=== PATIENT | female | born 1950 | race Caucasian/White ===

== ENCOUNTER 2023-11-21 07:44 | Outpatient (AMB) | payer MEDICARE, OTHER, SELFPAY ==
--- NOTE | 2023-11-21 07:46 | A.OFFVIS_ITS ---
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 The patient describes her pain as sharp in nature. She did injure her low back proximally 6 months ago while lifting a heavy suitcase. Since that time her pain has gotten worse. She also reports intermittent weakness in her right leg. She has undergone 2 low back surgeries by Dr. Banks in the past. She states that the most recent surgery was approximately 2014. The patient also underwent left total knee replacement surgery in 2020. She reports mild intermittent discomfort in her knee. She denies any locking or giving way. Allergies No Known Allergies Allergy (Verified 11/21/23 08:01) [facility] Surgical History (Updated 11/21/23 @ 08:03 by Jocelynn Angeles CMA) History of back surgery History of hip surgery History of hip surgery Hx of hysterectomy Hx of appendectomy Hx of left knee surgery Social History (Updated 11/21/23 @ 08:03 by Jocelynn Angeles CMA) Patient Tobacco Use Status: Never used Tobacco Current occupational status: retired Current occupation: Right hand dominate Physical Exam Vital Signs: BMI result Body Mass Index 27.5 Const Other: Well-nourished well-developed very friendly female awake alert and oriented x3 in no acute distress Back/Spine/Pelvis Other: Low back examination shows right-sided paraspinal muscle tenderness, pain with range of motion, positive straight leg raise test on the right at 70 degrees, 4/5 strength with testing of her right hip flexors and knee extensors when compared to 5/5 strength on her left side Extrem Other: Left knee examination shows that the surgical incision is well healed, no erythema, full active extension and flexion to 120 degrees, her patella tracks well Results Reviewed Results Reviewed: X-rays of the patient's left knee show a total knee arthroplasty in good position with no signs of loosening, no acute bony abnormalities Assessment & Plan Assessment & Plan (1) Low back pain radiating to right lower extremity: Code(s): M54.50 - Low back pain, unspecified; M79.604 - Pain in right leg Plan Ms. Montes continues to do well after undergoing left total knee replacement surgery in 2019. She does know to take antibiotics before any dental work. The patient does have progressively worsening low back pain which radiates down her right leg as well as associated right leg weakness most likely due to lumbar stenosis or a disc herniation. Thus, I will send the patient for an MRI of her lumbar spine for further evaluation. I will see her back once the MRI is completed. Feel free to call me at any time should questions regarding her orthopedic management arise. I spent 22 minutes in reviewing the patient's records and imaging studies, seeing the patient and documenting in the medical record. Orders: Orders XR knee LT 3V Today M25.562 - Pain in left knee MR lumbar spine wo con Today M54.50 - Low back pain, unspecified, M79.604 - Pain in right leg Coding Level of Care Code Est Pt Level 2 (03461) Diagnoses Low back pain radiating to right lower extremity M54.50; M79.604
[2023-11-21 07:57] VITALS: BMI 27.5
== END 2023-11-21 08:20 | disposition home or self-care (01) ==
PROVIDERS: PCP Internal Medicine; Visit Provider Orthopaedic Surgery
DX: M54.50 Low back pain, unspecified (principal); M79.604 Pain in right leg
CPT/HCPCS: 99213

== ENCOUNTER 2023-11-21 09:16 | Outpatient (REF) | payer MEDICARE, OTHER, SELFPAY ==
--- NOTE | ~2023-11-21 | XR_ITS ---
EXAMINATION: XR KNEE, LEFT CLINICAL INFORMATION: Pain in left knee. COMPARISON: None available. TECHNIQUE: 3 views of the left knee. FINDINGS: Status post left knee total arthroplasty. Hardware appears intact. No significant joint effusion. Alignment preserved. XR/XR knee LT 3V IMPRESSION: Status post left knee total arthroplasty. Hardware appears intact. Alignment preserved.
== END 2023-11-21 09:17 | disposition home or self-care (01) ==
LOC: HO.HOSX 09:16
PROVIDERS: Visit Provider Orthopaedic Surgery
DX: M25.562 Pain in left knee (principal); M54.50 Low back pain, unspecified; M79.604 Pain in right leg
CPT/HCPCS: 73562; 99212

== ENCOUNTER 2023-12-03 09:36 | Outpatient (AMB) | payer MEDICARE, OTHER, SELFPAY ==
[2023-12-03 09:41] VITALS: BMI 27.5
--- NOTE | 2023-12-03 09:41 | A.OFFVIS_ITS ---
Vital Signs 12/03/23 09:41 Height 5 ft 4 in Weight 160 lb BMI 27.5 Intake Visit Reasons: OV - C Spine MRI Review Intake Note: Jailyn is a 73 year old female who presents with complaints of progressively worsening low back pain which radiates down her right leg. The patient describes her pain as sharp in nature. She did injure her low back proximally 6 months ago while lifting a heavy suitcase. Since that time her pain has gotten worse. She also reports intermittent weakness in her right leg. She has undergone 2 low back surgeries by Dr. Banks in the past. She states that the most recent surgery was approximately 2014. She has tried Tylenol, anti- inflammatory medicines and lidocaine patches which gave her only mild relief. Allergies No Known Allergies Allergy (Verified 12/03/23 09:46) Medication List - Last Reconciled 12/03/23 by Hector Ortiz MD lidocaine 5% 1 patch topical DAILY PFSH Surgical History (Updated 11/21/23 @ 08:03 by Jocelynn Angeles CMA) History of back surgery History of hip surgery History of hip surgery Hx of hysterectomy Hx of appendectomy Hx of left knee surgery Social History (Updated 11/21/23 @ 08:03 by Jocelynn Angeles CMA) Patient Tobacco Use Status: Never used Tobacco Current occupational status: retired Current occupation: Right hand dominate Physical Exam Vital Signs: BMI result Body Mass Index 27.5 Const Other: Well-nourished well-developed very friendly female awake alert and oriented x3 in no acute distress Back/Spine/Pelvis Other: Low back examination shows right-sided paraspinal muscle tenderness, pain with range of motion, positive straight leg raise test on the right at 70 degrees Results Reviewed Results Reviewed: MRI of the patient's lumbar spine shows advanced stenosis at level L4-L5 and level L5-S1 which has progressed when compared to prior study Assessment & Plan Assessment & Plan (1) Lumbar stenosis with neurogenic claudication: Code(s): M48.062 - Spinal stenosis, lumbar region with neurogenic claudication Category: Medical Plan Ms. Montes presents with progressively worsening low back pain which radiates into her right leg due to worsening of her lumbar stenosis. Thus, I will refer her to the neurosurgery department here at [facility]. She will contact me prior to that appointment should her symptoms worsen in way. Feel free to call me at any time should questions regarding her orthopedic management arise. I spent 21 minutes in reviewing the patient's records and imaging studies, seeing the patient and documenting in the medical record. Orders: Referrals Neurosurgery Referral M48.062 - Spinal stenosis, lumbar region with neurogenic claudication Medications: New lidocaine 5% leave on most painful area for up to 12 hrs 1 patch topical DAILY 30 ea 2RF Coding Level of Care Code Est Pt Level 3 (09242) Diagnoses Lumbar stenosis with neurogenic claudication M48.062
== END 2023-12-03 10:12 | disposition home or self-care (01) ==
PROVIDERS: PCP Internal Medicine; Visit Provider Orthopaedic Surgery
DX: M48.062 Spinal stenosis, lumbar region with neurogenic claudication (principal)
CPT/HCPCS: 99213

== ENCOUNTER → 2023-12-03 09:36 | Outpatient (BNVA) | payer MEDICARE, OTHER, SELFPAY | PROVIDERS: PCP Internal Medicine; Visit Provider Orthopaedic Surgery | DX: M48.062 Spinal stenosis, lumbar region with neurogenic claudication (principal) | CPT/HCPCS: 99212 ==

== ENCOUNTER 2023-12-13 08:50 | Outpatient (REF) | payer MEDICARE, OTHER, SELFPAY ==
--- NOTE | ~2023-12-13 | XR_ITS ---
EXAMINATION: XR LUMBOSACRAL SPINE WITH OBLIQUES CLINICAL INFORMATION: Spinal stenosis lumbar region with neurogenic claudication. COMPARISON: None available. TECHNIQUE: 4 views of the lumbar spine. FINDINGS: The bones are diffusely demineralized. Dextroscoliosis of the lumbar spine. Degenerative changes in the bilateral sacroiliac joints. Advanced degenerative changes in the imaged lower thoracic spine. Facet arthritis in the [id number] lumbar spine. There appears to be transitional anatomy, although visualization limited due to overlying structures and advanced degenerative changes. Dedicated images of the spine recommended to confirm numeration prior to any procedure/intervention. For the purposes of this report, vertebral body referred to as T12 demonstrates hypoplastic ribs. Tip of tubing projects in the left upper quadrant of the abdomen. Advanced multilevel degenerative changes in the lumbar spine with multilevel loss of disc space height. Marked anterolisthesis of L5 on S1 with flexion and extension. Mild anterolisthesis of L4 on L5 with extension and flexion. Minimal retrolisthesis of L3 on L4 with flexion and extension. XR/XR lumbar spine 4V min IMPRESSION: Severe multilevel degenerative changes in the lumbar spine as detailed above.
== END 2023-12-13 08:51 | disposition home or self-care (01) ==
LOC: HO.HOSX 08:50
PROVIDERS: PCP Internal Medicine; Visit Provider Physician Assistant
DX: M48.062 Spinal stenosis, lumbar region with neurogenic claudication (principal)
CPT/HCPCS: 72110; 99202

== ENCOUNTER 2023-12-13 08:50 | Outpatient (AMB) | payer MEDICARE, OTHER, SELFPAY ==
--- NOTE | 2023-12-13 08:58 | A.SPINEOV_ITS ---
Intake Visit Reasons: spinal stenosis Intake Note: Ms. Montes is here today c/o Right sided sciatica that radiates down the leg to the ankle. [employer] Required: No Allergies No Known Allergies Allergy (Verified 12/13/23 09:02) Assessment & Plan Assessment & Plan (1) Lumbar stenosis with neurogenic claudication: Code(s): M48.062 - Spinal stenosis, lumbar region with neurogenic claudication Category: Medical Plan Dear Dr Ortiz, Thank you for referring Mrs Montes to our office today. She is a very nice 73-year-old female who had a previous left L5-S1, L4-[address] Banks about 8-10 years ago. She had great success with that surgery. Around 1 year ago she fell and sustained what she describes as compression fractures at L4 and L5. She went to the urgent care orthopedic office in [place] and was told that the should heal on their own but bedrest was the treatment. She decided that would be too difficult to stay in bed and managed to get through the pain and discomfort by just being active but gentle with herself. Fast forward to August of 2023, she was bending forward to pick something up out of a refrigerator and felt a pop in her back. There were 2 subsequent episodes where she was leaning forward and picking something up including a suitcase and felt the pain again but this time by the end of August there was pain running down her right leg into her outer calf in the top of her foot with tingling in the top of her foot. She underwent an MRI showing spondylolisthesis at L5-S1 and L4-5 with compression of the nerves in the foramen. She is referred to us for evaluation. As of right now the only thing she is taking is a topical cream and Advil. These things seemed to work okay. She had a history of a bleeding ulcer 1 point from Advil so she has only been taking it sparingly. She has had no PT, injections, chiropractic or other treatment thus far. No cauda equina symptoms. PMH: Former history of alcoholism, appendectomy, hysterectomy, back operations as listed above, hysterectomy, she has had both hips replaced and her left knee replaced. She has a previous history of peptic ulcer disease related to Motrin use but that resolved after treatment with a proton pump inhibitor. She had previously had hypertension high cholesterol as well but when she stopped drinking these issues went away. Denies any history of heart attacks, strokes, bleeding disorders, cancers, liver disease, kidney disease, major abdominal surgery . Social hx:She is a recovering alcoholic, after a number of years ago for about 5 years or so she tells me she was a very heavy drinker. She has been an alcoholics anonymous for 2 years. She quit smoking 20 years ago. Does not use any recreational drugs Medications: She currently does not take any regular medications outside of the Advil and topical ointment as needed Allergies: None Physical exam: Straight leg raise at about 30-40 degrees, strength normal in bilateral lower extremities with absent reflexes at the patella Imaging review: She has a lumbar MRI done at [facility], compared to previous MRI done in 2016 shows progression of spondylolisthesis at L5-S1, as well as new spondylolisthesis at L4-5. There has a suspicion for spondylolysis at the L5 pars. There is neuroforaminal stenosis on the right at L4 and L5. There is some STIR hyperintensity still in the bones at L4 and L5 suggesting there may be an ongoing subacute component of a compression fracture here as well. Impression: 73-year-old female with history of 2 previous back surgeries done by Dr. Banks about 8-10 years ago including L4-5 laminectomy and left L5-S1 metrics procedure, with good relief, sustained L4 and L5 compression fractures about a year ago for which she recovered without any issue. She is bending for to pick something up out of her refrigerator maybe 3 months ago or so and felt an acute right-sided low back pain. This ultimately transitioned into an L5 distribution radiculopathy down the right leg. Her MRI shows significant fin dings as outlined above including spondylolisthesis at L4-5 and L5-S1, both progressing since her last MRI done in 2016. She has right-sided foraminal stenosis and a slight scoliosis. I sent the patient for standing flexion- extension x-rays. These show slight worsening of the spondylolisthesis with standing. I suspect there is a degree of instability here. Her bone quality however looks like she has osteoporosis. In order to adequately fix this, she is likely looking at some kind of instrumentation and with her bone quality, she may be high risk for complications. At this point without any dedicated conservative treatment I am going to send her to physical therapy which she is requesting as well. I will also send her to Dr. Madden to see if he can do an L5 nerve block on the right side. Maybe this will be enough just to help her get through and make things little more tolerable. If in the end these things are not giving her any improvement, she may end up needing surgery. I would like to review all of her imaging with Dr. Fallon. I will see the patient back in 6-8 weeks and re-evaluate. Thank you for allowing us to care for your patient. The total time spent with this visit with this patient was 45 minutes reviewing history, physical exam, lumbar imaging review, and implementation of treatment plan or further diagnostic testing Leandro Fallon MD,PhD [facility] Orders: Orders PT Evaluation and Treatment Today M48.062 - Spinal stenosis, lumbar region with neurogenic claudication XR lumbar spine 4V min Today M48.062 - Spinal stenosis, lumbar region with neurogenic claudication Referrals Physiatry Referral M48.062 - Spinal stenosis, lumbar region with neurogenic claudication Coding Level of Care Code New Pt Level 4 (76714) Diagnoses Lumbar stenosis with neurogenic claudication M48.062
== END 2023-12-13 10:19 | disposition home or self-care (01) ==
PROVIDERS: PCP Internal Medicine; Referring Provider Orthopaedic Surgery; Visit Provider Physician Assistant
DX: M48.062 Spinal stenosis, lumbar region with neurogenic claudication (principal)
CPT/HCPCS: 99204

== ENCOUNTER 2024-01-08 08:16 | Outpatient (AMB) | payer MEDICARE, OTHER, SELFPAY ==
--- NOTE | 2024-01-08 08:17 | MHC.OFFVIS ---
Vital Signs 01/08/24 08:19 Height 5 ft 4 in Weight 160 lb BMI 27.5 Intake Visit Reasons: Right knee pain Intake Note: Jailyn is a 73 year old female who presents with complaints of progressively worsening right knee pain. She did undergo left total knee replacement surgery in the past. She reports minimal discomfort in her left knee. She describes her right knee pain as sharp in nature. She has had cortisone injections in the past which gave her fairly good relief. She has tried Tylenol and anti-inflammatory medicines which gave her only mild relief. She wishes to hold off on right total knee replacement surgery for as long as possible. Allergies No Known Allergies Allergy (Verified 01/08/24 08:19) Medication List - Last Reconciled 01/10/24 by Hector Ortiz MD lidocaine 5% 1 patch topical DAILY [facility] Surgical History (Updated 11/21/23 @ 08:03 by Jocelynn Angeles CMA) History of back surgery History of hip surgery History of hip surgery Hx of hysterectomy Hx of appendectomy Hx of left knee surgery Social History Patient Tobacco Use Status: Never used Tobacco Current occupational status: retired Current occupation: Right hand dominate Physical Exam Vital Signs: BMI result Body Mass Index 27.5 Const Other: Well-nourished well-developed very friendly female awake alert and oriented x3 in no acute distress Extrem Other: Bilateral lower extremity examination shows good capillary refill, no skin lesions noted, normal sensation light touch Right knee examination shows a minimal effusion, palpable crepitus with range of motion, pain with range of motion, no instability Office Procedures Joint Injection/Drain Joint Injection/Drain Primary Site: right knee Prep: site was prepped using aseptic technique Injected: 40 mg of, Kenalog and 1% plain lidocaine Procedure: The patient tolerated the procedure well Coding 96065 - Large joint Procedure code (CPT) selection complete Assessment & Plan Assessment & Plan (1) Arthritis of right knee: Code(s): M17.11 - Unilateral primary osteoarthritis, right knee Category: Medical (2) Right knee pain: Code(s): M25.561 - Pain in right knee Plan Ms. Montes presents with right knee pain due to degenerative joint disease. I had a lengthy discussion with the patient regarding the treatment options. The risks and benefits of a right knee cortisone injection were discussed at length with the patient. The patient wished to proceed. She tolerated the injection well. She will continue with her home exercise program. She will follow up with me on an as-needed basis should his symptoms not plateau at an unacceptable level over the next few months. Feel free to call me at any time should questions regarding her orthopedic management arise. I spent 20 minutes in reviewing the patient's records and imaging studies, seeing the patient and documenting in the medical record. Orders: Orders AMB Joint Injection/Aspiration 01/08/24 M17.11 - Unilateral primary osteoarthritis, right knee Coding Level of Care Code Est Pt Level 3 (43616) Diagnoses Arthritis of right knee M17.11 Right knee pain M25.561 CPT Codes Coding - 73578 Large joint: 43061 - Large joint ([id number])
[2024-01-08 08:19] VITALS: BMI 27.5
== END 2024-01-08 08:40 | disposition home or self-care (01) ==
PROVIDERS: PCP Internal Medicine; Visit Provider Orthopaedic Surgery
DX: M17.11 Unilateral primary osteoarthritis, right knee (principal)
CPT/HCPCS: 20610; 99213

== ENCOUNTER → 2024-01-08 08:16 | Outpatient (BNVA) | payer MEDICARE, OTHER, SELFPAY | PROVIDERS: PCP Internal Medicine; Visit Provider Orthopaedic Surgery | DX: M17.11 Unilateral primary osteoarthritis, right knee (principal) | CPT/HCPCS: 20610; 99212; J1010 ==

== ENCOUNTER 2024-01-23 07:00 | Outpatient (RCR) | payer MEDICARE, OTHER, SELFPAY ==
--- NOTE | 2024-01-01 15:24 | MHC.PT.EP ---
[facility] [place] Office [place] Office [place] Office [address] Elana Hubbard [address] [phone] F: [phone] F: [phone] F: [phone] F: [phone] Physical Therapy Plan of Care Date of Evaluation: 01/01/24 Date of Surgery: Diagnosis: SPINAL STENOSIS, LUMBAR W NEUROGENIC CLAUDICATION -> TREAT LUMBAR RADICULOPATHY L4-5,L5-S1 SPONDYLOLISTHESIS Assessment: 73 YO , VERY MOTIVATED FEMALE REF TO PT W A DX OF SPINAL STENOSIS W LUMBAR REGION W NEUROGENIC CLAUDICATION W LUMBAR RADICULOPATHY L4-5,L5-S1; SHE HAS A H/O MARTHA KELLY Lt TKA/LUMBAR LAMINECTOMIES L4-5 AND L5-S1. THE Pt RESIDES ALONE- SHE HAS OBJECTIVE FINDINGS CONSISTING OF ALTERED POSTURE, (+) LUMBOPELVIC ASYMM W LLI, LIMITED HIP IR, DECR PROX LEs / LUMBOPELVIC STRENGTH, LIMITED TRUNK AROM, (+) STM TENSION IN MARTHA LS PS MM , AND FLUCTUATING LS PAIN W INTERM Rt LE RADIC SXS. SHE DENIES BOWEL/ BLADDER SIGNS/SXS. SHE WOULD BENEFIT FROM PT TO ADDRESS PAIN MGMT, DEV HEP, MONITOR LUMBOPELVIC SYMM SHE INITIATES HER HEP -> SHE MAY BENEFIT FROM A SMALL HEEL LIFT Rt . Frequency and Duration: The patient will be seen 2 x WK x 5 WKS Short Term Goals: *DECR LBP TO 2-3/10 AND REDUCE Rt LE RADIC SXS BY 60% *IMPROVE POSTURAL AWARENESS / BODY MECH TO REDUCE LB STRESS *INITIATE HEP *IMPROVE HIP FLEXIB Mcfp Goals: *Pt INDEP W HEP AND SELF SX MGMT *IMPROVE FUNCT MOB AND REG ADLs/ EXER EVIDENT W DECR OSWESTRY ( AT EVAL) *Pt DEMON 3:3 SIMUL ADLs W APPROP TECHN, BACK PROTECTION Treatment Plan: Modalities to reduce pain, spasms and effusion. Manual therapy to restore motion and function. Therapeutic exercise to improve strength and flexibility. Neuromuscular re-education for posture and balance. Therapeutic activities to return to functional activities of daily living. Electronically signed by: FERNANDA EM,PT Please sign and return to therapist. Thank you for your referral.
--- NOTE | 2024-02-25 15:03 | MHC.PT.DC ---
[facility] [place] Office [place] Office [place] Office [address] Elana Hubbard [address] [phone] F: [phone] F: [phone] F: [phone] F: [phone] Physical Therapy Discharge Report Diagnosis: SPINAL STENOSIS, LUMBAR W NEUROGENIC CLAUDICATION -> TREAT LUMBAR RADICULOPATHY L4-5,L5-S1 SPONDYLOLISTHESIS Date of Surgery: Date of Evaluation: 01/01/24 Date of Discharge: 02/25/24 Treatments to Date: 7 Cancellations to Date: 2 No Shows to Date: 0 Discharge Status: Patient Elected to Stop Discharge Summary: THE Pt HAS ATTENDED PT BUT DID NOT ATTEND HER LAST FEW APPTS- SHE HAS A HEP AND WE HAVE EDUC HER RE SELF-CORRECTION OF POSTURE/BODY MECHANICS TO REDUCE STRESS ON HER SPINE. SHE DID NOT MEET ALL OF HER PT GOALS AND A FORMAL REASSESSMENT WAS NOT PERFORMED DUE TO POOR ATTENDANCE. Electronically signed by: FERNANDA EM,PT Please sign and return to therapist. Thank you for your referral.
== END 2024-02-25 15:04 | disposition home or self-care (01) ==
LOC: HO.PT 07:00
PROVIDERS: PCP Internal Medicine; Visit Provider Physician Assistant
DX: M48.062 Spinal stenosis, lumbar region with neurogenic claudication (principal)
CPT/HCPCS: 97110; 97140; 97162

== ENCOUNTER 2024-03-10 10:12 | Outpatient (REF) | payer MEDICARE, OTHER, SELFPAY | END 2024-03-10 10:13 | disposition home or self-care (01) | LOC: HO.HOSX 10:12 | PROVIDERS: Visit Provider Orthopaedic Surgery | DX: Z13.89 Encounter for screening for other disorder (principal) ==

== ENCOUNTER 2024-03-11 08:57 | Outpatient (REF) | payer MEDICARE, OTHER, SELFPAY ==
--- NOTE | ~2024-03-11 | XR_ITS ---
EXAMINATION: XR KNEE, RIGHT CLINICAL INFORMATION: Pain right knee COMPARISON: None available. TECHNIQUE: Four views of the right knee. FINDINGS: Diffuse demineralization. Small joint effusion. Advanced degenerative changes in the medial compartment with loss of joint space, subchondral sclerosis and marginal osteophytes. Moderate patellofemoral spurring. XR/XR knee RT 3V IMPRESSION: Advanced degenerative changes in the medial compartment. Electronically signed by: Елена Gaytan MD 04/07/2024 09:31 AM EDT
== END 2024-03-11 08:58 | disposition home or self-care (01) ==
LOC: HO.XRAY 08:57
PROVIDERS: PCP Internal Medicine; Visit Provider Orthopaedic Surgery
DX: M25.561 Pain in right knee (principal)
CPT/HCPCS: 73562; 99212

== ENCOUNTER 2024-03-11 09:40 | Outpatient (AMB) | payer MEDICARE, OTHER, SELFPAY ==
--- NOTE | 2024-03-11 09:39 | A.OFFVIS_ITS ---
Intake Visit Reasons: OV-Right knee pain-follow up Intake Note: Jailyn is a 73 year old female who presents to the office today for a right knee pain follow up. Patient had a cortisone injection on 01/08/24 in the right knee but states the pain is worse and the injection didn't help. She states that she has had a nerve block procedure by Dr. Madden which gave her fairly good relief in the past. She did undergo left total knee replacement surgery in 2019. She wishes to hold off on right total knee replacement surgery if at all possible. Allergies No Known Allergies Allergy (Verified 03/11/24 09:40) Medication List - Last Reconciled 03/11/24 by Hector Ortiz MD lidocaine 5% 1 patch topical DAILY PFSH Surgical History (Updated 11/21/23 @ 08:03 by Jocelynn Angeles CMA) History of back surgery History of hip surgery History of hip surgery Hx of hysterectomy Hx of appendectomy Hx of left knee surgery Social History Patient Tobacco Use Status: Never used Tobacco Current occupational status: retired Current occupation: Right hand dominate Physical Exam Const Other: Well-nourished well-developed very friendly female awake alert and oriented x3 in no acute distress Extrem Other: Bilateral lower extremity examination shows good capillary refill, no skin lesions noted, normal sensation light touch Right knee examination shows a minimal effusion, palpable crepitus with range of motion, pain with range motion, no instability Results Reviewed Results Reviewed: X-rays of the patient's right knee taken today show end-stage degenerative joint disease with grade 4 [id number] arthritis in the medial compartment, subchondral sclerosis, osteophyte formation, no acute bony abnormalities Assessment & Plan Assessment & Plan (1) Arthritis of right knee: Code(s): M17.11 - Unilateral primary osteoarthritis, right knee Category: Medical Plan Ms. Montes presents with progressively worsening right knee pain due to end- stage degenerative joint disease. I had a lengthy discussion with the patient regarding the treatment options. The patient wishes to follow up with Dr. Madden to see if she can get another nerve block procedure to help with her pain. If she does not get relief from the procedure she is considering undergoing right total knee replacement surgery later this year or early next year. She will contact my office to pick a surgery date if she chooses to do so. Otherwise she will follow up with me on an as-needed basis. Feel free to call me at any time should questions regarding her orthopedic management arise. I spent 20 minutes in reviewing the patient's records and imaging studies, seeing the patient and documenting in the medical record. Orders: Orders XR knee RT 3V Today M25.561 - Pain in right knee Coding Level of Care Code Est Pt Level 3 (55121) Diagnoses Arthritis of right knee M17.11
== END 2024-03-11 10:10 | disposition home or self-care (01) ==
PROVIDERS: PCP Internal Medicine; Visit Provider Orthopaedic Surgery
DX: M17.11 Unilateral primary osteoarthritis, right knee (principal)
CPT/HCPCS: 99213

== ENCOUNTER → 2024-04-24 08:37 | Outpatient (BNVA) | payer MEDICARE, OTHER, SELFPAY | PROVIDERS: PCP Internal Medicine | DX: Z01.818 Encounter for other preprocedural examination (principal) ==

== ENCOUNTER 2024-05-21 07:46 | Outpatient (AMB) | payer MEDICARE, OTHER, SELFPAY ==
--- NOTE | 2024-05-21 07:49 | A.OFFVIS_ITS ---
Intake Visit Reasons: Right knee pain Intake Note: Jailyn is 73 year old female who presents with complaints of progressively worsening right knee pain. The patient describes her pain as sharp and severe in nature, 05/07. Her pain has gotten worse over the last few years in spite of continued non operative treatments. She has had multiple injections. The most recent injection gave her minimal relief. She has also done physical therapy exercises which aggravated her pain. She has tried Tylenol and anti-i nflammatory medicines which gave her minimal relief. The patient did undergo left total knee replacement surgery in 1999. She denies any pain in her left knee. At this point her right knee pain is interfering with her activities of daily living and her ability to sleep well through the night. The patient has difficulty walking even short distances because of her right knee pain. Allergies Iodinated Contrast Media [IV Contrast Dye] Allergy (Intermediate, Verified 05/21/24 07:58) Itching and warm Medication List - Last Reconciled 05/21/24 by Hector Ortiz MD prednisone 1 mg PO DAILY [facility] Medical History History of cervical dysplasia (~1980) Hx of blood transfusion reaction (~1968) Back pain at L4-L5 level Back pain Seasonal allergies Osteoarthritis History of GI bleed (~1991) Sciatica Surgical History Hx of colonoscopy History of back surgery (~2015) History of hip surgery (~2019) History of hip surgery (~2008) Hx of hysterectomy Hx of appendectomy Hx of left knee surgery (~2019) Social History Household Members: None Caregiver staying overnight: No Are you a primary primary care pediatrician to a significant other at home: No Do you presently have visiting nurse or other home services: No 75 years or older and lives alone: Yes Comment: aware of trip hazard Patient Tobacco Use Status: Former Tobacco user Tobacco use type: Cigarette Second Hand Smoke Exposure: No Current occupational status: retired Current occupation: Right hand dominate Physical Exam Const Other: Well-nourished well-developed very friendly female awake alert and oriented x3 in no acute distress Extrem Other: Bilateral lower extremity examination shows good capillary refill, no skin lesions noted, normal sensation light touch Right knee examination shows a minimal effusion, palpable crepitus with range of motion, pain with range of motion, range of motion from -3 degrees to 115 degrees, no instability Results Reviewed Results Reviewed: X-rays of the patient's right knee taken previously show end-stage degenerative joint disease with grade 4 [id number] arthritis, subchondral sclerosis, no acute bony abnormalities Assessment & Plan Assessment & Plan (1) Right knee pain: Code(s): M25.561 - Pain in right knee Category: Medical (2) Arthritis of right knee: Code(s): M17.11 - Unilateral primary osteoarthritis, right knee Category: Medical Plan Ms. Montes presents with progressively worsening right knee pain due to end- stage degenerative joint disease. I had a lengthy discussion with the patient regarding the treatment options. At this point she has failed continued non operative treatments. The risks and benefits of right total knee replacement surgery were discussed at length with the patient. The patient wishes to proceed with surgery. coordinator of health services will be consulted following her surgery for inpatient rehabilitation. The patient did go to [facility] and had a good experience following her total hip replacement surgery. She wishes to return to [facility] rehab if at all possible following her right total knee replacement surgery. The patient will follow-up as instructed. Feel free to call me at any time should questions regarding her orthopedic management arise. I spent 22 minutes in reviewing the patient's records and imaging studies, seeing the patient and documenting in the medical record. Coding Level of Care Code Est Pt Level 3 (92562) Complex EM visit Add On G2211 Diagnoses Right knee pain M25.561 Arthritis of right knee M17.11
== END 2024-05-21 08:12 | disposition home or self-care (01) ==
PROVIDERS: PCP Internal Medicine; Visit Provider Orthopaedic Surgery
DX: M17.11 Unilateral primary osteoarthritis, right knee (principal)
CPT/HCPCS: 99213; G2211

== ENCOUNTER → 2024-05-21 07:46 | Outpatient (BNVA) | payer MEDICARE, OTHER, SELFPAY | PROVIDERS: PCP Internal Medicine; Visit Provider Orthopaedic Surgery | DX: M17.11 Unilateral primary osteoarthritis, right knee (principal) | CPT/HCPCS: 99212 ==

== ENCOUNTER 2024-05-25 09:03 | Outpatient (BNV) | payer MEDICARE, OTHER, SELFPAY | END 2024-05-26 08:19 | PROVIDERS: Admitting Provider Orthopaedic Surgery; PCP Internal Medicine; Visit Provider Internal Medicine | DX: R00.1 Bradycardia, unspecified (principal) | CPT/HCPCS: 93010 ==

== ENCOUNTER 2024-05-25 09:03 | Inpatient (IN) | payer MEDICARE, OTHER, SELFPAY ==
[2024-04-29 10:02] VITALS: BP 127/69; PULSE 68; RESP 16; O2SAT 98; BMI 30.2
--- NOTE | 2024-04-29 10:29 | HO.ANESPROP2 ---
Documented by User: Juliana Frey NP 04/29/24 10:54 HPI - Anesthesia Eval Consult details Narrative: 73yo F for Right Knee Replacement Total, 05/25/24 Medically optimized per PCP L4-5 steroid injection for back pain 04/08/24 Prednisone taper for sciatica/knee pain: Last day 05/01/24 PMFSH Active Problems Active Problems: All Active Problems Right knee pain (Acute) Arthritis of right knee (Acute) Lumbar stenosis with neurogenic claudication (Acute) Left knee pain (Acute) Past Medical History Medical History History of cervical dysplasia (~1980) Hx of blood transfusion reaction (~1968) Back pain at L4-L5 level Back pain Seasonal allergies Osteoarthritis History of GI bleed (~1991) Sciatica Family History Family history of problems with anesthesia: No Surgical History Surgical History Hx of colonoscopy History of back surgery (~2015) History of hip surgery (~2019) History of hip surgery (~2008) Hx of hysterectomy Hx of appendectomy Hx of left knee surgery (~2019) History of Problems with Anesthesia: No Social History Social History Household Members: None Are you a primary restorative care technician to a significant other at home: No Do you presently have visiting nurse or other home services: No Comment: aware of trip hazard Patient Tobacco Use Status: Former Tobacco user Tobacco use type: Cigarette Smoked in Last 30 Days: No Second Hand Smoke Exposure: No Use of substances other than those prescribed or required for medical reasons: No Have you been hit, kicked, punched, or otherwise hurt by someone within the past year? If so, by whom?: No Spiritual Healthcare Practices: none [facility] Practices: none Cultural Healthcare Practices: none Are you DNR?: No Advance Directives: No Advance Directives Information Provided: Yes Advance Directives on File: No Recently lost weight without trying: No Nutrition Risks: No Nutritional Risk Current occupational status: retired Current occupation: Right hand dominate Meds Allergies Allergy/AdvReac Type Severity Reaction Status Date / Time Iodinated Contrast Media Allergy Intermediate Itching Verified 05/25/24 09:07 [IV Contrast Dye] and warm Home Medications ?Medication ?Instructions ?Recorded ?Confirmed ?Last Taken ?Type prednisone 1 mg tablet 1 mg PO DAILY 04/29/24 05/21/24 Unknown History Exam Height,Weight and Vital Signs: Height 5 ft 3 in Weight 77.3 kg Last Vital Signs Pulse 68 04/29/24 10:02 Resp 16 04/29/24 10:02 BP 127/69 04/29/24 10:02 Pulse Ox 98 04/29/24 10:02 O2 Del Method Room Air 04/29/24 10:02 Airway Mallampati Class: II TM Dist: >3cm Neck ROM: Full Partial: Lower Heart: RRR Lungs: CTAB Assessment and Plan Assessment Anesthesia Assessment: Anesthesia Plan Discussed and PAT Visit Final Anesthetic Review Family History of Problems with Anesthesia: No History of Problems with Anesthesia: No Documented by User: Renata Mendoza MD 05/25/24 09:16 PMFSH Past Medical History Medical History History of cervical dysplasia (~1980) Hx of blood transfusion reaction (~1968) Back pain at L4-L5 level Back pain Seasonal allergies Osteoarthritis History of GI bleed (~1991) Sciatica Surgical History Surgical History Hx of colonoscopy History of back surgery (~2015) History of hip surgery (~2019) History of hip surgery (~2008) Hx of hysterectomy Hx of appendectomy Hx of left knee surgery (~2019) Social History Social History Household Members: None Are you a primary restorative care technician to a significant other at home: No Do you presently have visiting nurse or other home services: No Comment: aware of trip hazard Patient Tobacco Use Status: Former Tobacco user Tobacco use type: Cigarette Smoked in Last 30 Days: No Second Hand Smoke Exposure: No Use of substances other than those prescribed or required for medical reasons: No Have you been hit, kicked, punched, or otherwise hurt by someone within the past year? If so, by whom?: No Spiritual Healthcare Practices: none [facility] Practices: none Cultural Healthcare Practices: none Are you DNR?: No Advance Directives: No Advance Directives Information Provided: Yes Advance Directives on File: No Recently lost weight without trying: No Nutrition Risks: No Nutritional Risk Current occupational status: retired Current occupation: Right hand dominate Meds Allergies Allergy/AdvReac Type Severity Reaction Status Date / Time Iodinated Contrast Media Allergy Intermediate Itching Verified 05/25/24 09:07 [IV Contrast Dye] and warm Home Medications ?Medication ?Instructions ?Recorded ?Confirmed ?Last Taken ?Type prednisone 1 mg tablet 1 mg PO DAILY 04/29/24 05/21/24 Unknown History Assessment and Plan Final Anesthetic Review ASA Class: II (on prednisone for back pain, stopped 3 weeks ago) Final Preanesthetic Review: No Changes in Pt Med Stat, Meds/Allgs Chart Reviewed, Consent Obtained/Reviewed and Anes Risks/Benef Reviewed Patient Risk: Intermediate Procedure Risk: Intermediate Anesthetic Plan Anesthetic Plan: GA, Spinal and Regional Block Disposition: Standard PACU
[2024-04-29 12:11] LABS: MRSA Nasal PCR NEGATIVE (Negative); SA Nasal PCR NEGATIVE (Negative)
[2024-05-25] VITALS (15 sets, daily range): BP systolic 97–181; BP diastolic 44–82; PULSE 57–75; RESP 16–18; TEMP 36–36.7; O2SAT 96–100; BMI 29.2
--- NOTE | ~2024-05-25 | CT_ITS ---
EXAMINATION: CT HEAD WITHOUT CONTRAST CLINICAL INFORMATION: Syncope and loss of consciousness COMPARISON: None available. TECHNIQUE: Contiguous axial imaging was performed from the skull base to vertex without intravenous administration of contrast. This CT examination was performed using dose optimization techniques as appropriate, variously including the following: *Automated exposure control *Adjustment of mA and/or kV according to patient size (this includes techniques or standardized protocols for targeted exams where dose is matched to indication/reason for exam; i.e. extremities or head) *Use of iterative reconstruction technique DLP: 766 mGy-cm FINDINGS: There is prominence to the sulci and ventricles. No evidence however of intra or extra-axial fluid collection, hemorrhage, mass, or mass effect. Mild deep white matter gliosis is observed. Calvarium intact. CT/CT head/brain wo IV con IMPRESSION: No acute intracranial pathology. Electronically signed by: Cornell Arredondo MD 05/26/2024 09:49 AM EDT
[2024-05-25] MEDS: Lactated Ringers 1,000 ML 100 ML IVCONT ×3 (08:38→23:45)
--- OUTSIDE RECORDS SUMMARY | 2024-05-25 09:05 | XMS_ITS | Continuity of Care Document ---
Author Organization [facility] Address [address] [place] [id number]- Care Team Providers Care Environmental Protection Geologist Name Role Phone Tab Joe MD Primary Care Physician Encounter [facility] [place] Date(s): 09/25/21 - 12/07/[address] [address] Attending Physician: Tab Joe MD Admitting Physician: Tab Joe MD Referring Physician: Tab Joe MD Allergies, Adverse Reactions, Alerts Substance Reaction Severity Status Contrast Dye Active Medications hydrochlorothiazide 12.5 mg oral capsule = 12.5 mg, By Mouth, Daily, # 30 tablet, 0 Refills, Maintenance, 05/06/15 16:47:02, Capsule, 12.5 mg By Mouth Daily Start Date: 05/06/15 Status: Ordered Mucinex DM 1 tablet, By Mouth, Every 12 hours, PRN Nasal Congestion, 0 Refills, Maintenance, 05/05/15 20:15:59 Start Date: 05/05/15 Status: Ordered
--- NOTE | 2024-05-25 09:18 | PC.NURSE ---
Patient denied any allergies except to IVP dye. Iodine wash was used in nose as ordered and patient began sneezing, which stopped. After second questioning, patient stated iodine makes me sneeze. Added to allergy list. OR nurse alerted.
--- NOTE | 2024-05-25 09:35 | PHA.MEDREC ---
Pharmacy Consult ? Medication Reconciliation Pharmacy has reviewed the medication reconciliation completed by nursing.
--- NOTE | 2024-05-25 12:38 | P.BOP_ITS ---
Brief Operative Note Date of Service: 05/25/24 Pre-op diagnosis: Right knee degenerative joint disease Post-op diagnosis: same Procedure: Right total knee arthroplasty Implants: [place] [employer] cemented posterior stabilized total knee arthroplasty with a femoral component size 2 right, a tibial component size 2, polyethylene liner size 2 with 10 mm of thickness, a symmetric patellar component size 27 with 8 mm of thickness Surgeon: Hector Ortiz MD Anesthesia: regional and spinal Was an Metal Cutter used for this Procedure?: No Metal Cutter: Aurelia Stratton Estimated blood loss (mL): 150 Pathology: other (Bony fragments from the right femur, tibia and patella) Condition: stable Disposition: PACU
--- NOTE | 2024-05-25 12:39 | P.OP_ITS ---
Operative Note Operative Note Date of Service: 05/25/24 Narrative: After the patient was identified as Jailyn Montes and her right knee was initialed by myself the patient was brought to the holding area where a right leg nerve block was performed by the anesthesiologist in routine fashion. The patient was then brought to the operating room where conscious sedation and spinal anesthesia were performed by the anesthesiologist in routine fashion. The patient was given 2 g of IV Ancef preoperatively for infection prophylaxis. The patient's right lower extremity was prepped and draped in sterile fashion. A formal time-out was completed. The patient's right knee was placed onto a small bump to produce 30? of knee flexion during exposure. A #10 scalpel blade was used to make a midline incision extending 1 handbreadth proximal and distal to the patella. A second #10 scalpel blade was used to dissect the subcutaneous tissues down to the extensor mechanism. The subcutaneous flaps were maintained as thick as possible. A medial parapatellar arthrotomy was then performed using a #10 scalpel blade. The arthrotomy was begun just medial to the patellar tendon. The arthrotomy was continued 1 cm medial to the patella and then 5 mm into the medial aspect of the quadriceps tendon. The infrapatellar fat pad was partially excised to help with exposure. The soft tissue retinaculum was raised one-half of the way around the medial aspect of the proximal tibia. The patella was everted and the knee was flexed to 90?. There was no injury to the patellar tendon or its insertion onto the tibial tubercle. A drill bit was introduced into the distal aspect of the femur with a starting point 1 cm anterior to the origin of the posterior cruciate ligament. The intramedullary alignment jluis was put into place. The distal alignment guide was set for a 5 degree valgus cut. The distal cutting block was put into place and was held with 4 pins. The intramedullary alignment jluis was removed. Soft tissues were retracted in the distal femoral cut was made using a sagittal saw. The distal aspect of the femur measured to be a size 2 right component. Two drill holes were placed into the distal aspect of the femur marking 3? of external rotation. The distal cutting block was impacted into place and was held with 2 pins. Soft tissues were retracted and the 4 distal femoral cuts were made using a sagittal saw. Final notching and drilling of the distal aspect of the femur were performed in routine fashion. The trial femoral component was impacted into place. The knee was taken through a full range of motion. The patella tracked well. The patella was everted and the knee was flexed to 90?. The trial component was removed and our attention was directed to the proximal tibia. The medial and lateral menisci were removed using a #10 scalpel blade. A small rim of the medial meniscus was left intact to help prevent injury to the medial collateral ligament. A drill bit was then introduced into the proximal tibia with a starting point midway from medial to lateral and one-third of the way posteriorly. The intramedullary alignment jluis was put into place. The proximal tibial cutting guide was placed over the alignment jluis in line with the 2nd toe. The guide was held in place using 3 pins. The intramedullary alignment jluis was removed. Soft tissues were retracted and the proximal tibial cut was made using a sagittal saw. The proximal tibia measured to be a size 2 component. The tibial tray was put into place with a 10 mm liner. The femoral component was impacted into place. The knee was taken through a full range of motion. There was full flexion and full extension. There was no instability with varus or valgus stress testing with the knee in flexion or extension. The patella tracked well with no medially directed force. The rotation of the tibial tray was marked using electrocautery with the knee in extension. The patella was everted and the knee was flexed to 90?. All trial components were removed. The tibial tray was placed onto the proximal tibia in line with the electrocautery saul. The tray was held in place using 3 pins. Final broaching of the proximal tibia was performed in routine fashion. The trial liner and trial femoral component were put into place. The knee was brought into extension and our attention was directed to the patella. The patella measured 25 mm in thickness. The patellar resection guide was set for a 10 mm resection. Soft tissues were retracted and the patella cut was made using a sagittal saw. The remaining patella measured 15 mm in thickness. The undersurface of the patella was me asured to be a size 27 symmetric component. Three drill holes were placed into the undersurface of the patella in routine fashion. The trial component was put into place. The knee was taken through a full range of motion. The patella tracked well. The patella was everted and the knee was flexed to 90?. All trial components were removed. The knee was once again brought into extension and placed onto a small bump. The knee joint was irrigated with copious amounts of normal saline solution via pulse lavage while the cement was mixed. The patella was everted and the knee was flexed to 90?. A small amount of cement was placed along the posterior aspects of the tibial and femoral components. Cement was then pressurized into the proximal tibia. The tibial component was impacted into place. Any excess cement was removed. The polyethylene liner was then impacted into place. Cement was then pressurized into the distal aspect of the femur. A small amount of cement was placed into the intramedullary canal to help reduce bleeding. The femoral component was impacted into place. Any excess cement was removed. The knee was then brought into extension. Cement was pressurized into the undersurface of the patella. The patellar component was put into place and was held with a patella clamp. Any excess cement was removed. Once the cement had hardened the patellar clamp was removed. The knee was taken through a full range of motion. There was full flexion and extension. There was no instability with varus or valgus stress testing with the knee in flexion or extension. The patella tracked well with no medially directed force. The knee joint was irrigated with copious amounts of normal saline solution via pulse lavage. Any significant bleeding vessels were coagulated. The patient's right knee was placed onto a small bump. The arthrotomy was closed with #2 Ethibond [id number] interrupted suture as well as #1 Vicryl [id number] interrupted suture. The wound was once again irrigated. The subcutaneous tissues were closed with 0 Vicryl and 2-0 Vicryl interrupted sutures. The skin was closed with skin sidney. Dry sterile dressing and Jeronimo bandages were placed over the patient's right knee. The patient was awake and alert. The patient was transferred to the recovery room in stable condition.
[2024-05-25] MEDS: methocarbamoL 500 MG TABLET PO ×2 (14:34→19:32)
[2024-05-25] MEDS: oxyCODONE HCl ER 10 MG TAB.ER.12H PO ×2 (14:34→19:31)
[2024-05-25] MEDS: Celecoxib 200 MG CAPSULE PO ×2 (14:34→19:31)
[2024-05-25] MEDS: oxyCODONE HCl Immed Release 5 MG TABLET 10 MG PO ×2 (14:34→18:25)
--- NOTE | 2024-05-25 14:49 | PHA.MEDREC ---
Pharmacy Consult ? Medication Reconciliation Pharmacy has reviewed the medication reconciliation done by nursing. Patient isn't on any home medications. No recent claim history.
[2024-05-25] MEDS: predniSONE 1 MG TABLET PO (16:35)
[2024-05-25] MEDS: Acetaminophen 325 MG TABLET 650 MG PO ×2 (16:35→23:53)
[2024-05-25] MEDS: HYDROmorphone HCl 0.5 MG/0.5 ML SYRINGE IVPUSH (16:36)
[2024-05-25] MEDS: Aspirin 325 MG TABLET PO (18:25)
[2024-05-25] MEDS: Gabapentin 100 MG CAPSULE PO (19:32)
[2024-05-25] MEDS: Melatonin 3 MG TABLET 6 MG PO (23:53)
[2024-05-26] VITALS (11 sets, daily range): BP systolic 110–185; BP diastolic 52–84; PULSE 46–83; RESP 16–18; TEMP 36.2–37.1; O2SAT 94–98
--- NOTE | 2024-05-26 | ECG_ITS ---
Test Reason : Loc Blood Pressure : / mmHG Vent. Rate : 058 BPM Atrial Rate : 058 BPM P-R Int : 182 ms QRS Dur : 078 ms QT Int : 434 ms P-R-T Axes : 026 041 034 degrees QTc Int : 426 ms Sinus bradycardia Otherwise normal ECG No previous ECGs available Referred By: Kristan Watts Electronically Signed By:QI LOBATO
[2024-05-26] MEDS: ceFAZolin Sodium/Dextrose,Iso 2 GM/50 ML PIGGYBACK IV ×3 (00:01→16:13)
[2024-05-26 06:46] LABS: MANUAL DIFF FLAG NO
[2024-05-26 06:58] LABS: Basophils Percent Auto 0.2 % (0-2); Hemoglobin 10.6 g/dl (12.0-16.0); Imm Gran Abs Auto 0.05 X10*3/uL (0.00-0.03); Imm Gran Pct Auto 0.5 % (0.0-0.4); Lymphocytes Absolute Auto 1.4 X10*3/uL (1.2-4.9); Lymphocytes Percent Auto 12.7 % (20-40); Mean Corpuscular HGB Conc 33.1 g/dl (31.0-35.0); Mean Corpuscular Hemoglobin 30.5 pg (27.0-33.0); Mean Corpuscular Volume 92.2 fL (80.0-98.0); Mean Platelet Volume 9.4 fL (9.4-12.3); Monocytes Absolute Auto 0.8 X10*3/uL (0.1-1.2); Monocytes Percent Auto 7.2 % (2-11); Neutrophils Absolute Auto 8.6 x10*3/uL (2.0-8.3); Neutrophils Percent Auto 79.4 % (45-73); Platelet Count 291 X10*3/uL (160-400); Red Blood Count 3.47 X10*6/uL (4.20-5.50); Red Cell Distribution Width 13.4 % (11.0-16.0); White Blood Count 10.8 X10*3/uL (4.8-10.8)
[2024-05-26 07:13] LABS: Anion Gap 11 (12-20); Blood Urea Nitrogen 28 mg/dL (9-16); Carbon Dioxide 26 mmol/L (22-29); Chloride 105 mmol/L (96-108); Creatinine Clr Calc Pharmacy 54.1; Estimated Glomerular Filt Rate > 60; Glucose Fasting 107 mg/dL (60-99); Potassium 4.3 mmol/L (3.3-5.1); Sodium 138 mmol/L (135-145)
[2024-05-26] MEDS: Acetaminophen 325 MG TABLET 650 MG PO (07:47)
[2024-05-26] MEDS: HYDROmorphone HCl 0.5 MG/0.5 ML SYRINGE 0.25 MG IVPUSH (07:48)
[2024-05-26 08:20] LABS: Glucose, Whole Blood 112 mg/dL (60-115)
--- NOTE | 2024-05-26 08:39 | P.CONHOSP_ITS ---
History of Present Illness Data of Consult Service Date: 05/26/24 Primary Care Provider: Tab Joe MD [facility] Reason for consult: rapid response Patient is a 73-year-old female with no significant past medical history, status post right total knee arthroplasty yesterday rapid response called due to possible syncopal episode. Patient was with physical therapy, ambulated to the bedside commode to urinate and had a syncopal episode. She did not fall or hit her head. No seizure-like activity including convulsions or loss of memory. Patient is completely aware of what happened. She states this was not the 1st time she got out of bed since her surgery yesterday. She did receive IV Dilaudid about 30 minutes prior to this episode. Review of Systems 2 Constitutional: Constitutional: Denies body ache(s), Denies chills, Denies fatigue, Denies fever(s), Denies headache(s) and Denies weakness Eyes: Eyes: Denies blurry vision and Denies change in vision ENT: Denies headache(s), Denies nasal congestion, Denies nasal discharge and Denies neck pain Cardiovascular: Cardiovascular: Denies rapid heart rate, Reports Loss of Consciousness (did not fall or hit head) and Denies dyspnea Respiratory: Respiratory: Denies cough and Denies dyspnea Gastrointestinal: Gastrointestinal: Denies constipation, Denies diarrhea, Denies nausea and Denies vomiting Genitourinary: Genitourinary: Denies dysuria Musculoskeletal: Musculoskeletal: Denies myalgias, Denies neck pain and Denies tingling Integumentary/Breasts: Skin/Breast: Denies rash Neurologic: Denies confusion, Denies headache(s), Denies memory loss, Denies seizure-like activity, Denies tingling, Denies paresthesias and Denies weakness Psychiatric: Psychiatric: Denies anxiety, Denies confusion and Denies memory loss Endocrine: Endocrine: Denies fatigue [facility] Medical History History of cervical dysplasia (~1980) Hx of blood transfusion reaction (~1968) Back pain at L4-L5 level Back pain Seasonal allergies Osteoarthritis History of GI bleed (~1991) Sciatica Surgical History Hx of colonoscopy History of back surgery (~2016) History of hip surgery (~2019) History of hip surgery (~2008) Hx of hysterectomy Hx of appendectomy Hx of left knee surgery (~2019) Social History Household Members: None Housing: House Are you a primary memory care program director to a significant other at home: No Do you presently have visiting nurse or other home services: No Comment: aware of trip hazard Patient Tobacco Use Status: Former Tobacco user Tobacco use type: Cigarette Smoked in Last 30 Days: No Patient Interested in Nicotine Replacement: No Patient Given Instructions on How to Stop Smoking: No Second Hand Smoke Exposure: No Use of substances other than those prescribed or required for medical reasons: No Currently Displaying Signs/Symptoms of Drug Intoxication Withdrawal: No Any prior treatment program specific to substance use: No Have you been hit, kicked, punched, or otherwise hurt by someone within the past year? If so, by whom?: No Do you feel safe in your current relationship?: No Is there a partner from a previous relationship who is making you feel unsafe now?: No Are you made to feel afraid or neglected: No Spiritual Healthcare Practices: none Orthodoxy Healthcare Practices: none Cultural Healthcare Practices: none Are you DNR?: No Advance Directives: No Advance Directives Information Provided: Yes Advance Directives on File: No Do you have a plan to hurt others: No Plan Recently lost weight without trying: No How much weight loss: Not applicable Eating poorly because of decreased appetite: No Nutrition screen score: 0 Nutrition Risks: No Nutritional Risk Patient : No : No Poor oral hygiene: No Current occupational status: retired Current occupation: Right hand dominate Meds Allergies Allergy/AdvReac Type Severity Reaction Status Date / Time Iodinated Contrast Media Allergy Intermediate Itching Verified 05/25/24 09:07 [IV Contrast Dye] and warm iodine AdvReac Mild Sneezing Verified 05/25/24 09:26 Active Medications: Current Medications Acetaminophen (Acetaminophen 325 Mg Tablet) 650 mg PO Q6H PRN PRN Reason: Pain, Mild (Pain Scale 1-3), fever or headache Last Admin: 05/26/24 07:47 Dose: 650 mg Aspirin (Aspirin 325 Mg Tablet) 325 mg PO BID [facility] Last Admin: 05/25/24 19:33 Dose: Not Given Celecoxib (Celecoxib 200 Mg Capsule) 200 mg PO BID [facility] Last Admin: 05/25/24 19:31 Dose: 200 mg Gabapentin (Gabapentin 100 Mg Capsule) 100 mg PO BEDTIME [facility] Last Admin: 05/25/24 19:32 Dose: 100 mg Hydromorphone HCl (Hydromorphone Hcl 0.5 Mg/0.5 Ml Syringe) 0.25 mg IVPUSH Q4H PRN; Protocol PRN Reason: Pain, Moderate(Pain Scale 4-6) Last Admin: 05/26/24 07:48 Dose: 0.25 mg Hydromorphone HCl (Hydromorphone Hcl 0.5 Mg/0.5 Ml Syringe) 0.5 mg IVPUSH Q4H PRN; Protocol PRN Reason: Pain, Severe (Pain Scale 7-10) Last Admin: 05/25/24 16:36 Dose: 0.5 mg Cefazolin Sodium/Dextrose (Ancef) 2 gm in 50 mls @ 100 mls/hr IV Q8H [facility] Last Infusion: 05/26/24 00:36 Dose: Infused Lactated Ringer's (Lr) 1,000 mls @ 100 mls/hr IVCONT .Q10H [facility] Last Infusion: 05/26/24 00:32 Dose: 100 mls/hr Magnesium Hydroxide (Milk Of Magnesia 30 Ml Oral.Susp) 30 ml PO DAILY PRN PRN Reason: Constipation Melatonin (Melatonin 3 Mg Tablet) 6 mg PO BEDTIME PRN PRN Reason: Insomnia Last Admin: 05/25/24 23:53 Dose: 6 mg Methocarbamol (Methocarbamol 500 Mg Tablet) 500 mg PO TID [facility] Last Admin: 05/25/24 19:32 Dose: 500 mg Naloxone HCl (Naloxone Hcl 0.4 Mg/Ml Vial) 0.04 mg IVPUSH Q5M PRN PRN Reason: Excessive sedation or RR < 8 Ondansetron HCl (Ondansetron Hcl 4 Mg/2 Ml Vial) 4 mg IVPUSH Q8H PRN PRN Reason: Nausea and Vomiting Oxycodone HCl (Oxycodone Hcl Er 10 Mg Tab.Er.12h) 10 mg PO BID [facility] Last Admin: 05/25/24 19:31 Dose: 10 mg Oxycodone HCl (Oxycodone Hcl Immed Release 5 Mg Tablet) 5 mg PO Q4H PRN PRN Reason: Pain, Mild (Pain Scale 1-3) Oxycodone HCl (Oxycodone Hcl Immed Release 5 Mg Tablet) 10 mg PO Q4H PRN PRN Reason: Pain, Moderate(Pain Scale 4-6) Last Admin: 05/25/24 18:25 Dose: 10 mg Prednisone (Prednisone 1 Mg Tablet) 1 mg PO DAILY [facility] Last Admin: 05/25/24 16:35 Dose: 1 mg Sodium Chloride (0.9 % Sodium Chloride Flush 3 Ml Syringe) 3 ml IVFLUSH QSHIFT [facility] Last Admin: 05/26/24 07:11 Dose: Not Given Home Medications ?Medication ?Instructions ?Recorded ?Confirmed ?Last Taken ?Type No Known Home Meds 05/25/24 05/25/24 Unknown History Physical Exam 2 Vital Signs and Narrative: Vital Signs: Last Vital Signs Temp 97.4 F 05/26/24 07:11 Pulse 61 05/26/24 07:11 Resp 18 05/26/24 07:11 BP 185/84 H 05/26/24 07:11 Pulse Ox 98 05/26/24 07:11 O2 Del Method Room Air 05/26/24 07:11 BMI result Body Mass Index 29.2 General: AOx3 after arrival to rapid response, no acute distress Resp: CTA bilaterally CVS: bradycardic, regular rhythm GI: BS hypoactive, NT, no distention Skin: Warm, dry Neuro: Cranial nerves II-XII grossly intact bilaterally. Motor and sensation grossly intact bilaterally in upper extremities, able to move lower extremities but strength deferred due to knee replacement yesterday Extremities: No edema Psych: Appropriate affect Const: General: No confusion Orientation/consciousness: No confusion Neuro: General: No confusion Results Labs 05/26/24 05:07 05/26/24 05:07 Labs: Laboratory Results - last 24 hr 05/25/24 05/26/24 05/26/24 09:04 05:07 08:15 MCV 92.2 MCH 30.5 MCHC 33.1 RDW 13.4 Plt Count 291 MPV 9.4 Immature Gran % (Auto) 0.5 H Neut % (Auto) 79.4 H Lymph % (Auto) 12.7 L [place] % (Auto) 7.2 Eos % (Auto) 0.0 Baso % (Auto) 0.2 Lymph # (Auto) 1.4 [place] # (Auto) 0.8 Eos # (Auto) 0.0 Baso # (Auto) 0.0 Abs Immat Gran (auto) 0.05 H Absolute Neuts (auto) 8.6 H Absolute Nucleated RBC 0.000 Nucleated RBC % (auto) 0.0 Anion Gap 11 L Estim Creat Clear Calc 54.1 Estimated GFR > 60 POC Glucose 112 Fasting Glucose 107 H Calcium 9.0 Blood Type O Positive Antibody Screen NEGATIVE Assessment and Plan (1) Syncope: Status: Acute Plan 73-year-old female status post right TKA yesterday with rapid response called for syncopal episode. No seizure-like activity. Labs this morning show mild anemia, hemoglobin 10.6 hematocrit 32.0, electrolytes normal, glucose normal. EKG with borderline sinus bradycardia, rate about 60. Differential diagnosis includes vasovagal syncope episode, unlikely CVA, hypothyroidism. syncope - likely vasovagal episode - EKG - sinus patricia - orthostatics - CT head r/o CVA - TSH pending - echocardiogram - POC normal - continuous cardiac monitoring - add omeprazole 20mg BID for GI prophy with ASA 325mg BID will follow testing ordered above. Total time managing care of this patient today: 30 minutes.
--- NOTE | 2024-05-26 09:06 | PC.NURSE ---
Rapid Response called at 0815. Pt was oob on commode working with PT when pt became unresponsive . Pt assisted back to bed within 1 minute pt responded to name with eye opening , with 2 min was able to answer questions appropriately and was A&OX4. 0820 bedside EKG was done.0835 pt was placed on tele . 0840 pt down for STAT CT scan . 08;[address] scan . 0915 Pt sitting in bed having breakfast with no new complaints will monitor
[2024-05-26] MEDS: Aspirin 325 MG TABLET PO ×2 (09:30→20:19)
[2024-05-26] MEDS: methocarbamoL 500 MG TABLET PO ×3 (09:31→20:20)
[2024-05-26] MEDS: Celecoxib 200 MG CAPSULE PO ×2 (09:31→20:20)
[2024-05-26] MEDS: Omeprazole 20 MG CAPSULE.DR PO ×2 (09:31→16:12)
[2024-05-26] MEDS: oxyCODONE HCl ER 10 MG TAB.ER.12H PO ×2 (09:31→20:20)
[2024-05-26] MEDS: predniSONE 1 MG TABLET PO (09:31)
--- NOTE | 2024-05-26 09:35 | HO.POSTANES ---
Post Anesthesia Evaluation Post Anesthesia Evaluation Date of Service: 05/25/24 Vital Signs: Vital Signs Temp Pulse Resp BP Pulse Ox O2 Del Method 05/26/24 08:31 46 L 98 05/26/24 07:11 97.4 F 61 18 185/84 H 98 Room Air 05/26/24 03:17 97.1 F 60 18 132/73 96 Room Air 05/25/24 22:24 96.8 F 66 18 124/68 97 Room Air Anesthesia: Spinal Mental Status: Awake Pain Control: Satisfactory Nausea/Vomiting: None Hydration: Adequate Anesthesia-Related Issues: No Anes. Related Issues (syncopal episode yesterday, seems resolved)
[2024-05-26 09:49] LABS: TSH reflex Free T4 0.85 uIU/mL (0.32-4.0)
[2024-05-26] MEDS: Lactated Ringers 1,000 ML 100 ML IVCONT (10:30)
--- NOTE | 2024-05-26 13:27 | MHC.CM.PN ---
IMM delivered. Patient comes from home alone. Functionally independent. Denies use of DME or services. PCP Tab Joe MD HCP completed naming HCA's: 1) son Uriel and 2) sister Lisandra. DP: PT rec STR. Preferences are [facility] and [facility]. Referrals out. Will need QHS. CM will continue to follow.
--- NOTE | 2024-05-26 14:18 | P.PNOP_ITS ---
Subjective Subjective Date of Service: 05/26/24 Interval history: POD 1 s/p RT TKA -no overnight events -she did have a syncopal episode this AM while working with PT, doing well at this time Physical Exam Vital Signs: Vital Signs: Last Vital Signs Temp 97.6 F 05/26/24 12:00 Pulse 65 05/26/24 12:00 Resp 16 05/26/24 12:00 BP 110/52 L 05/26/24 12:00 Pulse Ox 98 05/26/24 12:00 O2 Del Method Room Air 05/26/24 12:00 BMI result Body Mass Index 29.2 Const: General: cooperative, healthy appearing and no acute distress Resp: Effort & Inspection: normal respiratory effort and able to speak in complete sentences Cardio: Rate: regular rate Peripheral pulses: Peripheral pulses 2+ throughout GI: Palpation (GI): Soft to palpation Skin: General skin exam: no rashes or lesions noted Extrem: Other: bandage clean dry and intact. Yamileth intact. No erythema or joint effusion. Calf supple nontender. Neurovascularly intact. Procedures Date of Service Date of Service: 05/26/24 Progress Note: A&P Assessment and plan (1) Status post total right knee replacement: Status: Acute Assessment and Plan: * Continue pain mgmnt * Begin Aspirin for dvt ppx * begin PT for RT TKA * Dispo planning-Pending PT eval, pain mgmnt and rehab placement Need for continued inpatient stay: Time Spent With Patient Time: Total time managing care of this patient today ____ minutes. Quality Stroke Does the patient have a stroke diagnosis?: No VTE Prior VTE?: No VTE Risk Level:: Surgical - very high VTE Device Contraindication: N/A - Device Ordered VTE Drug Contraindication: N/A - Med Ordered
[2024-05-26] MEDS: oxyCODONE HCl Immed Release 5 MG TABLET 10 MG PO (16:17)
--- NOTE | 2024-05-26 16:38 | PC.NURSE ---
pt pain has been well controlled . OOB to commode with assist of 1 and walker tolerated well no issues or new complaints . maintained on tele NSR . continue to monitor
[2024-05-26] MEDS: Melatonin 3 MG TABLET 6 MG PO (20:18)
[2024-05-26] MEDS: Gabapentin 100 MG CAPSULE PO (20:20)
[2024-05-26] MEDS: 0.9 % Sodium Chloride Flush 3 ML SYRINGE IVFLUSH (21:50)
[2024-05-27] MEDS: ceFAZolin Sodium/Dextrose,Iso 2 GM/50 ML PIGGYBACK IV ×3 (01:42→16:59)
[2024-05-27 03:27] VITALS: BP 128/62; PULSE 66; RESP 17; TEMP 36.4; O2SAT 95
[2024-05-27] MEDS: Omeprazole 20 MG CAPSULE.DR PO ×2 (06:00→17:00)
[2024-05-27 06:26] LABS: MANUAL DIFF FLAG NO
[2024-05-27 06:29] LABS: Basophils Absolute Auto 0.1 X10*3/uL (0.0-0.2); Basophils Percent Auto 0.6 % (0-2); Eosinophils Absolute Auto 0.2 X10*3/uL (0.0-0.4); Eosinophils Percent Auto 2.2 % (0-4); Hematocrit 31.7 % (37.0-47.0); Hemoglobin 10.3 g/dl (12.0-16.0); Imm Gran Abs Auto 0.03 X10*3/uL (0.00-0.03); Imm Gran Pct Auto 0.3 % (0.0-0.4); Lymphocytes Absolute Auto 2.8 X10*3/uL (1.2-4.9); Lymphocytes Percent Auto 32.5 % (20-40); Mean Corpuscular HGB Conc 32.5 g/dl (31.0-35.0); Mean Corpuscular Hemoglobin 30.5 pg (27.0-33.0); Mean Corpuscular Volume 93.8 fL (80.0-98.0); Mean Platelet Volume 8.8 fL (9.4-12.3); Monocytes Absolute Auto 0.7 X10*3/uL (0.1-1.2); Monocytes Percent Auto 8.2 % (2-11); Neutrophils Absolute Auto 4.8 x10*3/uL (2.0-8.3); Neutrophils Percent Auto 56.2 % (45-73); Platelet Count 260 X10*3/uL (160-400); Red Blood Count 3.38 X10*6/uL (4.20-5.50); Red Cell Distribution Width 13.8 % (11.0-16.0); White Blood Count 8.6 X10*3/uL (4.8-10.8)
[2024-05-27 06:42] LABS: Anion Gap 12 (12-20); Blood Urea Nitrogen 20 mg/dL (9-16); Calcium 8.4 mg/dL (8.4-10.2); Carbon Dioxide 29 mmol/L (22-29); Chloride 106 mmol/L (96-108); Creatinine Clr Calc Pharmacy 54.7; Estimated Glomerular Filt Rate > 60; Glucose Fasting 92 mg/dL (60-99); Potassium 4.3 mmol/L (3.3-5.1); Sodium 143 mmol/L (135-145)
--- NOTE | 2024-05-27 07:00 | CA_ITS ---
Transthoracic Echocardiogram Patient (Last, First, Middle): Jailyn Montes, Gender: Female Date of : 1950 Age: 73 Procedure Date: 05/27/2024 Procedure Type: Transthoracic Echocardiogram Location: S3W Height: 160.02 cm Weight: 74.39 kg BSA: 1.78 m2 Heart Rate: bpm BP: 185 / 84 mmHg Manager Editorial: TO Referring MD: Nicole Handy MD Symptoms: syncope Study Quality: Fair/Contrast ECG Rhythm: Sinus Conclusions: - The left ventricular systolic function is hyperdynamic. The visually estimated ejection fraction is >70%. - There is mild calcification of the aortic valve. - There is mild mitral annular calcification. - There is a small loculated pericardial effusion overlying the left ventricle. Findings Procedure Information Contrast agent, definity, is being given per protocol without apparent complications. Left Ventricle Normal left ventricular cavity size. The left ventricular systolic function is hyperdynamic. The visually estimated ejection fraction is >70%. There is no evidence of regional wall motion abnormalities. Diastolic function is normal for age. There is mild septal asymmetric hypertrophy. Right Ventricle Normal right ventricular cavity size and systolic function. Atria The left atrium is mildly dilated. The right atrium is normal in size. Aortic Valve There is a normal trileaflet aortic valve. There is mild calcification of the aortic valve. There is no aortic valve stenosis. There is no aortic valve regurgitation. Mitral Valve There is mild mitral annular calcification. There is no mitral valve regurgitation. There is no mitral valve stenosis. Pulmonic Valve The pulmonic valve is likely normal. Tricuspid Valve There is trace tricuspid valve regurgitation. There is no evidence of pulmonary hypertension. Great Vessels The asc aorta and aortic arch are normal in size. Venous The inferior vena cava is normal in size and collapses greater than 50% with inspiration. Pericardium/Pleural There is a small loculated pericardial effusion overlying the left ventricle. Prior Study Comparison No prior study available for comparison. Measurements 2D Linear Measurements IVSd: 1.15 0.6-0.9/0.6-1.0 cm LVIDd: 4.72 3.9-5.3/4.2-5.9 cm LVIDd Index: 2.65 2.4-3.2/2.2-3.1 cm/m2 LVIDs: 2.89 2.0-3.6 cm LVPWd: 1.00 0.7-1.1 cm LA Diam: 2.90 2.7-3.8/3.0-4.0 cm LAIDs Index: 1.63 1.5-2.3 cm/m2 LV Mass: 227.12 67-162/88-224 g LV Mass Index: 127.59 43-95/49-115 g/m2 LVOT Diam: 2.00 3.0+(-)1.3 cm 2D Systolic Function EF 4C: 72.50 >55% Mitral Valve MV VTI: 0.36 MV Pk Rell: 1.10 MV Mn Rell: 0.66 MV Pk Grad: 5.00 MV Mn Grad: 2.00 MV Pk E: 0.82 MV PK A: 0.94 MV Decel Time: 279.00 E/A: 0.90 E'Lateral: 7.29 E'Medial: 5.00 E/E' Med: 16.50 E/E' Lat: 11.30 PHT: 82.00 MVA PHT: 2.68 MVA Continuity: 2.46 Decel Gilliam: 2.95 Aortic Valve AoV Pk Rell: 2.04 AoV Mn Rell: 1.22 AoV VTI: 0.44 AoV Pk Grad: 17.00 Aov Mn Grad: 7.00 [place] Cont.VTI: 2.02 LVOT LVOT Pk Rell: 1.43 LVOT Mn Rell: 0.95 LVOT VTI: 0.28 LVOT Pk Grad: 8.00 LVOT Mn Grad: 4.00 LVOT Diam: 2.00 LVOT Area: 3.14 Diastolic Function MV Pk E: 0.82 MV Pk A: 0.94 E/A: 0.90 E'Medial: 5.00 E/E' Med: 16.50 E' Laterial: 7.29 E/E' Lat: 11.30 Right Ventricle TAPSE (mm): 22.20 TVS' Rell: 16.50 Tricuspid Valve RA Press: 3.00 Great Vessels Aorta Sinus of Valsalva: 3.04 2.0-3.[address] [place]: 2.39 1.7-3.4 cm Ao Asc: 3.10 2.1-3.4 cm Ao Arch: 3.00 Updated in Other Vendor System with Status of Final Gibran Ventura MD electronically signed on 05/27/2024 11:49:12 AM with status of Final
--- NOTE | 2024-05-27 07:31 | PM.PNORT ---
Subjective Subjective Date of Service: 05/27/24 Interval history: POD1 s/p RTKA Patient is resting in bed comfortably No overnight events Pain is managed No additional complaints Physical Exam Vital Signs: Vital Signs: Last Vital Signs Temp 97.6 F 05/27/24 03:27 Pulse 66 05/27/24 03:27 Resp 17 05/27/24 03:27 BP 128/62 05/27/24 03:27 Pulse Ox 95 05/27/24 03:27 O2 Del Method Room Air 05/27/24 03:27 BMI result Body Mass Index 29.2 Const: General: cooperative, healthy appearing and no acute distress Resp: Effort & Inspection: normal respiratory effort and able to speak in complete sentences Cardio: Rate: regular rate Peripheral pulses: Peripheral pulses 2+ throughout GI: Palpation (GI): Soft to palpation Skin: Lesions: no lesions Rashes: no rashes Extrem: Other: right knee dressing is c/d/i. Able to dorsi/plantar flex. Calf is supple and nontender. Sensation intact. Pedal pulse intact. Procedures Date of Service Date of Service: 05/27/24 Progress Note: A&P Assessment and plan (1) Status post total right knee replacement: Status: Acute Plan Continue pain mgmnt Continue ASA for dvt ppx Continue PT for RTKA Dispo planning- PT, pain mgmnt, rehab placement Time Spent With Patient Time: Total time managing care of this patient today ____ minutes. Quality Stroke Does the patient have a stroke diagnosis?: No VTE Prior VTE?: No VTE Risk Level:: Surgical - very high VTE Device Contraindication: N/A - Device Ordered VTE Drug Contraindication: N/A - Med Ordered
[2024-05-27] MEDS: oxyCODONE HCl Immed Release 5 MG TABLET 10 MG PO ×2 (07:35→14:13)
[2024-05-27] MEDS: Aspirin 325 MG TABLET PO ×2 (07:35→19:45)
[2024-05-27] MEDS: oxyCODONE HCl ER 10 MG TAB.ER.12H PO ×2 (07:35→19:46)
[2024-05-27] MEDS: predniSONE 1 MG TABLET PO (07:35)
[2024-05-27] MEDS: methocarbamoL 500 MG TABLET PO ×3 (07:36→19:46)
[2024-05-27] MEDS: Celecoxib 200 MG CAPSULE PO ×2 (07:36→19:46)
[2024-05-27 07:54] VITALS: BP 138/69; PULSE 64; RESP 16; TEMP 36.9; O2SAT 96
--- NOTE | 2024-05-27 09:39 | HO.PM.IMPN ---
Subjective Subjective Date of Service: 05/27/24 Interval History: pt with syncopal episode yesterday no repeat episodes. no chest pain, shortness of breath, dizziness or palpitations. No concerns today. Constitutional Constitutional: Denies chills, Denies fatigue, Denies fever(s), Denies headache(s) and Denies weakness Eyes Eyes: Denies blurry vision and Denies change in vision ENT Ears, Nose, Mouth, and Throat: Denies headache(s), Denies nasal congestion and Denies nasal discharge Cardiovascular Cardiovascular: Denies chest pain, Denies rapid heart rate, Denies leg edema, Denies lightheadedness and Denies dyspnea Respiratory Respiratory: Denies cough and Denies dyspnea Gastrointestinal Gastrointestinal: Denies constipation, Denies diarrhea, Denies nausea and Denies vomiting Genitourinary Genitourinary: Denies dysuria and Denies urinary urgency Musculoskeletal Musculoskeletal: Denies myalgias, Denies muscle weakness and Denies numbness Neurologic Neurologic: Denies headache(s), Denies numbness and Denies weakness Psychiatric Psychiatric: Denies anxiety Endocrine Endocrine: Denies fatigue Physical Exam Vital Signs: Vital Signs: Last Vital Signs Temp 98.5 F 05/27/24 07:54 Pulse 64 05/27/24 07:54 Resp 16 05/27/24 07:54 BP 138/69 05/27/24 07:54 Pulse Ox 96 05/27/24 07:54 O2 Del Method Room Air 05/27/24 07:54 BMI result Body Mass Index 29.2 General: AOx3, no acute distress Resp: CTA bilaterally CVS: regular rate, +murmur LUSB GI: +BS, NT, no distention Skin: Warm, dry Neuro: Cranial nerves II-XII grossly intact bilaterally. Motor grossly intact bilaterally Extremities: No edema Psych: Appropriate affect Objective Data Active Medications Acetaminophen (Acetaminophen 325 Mg Tablet) 650 mg PO Q6H PRN PRN Reason: Pain, Mild (Pain Scale 1-3), fever or headache Last Admin: 05/26/24 07:47 Dose: 650 mg Documented By: ROSINA Aspirin (Aspirin 325 Mg Tablet) 325 mg PO BID [facility] Last Admin: 05/27/24 07:35 Dose: 325 mg Documented By: BART Celecoxib (Celecoxib 200 Mg Capsule) 200 mg PO BID [facility] Last Admin: 05/27/24 07:36 Dose: 200 mg Documented By: BART Gabapentin (Gabapentin 100 Mg Capsule) 100 mg PO BEDTIME [facility] Last Admin: 05/26/24 20:20 Dose: 100 mg Documented By: RENETTA Cefazolin Sodium/Dextrose (Ancef) 2 gm in 50 mls @ 100 mls/hr IV Q8H [facility] Last Infusion: 05/27/24 09:22 Dose: Infused Documented By: [place] Magnesium Hydroxide (Milk Of Magnesia 30 Ml Oral.Susp) 30 ml PO DAILY PRN PRN Reason: Constipation Melatonin (Melatonin 3 Mg Tablet) 6 mg PO BEDTIME PRN PRN Reason: Insomnia Last Admin: 05/26/24 20:18 Dose: 6 mg Documented By: RENETTA Methocarbamol (Methocarbamol 500 Mg Tablet) 500 mg PO TID [facility] Last Admin: 05/27/24 07:36 Dose: 500 mg Documented By: BART Naloxone HCl (Naloxone Hcl 0.4 Mg/Ml Vial) 0.04 mg IVPUSH Q5M PRN PRN Reason: Excessive sedation or RR < 8 Omeprazole (Omeprazole 20 Mg Capsule.Dr) 20 mg PO BID@0630,1630 [facility] Last Admin: 05/27/24 06:00 Dose: 20 mg Documented By: RENETTA Ondansetron HCl (Ondansetron Hcl 4 Mg/2 Ml Vial) 4 mg IVPUSH Q8H PRN PRN Reason: Nausea and Vomiting Oxycodone HCl (Oxycodone Hcl Er 10 Mg Tab.Er.12h) 10 mg PO BID [facility] Last Admin: 05/27/24 07:35 Dose: 10 mg Documented By: BART Oxycodone HCl (Oxycodone Hcl Immed Release 5 Mg Tablet) 5 mg PO Q4H PRN PRN Reason: Pain, Mild (Pain Scale 1-3) Oxycodone HCl (Oxycodone Hcl Immed Release 5 Mg Tablet) 10 mg PO Q4H PRN PRN Reason: Pain, Moderate(Pain Scale 4-6) Last Admin: 05/27/24 07:35 Dose: 10 mg Documented By: BRAT Prednisone (Prednisone 1 Mg Tablet) 1 mg PO DAILY [facility] Last Admin: 05/27/24 07:35 Dose: 1 mg Documented By: BART Sodium Chloride (0.9 % Sodium Chloride Flush 3 Ml Syringe) 3 ml IVFLUSH QSHIFT [facility] Last Admin: 05/27/24 07:38 Dose: Not Given Documented By: BART Non-Admin Reason: IV Running Labs 05/27/24 06:10 05/27/24 06:10 Labs: Laboratory Results - last 24 hr 05/26/24 05/27/24 08:30 06:10 MCV 93.8 MCH 30.5 MCHC 32.5 RDW 13.8 Plt Count 260 MPV 8.8 L Immature Gran % (Auto) 0.3 Neut % (Auto) 56.2 Lymph % (Auto) 32.5 [place] % (Auto) 8.2 Eos % (Auto) 2.2 Baso % (Auto) 0.6 Lymph # (Auto) 2.8 [place] # (Auto) 0.7 Eos # (Auto) 0.2 Baso # (Auto) 0.1 Abs Immat Gran (auto) 0.03 Absolute Neuts (auto) 4.8 Absolute Nucleated RBC 0.000 Nucleated RBC % (auto) 0.0 Anion Gap 12 Estim Creat Clear Calc 54.7 Estimated GFR > 60 Fasting Glucose 92 Calcium 8.4 D TSH 0.85 Assessment and Plan (1) Vasovagal syncope: Status: Acute Plan vasovagal syncope - EKG sinus bradycardia - telemetry with sinus arrhythmia - head CT normal - orthostatics normal - TSH normal, CBC mild anemia - echo with EF >70%, trace tricuspid valve regurg, mild calcification of aortic and mitral valve, and small loculated pericardial effusion overlying the left ventricle Spoke with cardiology regarding echo. No further workup needed at this time, can f/u outpt for echo findings, not related to syncopal episode. Signing off for now. Please reach out to the hospitalists with any new questions or concerns. Quality Stroke Does the patient have a stroke diagnosis?: No VTE Prior VTE?: No VTE Risk Level:: Surgical - very high VTE Device Contraindication: N/A - Device Ordered VTE Drug Contraindication: N/A - Med Ordered
--- NOTE | 2024-05-27 10:49 | MHC.CM.PN ---
Patient not medically cleared for dc. DP: STR tomorrow 05/28 @ [facility] via [facility]
[2024-05-27 11:51] VITALS: BP 130/60; PULSE 64; RESP 16; TEMP 37; O2SAT 96
[2024-05-27] MEDS: Acetaminophen 325 MG TABLET 650 MG PO (14:13)
--- NOTE | 2024-05-27 14:52 | PC.NURSE ---
OK to take rose wrap off per MATTY Moses
[2024-05-27] MEDS: 0.9 % Sodium Chloride Flush 3 ML SYRINGE IVFLUSH (15:02)
[2024-05-27 16:00] VITALS: BP 123/58; PULSE 66; RESP 16; TEMP 36.8; O2SAT 97
[2024-05-27] MEDS: Gabapentin 100 MG CAPSULE PO (19:46)
[2024-05-27] MEDS: Melatonin 3 MG TABLET 6 MG PO (19:47)
[2024-05-27 20:00] VITALS: BP 115/57; PULSE 75; RESP 16; TEMP 36.5; O2SAT 98
[2024-05-28] VITALS: BP 110/58; PULSE 61; RESP 16; TEMP 36.6; O2SAT 97
[2024-05-28] MEDS: ceFAZolin Sodium/Dextrose,Iso 2 GM/50 ML PIGGYBACK IV ×2 (00:45→08:09)
[2024-05-28] MEDS: oxyCODONE HCl Immed Release 5 MG TABLET 10 MG PO (00:51)
[2024-05-28 04:00] VITALS: BP 124/56; PULSE 71; RESP 16; TEMP 37; O2SAT 93
[2024-05-28] MEDS: Omeprazole 20 MG CAPSULE.DR PO (06:10)
[2024-05-28 06:49] LABS: MANUAL DIFF FLAG NO
[2024-05-28 07:11] LABS: Basophils Absolute Auto 0.1 X10*3/uL (0.0-0.2); Basophils Percent Auto 0.6 % (0-2); Eosinophils Absolute Auto 0.3 X10*3/uL (0.0-0.4); Eosinophils Percent Auto 3.2 % (0-4); Hemoglobin 9.6 g/dl (12.0-16.0); Imm Gran Abs Auto 0.04 X10*3/uL (0.00-0.03); Imm Gran Pct Auto 0.5 % (0.0-0.4); Lymphocytes Absolute Auto 2.6 X10*3/uL (1.2-4.9); Lymphocytes Percent Auto 31.5 % (20-40); Mean Corpuscular Hemoglobin 30.2 pg (27.0-33.0); Mean Corpuscular Volume 94.3 fL (80.0-98.0); Mean Platelet Volume 9.3 fL (9.4-12.3); Monocytes Absolute Auto 0.8 X10*3/uL (0.1-1.2); Neutrophils Absolute Auto 4.6 x10*3/uL (2.0-8.3); Neutrophils Percent Auto 55.2 % (45-73); Platelet Count 259 X10*3/uL (160-400); Red Blood Count 3.18 X10*6/uL (4.20-5.50); White Blood Count 8.4 X10*3/uL (4.8-10.8)
[2024-05-28 07:13] LABS: Anion Gap 14 (12-20); Blood Urea Nitrogen 18 mg/dL (9-16); Calcium 8.4 mg/dL (8.4-10.2); Carbon Dioxide 27 mmol/L (22-29); Chloride 106 mmol/L (96-108); Creatinine Clr Calc Pharmacy 63.6; Estimated Glomerular Filt Rate > 60; Glucose Fasting 84 mg/dL (60-99); Potassium 4.7 mmol/L (3.3-5.1); Sodium 142 mmol/L (135-145)
[2024-05-28 07:57] VITALS: PULSE 67; RESP 14; TEMP 36.9; O2SAT 97
[2024-05-28] MEDS: 0.9 % Sodium Chloride Flush 3 ML SYRINGE IVFLUSH (08:08)
[2024-05-28] MEDS: Celecoxib 200 MG CAPSULE PO (08:08)
[2024-05-28] MEDS: predniSONE 1 MG TABLET PO (08:08)
[2024-05-28] MEDS: Aspirin 325 MG TABLET PO (08:08)
[2024-05-28] MEDS: methocarbamoL 500 MG TABLET PO (08:09)
[2024-05-28] MEDS: oxyCODONE HCl ER 10 MG TAB.ER.12H PO (08:09)
--- NOTE | 2024-05-28 08:28 | PM.DS ---
DS: Providers Provider Date of Service: 05/28/24 Date of admission: 05/25/24 09:03 Primary care physician: Tab Joe MD Consults: 05/26/24 09:24 Consult to Hospitalist Stat Comment: Consulting Provider: Hospitalist Reason For Exam: syncope 05/26/24 12:00 Consult to Hospitalist Routine Comment: Consulting Provider: Hospitalist Reason For Exam: Syncope DS: Diagnosis Discharge Diagnosis (1) Vasovagal syncope: Status: Acute DS: Summary Hospital Course Hospital Course: The patient underwent a successful right total knee arthroplasty, they were transferred to PACU and then to the floor to recover. During their stay, their vitals were stable, afebrile at 98.5. Labs were unremarkable, H/H 9.6/30.0. POD 0 they were started on Aspirin 325mg po bid for DVT ppx, they also received Physical Therapy services twice a day. Prior to discharge, their dressing was clean dry and intact, and the plan was to be discharged to rehab. Time Attestation Discharge Coordination Time (in mins): 30 Quality: Safe Use of Opioids Does Pt have an Active Cancer Diagnosis on the Problem List?: No Quality: Stroke Does the patient have a stroke diagnosis?: No Physical Exam Vital Signs: Vital Signs: Last Vital Signs Temp 98.5 F 05/28/24 07:57 Pulse 67 05/28/24 07:57 Resp 14 05/28/24 07:57 BP 124/56 L 05/28/24 04:00 Pulse Ox 97 05/28/24 07:57 O2 Del Method Room Air 05/28/24 07:57 BMI result Body Mass Index 29.2 Const: General: cooperative, healthy appearing and no acute distress Resp: Effort & Inspection: normal respiratory effort and able to speak in complete sentences Cardio: Rate: regular rate Peripheral pulses: Peripheral pulses 2+ throughout GI: Palpation (GI): Soft to palpation Skin: Lesions: no lesions Rashes: no rashes Extrem: Other: right knee dressing is c/d/i. Able to dorsi/plantar flex. Calf is supple and nontender. Sensation intact. Pedal pulse intact. DS: Data Data Completed and Pending Pending studies at discharge: Pending at discharge 05/25/24 11:10 Surgical [PTH] Routine Labs on day of discharge: Laboratory Results - last 24 hr 05/28/24 06:13 WBC 8.4 RBC 3.18 L Hgb 9.6 L Hct 30.0 L MCV 94.3 MCH 30.2 MCHC 32.0 RDW 14.0 Plt Count 259 MPV 9.3 L Immature Gran % (Auto) 0.5 H Neut % (Auto) 55.2 Lymph % (Auto) 31.5 Cannon % (Auto) 9.0 Eos % (Auto) 3.2 Baso % (Auto) 0.6 Lymph # (Auto) 2.6 Cannon # (Auto) 0.8 Eos # (Auto) 0.3 Baso # (Auto) 0.1 Abs Immat Gran (auto) 0.04 H Absolute Neuts (auto) 4.6 Absolute Nucleated RBC 0.000 Nucleated RBC % (auto) 0.0 Sodium 142 Potassium 4.7 Chloride 106 Carbon Dioxide 27 Anion Gap 14 BUN 18 H Creatinine 0.74 Estim Creat Clear Calc 63.6 Estimated GFR > 60 Fasting Glucose 84 Calcium 8.4 Discharge Plan Discharge Anticipated Discharge Date/Time: 05/28/24 12:27 Patient Disposition: Xfer SNF Discharge Diagnosis: s/p RTKA Referrals: Tab Joe MD [Primary Care Provider] - 1 Week Discharge Medications: New celecoxib 200 mg Capsule 200 mg PO BID 30 Days Qty: 60 0RF methocarbamol 500 mg Tablet 500 mg PO TID 7 Days Qty: 21 0RF acetaminophen 325 mg Tablet 650 mg PO Q6H PRN (Reason: Pain, Mild (Pain Scale 1-3), fever or headache) 30 Days Qty: 240 0RF aspirin 325 mg Tablet 325 mg PO BID 42 Days Qty: 84 0RF gabapentin 100 mg Capsule 100 mg PO BEDTIME 7 Days Qty: 7 0RF oxycodone 10 mg tablet 10 mg PO Q4H PRN (Reason: Pain, Moderate(Pain Scale 4-6)) 7 Days Qty: 42 0RF Rx Instructions: Partial Fill upon patient request. Discharge Orders: Discharge Order (Routine); Ordered 05/28/24 Ordered By: Aurelia Stratton Diet: Advance to usual diet Activity on Discharge: Use cane or walker Stand Alone Forms: Patient Portal Discharge page Print Language: Swedish Activity Restrictions/Additional Instructions: Physical Therapy for ROM 0-120, quad strength, gait training. Use walker for ambulation Limit stair climbing, No shower, No tub bath, No driving Continue anticoagulant x 6 weeks Keep Aquacel dressing clean, dry and intact. Follow up with orthopedics in 2 weeks Care Plan Goals: restore fxn to right knee Health Concerns: none Plan of Treatment: Physical Therapy for ROM 0-120, quad strength, gait training. Use walker for ambulation Limit stair climbing, No shower, No tub bath, No driving Continue anticoagulant Keep Aquacel dressing clean, dry and intact. Follow up with orthopedics in 2 weeks Assessment: stable for discharge
--- NOTE | 2024-05-28 09:00 | MHC.CM.PN ---
Patient medically cleared for dc to [facility]. S transport to [facility] at 12:30pm. Patient and RN aware.
== END 2024-05-28 12:44 | disposition skilled nursing facility (03) | DRG 470 ==
LOC: HO.SSSA 09:04 → HO.S3 13:05
PROVIDERS: Nurse Practitioner; Physician Assistant; Admitting Provider Orthopaedic Surgery; PCP Internal Medicine; Visit Provider Orthopaedic Surgery
PROC: 0SRC0J9 Replacement of Right Knee Joint with Synthetic Substitute, Cemented, Open Approach (ICD-10-PCS; CPT 27447; principal; 2024-05-25 09:00)
DX: M17.11 Unilateral primary osteoarthritis, right knee (principal); G89.18 Other acute postprocedural pain; I08.3 Combined rheumatic disorders of mitral, aortic and tricuspid valves; R55 Syncope and collapse; Z87.891 Personal history of nicotine dependence; Z79.899 Other long term (current) drug therapy
CPT/HCPCS: 36415; 70450; 80048; 82947; 84443; 85025; 86850; 86900; 86901; 87640; 87641; 88305; 88311; 93005; 93306; 97110; 97116; 97161; 97530; C1776; J0131; J0171; J0665; J0690; J1100; J1171; J1885; J2003; J2250; J2405; J2704; J3370; J7120; Q9957

== ENCOUNTER 2024-05-25 09:03 | Outpatient (BNV) | payer MEDICARE, OTHER, SELFPAY | END 2024-05-27 07:00 | PROVIDERS: Admitting Provider Orthopaedic Surgery; PCP Internal Medicine; Visit Provider Internal Medicine | DX: I42.2 Other hypertrophic cardiomyopathy (principal); I35.8 Other nonrheumatic aortic valve disorders; I34.81 Nonrheumatic mitral (valve) annulus calcification | CPT/HCPCS: 93306 ==

== ENCOUNTER → 2024-05-25 09:03 | Outpatient (BNV) | payer MEDICARE, OTHER, SELFPAY | PROVIDERS: Admitting Provider Orthopaedic Surgery; PCP Internal Medicine; Visit Provider Orthopaedic Surgery | DX: Z47.1 Aftercare following joint replacement surgery (principal); Z96.651 Presence of right artificial knee joint | CPT/HCPCS: 27447; 99024 ==

== ENCOUNTER → 2024-05-25 09:03 | Outpatient (BNV) | payer MEDICARE, OTHER, SELFPAY | PROVIDERS: Admitting Provider Orthopaedic Surgery; PCP Internal Medicine; Visit Provider Physician Assistant | DX: R55 Syncope and collapse (principal); R00.0 Tachycardia, unspecified | CPT/HCPCS: 99222; 99232 ==

== ENCOUNTER 2024-06-11 08:50 | Outpatient (AMB) | payer MEDICARE, OTHER, SELFPAY ==
--- NOTE | 2024-06-11 08:59 | A.OFFVIS_ITS ---
Intake Visit Reasons: 2WK PO: R TKA w/ 05/25/24 Intake Note: Jailyn is a 73 year old female who presents today for a post op appointment s/p Right TKA 05/25/24 Patient reports she is doing well today. Removed the bandage. Incision site looks clean and dry. No redness or swelling. Allergies Iodinated Contrast Media [IV Contrast Dye] Allergy (Intermediate, Verified 06/11/24 09:03) Itching and warm iodine Adverse Reaction (Mild, Verified 06/11/24 09:03) Sneezing HPI HPI 2WK PO: R TKA w/ 05/25/24: Details: 73-year-old right hand dominant female who presents in the office today 17 days status post right total knee arthroplasty, which was performed on 05/25/[address] Ortiz. While in the office today, the patient reports she is doing well today. The bandage was removed. the patient would like to transition to a outpatient [facility] Medical History History of cervical dysplasia (~1980) Hx of blood transfusion reaction (~1968) Back pain at L4-L5 level Back pain Seasonal allergies Osteoarthritis History of GI bleed (~1991) Sciatica Surgical History Hx of colonoscopy History of back surgery (~2015) History of hip surgery (~2019) History of hip surgery (~2008) Hx of hysterectomy Hx of appendectomy Hx of left knee surgery (~2019) Social History Household Members: None Caregiver staying overnight: No Housing: House Are you a primary student career development specialist to a significant other at home: No Do you presently have visiting nurse or other home services: No 75 years or older and lives alone: Yes Comment: aware of trip hazard Patient Tobacco Use Status: Former Tobacco user Tobacco use type: Cigarette Second Hand Smoke Exposure: No service: No Current occupational status: retired Current occupation: Right hand dominate Review of Systems Const All systems reviewed & are unremarkable except as noted in HPI and below Physical Exam Const General: cooperative, healthy appearing and no acute distress Resp Effort & Inspection: normal respiratory effort and able to speak in complete sentences Cardio Rate: regular rate Peripheral pulses: Peripheral pulses 2+ throughout GI Palpation (GI): Soft to palpation Skin Lesions: no lesions Rashes: no rashes Extrem Other: Right knee: Incision site is clean, dry and intact. [place] intact. No surrounding erythema or drainage. No signs of infections. ROM is 0-110 degrees. NVI. Assessment & Plan Assessment & Plan (1) Status post total right knee replacement: Code(s): Z96.651 - Presence of right artificial knee joint Category: Surgical Plan Ms. Montes is a 73-year-old right hand dominant female who presents in the office today 17 days status post right total knee arthroplasty, which was performed on 05/25/[address] Ortiz. While in the office today, the patient reports she is doing well today. The bandage was removed. [place] were removed and steri-strips were applied. The patient would like to transition to outpatient physical therapy at [facility] [place]. Therefore, she was provided with a paper copy of the physical therapy prescription to go to the facility she wished to attend. I have also provided refills for oxycodone 10 mg PO and weaned her dose to 10 mg Q6H PRN for pain relief. I sent a prescription for an antibiotic, amoxicillin 2000 mg, one hour prior to the dental procedure, prophylactically for possible dental work in the future. However, the patient was educated they should not have any major dental work for the first 3 months post-op after the right total knee arthroplasty. Follow-up will be with Dr. Ortiz in 4 weeks, or sooner if needed. X-rays of the right knee, which were obtained while in the office today and were reviewed by me, Aurelia Stratton PA-C, revealed: Intact orthopedic hardware with satisfactory alignment. Orders: Orders XR knee RT 3V Today M25.569 - Pain in unspecified knee PT Evaluation and Treatment Today Z96.651 - Presence of right artificial knee joint XR knee LT 1V Today M25.569 - Pain in unspecified knee Medications: New amoxicillin 2,000 mg (4 x 500 mg) PO ONCE 4 tabs 0RF take 4 tabs by mouth 1 hour prior to dental ppx 1 day Changed From oxycodone Partial Fill upon patient request. 10 mg PO Q4H 7 days PRN 42 tabs 0RF Pain, Moderate(Pain Scale 4-6) To oxycodone Partial Fill upon patient request. 10 mg PO Q6H PRN 28 tabs 0RF Pain, Moderate(Pain Scale 4-6) 7 days Patient Instructions: Scribed by Alla Bhakta, nuclear medical technologist, for Aurelia Stratton PA-C on 06/11/24 at 9:25 am EST. Coding Level of Care Code Global (60937) Diagnoses Status post total right knee replacement Z96.651
== END 2024-06-11 09:21 | disposition home or self-care (01) ==
PROVIDERS: PCP Internal Medicine; Visit Provider Physician Assistant
DX: Z96.651 Presence of right artificial knee joint (principal)
CPT/HCPCS: 99024

== ENCOUNTER 2024-06-11 12:17 | Outpatient (REF) | payer MEDICARE, OTHER, SELFPAY | END 2024-06-11 12:18 | disposition home or self-care (01) | LOC: HO.HOSX 12:17 | PROVIDERS: Visit Provider Physician Assistant | DX: M25.561 Pain in right knee (principal); M25.562 Pain in left knee; Z96.651 Presence of right artificial knee joint | CPT/HCPCS: 73560; 73562; 99212 ==

== ENCOUNTER 2024-07-07 08:03 | Outpatient (AMB) | payer MEDICARE, OTHER, SELFPAY ==
--- NOTE | 2024-07-07 08:11 | MHC.OFFVIS ---
Vital Signs 07/07/24 08:12 Height 5 ft 3 in Weight 164 lb BMI 29.0 Intake Visit Reasons: PO: R TKA w/DR 05/25/24 Intake Note: Jailyn is a 74 year old female who presents with complaints of mild to moderate discomfort in her right knee after undergoing right total knee replacement surgery on 05/25/2024. She continues with her home physical therapy exercises. She denies any fevers or chills. She does take oxycodone 1 or 2 times daily for her discomfort. Allergies Iodinated Contrast Media [IV Contrast Dye] Allergy (Intermediate, Verified 06/11/24 09:03) Itching and warm iodine Adverse Reaction (Mild, Verified 06/11/24 09:03) Sneezing Medication List - Last Reconciled 07/07/24 by Hector Ortiz MD amoxicillin 2,000 mg (4 x 500 mg) PO ONCE 1 day oxycodone 10 mg PO Q6H PRN 7 days PFSH Medical History History of cervical dysplasia (~1980) Hx of blood transfusion reaction (~1968) Back pain at L4-L5 level Back pain Seasonal allergies Osteoarthritis History of GI bleed (~1991) Sciatica Surgical History Hx of colonoscopy History of back surgery (~2015) History of hip surgery (~2019) History of hip surgery (~2008) Hx of hysterectomy Hx of appendectomy Hx of left knee surgery (~2019) Social History Household Members: None Caregiver staying overnight: No Housing: House Are you a primary healthcare social worker to a significant other at home: No Do you presently have visiting nurse or other home services: No 75 years or older and lives alone: Yes Comment: aware of trip hazard Patient Tobacco Use Status: Former Tobacco user Tobacco use type: Cigarette Second Hand Smoke Exposure: No service: No Current occupational status: retired Current occupation: Right hand dominate Physical Exam Vital Signs: BMI result Body Mass Index 29.0 Extrem Other: Right knee examination shows that the surgical incision is well healed, no erythema, full active extension and flexion to 120 degrees, her patella tracks well Assessment & Plan Assessment & Plan (1) Right knee pain: Code(s): M25.561 - Pain in right knee Category: Medical Plan Ms. Montes continues to do well after undergoing right total knee replacement surgery on 05/25/2024. She will continue with her physical therapy exercises. She does know to take antibiotics before any dental work. She will contact me prior to her follow-up appointment in 3 months should any questions or concerns arise. Feel free to call me at any time should questions regarding her orthopedic management arise. Medications: Changed From oxycodone Partial Fill upon patient request. 10 mg PO Q6H 7 days PRN 28 tabs 0RF Pain, Moderate(Pain Scale 4-6) To oxycodone Partial Fill upon patient request. 10 mg PO Q12H PRN 30 tabs 0RF pain Coding Level of Care Code Global (89836) Diagnoses Right knee pain M25.561
[2024-07-07 08:12] VITALS: BMI 29.0
--- OUTSIDE RECORDS SUMMARY | 2024-07-08 18:43 | XMS_ITS ---
Author Name [facility] Organization Unknown History of Medication Use Medication Directions Dispensed Refills Start Date End Date [facility] cephalexin 500 mg capsule TAKE ONE CAPSULE BY MOUTH THREE TIMES A DAY FOR 5 DAYS 09/17/2023 completed lidocaine (PF) 100 mg/5 mL (2 %) injection syringe Take 4 mL by injection route. 09/17/2023 active losartan 25 mg tablet TAKE ONE TABLET BY MOUTH EVERY DAY 01/03/2023 completed prednisolone acetate 1 % eye drops,suspension INSTILL 1 DROP IN THE LEFT EYE FOUR TIMES A DAY 09/17/2023 completed fluticasone propionate 50 mcg/actuation nasal spray,suspension USE TWO SPRAYS IN EACH NOSTRIL ONCE DAILY 01/03/2023 active moxifloxacin 0.5 % eye drops PUT 1 DROP IN OPERATIVE EYE THREE TIMES A DAY STARTING ONE DAY PRE-OP - CONTINUE FOR 7 DAYS AFTER SURGERY 09/17/2023 completed losartan 25 mg tablet TAKE ONE TABLET BY MOUTH EVERY DAY 01/03/2023 completed lidocaine (PF) 100 mg/5 mL (2 %) injection syringe 09/17/2023 active atorvastatin 10 mg tablet TAKE ONE TABLET BY MOUTH EVERY DAY 01/03/2023 completed Kenalog 40 mg/mL suspension for injection Take 1 mL by injection route. 09/17/2023 active albuterol sulfate HFA 90 mcg/actuation aerosol inhaler INHALE TWO PUFFS BY MOUTH EVERY 4 TO 6 HOURS NEEDED FOR SHORTNESS OF BREATH OR WHEEZING 09/17/2023 completed Marcaine (PF) 0.5 % (5 mg/mL) injection solution Take 4 mL by injection route. 09/17/2023 active Marcaine (PF) 0.5 % (5 mg/mL) injection solution 09/17/2023 active prednisone 20 mg tablet TAKE ONE TABLET BY MOUTH TWICE A DAY FOR 5 DAYS 09/17/2023 completed Kenalog 40 mg/mL suspension for injection 09/17/2023 active Prolensa 0.07 % eye drops INSTILL 1 DROP IN THE OPERATIVE EYE ONCE A DAY FOR 21 DAYS. START 1 DAY PRE-OP. 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
== END 2024-07-07 08:39 | disposition home or self-care (01) ==
PROVIDERS: PCP Internal Medicine; Visit Provider Orthopaedic Surgery
DX: M25.561 Pain in right knee (principal)
CPT/HCPCS: 99024

== ENCOUNTER → 2024-07-07 08:03 | Outpatient (BNVA) | payer MEDICARE, OTHER, SELFPAY | PROVIDERS: PCP Internal Medicine; Visit Provider Orthopaedic Surgery | DX: M25.561 Pain in right knee (principal) | CPT/HCPCS: 99212 ==

== ENCOUNTER 2024-11-10 08:18 | Outpatient (AMB) | payer MEDICARE, OTHER, SELFPAY ==
--- OUTSIDE RECORDS SUMMARY | 2024-11-10 08:22 | XMS_ITS | Patient Health Record ---
Author Organization [facility] Address [address] [place] [address] Support Name Relationship Address Phone RINA HEBERT Guarantor Unknown [phone] Reason For Referral No Information Medications Medication SIG (Take, Route, Frequency, Duration) Notes Start Date End Date Status Lipitor 10MG 1 ORAL daily for -3 [place]-MJ 09/22/2012 Active Immunizations Vaccine Route Administration Date Status Comme nts Influenza, live, intranasal Intramuscular 09/19/2011 Pendi ng Tdap Intramuscular 09/19/2011 Pending Problems Problem Type SNOMED Code ICD Code Onset Dates Problem Status W/U Status Risk Notes Problem Hyperlipidemia (42441006) Other and unspecified hyperlipidemia (272.4) Active confirmed Major Problem Gynecological examination normal (927903349220170) Routine gynecological examination (V72.31) Active confirmed Diag Problem Counseling (297175104) Counseling NOS (V65.40) Active confirmed Diag Plan Of Treatment No Information Insurance Providers Payer Name Payer Address Payer Phone Subscriber Number Group Number Insured Name Patient Relationship to Insured Coverage Start Date Coverage End Date CLAIMS/A [facility] [address] [address] [place] [phone] [id number] ANUPRINA DIAS Self - patient is the insured 2
--- OUTSIDE RECORDS SUMMARY | 2024-11-10 08:22 | XMS_ITS | Data Portability ---
Author Organization [place] [facility] N[facility] [place] Address [address] [place] [address] Care Team Providers Care Pillowcase Sewer Name Role Phone JOHN COURTNEY Primary Care Provider JOHN COURTNEY Referring Provider Assessment Encounter Date Assessment Date Assessment LastModified by Organization Details LastModified Time 11/28/2022 11/28/2022 72-year-old femtarik kenyon with osteoarthritis of the right knee and total joint replacement in 2019 of left knee is in an excellent place with both of her knees. She has some discomfort with stairs but overall her function and comfort is good. Recommendations are for continuation on a regimen of exercise. Follow-up with his orthopedic office is now as needed. [email or web address] Not available 11/28/2022 10:10:36 12/31/2022 12/31/2022 72-year-old fema chantale with a history of 2 lumbar back surgeries at [facility] approximately 6 or 7 years ago. She has approximately 2 weeks of acute low back pain without radiculopathy or weakness after a fall. X-rays reveal multilevel spondylosis with anterior listhesis of L5 on S1 greater than L4-5. There may be slight compression of the L3 superior endplate. She has point tenderness at this area. I cannot rule out an acute compression fracture. We discussed treatment options including observation with modified activity, bracing, and kyphoplasty. she defers bracing. For now we both agree she would like to modify her activity. She was instructed in appropriate activity modification - specifically avoiding bending lifting or twisting.. We recommend ice. , She may use pyyf-opu-rwdpwlg medications sparingly as needed. She will follow-up in approximately 3 to 4 weeks for repeat evaluation or sooner if needed. [email or web address] Not available 12/31/2022 10:03:10 02/04/2023 02/04/2023 HPI: Jailyn is a 72 year old female who returns for continued management of her lumbar spine. She has a history of bilateral hip replacements and a knee replacement by Dr. Ortiz. She reports a history of 2 prior back surgeries at [facility] that were approximately 6 or 7 years ago. She reports these were successful. She experienced acute onset of low back pain after a fall approximately 6 weeks ago. She has multilevel spondylosis with anterior listhesis of L5 on S1 greater than L4-5. There may be slight compression of the L3 superior endplate. She has point tenderness at this area. I cannot rule out an acute compression fracture. She reports that after her last visit she had significant improvement with her pain and she was doing well. Approximately 4 days ago when her pain recurred. She variances primary right-sided lumbosacral pain. She does not have distal radiculopathy or weakness. She has not had any new injury. She is taking gjuw-nlx-uhwgdzi medications and topical medications with some relief. Plan: 72-year-old female with a history of 2 lumbar back surgeries at [facility] approximately 6 or 7 years ago. Patient has extensive lumbar spondylosis with a grade 1 L5-S1 greater than L4-5 anterior listhesis, with extensive lower lumbar facet arthropathy. She has approximately 6 weeks of acute low back pain without radiculopathy or weakness after a fall. At her last visit we are questioning a possible mild L3 compression deformity. Repeat x-rays today were stable. Her pain significantly improved since her last visit but has been increased over the past 4 days. We recommended an MRI of her lumbar spine to evaluate for acute compression deformity. She politely declined. She is not overly interested in kyphoplasty, she would like to continue to modify her activity and monitor her symptoms. Return in 1 month for follow-up. She will contact us in the interim if she has any worsening symptoms. [email or web address] Not available 02/04/2023 11:22:00 03/11/2023 03/11/2023 HPI: Jailyn is a 72 year old female who returns for continued management of her lumbar spine. She has a history of bilateral hip replacements and a knee replacement by Dr. Ortiz. She reports a history of 2 prior back surgeries at [facility] that were approximately 6 or 7 years ago. She reports these were successful. She experienced acute onset of low back pain after a fall approximately 2 months ago. She has multilevel spondylosis with anterior listhesis of L5 on S1 greater than L4-5. Initially we questioned slight compression of the L3 superior endplate. She has point tenderness at this area, repeat xrays were stable. We discussed MRI to evaluate for acute compression deformity. She politely declined. Today she returns for continued management. She reports that she has been fine . With full resolution of her acute low back pain with changing her diet and quitting sugar. She is very happy with her progress. Notes that over past 2 weeks she has an increase in back and joint achiness as she has started to include sugar back into her diet with summer picnic.She reports this is not severe, but more of an achiness/discomfor t. She has been modifying her activity. Plan: 72-year-old female with a history of 2 lumbar back surgeries at [facility] approximately 6 or 7 years ago. Patient has extensive lumbar spondylosis with a grade 1 L5-S1 greater than L4-5 anterior listhesis, with extensive lower lumbar facet arthropathy. Initially, we questioned a possible mild L3 compression deformity. She is not interested in more invasive care and deferred additional imaging. At this time her severe acute low back pain has resolved. She has intermittent achiness pending her diet and sugar intake. She does not have radiculopathy or weakness. Overall she is very happy with her progress. We will avoid noxious back activities. Since her acute pain is resolved we deferred additional imaging today. She would like to follow-up on an as-needed basis as her severe pain has resolved. Not available 03/11/2023 10:35:25 09/12/2023 09/12/2023 HPI : Patient is here today with complaints of right knee pain. She also has a history of a left total knee replacement with Dr. Ortiz in 2019 she did have a fall and wanted to get the left knee checked out. overall though the right knee is more painful than the left knee.. ?The patient is experiencing right knee pain, which is moderate in intensity, and has recently worsened. The pain limits some activities of daily living. Walking tolerance is reduced. Pain and restriction of function are significant. She did have corticosteroid injections in the past which were helpful. Review of systems is negative for other rapidly progressive neurological disorder, chest pain, shortness of breath, fevers, chills, or any signs of active or persistent local or systemic infection. Physical Exam ? ? ?: Patient is well nourished, well-developed, in no acute distress, with appropriate mood and affect. The patient is oriented to time, place, and person. Examination of the left knee shows a well-healed skin incision. Stable to varus and valgus stress. Stable to AP translation. Range of motion is 0 to 110 degrees today. The affected right limb is well-perfused, without skin lesions, shows a grossly normal motor and sensory examination. Right knee motion is reduced and does cause significant pain. The right knee moves from 5-125 degrees. The knees are stable within those [id number]-[id number]. The alignment of the right knee is varus . Muscle strength is normal. Pedal pulses are palpable. Hip examination, including flexion and internal rotation, was negative in that groin pain was not produced. Assessment/Plan ? ? ?: Regarding her left total knee replacement I do not not see any implant related issues. Exam, imaging, and history do not show any signs of implant related issues including loosening, malposition, instability, periprosthetic fracture, or infection. No intervention required. She is reassured following her fall The patient has right knee arthritis. An extensive discussion was conducted on the natural history of the disease and the variety of surgical and non-surgical options available to the patient including, but not limited to non-steroidal anti-inflammatory medications, steroid injections, viscosupplementati on, physical therapy, maintenance of ideal body weight, and reduction of activity. Plan for right knee corticosteroid injection today. She will follow-up with me in 3 months with reevaluation at that time. Not available 09/12/2023 11:49:46 Plan of Treatment Reminders Order Date Submit Date Provider Last Modified By Organization Details Last Modified Time Details Appointments None recorded. Lab None recorded. Referral None recorded. Procedures None recorded. Surgeries None recorded. Imaging XR, knee, 1 or 2 view - Left Knee Pain 2023 024 [email or web address] [facility], [address], [address], [place], [address], 4 11:50:43 XR, knee, 1 or 2 view - Right Knee Pain 2023 024 [email or web address] [facility], [address], [address], [place], [address], 4 11:50:43 XR, knee, weightbeari ng - Bilateral Knee Pain 2023 024 [email or web address] [facility], [address], [address], [place], [address], 4 11:50:43 XR, lumbosacral spine, 2 or 3 view 2022 023 [email or web address] [facility], [address], [address], [place], [address], 3 12:15:27 XR, lumbosacral spine, 2 or 3 view 2022 023 [email or web address] 21 [facility], [address], [address], [place], [address], 3 13:41:28 XR, lumbosacral spine, 2 or 3 view, bending only 2022 023 [email or web address] 21 [facility], [address], [address], [place], [address], 3 13:41:28 Medication Orders Marcaine (PF) 0.5 % (5 mg/mL) injection solution 2023 024 [email or web address] [id number], [address] [place] [address], [address], 4 11:50:43 lidocaine (PF) 100 mg/5 mL (2 %) injection syringe 2023 024 [email or web address] [id number], [address] [place], [address], 4 11:50:43 Kenalog 40 mg/mL suspension for injection 2023 024 [email or web address] [id number], [address] [place], [address], 4 11:50:43 Patient TargetsNo targets recorded. Patient Instructions Encounter Date Encounter Id Patient Instructions Last Modified By Organization Details Last Modified Time 12/31/2022 [id number] AP and lateral radiographs lumbar spine were obtained in the [place] office today. These reveal extensive degenerative changes throughout. Lumbar scoliosis, lateral listhesis of L4 and L5. Minimal anterolisthesis of L4 and L5 and L5 on S1. Extensive lower lumbar facet arthropathy. There may be slight compression of the anterior endplate of L3. [email or web address] Not available 12/31/2022 10:05:03 02/04/2023 [id number] Repeat AP and lateral radiographs lumbar spine were obtained in the office today and compared with her previous radiographs from December 31, 2022. These redemonstrate multilevel degenerative changes with grade 1 anterior listhesis of L5 on S1 greater than L4 and L5, minimal endplate depression of L3 appears stable from previous radiographs. Extensive lower lumbar facet arthrosis. [email or web address] Not available 02/04/2023 11:19:58 09/12/2023 [id number] AP, lateral, Leiva, and patellar view radiographs of the right knee taken today demonstrate right knee degenerative joint disease with joint space narrowing, osteophyte formation, and subchondral sclerosis. There is rgrn-ej-hkhz articulation medially. AP, lateral, and patellar radiographs of the left knee taken today demonstrate satisfactory position and alignment of components following left total knee replacement. Not available 09/12/2023 11:50:00 Reason for Referral None Reported. 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 1339633252445 9105 Active [address], [place], [address], [place] [facility], P 4 11:29:26 Low back pain 043088982 Active [address], [place], [address], [place] [facility], [facility] 3 10:00:46 Fall Active [address], [place], [address], [place] [facility], [facility] 3 10:00:48 Lumbar spondylolis thesis 2682916242374 02 Active [address], [place], [address], [place] [facility], [facility] 3 10:00:49 Lumbar spondylosis 373279826 Active [address], [place], [address], [place] [facility], [facility] 3 10:00:50 History of operative procedure on lumbar spinal structure 454335136 Active [address], [place], [address], [place] [facility], [facility] 3 10:00:51 Problem Notes None recorded. Procedures Surgical History Date Name Laterality Status Provider Name and Address Organization Details Recorded Time 09/12/19 24 MJG Knee Injection w/o US completed MD [address], [place], [address], [place] [facility] 09/12/2023 11:28:31 Appendectomy completed Sahil Wiggins [place] [facility], [facility] 11/28/2022 09:36:20 Hysterectomy completed Sahil Wiggins [place] [facility], [facility] 11/28/2022 09:36:28 implantation of joint prosthesis completed Sahil Wiggins [place] [facility], [facility] 11/28/2022 09:36:42 Knee Surgery completed Sahil Wiggins [facility] 11/28/2022 09:36:47 Imaging Results None recorded. Procedure Notes None recorded. Medical Equipment None Reported. Allergies Allergen ID Allergen Name Allergen Category Reaction Reaction Severity Criticality Documentation Date Start Date Code Code System Note Provider Name and Address Organization Details Recorded Time 3422 iodine medicatio n Not available Not available Not available 11/28/[address] [facility], [place] [facility] 09:28:38 Medications Name Sig Start Date Stop Date Status Note LastModified by Organization Details LastModified Time atorvastati n 10 mg tablet TAKE ONE TABLET BY MOUTH EVERY DAY 09/12 completed Not Available Not Available Not Available prednisone 20 mg tablet TAKE ONE TABLET BY MOUTH TWICE A DAY FOR 5 DAYS 09/12 completed Not Available Not Available Not Available ketorolac 0.5 % eye drops INSTILL ONE DROP IN LEFT EYE TWO TIMES A DAY active Not Available Not Available No t Available Kenalog 40 mg/mL suspension for injection Take 1 mL by injection route. 2023 active Not Available Not Available Not Avai lable prednisolon e acetate 1 % eye drops,suspe nsion INSTILL ONE DROP INTO LEFT EYE DAILY DIRECTED active Not Available Not Available No t Available cephalexin 500 mg capsule TAKE ONE CAPSULE BY MOUTH THREE TIMES A DAY FOR 5 DAYS 09/12 completed Not Available Not Available Not Available losartan 25 mg tablet TAKE ONE TABLET BY MOUTH EVERY DAY 09/12 completed Not Available Not Available Not Available hydrochloro thiazide 25 mg tablet TAKE ONE TABLET BY MOUTH EVERY DAY 09/12 completed Not Available Not Available Not Available albuterol sulfate HFA 90 mcg/actuati on aerosol inhaler INHALE TWO PUFFS BY MOUTH EVERY 4 TO 6 HOURS NEEDED FOR SHORTNESS OF BREATH OR WHEEZING 09/12 completed Not Available Not Available Not Available fluticasone propionate 50 mcg/actuati on nasal spray,suspe nsion USE TWO SPRAYS IN EACH NOSTRIL ONCE DAILY active Not Available Not Available No t Available moxifloxaci n 0.5 % eye drops PUT 1 DROP IN OPERATIVE EYE THREE TIMES A DAY STARTING ONE DAY PRE-OP - CONTINUE FOR 7 DAYS AFTER SURGERY 09/12 completed Not Available Not Available Not Available Marcaine (PF) 0.5 % (5 mg/mL) injection solution Take 4 mL by injection route. 2023 active Not Available Not Available Not Avai lable lidocaine (PF) 100 mg/5 mL (2 %) injection syringe Take 4 mL by injection route. 2023 active Not Available Not Available Not Avai lable Prolensa 0.07 % eye drops INSTILL 1 DROP IN THE OPERATIVE EYE ONCE A DAY FOR 21 DAYS. START 1 DAY PRE-OP. 09/12 completed Not Available Not Available Not Available Vitals Date Recorded Body height Body mass index (BMI) Body weight Provider Name and Address Organization Details Last Updated DateTime 09/12/2023 165.1 cm 28.3 kg/m2 85300.7 g Autumn Saavedra [place] [facility] 09/12/2023 10:44:18 Date Recorded Body height Body mass index (BMI) Body weight Provider Name and Address Organization Details Last Updated DateTime 12/31/2022 165.1 cm 29.1 kg/m2 92367.66 g Sahli Wiggins [place] [facility] 12/31/2022 09:41:00 Date Recorded Body height Provider Name an d Address Organization Details Last Updated DateTime 02/04/2023 165.1 cm Autumn Saavedra [place] [facility] 02/04/2023 10:50:38 Date Recorded Body height Provider Name an d Address Organization Details Last Updated DateTime 03/11/2023 165.1 cm Nancy Delong [place] [facility] 03/11/2023 10:03:40 Date Recorded Body mass index (BMI) Body weight Provider Name and Address Organization Details Last Updated DateTime 03/11/2023 28.3 kg/m2 29946.7 g Jayashree Nunes [place] [facility] 03/11/2023 10:21:19 Social History Question Answer Notes LastModified by Organizat ion Details LastModified Time Tobacco Smoking Status Former Smoker Sahil doshi, [place] [facility], 11/28/2022 09:34:36 What Is Your Level Of Alcohol Consumption? None [email or web address] Information not available 11/28/2022 When Did You Quit Smoking? 11-15yearss incelastcig arette [email or web address] Information not available 11/28/2022 Do You Use Any Illicit Or Recreational Drugs? No Information not available 11/28/2022 Do You Or Have You Ever Used Any Other Forms Of Tobacco Or Nicotine? No Information not available 11/28/2022 Sex: Unknown Functional Status None recorded. Mental Status None recorded. Family History Relationship Description Onset Age of this Age Resolved Age Notes LastModified by Organization Details LastModified Time Father Family history of malignant neoplasm [email or web address] Not available 2022 09:35:44 Mother Family history of malignant neoplasm [email or web address] Not available 2022 09:35:44 Sister Acute stroke [email or web address] Not avail able 11/28/2022 09:36:11 Medical History Condition Response Arthritis Y Reflux/GERD Y Hypertension Y Blood Transfusion Y Gynecological HistoryNo gynecological history recorded. Obstetrics History GPAL:G 0 P 0 0 0 0 Past Encounters Encounter ID Performer Location Encounter Start Date Encounter Closed Date Diagnosis/Indication Diagnosis SNOMED-CT Code Diagnosis ICD10 Code Diagnosis Note [id number] Anson Zambrano MD [facility] [address] [facility] [address] [place] [address] 11/28/2022 09:18:49 11/28/2022 10:21:23 Arthritis of knee 934575250 M13.869 [id number] Turner Weldon MD [facility] [address] [facility],[address] [place] [phone] 12/31/2022 09:19:02 12/31/2022 09:59:43 Low back pain 858308674 M54.50 Fall 3420027 W19.XXXA Lumbar spondylolisthesis 5496091596 11144 M43.16 Lumbar spondylosis 62926 0009 M47.896 History of operative procedure on lumbar spinal structure 552627561 Z98.890 [id number] Turner Weldon MD [facility] [address] [facility] [address] [place] [address] 02/04/2023 10:47:41 02/04/2023 11:21:04 Low back pain 224946356 M54.50 Fall W19.XXXA Lumbar spondylolisthesis 0867392927 66175 M43.16 Lumbar spondylosis 47586 0009 M47.896 History of operative procedure on lumbar spinal structure 405889331 Z98.890 [id number] MD THALIA Wilson [place] [address] [facility] [address] [place] [address] 03/11/2023 09:56:47 03/11/2023 10:32:54 Low back pain 811123691 M54.50 Fall W19.XXXA Lumbar spondylolisthesis 3801996124 01699 M43.16 Lumbar spondylosis 08813 0009 M47.896 History of operative procedure on lumbar spinal structure 291741194 Z98.890 [id number] Anson Zambrano MD [address] [address] 09/12/2023 10:37:32 09/12/2023 11:34:33 Pain of bilateral knee joints 3924657295 42379 M25.561 M25.562 Osteoarthr itis of right knee joint 9515755510 34838 M17.11 Chronic pa in following left total knee arthroplasty 1525715411 1009408 T84.84XA Health Concerns Section Related Observation LastModified by Organization Detai ls LastModified Time None Recorded Concern Status LastModified by Organization Details LastModified Time None Recorded Advance Directives Directive None Recorded Payers Encounter Date Sequence Insurance Name Policy Number Policy Dunn Covered Member ID Dunn Member ID Guarantor Name 11/28/2022 1 [place]ICARE [place]: [place]GS Jailyn A Simon [id number] Jailyn Simon 11/28/2022 2 () Jailyn A Simon [id number] Jailyn Simon 12/31/2022 1 [place]: [place] Jailyn A Simon [id number] Jailyn Simon 12/31/2022 2 () Jailyn A Simon [id number] Jailyn Simon 02/04/2023 1 [place]: [place] Jailyn Mallory Siomn [id number] Jailyn Simon 02/04/2023 2 () Jailyn A Simon [id number] Jailyn Simon 03/11/2023 1 [place] Jailyn Mallory Simon [id number] Jailyn Simon 03/11/2023 2 () Jailyn A Simon [id number] Jailyn Simon 09/12/2023 1 [place] Jailyn Mallory Simon [id number] Jailyn Simon 09/12/2023 2 () Jailyn A Simon [id number] Jailyn Simon Notes Date Note Type Note Provider Name and Address Organization Details Recorded Time 11/28/2022 text/html 72-year-old fema chantale presents for routine recheck of right knee pain on recommendations by Dr. Ortiz. Jailyn describes for me that she has done some online reading into strategies to reduce systemic inflammation via diet. She states that in July she eliminated sugar from her diet completely and has noticed a decrease in her pain from a 10 out of 10 at the right knee down to a 0-2 out of 10. She states that her left knee which is status post total joint arthroplasty in 2019 had become stiff as a result of a period of immobilization around mourning the loss of her . She has made an effort to force the motion back and is making good gains. She recognizes the role for PT but declines an offer for PT order today. Overall Jailyn is in an excellent place with bilateral knees. CHIQUITA UMAÑA PA-C [address], [place], [address], [place] [facility] 11/28/2022 10:11:39 12/31/2022 text/html Jailyn is a 72-year-old female with a history of bilateral hip replacements and a knee replacement by Dr. Ortiz. She reports a history of 2 prior back surgeries at [facility] that were approximately 6 or 7 years ago. She reports these were successful. She has hypertension and reflux. She was at a concert on December 16. She reports that she slipped on a wet marble and landed directly on her lumbosacral spine and right buttock. sp[employer] evaluated her and helped her get to her car in the parking garage. Initially she had severe pain, over the next few weeks her pain was manageable. However over the past few days she has noticed increase in her pain. Currently she notes lumbosacral pain and pain into her right buttock. She does not have radiculopathy or weakness. Her pain is worse with certain movements. Is somewhat better with Advil. Pain disturbs sleep. No saddle anesthesia. No bowel or bladder incontinence. No fevers, chills, or unexplained weight loss. Treatments today include anti-inflammatories, thermal modalities and rest. KEILY PAYTON PA-C [address], [place], [address], [place] [facility] 12/31/2022 10:06:39 02/04/2023 text/html Prior Visit Jailyn is a 72-year-old female with a history of bilateral hip replacements and a knee replacement by Dr. Ortiz. She reports a history of 2 prior back surgeries at [facility] that were approximately 6 or 7 years ago. She reports these were successful. She has hypertension and reflux. She was at a concert on December 16. She reports that she slipped on a wet marble and landed directly on her lumbosacral spine and right buttock. spinner hydraulic evaluated her and helped her get to her car in the parking garage. Initially she had severe pain, over the next few weeks her pain was manageable. However over the past few days she has noticed increase in her pain. Currently she notes lumbosacral pain and pain into her right buttock. She does not have radiculopathy or weakness. Her pain is worse with certain movements. Is somewhat better with Advil. Pain disturbs sleep. No saddle anesthesia. No bowel or bladder incontinence. No fevers, chills, or unexplained weight loss. Treatments today include anti-inflammatories, thermal modalities and rest. Plan 72-year-old female with a history of 2 lumbar back surgeries at [facility] approximately 6 or 7 years ago. She has approximately 2 weeks of acute low back pain without radiculopathy or weakness after a fall. X-rays reveal multilevel spondylosis with anterior listhesis of L5 on S1 greater than L4-5. There may be slight compression of the L3 superior endplate. She has point tenderness at this area. I cannot rule out an acute compression fracture. We discussed treatment options including observation with modified activity, bracing, and kyphoplasty. she defers bracing. For now we both agree she would like to modify her activity. She was instructed in appropriate activity modification - specifically avoiding bending lifting or twisting.. We recommend ice. , She may use [id number] medications sparingly as needed. She will follow-up in approximately 3 to 4 weeks for repeat evaluation or sooner if needed. KEILY PAYTON PA-C [address], [place], [phone], [place] [facility] [place] 02/04/2023 11:22:23 03/11/2023 text/html prior visit 02/04 HPI: Jailyn is a 72 year old female who returns for continued management of her lumbar spine. She has a history of bilateral hip replacements and a knee replacement by Dr. Ortiz. She reports a history of 2 prior back surgeries at [facility] that were approximately 6 or 7 years ago. She reports these were successful. She experienced acute onset of low back pain after a fall approximately 6 weeks ago. She has multilevel spondylosis with anterior listhesis of L5 on S1 greater than L4-5. There may be slight compression of the L3 superior endplate. She has point tenderness at this area. I cannot rule out an acute compression fracture. She reports that after her last visit she had significant improvement with her pain and she was doing well. Approximately 4 days ago when her pain recurred. She variances primary right-sided lumbosacral pain. She does not have distal radiculopathy or weakness. She has not had any new injury. She is taking [id number] medications and topical medications with some relief. Plan: 72-year-old female with a history of 2 lumbar back surgeries at [facility] approximately 6 or 7 years ago. Patient has extensive lumbar spondylosis with a grade 1 L5-S1 greater than L4-5 anterior listhesis, with extensive lower lumbar facet arthropathy. She has approximately 6 weeks of acute low back pain without radiculopathy or weakness after a fall. At her last visit we are questioning a possible mild L3 compression deformity. Repeat x-rays today were stable. Her pain significantly improved since her last visit but has been increased over the past 4 days. We recommended an MRI of her lumbar spine to evaluate for acute compression deformity. She politely declined. She is not overly interested in kyphoplasty, she would like to continue to modify her activity and monitor her symptoms. Return in 1 month for follow-up. She will contact us in the interim if she has any worsening symptoms. KEILY PAYTON PA-C [address], [place], [phone], [place] - [facility] [place], [facility] 03/11/2023 10:36:22 OBGyn Episode No OBEpisode recorded.
--- OUTSIDE RECORDS SUMMARY | 2024-11-10 08:22 | XMS_ITS | Clinical Summary ---
Author Organization [facility] Address [address] [place] [address] Care Team Providers Care Medical/Surgery Registered Nurse Name Role Phone Tab Joe MD Primary Care Provider Unavailab le Allergies Active Allergy Reactions Criticality Noted Date Comments Iodine Other (See Comments) 08/13/2014 Other 09/22/2018 Medications Medication Sig Dispensed Refills Start Date End Date Status gabapentin (NEURONTIN) 300 MG capsule Take 300 mg by mouth 3 (three) times a day. 0 Active hydrochlorothiazide (HYDRODIURIL) tablet 25 mg Take 25 mg by mouth daily. 0 Active losartan (COZAAR) tablet 25 mg Take 25 mg by mouth daily. 0 Active benzonatate (TESSALON PERLES) 100 MG capsule Tessalon Perles 100 mg capsule Take 1 capsule 3 times a day by oral route as needed. 0 Active ipratropium-albuter ol (DUO-NEB) 0.5-2.5 mg/mL nebulizer 3 mL. 0 Active albuterol (PROAIR HFA) 108 (90 Base) MCG/ACT inhaler ProAir HFA 90 mcg/actuation aerosol inhaler Inhale 2 puffs every 4 hours by inhalation route. 0 Active atorvastatin (LIPITOR) tablet 10 mg daily. 0 Active ACETAMINOPHEN EXTRA STRENGTH 500 MG tablet 0 06/08/2020 Active amoxicillin (AMOXIL) 500 MG tablet Take 4 tabs 1 hour prior to dental appointment 20 tablet 3 06/21/2020 Active sertraline (ZOLOFT) 50 MG tablet TAKE ONE TABLET BY MOUTH EVERY DAY 0 01/05/2021 Active Spiriva Respimat 2.5 MCG/ACT AERS 2 puffs by Inhaled route daily. 0 01/13/2021 Active cetirizine (ZyrTEC) 10 MG tablet Take 1 tablet by mouth daily. 0 03/14/2021 Active Wixela Inhub 250-50 MCG/DOSE DISKUS 2 (two) times a day. 0 02/13/2021 Active fluticasone (FLONASE) 50 MCG/ACT nasal spray fluticasone propionate 50 mcg/actuation nasal spray,suspension USE ONE TO TWO SPRAYS IN EACH NOSTRIL ONCE DAILY NEEDED 0 Active aspirin EC 81 MG tablet Take one tab twice daily for 4 weeks 56 tablet 1 04/07/2021 Active oxyCODONE (ROXICODONE) 5 MG immediate release tablet Take 1-2 tabs every 8 hours as needed for pain 40 tablet 0 05/23/2021 Active hydrOXYzine (ATARAX) 50 MG tablet TAKE ONE TABLET BY MOUTH TWICE A DAY NEEDED FOR ANXIETY 0 11/01/2021 Active Active Problems Problem Noted Date Diagnosed Date Closed subchondral insuffici ency fracture of condyle of left femur 06/03/2019 Complex tear of medial menis cus of left knee as current injury 06/03/2019 Left knee injury 03/24/2019 Arthritis of knee, left 03/24/2019 Subacromial bursitis of right shoulder joint Calcific tendinitis of left shoulder 09/17/2018 Bursitis of right elbow 06/17/2018 Arthritis of knee, right 06/17/2018 Immunizations Name Administration Dates Next Due Covid-19 (Pfizer) Dilution Required 09/14/2020,0 08/19/2020 Family History Medical History Relation Name Comments Cancer Father Cancer Mother Stroke Sister Relation Name Status Comments Father Mother Sister Social History Tobacco Use Types Packs/Day Years Used Date Smoking Tobacco: Former Cigarettes Q uit: 2010 Smokeless Tobacco: Never Alcohol Use Standard Drinks/Week Comments Yes 0 (1 standard drink = 0.6 oz pur e alcohol) socially Sex and Gender Information Value Date Recorded Sex Assigned at Female 08/19/2020 3:31 PM EST Gender Identity Not on file Sexual Orientation Not on file Job Start Date Occupation Industry Not on file Not on file Not on file Last Filed Vital Signs Vital Sign Reading Time Taken Comments Blood Pressure - - Pulse - - Temperature - - Respiratory Rate - - Oxygen Saturation - - Inhaled Oxygen Concentration - - Weight 81.6 kg (180 lb) 08/08/2021 12:47 PM EST Height 162.6 cm (5' 4 ) 08/08/2021 12:47 PM EST Body Mass Index 30.9 08/08/2021 12:47 PM EST Plan of Treatment Health Maintenance Due Date Last Done Comments Hepatitis C Screening 1950 Depression Screening 1960 BMI Counseling 1966 Preventative Health Evaluation 1966 DTap / Tdap / Td (1 - Tdap) 1967 Fall Risk Assessment 2013 Osteoporosis Screening (DEXA Scan) 2013 Pneumococcal Vaccine (2 of 2 - PPSV23 or PCV20) 11/30/2016 12/01/2015 RSV Adult > 60+ Yrs or (1 - 1-dose 75+ series) 2023 COVID-19 Vaccine (3 - season) 2024 09/14/2020, 08/19/2020 Influenza Vaccine (#1) 2024 0, 05/04/2019, 05/04/2019, Additional history exists Shingrix-Zoster Vaccine Completed 04/13/2020, 02/11 Hepatitis B Vaccines Aged Out No long er eligible based on patient's age to complete this topic RSV Ped < 20 months Aged Out No longe r eligible based on patient's age to complete this topic Care Teams Medical/Surgery Registered Nurse Relationship Specialty Start Date End Date Tab Joe MD PCP - General Internal Medicine 03/24/19
--- OUTSIDE RECORDS SUMMARY | 2024-11-10 08:22 | XMS_ITS ---
Author Organization [facility] Address [address] [place] [phone] Phone Care Team Providers Care Arboreal Scientist Name Role Phone Marcela Sloan Primary Care Provider + Transitional Care Management Status:Closed (Closed) Start date:10/06/2024 Enrollment date:10/06/2024 Enrollment reason:Identified using hospital discharge data End date:11/06/2024 Close reason:Completed program Continued Care and Services Coordination
--- OUTSIDE RECORDS SUMMARY | 2024-11-10 08:22 | XMS_ITS | Encounter Summary ---
Author Organization [facility] Address [address] [place] [address] Care Team Providers Care National Insurance Officer Name Role Phone Marcela Sloan Primary Care Provider + Encounter Details Date Type Department Care Team (Late Contact Info) Description 05/30/2024 Lab Requisition [facility] - Main Lab [address] [facility] [place] [address] Ze Bryan MD [address] [place] [phone] Chronic obstructive pulmonary disease, unspecified (CMS/HCC V24, CMS/HCC V28); Hyperlipidemia, unspecified; Essential (primary) hypertension Social History Tobacco Use Types Packs/Day Years Used Date Smoking Tobacco: Never Smokeless Tobacco: Never Alcohol Use Standard Drinks/Week Comments No 0 (1 standard drink = 0.6 oz pur e alcohol) Comments Unknown Sex and Gender Information Value Date Recorded Sex Assigned at Not on file Legal Sex Female 5:53 PM EST Gender Identity Not on file Sexual Orientation Not on file documented as of this encounter Plan of Treatment Upcoming Encounters Date Type Department Care Team (Late Contact Info) Description 01/21/2025 9:30 AM EDT Office Visit Internal Medicine - [place] [address] [facility] [address] [place] [address] Marcela Sloan PA [address] [place] [phone] Scheduled Orders Name Type Priority Associated Diagnoses Orde r Schedule Complete blood count Lab Routine Chronic obstructive pulmonary disease, unspecified (CMS/HCC) Hyperlipidemia, unspecified Essential (primary) hypertension Ordered: 05/30/2024 Comprehensive metabolic panel Lab Routine Chronic obstructive pulmonary disease, unspecified (CMS/HCC) Hyperlipidemia, unspecified Essential (primary) hypertension Ordered: 05/30/2024 documented as of this encounter Visit Diagnoses Diagnosis Chronic obstructive pulmonary disease, unspecified (CMS/HCC V24, CMS/HCC V28) Hyperlipidemia, unspecified Essential (primary) hypertension Unspecified essential hypertension documented in this encounter Care Teams National Insurance Officer Relationship Specialty Start Date End Date Marcela Sloan PA PCP - General Internal Medicine 04/09/22 documented as of this encounter
--- OUTSIDE RECORDS SUMMARY | 2024-11-10 08:22 | XMS_ITS | Clinical Summary ---
Author Organization [address] Address [address] [place] [phone] Phone Care Team Providers Care Heat Treater Helper Name Role Phone Marcela Sloan Primary Care Provider + Allergies Active Allergy Reactions Criticality Noted Date Comments Iodinated Contrast Media 09/22/2018 Medications loratadine (CLARITIN) 10 mg tabletIndication s:Seasonal allergies Take 1 tablet (10 mg total) by mouth 1 (one) time each day if needed for allergies. 60 each 3 09/17/2024 Active Active Problems Problem Noted Date Diagnosed Date Allergic rhinitis 01/31/2023 Prediabetes 12/29/2021 Hypercholesterolemia 04/03/2018 Hypertension 09/27/2016 Vitamin D deficiency 07/04/2016 Hyperplastic colon polyp 05/04/2016 Encounters Date Type Department Care Team Description 09/17/2024 3:30 PM EST Office Visit Internal Medicine - [address] [phone] Richmond Ambriz NP Primary hypertension (Primary Dx); Hypercholesterolemia; Prediabetes; History of alcohol abuse; Microcytic anemia; Seasonal allergies 09/03/2024 Telephone Internal Medicine - [place] [address] [facility] [address] [place] [phone] Marcela Sloan PA from Last 3 Months Immunizations Name Administration Dates Next Due Influenza trivalent, 0.5mL (Fluad) 65yo and olde r 05/04/2019 Influenza trivalent, with pr eservative (Fluzone; Afluria) 6mo and older 04/17/2018 Pfizer SARS-CoV-2 COVID-19, mRNA, LNP-S, preservative free 09/14/2020,08/19/2020 Pneumococcal conjugate 13 va lent (Prevnar 13, PCV13) 2mo and older 12/01/2015 Zoster recombinant (Shingrix) 19yo and older Surgical History Surgery Date Site/Laterality Comments HIP ARTHROPLASTY PROCEDURE: HISTORICAL HIP REPLACEMENT BACK SURGERY PROCEDURE: HISTORICAL BACK SURGERY APPENDECTOMY PROCEDURE: HISTORICAL APPENDECTOMY HYSTERECTOMY PROCEDURE: HISTORICAL HYSTERECTOMY HAND SURGERY PROCEDURE: HISTORICAL HAND SURGERY TOTAL KNEE ARTHROPLASTY 05/25/[address] Medical History Medical History Date Comments History of hip replacement 09/22/2018 DX:Hi story of hip replacement Hypercholesterolemia 04/03/2018 DX:Hypercho lesterolemia Hyperplastic colon polyp 05/04/2016 DX:Hype rplastic colon polyp Hypertension 09/27/2016 DX:Hypertension Vitamin D deficiency 07/04/2016 DX:Vitamin D deficiency Prediabetes DX:Prediabetes Allergic rhinitis DX:Allergic rh initis Social History Tobacco Use Types Packs/Day Years Used Date Smoking Tobacco: Never Smokeless Tobacco: Never Alcohol Use Standard Drinks/Week Comments Not Currently 0 (1 standard drink = 0.6 oz pur e alcohol) sober since 01/05/2022 Comments Unknown Sex and Gender Information Value Date Recorded Sex Assigned at Not on file Legal Sex Female 5:53 PM EST Gender Identity Not on file Sexual Orientation Not on file Obstetrics History Last Filed Vital Signs Vital Sign Reading Time Taken Comments Blood Pressure 124/62 09/17/2024 3:34 PM EST Pulse 89 09/17/2024 3:34 PM EST Temperature 36.8 ??C (98.2 ??F) 09/17/2024 3:34 PM ES T Respiratory Rate - - Oxygen Saturation 97% 09/17/2024 3:34 PM EST Inhaled Oxygen Concentration - - Weight 72.9 kg (160 lb 12.8 oz) 09/17/2024 3:34 PM EST Height 162.6 cm (5' 4 ) 09/17/2024 3:34 PM EST Body Mass Index 27.6 09/17/2024 3:34 PM EST Plan of Treatment Upcoming Encounters Date Type Department Care Team (Late st Contact Info) Description 01/21/2025 9:30 AM EDT Office Visit Internal Medicine - [place] [address] [facility] [address] [place] [address] Marcela Sloan PA [address] [facility] [address] [place] [address] [place] [address] Health Maintenance Due Date Last Done Comments Hepatitis A Vaccines (1 of 2 - Risk 2-dose series) 1969 Pneumococcal Vaccine: 50+ Years (2 of 2 - PPSV23) 01/26/2016 12/01/2015 Depression Screening 07/05/2022 Falls Risk Assessment 07/05/2022 Hepatitis C Screening 07/05/2022 Medicare Annual Wellness Visit 07/05/2022 Osteoporosis Screening (Bone Density Screening) 07/05/2022 Social Influencers of Health Screening 07/05/2022 COVID-19 Vaccine ( season) 2024 05/05/2024, 04/30/2023, 05/27/2022, Additional history exists Hypertension/CHF/CAD Annual BMP Blood Test 10/06/2025 10/06/2024, 10/05/2024, 06/03/2024, Additional history exists Cholesterol Screening (Lipid Panel) 02/12/2029 02/13/2024, 02/13/2024 DTaP,Tdap,and Td Vaccines (2 - Td or Tdap) 03/13/2034 03/13/2024 Zoster Vaccines Completed 04/13/2020, 02/12/2020 Influenza Vaccine Completed 04/25/2024, , 05/21/2022, Additional history exists RSV Immunization Adult Patients Completed 04/25/2024 HIB Vaccines Aged Out No longer eligi ble based on patient's age to complete this topic HPV Vaccines Aged Out No longer eligi ble based on patient's age to complete this topic Hepatitis B Vaccines Aged Out No long er eligible based on patient's age to complete this topic IPV Vaccines Aged Out No longer eligi ble based on patient's age to complete this topic MMR Vaccines Aged Out No longer eligi ble based on patient's age to complete this topic Meningococcal ACWY Vaccine Aged Out N o longer eligible based on patient's age to complete this topic Meningococcal B Vaccine Aged Out No l onger eligible based on patient's age to complete this topic RSV Immunization Patients Under 20 months Aged Out No longer eligible based on patient's age to complete this topic Varicella Vaccines Aged Out No longer eligible based on patient's age to complete this topic Procedures Procedure Name Priority Date/Time Associated Diagnosis Comments BASIC METABOLIC PANEL Routine 06/03/2024 5:15 AM EST Unilateral primary osteoarthritis, right knee Aftercare following joint replacement surgery LIPID PANEL Routine 02/13/2024 from Last 3 Months or Most Recently Relevant to Health Maintenance Results * Basic metabolic panel (06/03/2024 5:15 AM EST) Sodium 141 133 - 145 mmol/L LAB CHEMISTRY METHOD 06/03/2024 7:[address] [facility] Potassium 4.9 3.5 - 5.5 mmol/L LAB CHEMISTRY METHOD 06/03/2024 7:[address] [facility] Chloride 108 96 - 110 mmol/L LAB CHEMISTRY METHOD 06/03/2024 7:[address] [facility] CO2 27 21 - 32 mmol/L LAB CHEMISTRY METHOD 06/03/2024 7:[address] [facility] Anion Gap 6 3 - 11 LAB CHEMISTRY METHOD 06/03/2024 7:[address] [facility] Glucose 84 70 - 100 mg/dL LAB CHEMISTRY METHOD 06/03/2024 7:[address] [facility] BUN 21 5 - 25 mg/dL LAB CHEMISTRY METHOD 06/03/2024 7:[address] [facility] Creatinine 0.75 0.50 - 1.10 mg/dL LAB CHEMISTRY METHOD 06/03/2024 7:[address] [facility] eGFR 83 >=60 mL/min/1. 73m2 LAB CHEMISTRY METHOD 06/03/2024 7:40 AM EST [facility] Comment:Calculation based on the??Chronic Kidney Disease Epidemiology Collaboration (CKD-EPI) equation refit??without adjustment for race. BUN/Creatinine Ratio 28.0 LAB CHEMISTRY METHOD 06/03/2024 7:40 AM EST [facility] Calcium 9.0 8.5 - 10.5 mg/dL LAB CHEMISTRY METHOD 06/03/2024 7:40 AM EST [facility] Blood Venous blood specimen / Unknown 06/03/2024 5:15 AM EST 06/03/2024 7:09 AM EST Ze Bryan MD LAB BLOOD ORDERABLES Final Resu lt [facility] [address] [place] [address], * (ABNORMAL) Lipid panel (02/13/2024) LDL/HDL Ratio 3 0 - 4 Triglycerides 52 0 - 150 mg/dL Cholesterol 210(A) 0 - 200 mg/dL HDL 80 >=40 mg/dL LDL Cholesterol 120(A) 0 - 100 mg/dL Blood Venous blood specimen / Unknown Summer Provider LAB BLOOD ORDERABLES Louann l Result from Last 3 Months or Most Recently Relevant to Health Maintenance Insurance MEDICARE [facility] Care Teams Heat Treater Helper Relationship Specialty Start Date End Date Marcela Sloan PA PCP - General Internal Medicine 04/09/22
--- OUTSIDE RECORDS SUMMARY | 2024-11-10 08:22 | XMS_ITS | Encounter Summary ---
Author Organization [facility] Address [address] [place] [address] Care Team Providers Care Inside Sales Specialist Name Role Phone Marcela Sloan Primary Care Provider + Encounter Details Date Type Department Care Team (Late st Contact Info) Description 05/30/2024 Lab Requisition [facility] - Main Lab [address] [facility] [employer] [place] [phone] Ze Bryan MD [address] [place] [phone] Essential (primary) hypertension Social History Tobacco Use [...] AM EDT Office Visit Internal Medicine - [place] [address] [phone] Marcela Sloan PA [address] [facility] [address] [place] [address] [place] [address] documented as of this encounter Visit Diagnoses Diagnosis Essential (primary) hypertension Unspecified essential hypertension documented in this encounter Care Teams Inside Sales Specialist Relationship Specialty Start Date End Date Marcela Sloan PA PCP - General Internal Medicine 04/09/22 documented as of this encounter
--- OUTSIDE RECORDS SUMMARY | 2024-11-10 08:22 | XMS_ITS | Encounter Summary ---
Author Organization [facility] Address [address] [place] [address] Care Team Providers Care Corral Boss Name Role Phone Marcela Sloan Primary Care Provider + Encounter Details Date Type Department Care Team (Late Contact Info) Description 06/03/2024 Lab Requisition [facility] - Main Lab 299 [facility] [employer] [place] [address] Ze Bryan MD [address] [place] [phone] Unilateral primary osteoarthritis, right knee; Aftercare following joint replacement surgery Social History Tobacco Use Types Packs/Day Years [...] AM EDT Office Visit Internal Medicine - [place] [address] [facility] [address] [place] [phone] Marcela Sloan PA [address] [address] [place] [address] documented as of this encounter Procedures Procedure Name Priority Date/Time Associated Diagnosis Comments COMPLETE BLOOD COUNT Routine 06/03/2024 5:15 AM EST Unilateral primary osteoarthritis, right knee Aftercare following joint replacement surgery BASIC METABOLIC PANEL Routine 06/03/2024 5:15 AM EST Unilateral primary osteoarthritis, right knee Aftercare following joint replacement surgery documented in this encounter Results * Basic metabolic panel (06/03/2024 5:15 AM EST) Sodium 141 133 - 145 mmol/L LAB CHEMISTRY METHOD 06/03/2024 7:40 AM [facility] Potassium 4.9 3.5 - 5.5 mmol/L LAB CHEMISTRY METHOD 06/03/2024 7:40 AM [facility] Chloride 108 96 - 110 mmol/L LAB CHEMISTRY METHOD 06/03/2024 7:40 AM [facility] CO2 27 21 - 32 mmol/L LAB CHEMISTRY METHOD 06/03/2024 7:40 AM [facility] Anion Gap 6 3 - 11 LAB CHEMISTRY METHOD 06/03/2024 7:40 AM [facility] Glucose 84 70 - 100 mg/dL LAB CHEMISTRY METHOD 06/03/2024 7:40 AM [facility] BUN 21 5 - 25 mg/dL LAB CHEMISTRY METHOD 06/03/2024 7:40 AM [facility] Creatinine 0.75 0.50 - 1.10 mg/dL LAB CHEMISTRY METHOD 06/03/2024 7:40 AM [facility] eGFR 83 >=60 mL/min/1. 73m2 LAB CHEMISTRY METHOD 06/03/2024 7:40 AM [facility] Comment:Calculation based on the??Chronic Kidney Disease Epidemiology Collaboration (CKD-EPI) equation refit??without adjustment for race. BUN/Creatinine Ratio 28.0 LAB CHEMISTRY METHOD 06/03/2024 7:40 AM [facility] Calcium 9.0 8.5 - 10.5 mg/dL LAB CHEMISTRY METHOD 06/03/2024 7:40 AM [facility] Blood Venous blood specimen / Unknown 06/03/2024 5:15 AM EST 06/03/2024 7:09 AM EST us Ze Bryan MD LAB BLOOD ORDERABLES Final Resu lt [facility] [address] [place] [address], [place] [phone] * (ABNORMAL) Complete blood count (06/03/2024 5:15 AM EST) WBC 8.9 4.8 - 10.8 K/mcL LAB HEMETOLOGY METHOD 06/03/2024 8:13 AM [facility] RBC 2.90(L) 3.80 - 4.80 M/[facility] LAB HEMETOLOGY METHOD 06/03/2024 8:13 AM [facility] Hemoglobin 8.7(L) 11.5 - 16.0 g/dL LAB HEMETOLOGY METHOD 06/03/2024 8:13 AM [facility] Hematocrit 28.4(L) 35.0 - 47.0 % LAB HEMETOLOGY METHOD 06/03/2024 8:13 AM [facility] MCV 97.3 79.0 - 98.0 FL LAB HEMETOLOGY METHOD 06/03/2024 8:13 AM [facility] MCH 29.8 27.0 - 32.0 pcg LAB HEMETOLOGY METHOD 06/03/2024 8:13 AM [facility] MCHC 30.6(L) 32.0 - 37.0 g/dL LAB HEMETOLOGY METHOD 06/03/2024 8:13 AM [facility] RDW 13.6 11.0 - 15.0 % LAB HEMETOLOGY METHOD 06/03/2024 8:13 AM EST [facility] Platelets 314 130 - 400 K/mcL LAB HEMETOLOGY METHOD 06/03/2024 8:13 AM EST [facility] MPV 9.4 7.0 - 11.0 FL LAB HEMETOLOGY METHOD 06/03/2024 8:13 AM EST [facility] NRBC 0.0 <1.0 % LAB HEMETOLOGY METHOD 06/03/2024 8:13 AM EST [facility] NRBC Absolute 0.00 <0.10 K/mcL LAB HEMETOLOGY METHOD 06/03/2024 8:13 AM EST [facility] Blood Venous blood specimen / Unknown 06/03/2024 5:15 AM EST 06/03/2024 7:09 AM EST us Ze Bryan MD LAB BLOOD ORDERABLES Final Resu lt [facility] [address] [place] [address], documented in this encounter Visit Diagnoses Diagnosis Unilateral primary osteoarthritis, right knee Aftercare following joint replacement surgery documented in this encounter Care Teams Corral Boss Relationship Specialty Start Date End Date Marcela Sloan PA PCP - General Internal Medicine 04/09/22 documented as of this encounter
--- OUTSIDE RECORDS SUMMARY | 2024-11-10 08:22 | XMS_ITS | Encounter Summary ---
Author Organization [facility] Address [address] [place] [address] Care Team Providers Care Vocational Examiner Name Role Phone Marcela Sloan Primary Care Provider + Encounter Details Date Type Department Care Team (Late Contact Info) Description 06/02/2024 Lab Requisition [facility] - Main Lab 299 [facility] [place] [address] Ze Bryan MD [address] [place] [phone] Hyperlipidemia, unspecified; Chronic obstructive pulmonary disease, unspecified (CMS/HCC V24, CMS/HCC V28); Essential (primary) hypertension Social History Tobacco Use [...] AM EDT Office Visit Internal Medicine - [place] [address] [facility] [address] [place] [address] Marcela Sloan PA [address] [place] [address] documented as of this encounter Visit Diagnoses Diagnosis Hyperlipidemia, unspecified Chronic obstructive pulmonary disease, unspecified (CMS/HCC V24, CMS/HCC V28) Essential (primary) hypertension Unspecified essential hypertension documented in this encounter Care Teams Vocational Examiner Relationship Specialty Start Date End Date Marcela Sloan PA PCP - General Internal Medicine 04/09/22 documented as of this encounter
--- OUTSIDE RECORDS SUMMARY | 2024-11-10 08:22 | XMS_ITS | Encounter Summary ---
Author Organization [facility] Address [address] [place] [address] Care Team Providers Care Veneer Trimmer Name Role Phone Marcela Sloan Primary Care Provider + Encounter Details Date Type Department Care Team (Late Contact Info) Description 05/31/2024 Lab Requisition [facility] - Main Lab 299 [facility] [place] [address] Ze Bryan MD [address] [place] [phone] Chronic obstructive pulmonary disease, unspecified (CMS/HCC [...] AM EDT Office Visit Internal Medicine - [place] [address] [facility] [address] [place] [address] Marcela Sloan PA [address] [address] documented as of this encounter Procedures Procedure Name Priority Date/Time Associated Diagnosis Comments TRAVEL PHLEBOTOMY FEE Routine 06/01/2024 5:20 AM EST Chronic obstructive pulmonary disease, unspecified (CMS/HCC) Hyperlipidemia, unspecified Essential (primary) hypertension COMPLETE BLOOD COUNT Routine 06/01/2024 5:20 AM EST Chronic obstructive pulmonary disease, unspecified (CMS/HCC) Hyperlipidemia, unspecified Essential (primary) hypertension COMPREHENSIVE METABOLIC PANEL Routine 06/01/2024 5:20 AM EST Chronic obstructive pulmonary disease, unspecified (CMS/HCC) Hyperlipidemia, unspecified Essential (primary) hypertension documented in this encounter Results * Travel phlebotomy fee (06/01/2024 5:20 AM EST) [facility] TRAVEL PHLEBOTOMY FEE Completed 06/01/2024 11:02 AM EST [facility] Blood Venous blood specimen / Unknown Venipuncture / Unknown 06/01/2024 5:20 AM EST 06/01/2024 10:59 AM EST us Ze Bryan MD LAB BLOOD ORDERABLES Final Resu lt [facility] [address] [place] [address], * (ABNORMAL) Comprehensive metabolic panel (06/01/2024 5:20 AM EST) [facility] Sodium 139 133 - 145 mmol/L LAB CHEMISTRY METHOD 06/01/2024 12:25 PM EST [facility] Potassium 5.4 3.5 - 5.5 mmol/L LAB CHEMISTRY METHOD 06/01/2024 12:25 PM EST [facility] Chloride 107 96 - 110 mmol/L LAB CHEMISTRY METHOD 06/01/2024 12:25 PM [facility] CO2 29 21 - 32 mmol/L LAB CHEMISTRY METHOD 06/01/2024 12:25 PM [facility] Anion Gap 3 3 - 11 LAB CHEMISTRY METHOD 06/01/2024 12:25 PM [facility] Glucose 76 70 - 100 mg/dL LAB CHEMISTRY METHOD 06/01/2024 12:25 PM [facility] BUN 24 5 - 25 mg/dL LAB CHEMISTRY METHOD 06/01/2024 12:25 PM [facility] Creatinine 0.72 0.50 - 1.10 mg/dL LAB CHEMISTRY METHOD 06/01/2024 12:25 PM [facility] eGFR 87 >=60 mL/min/1. 73m2 LAB CHEMISTRY METHOD 06/01/2024 12:25 PM [facility] Comment:Calculation based on the??Chronic Kidney Disease Epidemiology Collaboration (CKD-EPI) equation refit??without adjustment for race. BUN/Creatinine Ratio 33.3 LAB CHEMISTRY METHOD 06/01/2024 12:25 PM [facility] Calcium 8.6 8.5 - 10.5 mg/dL LAB CHEMISTRY METHOD 06/01/2024 12:25 PM [facility] AST (SGOT) 16 10 - 42 unit/L LAB CHEMISTRY METHOD 06/01/2024 12:25 PM [facility] ALT (SGPT) 8(L) 10 - 60 unit/L LAB CHEMISTRY METHOD 06/01/2024 12:25 PM [facility] Alkaline Phosphatase 65 42 - 121 unit/L LAB CHEMISTRY METHOD 06/01/2024 12:25 PM [facility] Total Protein 5.5(L) 6.0 - 8.0 g/dL LAB CHEMISTRY METHOD 06/01/2024 12:25 PM [facility] Albumin 2.8(L) 3.2 - 5.0 g/dL LAB CHEMISTRY METHOD 06/01/2024 12:25 PM [facility] Total Bilirubin 0.7 0.0 - 1.4 mg/dL LAB CHEMISTRY METHOD 06/01/2024 12:25 PM [facility] Blood Venous blood specimen / Unknown Venipuncture / Unknown 06/01/2024 5:20 AM EST 06/01/2024 10:59 AM EST us Ze Bryan MD LAB BLOOD ORDERABLES Final Resu lt [facility] [address] [place] [address], * (ABNORMAL) Complete blood count (06/01/2024 5:20 AM EST) WBC 8.0 4.8 - 10.8 K/mcL LAB HEMETOLOGY METHOD 06/01/2024 12:08 PM [facility] RBC 3.20(L) 3.80 - 4.80 M/[facility] LAB HEMETOLOGY METHOD 06/01/2024 12:08 PM [facility] Hemoglobin 9.4(L) 11.5 - 16.0 g/dL LAB HEMETOLOGY METHOD 06/01/2024 12:08 PM [facility] Hematocrit 31.1(L) 35.0 - 47.0 % LAB HEMETOLOGY METHOD 06/01/2024 12:08 PM [facility] MCV 97.5 79.0 - 98.0 FL LAB HEMETOLOGY METHOD 06/01/2024 12:08 PM [facility] MCH 29.5 27.0 - 32.0 pcg LAB HEMETOLOGY METHOD 06/01/2024 12:08 PM [facility] MCHC 30.2(L) 32.0 - 37.0 g/dL LAB HEMETOLOGY METHOD 06/01/2024 12:08 PM [facility] RDW 13.5 11.0 - 15.0 % LAB HEMETOLOGY METHOD 06/01/2024 12:08 PM EST [facility] Platelets 309 130 - 400 K/mcL LAB HEMETOLOGY METHOD 06/01/2024 12:08 PM [facility] MPV 9.4 7.0 - 11.0 FL LAB HEMETOLOGY METHOD 06/01/2024 12:08 PM EST [facility] NRBC 0.0 <1.0 % LAB HEMETOLOGY METHOD 06/01/2024 12:08 PM [facility] NRBC Absolute 0.00 <0.10 K/mcL LAB HEMETOLOGY METHOD 06/01/2024 12:08 PM [facility] Blood Venous blood specimen / Unknown Venipuncture / Unknown 06/01/2024 5:20 AM EST 06/01/2024 10:59 AM EST us Ze Bryan MD LAB BLOOD ORDERABLES Final Resu lt [facility] [address] [place] [address], documented in this encounter Visit Diagnoses Diagnosis Chronic obstructive pulmonary disease, unspecified (CMS/HCC V24, CMS/HCC V28) Hyperlipidemia, unspecified Essential (primary) hypertension Unspecified essential hypertension documented in this encounter Care Teams Veneer Trimmer Relationship Specialty Start Date End Date Marcela Sloan PA PCP - General Internal Medicine 04/09/22 documented as of this encounter
[2024-11-10 08:29] VITALS: BMI 29.0
--- NOTE | 2024-11-10 08:29 | MHC.OFFVIS ---
Vital Signs 11/10/24 08:29 Height 5 ft 3 in Weight 164 lb BMI 29.0 Intake Visit Reasons: Bilateral knee replacements Intake Note: Jailyn is a 74 year old female who presents with complaints of intermittent discomfort in both of her knees after undergoing left total knee replacement surgery in 2019 as well as right total knee replacement surgery on 05/25/2024. She continues with her home exercise program. She denies any fevers or chills. She does not take any medicines for discomfort. She denies any locking or giving way. Allergies Iodinated Contrast Media [IV Contrast Dye] Allergy (Intermediate, Verified 11/10/24 08:32) Itching and warm iodine Adverse Reaction (Mild, Verified 11/10/24 08:32) Sneezing Medication List - Last Reconciled 11/10/24 by Hector Ortiz MD amoxicillin 2,000 mg (4 x 500 mg) PO ONCE 1 day [facility] Medical History History of cervical dysplasia (~1980) Hx of blood transfusion reaction (~1968) Back pain at L4-L5 level Back pain Seasonal allergies Osteoarthritis History of GI bleed (~1991) Sciatica Surgical History Hx of colonoscopy History of back surgery (~2015) History of hip surgery (~2019) History of hip surgery (~2008) Hx of hysterectomy Hx of appendectomy Hx of left knee surgery (~2019) Social History Household Members: None Caregiver staying overnight: No Housing: House Are you a primary animal care specialist to a significant other at home: No Do you presently have visiting nurse or other home services: No 75 years or older and lives alone: Yes Comment: aware of trip hazard Patient Tobacco Use Status: Former Tobacco user Tobacco use type: Cigarette Second Hand Smoke Exposure: No service: No Current occupational status: retired Current occupation: Right hand dominate Physical Exam Vital Signs: BMI result Body Mass Index 29.0 Const Other: Well-nourished well-developed very friendly female awake alert and oriented x3 in no acute distress Extrem Other: Bilateral lower extremity examination shows good capillary refill, no skin lesions noted, normal sensation light touch Bilateral knee examination shows that the surgical incisions are well healed, no erythema, full active extension and flexion to 125 degrees, her patellae track well Results Reviewed Results Reviewed: X-rays of the patient's bilateral knees taken today show total knee arthroplasties in good position with no signs of loosening, no acute bony abnormalities Assessment & Plan Assessment & Plan (1) History of total bilateral knee replacement: Code(s): Z96.653 - Presence of artificial knee joint, bilateral Category: Medical Plan Ms. Montes continues to do well after undergoing bilateral total knee replacement surgeries. She will continue with her home exercise program. She does know to take antibiotics before any dental work. She will contact me prior to her annual follow-up appointment should any questions or concerns arise. Feel free to call me at any time should questions regarding her orthopedic management arise. I spent 22 minutes in reviewing the patient's records and imaging studies, seeing the patient and documenting in the medical record. Orders: Orders XR knee RT 3V Today M25.561 - Pain in right knee XR knee LT 3V Today M25.562 - Pain in left knee Coding Level of Care Code Est Pt Level 3 (52541) Complex EM visit Add On G2211 Diagnoses History of total bilateral knee replacement Z96.653
== END 2024-11-10 08:54 | disposition home or self-care (01) ==
LOC: HO.HOS 08:18
PROVIDERS: PCP Internal Medicine; Visit Provider Orthopaedic Surgery
DX: Z47.1 Aftercare following joint replacement surgery (principal); Z96.653 Presence of artificial knee joint, bilateral
CPT/HCPCS: 99213

== ENCOUNTER → 2024-11-10 08:27 | Outpatient (BNV) | payer MEDICARE, OTHER, SELFPAY | PROVIDERS: Visit Provider Radiology Diagnostic Radiology | DX: M25.561 Pain in right knee (principal); M25.562 Pain in left knee | CPT/HCPCS: 73562 ==

== ENCOUNTER 2024-11-10 11:07 | Outpatient (REF) | payer MEDICARE, OTHER, SELFPAY ==
--- NOTE | ~2024-11-10 | XR_ITS ---
CLINICAL HISTORY: M25.562 - Pain in left knee 3 view left knee Comparison: DX/SR - XR KNEE LT 1V - 06/11/24 08:51 EST Findings: Bones intact. No dislocations. Status post left knee replacement. Appropriate alignment. No evidence of hardware failure. No joint effusion. No radiopaque foreign body. IMPRESSION: 1. No acute findings. This document has been electronically signed by: Reina Iglesias MD on 11/11/2024 13:21:26
--- NOTE | ~2024-11-10 | XR_ITS ---
CLINICAL HISTORY: M25.561 - Pain in right knee 3 view right knee Comparison: DX/SR - XR KNEE RT 3V - 06/11/24 08:51 EST Findings: No fractures or dislocations. Status post right knee replacement. Appropriate alignment. No evidence of hardware failure. No joint effusion. No radiopaque foreign body. IMPRESSION: 1. No acute findings. This document has been electronically signed by: Riena Iglesias MD on 11/11/2024 13:21:35
--- OUTSIDE RECORDS SUMMARY | 2024-11-11 13:21 | XMS_ITS | Encounter Summary ---
Author Organization [facility] Address [address] [place] [address] Care Team Providers Care Prison Guard Name Role Phone Marcela Sloan Primary Care Provider + Encounter Details Date Type Department Care Team (Late Contact Info) Description 06/02/[address] [facility] - Main Lab 299 [facility] [place] [address] Ze Bryan MD [address] [place] [phone] Hyperlipidemia, unspecified; Chronic obstructive pulmonary disease, [...] AM EDT Office Visit Internal Medicine - [place] [address] [facility] [address] [place] [address] Marcela Sloan PA [address] [place] [address] documented as of this encounter Visit Diagnoses Diagnosis Hyperlipidemia, unspecified Chronic obstructive pulmonary disease, unspecified (CMS/HCC V24, CMS/HCC V28) Essential (primary) hypertension Unspecified essential hypertension documented in this encounter Care Teams Prison Guard Relationship Specialty Start Date End Date Marcela Sloan PA PCP - General Internal Medicine 04/09/22 documented as of this encounter
--- OUTSIDE RECORDS SUMMARY | 2024-11-11 13:21 | XMS_ITS | Clinical Summary ---
Author Organization [facility] Address [address] [place] [address] Care Team Providers Care Office Administrator Name Role Phone Tab Joe MD Primary [...] age to complete this topic Care Teams Office Administrator Relationship Specialty Start Date End Date Tab Joe MD PCP - General Internal Medicine 03/24/19
--- OUTSIDE RECORDS SUMMARY | 2024-11-11 13:21 | XMS_ITS | Encounter Summary ---
Author Organization [facility] Address [address] [place] [address] Care Team Providers Care Life Science Teacher Name Role Phone Marcela Sloan Primary Care Provider + Encounter Details Date Type Department Care Team (Late Contact Info) Description 05/30/2024 Lab Requisition [facility] - Main Lab 299 [facility] [place] [address] Ze Bryan MD [address] [place] [phone] Chronic obstructive pulmonary disease, unspecified (CMS/HCC [...] AM EDT Office Visit Internal Medicine - [place] [address] [facility] [address] [place] [address] Marcela Sloan PA [address] [place] [phone] Scheduled Orders Name Type Priority Associated Diagnoses [...] hypertension documented in this encounter Care Teams Life Science Teacher Relationship Specialty Start Date End Date Marcela Sloan PA PCP - General Internal Medicine 04/09/22 documented as of this encounter
--- OUTSIDE RECORDS SUMMARY | 2024-11-11 13:21 | XMS_ITS | Data Portability ---
Author Organization [place] - [facility], Allergy Address [address] [place] [phone] Care Team Providers Care Astronaut Mission Specialist Name Role Phone ASHLEY KLEIN Primary Care Provider Assessment Encounter Date Assessment Date Assessment LastModified by Organization Details LastModified Time 08/04/2024 08/04/2024 Patient with symptoms of chronic nasal congestion in the context of a deviated nasal septum and low-level allergic rhinitis. We discussed symptomatic treatment in the form of nasal saline 2-3 times a day, and use of fluticasone nasal spray 2 puffs in both nostrils on a daily basis. Patient would like to learn more about her current allergy profile, so we will set her up for allergy testing. We will arrange for this and see her back after it is completed [email or web address] Not available 08/04/2024 13:32:40 Plan of Treatment Reminders Order Date Submit Date Provider Last Modified By Organization Details Last Modified Time Details Appointments None recorded. Lab None recorded. Referral None recorded. Procedures allergy testing, skin prick (PROC) 2024 025 [email or web address] Not available 5 08:10:23 intradermal allergy skin testing (PROC) 2024 025 [email or web address] Not available 5 08:10:23 pulmonary function test procedure (PROC) 2024 025 [email or web address] Not available 5 08:10:23 pulse oximetry (PROC) 2024 025 [email or web address] Not available 5 08:10:24 Surgeries None recorded. Imaging None recorded. Medication Orders None recorded. Patient TargetsNo targets recorded. Patient InstructionsNo instructions recorded. Reason for Referral None Reported. Problems Name Problem SNOMED Code Status Onset Date Resolution Date Notes Provider Name and Address Organization Details Recorded Time Deviated nasal septum 361973913 Active 025 ALEXIS FARNSWORTH MD [address] [facility],[place] [address], [place], [phone], [facility] - [facility] 5 13:20:02 Allergic rhinitis 25020039 Active 025 ALEXIS FARNSWORTH MD [address] [facility],[place] [address], [place], [phone], [facility] - [facility] 5 13:20:32 Nasal congestion 43231154 Active 025 ALEXIS FARNSWORTH MD [address] [facility],[place] [address], [place], [phone], [facility] 5 13:27:05 Hearing loss 02984296 Active 025 ALEXIS FARNSWORTH MD [address] [facility],[place] [address], [place], [phone], [facility] 5 13:27:36 Problem Notes None recorded. Medical Equipment None Reported. Allergies Allergen ID Allergen Name Allergen Category Reaction Reaction Severity Criticality Documentation Date Start Date Code Code System Note Provider Name and Address Organization Details Recorded Time 389467 iodine medicatio n Not available Not available Not available 08/04/2024 5933 RxNorm Jessika doshi [place] - [facility] 5 13:00:29 Medications Name Sig Start Date Stop Date Status Note LastModified by Organization Details LastModified Time prednisone 20 mg tablet TAKE THREE TABLETS BY MOUTH EVERY DAY FOR 3 DAYS, THEN TAKE TWO TABLETS BY MOUTH EVERY DAY FOR 3 DAYS, THEN TAKE ONE TABLET BY MOUTH EVERY D 08/04 completed Not Available Not Available Not Available amoxicillin 500 mg tablet TAKE 4 CAPSULES BY MOUTH ONE HOUR PRIOR TO DENTAL APPOINTME NT 08/04 completed Not Available Not Available Not Available ketorolac 0.5 % eye drops INSTILL ONE DROP IN LEFT EYE TWO TIMES A DAY 08/04 completed Not Available Not Available Not Available prednisolon e acetate 1 % eye drops,suspe nsion INSTILL ONE DROP INTO LEFT EYE DAILY DIRECTED 08/04 completed Not Available Not Available Not Available cephalexin 500 mg capsule TAKE ONE CAPSULE BY MOUTH THREE TIMES A DAY 08/04 completed Not Available Not Available Not Available lidocaine 5 % topical patch APPLY ONE PATCH TO THE SKIN EVERY DAY. LEAVE ON MOST PAINFUL AREA FOR UP TO 12 HOURS AT A TIME 08/04 completed Not Available Not Available Not Available methylpredn isolone 4 mg tablets in a dose pack TAKE SIX TABLETS FOR 1 DAY, THEN FIVE TABLETS FOR 1 DAY, THEN FOUR TABLETS FOR 1 DAY,THEN THREE TABLETS FOR 1 DAY, THEN TWO TABLETS FOR 1 DA 08/04 completed Not Available Not Available Not Available nitrofurant oin monohydrate /macrocryst als 100 mg capsule TAKE ONE CAPSULE BY MOUTH TWICE A DAY 08/04 completed Not Available Not Available Not Available oxycodone 10 mg tablet TAKE ONE TABLET BY MOUTH EVERY 12 HOURS NEEDED FOR PAIN 08/04 completed Not Available Not Available Not Available Vitamin D3 50 mcg (2,000 unit) capsule TAKE ONE CAPSULE BY MOUTH EVERY DAY 08/04 completed Not Available Not Available Not Available Vitals Date Recorded Body height Body mass index (BMI) Body weight Provider Name and Address Organization Details Last Updated DateTime 08/04/2024 162.56 cm 26.6 kg/m2 56638.82 g Jessika Giron [place] - [facility] 08/04/2024 12:59:41 Social History None recorded. Functional Status None recorded. Mental Status None recorded. Family History Nothing Reported. Medical History Condition Response Arthritis Y COPD Gynecological HistoryNo gynecological history recorded. Obstetrics History GPAL:G 0 P 0 0 0 0 Past Encounters Encounter ID Performer Location Encounter Start Date Encounter Closed Date Diagnosis/Indication Diagnosis SNOMED-CT Code Diagnosis ICD10 Code Diagnosis Note [id number] ALEXIS FARNSWORTH MD [facility] [address] [address] 08/04/2024 12:43:58 08/04/2024 13:30:50 Deviated nasal septum 767358459 J34.2 Allergic rhinitis 623081 04 J30.9 Nasal congestion 6563544 0 R09.81 Hearing loss 66151830 H9 1.93 Patient had no interest in having formal audiometri c testing and will continue to work with her hearing instrument dispenser at [facility] for hearing testing and hearing aid norberto cooper Health Concerns Section Related Observation LastModified by Organization Detai ls LastModified Time None Recorded Concern Status LastModified by Organization Details LastModified Time None Recorded Advance Directives Directive None Recorded Payers Encounter Date Sequence Insurance Name Policy Number Policy Dunn Covered Member ID Dunn Member ID Guarantor Name 08/04/2024 2 () Jailyn Hodgesile [id number] Jailyn Montes 08/04/2024 1 [place]IC[place]: Travel Notes SERVICES Jailyn Montes [id number] Jailyn Montes Notes Date Note Type Note Provider Name and Address Organization Details Recorded Time 08/04/2024 text/html 74-year-old ric kenyon referred by her primary care provider. She has history of hypertension, hyperlipidemia, prediabetes, and allergic rhinitis. Patient comes in today for complaints of nasal congestion. She has lifelong history of seasonal allergic rhinitis. She was treated by Dr. Purcell with allergy shots over 30 years ago. She had shots for about 2 years. In general her allergies were under pretty good control in general. Last September she was in [place] and had a severe allergy attack which turned out to be related to exposure to down pillow feathers. She continues to have chronic sensation of nasal congestion. She reports nasally voice which is bothersome for her. She does not have rhinorrhea or significant sneezing.Patient does have hearing loss bilaterally and has hearing aids dispensed through [facility]. She does not desire any further workup with regards to her hearing. ALEXIS FARNSWORTH MD [address] [place] [address], [place], [address], [facility] - [facility] 08/04/2024 13:35:40 OBGyn Episode No OBEpisode recorded.
--- OUTSIDE RECORDS SUMMARY | 2024-11-11 13:21 | XMS_ITS | Encounter Summary ---
Author Organization [facility] Address [address] [place] [address] Care Team Providers Care Counter Manager Name Role Phone Marcela Sloan Primary Care Provider + Encounter Details Date Type Department Care Team (Late st Contact Info) Description 05/30/2024 Lab Requisition [facility] - Main Lab [address] [facility] [employer] [place] [address] Ze Bryan MD [address] [place] [phone] Essential (primary) hypertension Social History Tobacco [...] AM EDT Office Visit Internal Medicine - [place] [address] [address] Marcela Sloan PA 175 [facility] [address] [place] [address] documented as of this encounter Visit Diagnoses Diagnosis Essential (primary) hypertension Unspecified essential hypertension documented in this encounter Care Teams Counter Manager Relationship Specialty Start Date End Date Marcela Sloan PA PCP - General Internal Medicine 04/09/22 documented as of this encounter
--- OUTSIDE RECORDS SUMMARY | 2024-11-11 13:21 | XMS_ITS | Clinical Summary ---
Author Organization [address] Address [address] [place] [phone] Phone Care Team Providers Care Structural Steel Worker Helper Name Role Phone Marcela Sloan Primary [...] PM EST Office Visit Internal Medicine - [address] [phone] [place] Ambriz NP Primary hypertension (Primary Dx); Hypercholesterolemia; Prediabetes; History of alcohol abuse; Microcytic anemia; Seasonal allergies 09/03/2024 Telephone Internal Medicine - [place] 175 [facility] 200 [place] [address] Marcela Sloan PA from Last 3 Months [...] AM EDT Office Visit Internal Medicine - [place] 175 [facility] [address] [place] [address] Marcela Sloan PA 175 [facility] [address] [place] [address] Health Maintenance Due Date Last Done Comments [...] mmol/L LAB CHEMISTRY METHOD 06/03/2024 7:40 AM [facility] Potassium 4.9 3.5 - 5.5 mmol/L LAB CHEMISTRY METHOD 06/03/2024 7:40 AM [facility] Chloride 108 96 - 110 mmol/L LAB CHEMISTRY METHOD 06/03/2024 7:40 AM [facility] CO2 27 21 - 32 mmol/L LAB CHEMISTRY METHOD 06/03/2024 7:40 AM [facility] Anion Gap 6 3 - 11 LAB CHEMISTRY METHOD 06/03/2024 7:40 AM [facility] Glucose 84 70 - 100 mg/dL LAB CHEMISTRY METHOD 06/03/2024 7:40 AM [facility] BUN 21 5 - 25 mg/dL LAB CHEMISTRY METHOD 06/03/2024 7:40 AM [facility] Creatinine 0.75 0.50 - 1.10 mg/dL LAB CHEMISTRY METHOD 06/03/2024 7:40 AM [facility] eGFR 83 >=60 mL/min/1. 73m2 LAB CHEMISTRY METHOD 06/03/2024 7:40 AM EST [facility] Comment:Calculation based on the??Chronic Kidney Disease Epidemiology Collaboration (CKD-EPI) equation refit??without adjustment for race. BUN/Creatinine Ratio 28.0 LAB CHEMISTRY METHOD 06/03/2024 7:40 AM EST [facility] Calcium 9.0 8.5 - 10.5 mg/dL LAB CHEMISTRY METHOD 06/03/2024 7:40 AM EST [facility] Blood Venous blood specimen / Unknown 06/03/2024 5:15 AM EST 06/03/2024 7:09 AM EST Ze Bryan MD LAB BLOOD ORDERABLES Final Resu lt [facility] [address] [place] [address], * (ABNORMAL) Lipid panel (02/13/2024) LDL/HDL Ratio 3 0 - 4 Triglycerides 52 0 - 150 mg/dL Cholesterol 210(A) 0 - 200 mg/dL HDL 80 >=40 mg/dL LDL Cholesterol 120(A) 0 - 100 mg/dL Blood Venous blood specimen / Unknown Summer Provider LAB BLOOD ORDERABLES Louann l Result from Last 3 Months or Most Recently Relevant to Health Maintenance Insurance MEDICARE [facility] Care Teams Structural Steel Worker Helper Relationship Specialty Start Date End Date Marcela Sloan PA PCP - General Internal Medicine 04/09/22
--- OUTSIDE RECORDS SUMMARY | 2024-11-11 13:21 | XMS_ITS | Encounter Summary ---
Author Organization [facility] Address [address] [place] [address] Care Team Providers Care Painting Instructor Name Role Phone Marcela Sloan Primary Care Provider + Encounter Details Date Type Department Care Team (Late Contact Info) Description 05/31/2024 Lab Requisition [facility] - Main Lab 299 [facility] [place] [address] Ze Bryan MD [address] [place] [phone] Chronic obstructive pulmonary disease, unspecified (CMS/HCC [...] AM EDT Office Visit Internal Medicine - [place] 175 [facility] [address] [place] [address] Marcela Sloan PA [address] [address] documented as of this encounter Procedures Procedure [...] Travel phlebotomy fee (06/01/2024 5:20 AM EST) [facility] TRAVEL PHLEBOTOMY FEE Completed 06/01/2024 11:02 AM EST [facility] Blood Venous blood specimen / Unknown Venipuncture / Unknown 06/01/2024 5:20 AM EST 06/01/2024 10:59 AM EST us Ze Bryan MD LAB BLOOD ORDERABLES Final Resu lt [facility] [address] [place] [address], * (ABNORMAL) Comprehensive metabolic panel (06/01/2024 5:20 AM EST) [facility] Sodium 139 133 - 145 mmol/L LAB CHEMISTRY METHOD 06/01/2024 12:25 PM EST [facility] Potassium 5.4 3.5 - 5.5 mmol/L LAB CHEMISTRY METHOD 06/01/2024 12:25 PM EST [facility] Chloride 107 96 - 110 mmol/L LAB CHEMISTRY METHOD 06/01/2024 12:25 PM [facility] CO2 29 21 - 32 mmol/L LAB CHEMISTRY METHOD 06/01/2024 12:25 PM [facility] Anion Gap 3 3 - 11 LAB CHEMISTRY METHOD 06/01/2024 12:25 PM [facility] Glucose 76 70 - 100 mg/dL LAB CHEMISTRY METHOD 06/01/2024 12:25 PM [facility] BUN 24 5 - 25 mg/dL LAB CHEMISTRY METHOD 06/01/2024 12:25 PM [facility] Creatinine 0.72 0.50 - 1.10 mg/dL LAB CHEMISTRY METHOD 06/01/2024 12:25 PM [facility] eGFR 87 >=60 mL/min/1. 73m2 LAB CHEMISTRY METHOD 06/01/2024 12:25 PM [facility] Comment:Calculation based on the??Chronic Kidney Disease Epidemiology Collaboration (CKD-EPI) equation refit??without adjustment for race. BUN/Creatinine Ratio 33.3 LAB CHEMISTRY METHOD 06/01/2024 12:25 PM [facility] Calcium 8.6 8.5 - 10.5 mg/dL LAB CHEMISTRY METHOD 06/01/2024 12:25 PM [facility] AST (SGOT) 16 10 - 42 unit/L LAB CHEMISTRY METHOD 06/01/2024 12:25 PM [facility] ALT (SGPT) 8(L) 10 - 60 unit/L LAB CHEMISTRY METHOD 06/01/2024 12:25 PM [facility] Alkaline Phosphatase 65 42 - 121 unit/L LAB CHEMISTRY METHOD 06/01/2024 12:25 PM [facility] Total Protein 5.5(L) 6.0 - 8.0 g/dL LAB CHEMISTRY METHOD 06/01/2024 12:25 PM [facility] Albumin 2.8(L) 3.2 - 5.0 g/dL LAB CHEMISTRY METHOD 06/01/2024 12:25 PM [facility] Total Bilirubin 0.7 0.0 - 1.4 mg/dL LAB CHEMISTRY METHOD 06/01/2024 12:25 PM [facility] Blood Venous blood specimen / Unknown Venipuncture / Unknown 06/01/2024 5:20 AM EST 06/01/2024 10:59 AM EST us Ze Bryan MD LAB BLOOD ORDERABLES Final Resu lt [facility] [address] [place] [address], * (ABNORMAL) Complete blood count (06/01/2024 5:20 AM EST) WBC 8.0 4.8 - 10.8 K/mcL LAB HEMETOLOGY METHOD 06/01/2024 12:08 PM [facility] RBC 3.20(L) 3.80 - 4.80 M/[facility] LAB HEMETOLOGY METHOD 06/01/2024 12:08 PM [facility] Hemoglobin 9.4(L) 11.5 - 16.0 g/dL LAB HEMETOLOGY METHOD 06/01/2024 12:08 PM [facility] Hematocrit 31.1(L) 35.0 - 47.0 % LAB HEMETOLOGY METHOD 06/01/2024 12:08 PM [facility] MCV 97.5 79.0 - 98.0 FL LAB HEMETOLOGY METHOD 06/01/2024 12:08 PM [facility] MCH 29.5 27.0 - 32.0 pcg LAB HEMETOLOGY METHOD 06/01/2024 12:08 PM [facility] MCHC 30.2(L) 32.0 - 37.0 g/dL LAB HEMETOLOGY METHOD 06/01/2024 12:08 PM [facility] RDW 13.5 11.0 - 15.0 % LAB HEMETOLOGY METHOD 06/01/2024 12:08 PM EST [facility] Platelets 309 130 - 400 K/mcL LAB HEMETOLOGY METHOD 06/01/2024 12:08 PM [facility] MPV 9.4 7.0 - 11.0 FL LAB HEMETOLOGY METHOD 06/01/2024 12:08 PM EST [facility] NRBC 0.0 <1.0 % LAB HEMETOLOGY METHOD 06/01/2024 12:08 PM [facility] NRBC Absolute 0.00 <0.10 K/mcL LAB HEMETOLOGY METHOD 06/01/2024 12:08 PM [facility] Blood Venous blood specimen / Unknown Venipuncture / Unknown 06/01/2024 5:20 AM EST 06/01/2024 10:59 AM EST us Ze Bryan MD LAB BLOOD ORDERABLES Final Resu lt [facility] [address] [place] [address], documented in this encounter Visit Diagnoses Diagnosis Chronic obstructive pulmonary disease, unspecified (CMS/HCC V24, CMS/HCC V28) Hyperlipidemia, unspecified Essential (primary) hypertension Unspecified essential hypertension documented in this encounter Care Teams Painting Instructor Relationship Specialty Start Date End Date Marcela Sloan PA PCP - General Internal Medicine 04/09/22 documented as of this encounter
--- OUTSIDE RECORDS SUMMARY | 2024-11-11 13:22 | XMS_ITS | Encounter Summary ---
Author Organization [facility] Address [address] [place] [address] Care Team Providers Care Strategic Planner Name Role Phone Marcela Sloan Primary Care Provider + Encounter Details Date Type Department Care Team (Late Contact Info) Description 06/03/2024 Lab Requisition [facility] - Main Lab 299 [facility] [place] [address] Ze Bryan MD [address] [place] [phone] Unilateral primary osteoarthritis, right knee; Aftercare [...] AM EDT Office Visit Internal Medicine - [place] [address] [facility] [address] [place] [phone] Marcela Sloan PA [address] [place] [address] documented as of this encounter Procedures Procedure [...] mmol/L LAB CHEMISTRY METHOD 06/03/2024 7:[address] [facility] Potassium 4.9 3.5 - 5.5 mmol/L LAB CHEMISTRY METHOD 06/03/2024 7:[address] [facility] Chloride 108 96 - 110 mmol/L LAB CHEMISTRY METHOD 06/03/2024 7:[address] [facility] CO2 27 21 - 32 mmol/L LAB CHEMISTRY METHOD 06/03/2024 7:[address] [facility] Anion Gap 6 3 - 11 LAB CHEMISTRY METHOD 06/03/2024 7:[address] [facility] Glucose 84 70 - 100 mg/dL LAB CHEMISTRY METHOD 06/03/2024 7:[address] [facility] BUN 21 5 - 25 mg/dL LAB CHEMISTRY METHOD 06/03/2024 7:[address] [facility] Creatinine 0.75 0.50 - 1.10 mg/dL LAB CHEMISTRY METHOD 06/03/2024 7:[address] [facility] eGFR 83 >=60 mL/min/1. 73m2 LAB CHEMISTRY METHOD 06/03/2024 7:[address] [facility] Comment:Calculation based on the??Chronic Kidney Disease Epidemiology Collaboration (CKD-EPI) equation refit??without adjustment for race. BUN/Creatinine Ratio 28.0 LAB CHEMISTRY METHOD 06/03/2024 7:[address] [facility] Calcium 9.0 8.5 - 10.5 mg/dL LAB CHEMISTRY METHOD 06/03/2024 7:[address] [facility] Blood Venous blood specimen / Unknown 06/03/2024 5:15 AM EST 06/03/2024 7:09 AM EST us Ze Bryan MD LAB BLOOD ORDERABLES Final Resu lt [facility] [address] [place] [address], [place] [phone] * (ABNORMAL) Complete blood count (06/03/2024 5:15 AM EST) WBC 8.9 4.8 - 10.8 K/mcL LAB HEMETOLOGY METHOD 06/03/2024 8:[address] [facility] RBC 2.90(L) 3.80 - 4.80 M/[facility] LAB HEMETOLOGY METHOD 06/03/2024 8:[address] [facility] Hemoglobin 8.7(L) 11.5 - 16.0 g/dL LAB HEMETOLOGY METHOD 06/03/2024 8:[address] [facility] Hematocrit 28.4(L) 35.0 - 47.0 % LAB HEMETOLOGY METHOD 06/03/2024 8:[address] [facility] MCV 97.3 79.0 - 98.0 FL LAB HEMETOLOGY METHOD 06/03/2024 8:[address] [facility] MCH 29.8 27.0 - 32.0 pcg LAB HEMETOLOGY METHOD 06/03/2024 8:[address] [facility] MCHC 30.6(L) 32.0 - 37.0 g/dL LAB HEMETOLOGY METHOD 06/03/2024 8:[address] [facility] RDW 13.6 11.0 - 15.0 % LAB HEMETOLOGY METHOD 06/03/2024 8:13 AM EST [facility] Platelets 314 130 - 400 K/mcL LAB HEMETOLOGY METHOD 06/03/2024 8:13 AM EST [facility] MPV 9.4 7.0 - 11.0 FL LAB HEMETOLOGY METHOD 06/03/2024 8:13 AM EST [facility] NRBC 0.0 <1.0 % LAB HEMETOLOGY METHOD 06/03/2024 8:13 AM EST [facility] NRBC Absolute 0.00 <0.10 K/mcL LAB HEMETOLOGY METHOD 06/03/2024 8:13 AM EST [facility] Blood Venous blood specimen / Unknown 06/03/2024 5:15 AM EST 06/03/2024 7:09 AM EST us Ze Bryan MD LAB BLOOD ORDERABLES Final Resu lt [facility] [address] [place] [address], documented in this encounter Visit Diagnoses Diagnosis Unilateral primary osteoarthritis, right knee Aftercare following joint replacement surgery documented in this encounter Care Teams Strategic Planner Relationship Specialty Start Date End Date Marcela Sloan PA PCP - General Internal Medicine 04/09/22 documented as of this encounter
--- OUTSIDE RECORDS SUMMARY | 2024-11-11 13:22 | XMS_ITS | Patient Health Record ---
Author Organization [facility] Address [address] [facility] [address] [place] [address] Support Name Relationship Address Phone RINA HEBERT Guarantor Unknown [phone] Reason For Referral No Information Medications Medication [...] Status W/U Status Risk Notes Problem Hyperlipidemia (45278694) Other and unspecified hyperlipidemia (272.4) Active confirmed Major Problem Gynecological examination normal (811932593849255) Routine gynecological examination (V72.31) Active confirmed Diag Problem Counseling (579788082) Counseling NOS (V65.40) Active confirmed Diag Plan Of Treatment No Information Insurance Providers Payer Name Payer Address Payer Phone Subscriber Number Group Number Insured Name Patient Relationship to Insured Coverage Start Date Coverage End Date CLAIMS/A OFFICE OF COMMUNITY CARE [address] [address] [place] [address] [id number] ANUPRINA DIAS Self - patient is the insured 2
--- OUTSIDE RECORDS SUMMARY | 2024-11-11 13:22 | XMS_ITS | Data Portability ---
Author Organization [place] [facility] [place] Address [address] [place] [address] Care Team Providers Care Cargo And Container Inspector Name Role Phone JOHN COURTNEY Primary Care Provider [phone] JOHN COURTNEY Referring Provider Assessment Encounter Date [...] history of 2 lumbar back surgeries at [facility] approximately 6 or 7 years ago. She [...] We recommend ice. , She may use ghyg-sgn-bmvstjn medications sparingly as needed. She will follow-up in approximately 3 to 4 weeks for repeat evaluation or sooner if needed. [email or web address] Not available 12/31/2022 10:03:10 02/04/2023 02/04/2023 HPI: Jailyn is a 72 year old female who returns for continued management of her lumbar spine. She has a history of bilateral hip replacements and a knee replacement by Dr. Ortiz. She reports a history of 2 prior back surgeries at [facility] that were approximately 6 or 7 years [...] had any new injury. She is taking qwpt-aku-grkfloh medications and topical medications with some relief. Plan: 72-year-old female with a history of 2 lumbar back surgeries at [facility] approximately 6 or 7 years ago. Patient [...] interim if she has any worsening symptoms. [email or web address] Not available 02/04/2023 11:22:00 03/11/2023 03/11/2023 HPI: Jailyn is a 72 year old female who returns for continued management of her lumbar spine. She has a history of bilateral hip replacements and a knee replacement by Dr. Ortiz. She reports a history of 2 prior back surgeries at [facility] that were approximately 6 or 7 years [...] history of 2 lumbar back surgeries at [facility] approximately 6 or 7 years ago. Patient [...] basis as her severe pain has resolved. [email or web address] Not available 03/11/2023 10:35:25 09/12/2023 09/12/2023 HPI [...] degrees. The knees are stable within those iujclv-ti-gzinja. The alignment of the right knee is [...] Knee Pain 2023 024 [email or web address] [facility], [address], [place], [address], 4 11:50:43 XR, knee, 1 or 2 view - Right Knee Pain 2023 024 [email or web address] [facility], [address], [address], [place], [address], 4 11:50:43 XR, knee, weightbeari ng - Bilateral Knee Pain 2023 024 [email or web address] [facility], [address], [address], [place], [address], 4 11:50:43 XR, lumbosacral spine, 2 or 3 view 2022 023 [email or web address] [facility], [address], [address], [place], [address], 3 12:15:27 XR, lumbosacral spine, 2 or 3 view 2022 023 [email or web address] 21 [facility], [address], [address], [place], [address], 3 13:41:28 XR, lumbosacral spine, 2 or 3 view, bending only 2022 023 [email or web address] 21 [facility], [address], [place], [address], 3 13:41:28 Medication Orders Marcaine (PF) 0.5 % (5 mg/mL) injection solution 2023 024 [email or web address] [facility], [address] [place] [address], [address], 4 11:50:43 lidocaine (PF) 100 mg/5 mL (2 %) injection syringe 2023 024 [email or web address] [facility], [address] [place], [address], 4 11:50:43 Kenalog 40 mg/mL suspension for injection 2023 024 [email or web address] [facility], [address] [place], [address], 4 11:50:43 Patient TargetsNo targets recorded. Patient Instructions Encounter Date Encounter Id Patient Instructions Last Modified By Organization Details Last Modified Time 12/31/2022 [id number] AP and lateral radiographs lumbar spine were obtained in the [place] office today. These reveal extensive degenerative changes throughout. Lumbar scoliosis, lateral listhesis of L4 and L5. Minimal anterolisthesis of L4 and L5 and L5 on S1. Extensive lower lumbar facet arthropathy. There may be slight compression of the anterior endplate of L3. [email or web address] Not available 12/31/2022 10:05:03 02/04/2023 [id number] Repeat AP and lateral radiographs lumbar spine were obtained in the office today and compared with her previous radiographs from December 31, 2022. These redemonstrate multilevel degenerative changes with grade 1 anterior listhesis of L5 on S1 greater than L4 and L5, minimal endplate depression of L3 appears stable from previous radiographs. Extensive lower lumbar facet arthrosis. [email or web address] Not available 02/04/2023 11:19:58 09/12/2023 [id number] AP, lateral, Leiva, and patellar view radiographs of the right knee taken today demonstrate right knee degenerative joint disease with joint space narrowing, osteophyte formation, and subchondral sclerosis. There is fofg-ul-pamw articulation medially. AP, lateral, and patellar radiographs of the left knee taken today demonstrate satisfactory position and alignment of components following left total knee replacement. Not available 09/12/2023 11:50:00 Reason for Referral None Reported. 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 0989166454803 9105 Active [address], [place], [address], [place] [facility], P 4 11:29:26 Low back pain 109826401 Active [address], [place], [address], [place] [facility], P 3 10:00:46 Fall Active [address], [place], [address], [place] [facility], [facility] 3 10:00:48 Lumbar spondylolis thesis 3273057242275 02 Active [address], [place], [address], [place] [facility], P 3 10:00:49 Lumbar spondylosis 187510433 Active [address], [place], [address], [place] [facility], [facility] 3 10:00:50 History of operative procedure on lumbar spinal structure 758513662 Active [address], [place], [address], [place] [facility], [facility] 3 10:00:51 Problem Notes None recorded. Procedures Surgical History Date Name Laterality Status Provider Name and Address Organization Details Recorded Time 09/12/19 24 MJG Knee Injection w/o US completed MD [address], [place], [address], [place] [facility], [facility] 09/12/2023 11:28:31 Appendectomy completed Sahil Wiggins [place] [facility], P 11/28/2022 09:36:20 Hysterectomy completed Sahil Wiggins [place] [facility], P 11/28/2022 09:36:28 implantation of joint prosthesis completed Sahil Wiggins [place] [facility], P 11/28/2022 09:36:42 Knee Surgery completed Sahil Wiggins [facility] 11/28/2022 09:36:47 Imaging Results None recorded. Procedure Notes None recorded. Medical Equipment None Reported. Allergies Allergen ID Allergen Name Allergen Category Reaction Reaction Severity Criticality Documentation Date Start Date Code Code System Note Provider Name and Address Organization Details Recorded Time 3422 iodine medicatio n Not available Not available Not available 11/28/2022 5933 RxNorm Sahil Wiggins [facility], [facility] 09:28:38 Medications Name Sig Start [...] Updated DateTime 09/12/2023 165.1 cm 28.3 kg/m2 52727.7 g Autumn Saavedra [place] [facility] 09/12/2023 10:44:18 Date Recorded Body height Body mass index (BMI) Body weight Provider Name and Address Organization Details Last Updated DateTime 12/31/2022 165.1 cm 29.1 kg/m2 36614.66 g Sahil Wiggins [facility], [facility] 12/31/2022 09:41:00 Date Recorded Body height Provider Name an d Address Organization Details Last Updated DateTime 02/04/2023 165.1 cm Autumn Saavedra [place] [facility], [facility] 02/04/2023 10:50:38 Date Recorded Body height Provider Name an d Address Organization Details Last Updated DateTime 03/11/2023 165.1 cm Nancy Delong [facility] 03/11/2023 10:03:40 Date Recorded Body mass index (BMI) Body weight Provider Name and Address Organization Details Last Updated DateTime 03/11/2023 28.3 kg/m2 20294.7 g Jayashree Nunes [place] [facility] 03/11/2023 10:21:19 Social History Question Answer Notes LastModified by Organizat ion Details LastModified Time Tobacco Smoking Status Former Smoker Sahil doshi, [place] [facility], 11/28/2022 09:34:36 What Is Your Level Of Alcohol Consumption? None [email or web address] Information not available 11/28/2022 When Did You Quit Smoking? 11-15yearss incelastcig arette [email or web address] Information not available 11/28/2022 Do You Use Any Illicit Or Recreational Drugs? No [email or web address] Information not available 11/28/2022 Do You Or Have You Ever Used Any Other Forms Of Tobacco Or Nicotine? No [email or web address] Information not available 11/28/2022 Sex: Unknown Functional Status None recorded. Mental Status None recorded. Family History Relationship Description Onset Age of this Age Resolved Age Notes LastModified by Organization Details LastModified Time Father Family history of malignant neoplasm Not available 2022 09:35:44 Mother Family history of malignant neoplasm [email or web address] Not available 2022 09:35:44 Sister Acute stroke [email or web address] Not avail able 11/28/2022 09:36:11 Medical History Condition Response Arthritis Y Reflux/GERD Y Hypertension Y Blood Transfusion Y Gynecological HistoryNo gynecological history recorded. Obstetrics History GPAL:G 0 P 0 0 0 0 Past Encounters Encounter ID Performer Location Encounter Start Date Encounter Closed Date Diagnosis/Indication Diagnosis SNOMED-CT Code Diagnosis ICD10 Code Diagnosis Note [id number] Anson Zambrano MD [facility] [address] [facility] [address] [place] [address] 11/28/2022 09:18:49 11/28/2022 10:21:23 Arthritis of knee 836024657 M13.869 [id number] Turner Weldon MD [facility] [address] [facility],[address] [place] [address] 12/31/2022 09:19:02 12/31/2022 09:59:43 Low back pain 886788161 M54.50 Fall 4310681 W19.XXXA Lumbar spondylolisthesis 4855475904 83637 M43.16 Lumbar spondylosis 89556 0009 M47.896 History of operative procedure on lumbar spinal structure 357264138 Z98.890 [id number] Turner Weldon MD [facility] [address] [facility] [address] [place] [address] 02/04/2023 10:47:41 02/04/2023 11:21:04 Low back pain 586035822 M54.50 Fall W19.XXXA Lumbar spondylolisthesis 0445144868 97366 M43.16 Lumbar spondylosis 36391 0009 M47.896 History of operative procedure on lumbar spinal structure 395981244 Z98.890 [id number] MD THALIA Wilson [place] [address] [facility] [address] [place] [address] 03/11/2023 09:56:47 03/11/2023 10:32:54 Low back pain 550919708 M54.50 Fall W19.XXXA Lumbar spondylolisthesis 6184080715 29362 M43.16 Lumbar spondylosis 18838 0009 M47.896 History of operative procedure on lumbar spinal structure 588704149 Z98.890 [id number] Anson Zambrano MD [address] [address] 09/12/2023 10:37:32 09/12/2023 11:34:33 Pain of bilateral knee joints 8234934662 00400 M25.561 M25.562 Osteoarthr itis of right knee joint 9521620875 46303 M17.11 Chronic pa in following left total knee arthroplasty 3290713052 1911602 T84.84XA Health Concerns Section Related Observation LastModified by Organization Detai ls LastModified Time None Recorded Concern Status LastModified by Organization Details LastModified Time None Recorded Advance Directives Directive None Recorded Payers Encounter Date Sequence Insurance Name Policy Number Policy Dunn Covered Member ID Dunn Member ID Guarantor Name 11/28/2022 1 MEDICARE B-[place]: NGS Jailyn A Simon [id number] Jailyn Simon 11/28/2022 2 () Jailyn A Simon [id number] Jailyn Simon 12/31/2022 1 MEDICARE [place]: NGS Jailyn A Simon [id number] Jailyn Simon 12/31/2022 2 () Jailyn A Simon [id number] Jailyn Simon 02/04/2023 1 MEDICARE [place]: NGS Jailyn Mallory Simon [id number] Jailyn Simon 02/04/2023 2 () Jailyn A Simon [id number] Jailyn Simon 03/11/2023 1 MEDICARE [place]: NGS Jailyn Mallory Simon [id number] Jailyn Simon 03/11/2023 2 () Jailyn A Simon [id number] Jailyn Simon 09/12/2023 1 MEDICARE [place]: NGS Jailyn Mallory Simon [id number] Jailyn Simon 09/12/2023 2 () Jailyn A Simon [id number] Jailyn Simon Notes Date Note Type Note [...] CHIQUITA UMAÑA PA-C [address], [place], [address], [place] [facility] 11/28/2022 10:11:39 12/31/2022 text/html Jailyn is a 72-year-old female with a history of bilateral hip replacements and a knee replacement by Dr. Ortiz. She reports a history of 2 prior back surgeries at [facility] that were approximately 6 or 7 years ago. She reports these were successful. She has hypertension and reflux. She was at a concert on December 16. She reports that she slipped on a wet marble and landed directly on her lumbosacral spine and right buttock. ignition expert evaluated her and helped her get to [...] KEILY PAYTON PA-C [address], [place], [address], [place] [facility] 12/31/2022 10:06:39 02/04/2023 text/html Prior Visit Jailyn is a 72-year-old female with a history of bilateral hip replacements and a knee replacement by Dr. Ortiz. She reports a history of 2 prior back surgeries at [facility] that were approximately 6 or 7 years ago. She reports these were successful. She has hypertension and reflux. She was at a concert on December 16. She reports that she slipped on a wet marble and landed directly on her lumbosacral spine and right buttock. ignition expert evaluated her and helped her get to [...] history of 2 lumbar back surgeries at [facility] approximately 6 or 7 years ago. She [...] We recommend ice. , She may use fnmy-wop-ruswgjp medications sparingly as needed. She will follow-up in approximately 3 to 4 weeks for repeat evaluation or sooner if needed. KEILY PAYTON PA-C [address], [place], [address], [place] [facility] 02/04/2023 11:22:23 03/11/2023 text/html prior visit 02/04 HPI: Jailyn is a 72 year old female who returns for continued management of her lumbar spine. She has a history of bilateral hip replacements and a knee replacement by Dr. Ortiz. She reports a history of 2 prior back surgeries at [facility] that were approximately 6 or 7 years [...] had any new injury. She is taking mxhn-wke-buunprg medications and topical medications with some relief. Plan: 72-year-old female with a history of 2 lumbar back surgeries at [facility] approximately 6 or 7 years ago. Patient [...] KEILY PAYTON PA-C [address], [place], [address], [place] [facility], [facility] 03/11/2023 10:36:22 OBGyn Episode No OBEpisode recorded.
--- OUTSIDE RECORDS SUMMARY | 2024-11-11 13:22 | XMS_ITS ---
Author Organization [facility] Address [address] [place] [address] Phone Care Team Providers Care Waiter/Waitress Name Role Phone Marcela Sloan Primary Care Provider + Transitional Care Management Status:Closed (Closed) Start date:10/06/2024 Enrollment date:10/06/2024 Enrollment reason:Identified using hospital discharge data End date:11/06/2024 Close reason:Completed program Continued Care and Services Coordination
== END 2024-11-10 11:08 | disposition home or self-care (01) ==
LOC: HO.HOSX 11:07
PROVIDERS: Visit Provider Orthopaedic Surgery
DX: M25.561 Pain in right knee (principal); M25.562 Pain in left knee; Z96.653 Presence of artificial knee joint, bilateral
CPT/HCPCS: 73562; 99212

== ENCOUNTER 2025-05-14 08:37 | Outpatient (AMB) | payer MEDICARE, OTHER, SELFPAY ==
--- NOTE | 2025-05-14 08:40 | A.SPINEOV_ITS ---
Intake Visit Reasons: spinal stenosis/lumbar region Intake Note: Ms. Montes is here today c/o back pain. Welder Helper Required: No Allergies Iodinated Contrast Media (IV Contrast Dye) Allergy (Intermediate, Verified 05/14/25 08:59) Itching and warm iodine Adverse Reaction (Mild, Verified 05/14/25 08:59) Sneezing Assessment & Plan Assessment & Plan (1) Lumbar stenosis with neurogenic claudication: Code(s): M48.062 - Spinal stenosis, lumbar region with neurogenic claudication Category: Medical Plan Mrs Montes returns in follow up. 74-year-old female with history of osteoporosis, who has had 2 previous back surgeries, L4-5 and L5-S1 laminectomy done by Dr. Nunez previously for leg pain. We have been seeing the patient for severe right-sided leg pain in the setting of L5 pars defects with grade 2 spondylolisthesis at L5-S1 in addition to grade 1-2 L4-5 spondylolisthesis. Because of her poor bone quality we had recommended she try some conservative treatment. She has been doing shots with , with good effect until the last 1 she had done a number of months ago and the pain has just not gone away. In fact it is even more intense than ever. It shoots down her right buttock into her right lateral thigh and into her calf. It is aggravated with activity. She does not have a significant component of back pain. The patient continues to take Motrin and gabapentin in addition to the CBD ointment. She has been through physical therapy and all the usual conservative treatments. At this point she is looking for a more permanent and viable solution to the pain. Previously Dr. Fallon and I had looked at her films and consider doing L4-5, L5-S1 anterior lumbar interbody fusion, however we need a noncontrast CT lumbar spine to see if her bone quality would be amenable to surgery. I reviewed everything with her again, went over her new imaging an MRI done at [facility], and there have been no significant changes since her MRI done in 2023. The issue with the bone quality persists, so we will obtain the CT scan and I will see her back on a day Dr. Fallon is here. Total amount of time spent in this visit was 20 minutes in discussion of symptoms, lumbar imaging results and subsequent plan of care Leandro Fallon MD,PhD [facility] Orders: Orders CT lumbar spine wo IV con Today M48.062 - Spinal stenosis, lumbar region with neurogenic claudication Coding Level of Care Code Est Pt Level 3 (54349) Diagnoses Lumbar stenosis with neurogenic claudication M48.062
--- OUTSIDE RECORDS SUMMARY | 2025-05-14 09:02 | XMS_ITS | Encounter Summary ---
Author Organization [facility] Address [address] [place] [address] Care Team Providers Care Principal Technical Writer Name Role Phone Marcela Sloan Primary Care Provider + Encounter Details Date Type Department Care Team (Late Contact Info) Description 06/03/2024 Lab Requisition [facility] - Main Lab [address] [facility] [place] [address] Ze Bryan MD [address] [place] [phone] Unilateral primary osteoarthritis, right knee; Aftercare [...] Department Care Team (Late Contact Info) Description 06/04/2025 3:30 PM EST Office Visit Internal Medicine - [place] [address] [place] [address] Marcela Sloan PA [address] [place] [address] documented as of this encounter Procedures Procedure [...] mmol/L LAB CHEMISTRY METHOD 06/03/2024 7:40 AM [facility] Potassium 4.9 3.5 - 5.5 mmol/L LAB CHEMISTRY METHOD 06/03/2024 7:40 AM [facility] Chloride 108 96 - 110 mmol/L LAB CHEMISTRY METHOD 06/03/2024 7:40 AM [facility] CO2 27 21 - 32 mmol/L LAB CHEMISTRY METHOD 06/03/2024 7:40 AM [facility] Anion Gap 6 3 - 11 LAB CHEMISTRY METHOD 06/03/2024 7:40 AM [facility] Glucose 84 70 - 100 mg/dL LAB CHEMISTRY METHOD 06/03/2024 7:40 AM [facility] BUN 21 5 - 25 mg/dL LAB CHEMISTRY METHOD 06/03/2024 7:40 AM [facility] Creatinine 0.75 0.50 - 1.10 mg/dL LAB CHEMISTRY METHOD 06/03/2024 7:40 AM [facility] eGFR 83 >=60 mL/min/1. 73m2 LAB CHEMISTRY METHOD 06/03/2024 7:40 AM [facility] Comment:Calculation based on the Chronic Kidney Disease Epidemiology Collaboration (CKD-EPI) equation refit without adjustment for race. BUN/Creatinine Ratio 28.0 LAB CHEMISTRY METHOD 06/03/2024 7:40 AM [facility] Calcium 9.0 8.5 - 10.5 mg/dL LAB CHEMISTRY METHOD 06/03/2024 7:40 AM [facility] Blood Venous blood specimen / Unknown 06/03/2024 5:15 AM EST 06/03/2024 7:09 AM EST us Ze Bryan MD LAB BLOOD ORDERABLES Final Resu lt [facility] [address] [place] [address], [place] [phone] * (ABNORMAL) Complete blood count (06/03/2024 5:15 AM EST) WBC 8.9 4.8 - 10.8 K/mcL LAB HEMETOLOGY METHOD 06/03/2024 8:13 AM [facility] RBC 2.90(L) 3.80 - 4.80 M/mcL LAB HEMETOLOGY METHOD 06/03/2024 8:13 AM [facility] Hemoglobin 8.7(L) 11.5 - 16.0 g/dL LAB HEMETOLOGY METHOD 06/03/2024 8:13 AM [facility] Hematocrit 28.4(L) 35.0 - 47.0 % LAB HEMETOLOGY METHOD 06/03/2024 8:13 AM [facility] MCV 97.3 79.0 - 98.0 FL LAB HEMETOLOGY METHOD 06/03/2024 8:13 AM [facility] MCH 29.8 27.0 - 32.0 pcg LAB HEMETOLOGY METHOD 06/03/2024 8:13 AM [facility] MCHC 30.6(L) 32.0 - 37.0 g/dL LAB HEMETOLOGY METHOD 06/03/2024 8:13 AM EST [facility] RDW 13.6 11.0 - 15.0 % LAB HEMETOLOGY METHOD 06/03/2024 8:13 AM EST [facility] Platelets 314 130 - 400 K/mcL LAB HEMETOLOGY METHOD 06/03/2024 8:13 AM EST [facility] MPV 9.4 7.0 - 11.0 FL LAB HEMETOLOGY METHOD 06/03/2024 8:13 AM EST [facility] NRBC 0.0 <1.0 % LAB HEMETOLOGY METHOD 06/03/2024 8:13 AM EST [facility] NRBC Absolute 0.00 <0.10 K/mcL LAB HEMETOLOGY METHOD 06/03/2024 8:13 AM [facility] Blood Venous blood specimen / Unknown 06/03/2024 5:15 AM EST 06/03/2024 7:09 AM EST us Ze Bryan MD LAB BLOOD ORDERABLES Final Resu lt [facility] [address] [place] [address], documented in this encounter Visit Diagnoses Diagnosis Unilateral primary osteoarthritis, right knee Aftercare following joint replacement surgery documented in this encounter Care Teams Principal Technical Writer Relationship Specialty Start Date End Date Marcela Sloan PA PCP - General Internal Medicine 04/09/22 documented as of this encounter
--- OUTSIDE RECORDS SUMMARY | 2025-05-14 09:02 | XMS_ITS | Encounter Summary ---
Author Organization [facility] Address [address] [place] [address] Care Team Providers Care Oxygen Therapy Teacher Name Role Phone Marcela Sloan Primary Care Provider + Encounter Details Date Type Department Care Team (Late Contact Info) Description 05/30/2024 Lab Requisition [facility] - Main Lab 299 [facility] [place] [address] Ze Bryan MD [address] [place] [phone] Chronic obstructive pulmonary disease, unspecified (CMS/HCC [...] PM EST Office Visit Internal Medicine - [place] [address] [place] [address] Marcela Sloan PA [address] [place] [address] [address] [place] [address] Scheduled Orders Name Type Priority Associated Diagnoses Orde r Schedule Complete blood count Lab Routine Chronic obstructive pulmonary disease, unspecified (CMS/[facility]) Hyperlipidemia, unspecified Essential (primary) hypertension Ordered: 05/30/2024 Comprehensive metabolic panel Lab Routine Chronic obstructive pulmonary disease, unspecified (CMS/HCC) Hyperlipidemia, unspecified Essential (primary) hypertension Ordered: 05/30/2024 documented as of this encounter Visit Diagnoses Diagnosis Chronic obstructive pulmonary disease, unspecified (CMS/HCC V24, CMS/HCC V28) Hyperlipidemia, unspecified Essential (primary) hypertension Unspecified essential hypertension documented in this encounter Care Teams Oxygen Therapy Teacher Relationship Specialty Start Date End Date Marcela Sloan PA PCP - General Internal Medicine 04/09/22 documented as of this encounter
--- OUTSIDE RECORDS SUMMARY | 2025-05-14 09:02 | XMS_ITS | Encounter Summary ---
Author Organization [facility] Address [address] [place] [address] Care Team Providers Care Vegetable Sorter Name Role Phone Marcela Sloan Primary Care Provider + Encounter Details Date Type Department Care Team (Late Contact Info) Description 06/02/2024 Lab Requisition [facility] - Main Lab 299 [facility] [place] [address] Ze Bryan MD [address] [place] [phone] Hyperlipidemia, unspecified; Chronic obstructive pulmonary disease, [...] PM EST Office Visit Internal Medicine - [place] [address] [place] [address] Marcela Sloan PA [address] [place] [address] documented as of this encounter Visit Diagnoses Diagnosis Hyperlipidemia, unspecified Chronic obstructive pulmonary disease, unspecified (CMS/[facility] V24, CMS/[facility] V28) Essential (primary) hypertension Unspecified essential hypertension documented in this encounter Care Teams Vegetable Sorter Relationship Specialty Start Date End Date Marcela Sloan PA PCP - General Internal Medicine 04/09/22 documented as of this encounter
--- OUTSIDE RECORDS SUMMARY | 2025-05-14 09:02 | XMS_ITS | Encounter Summary ---
Author Organization [facility] Address [address] [place] [address] Care Team Providers Care Insurance Risk Analyst Name Role Phone Marcela Sloan Primary Care Provider + Encounter Details Date Type Department Care Team (Late st Contact Info) Description 05/30/2024 Lab Requisition [facility] - Main Lab 299 [facility] [place] [place] [address] Ze Bryan MD [address] [place] [phone] Essential (primary) hypertension Social History Tobacco [...] PM EST Office Visit Internal Medicine - [place] [address] [facility] [address] [place] [phone] Marcela Sloan PA [address] [address] [place] [address] [place] [address] documented as of this encounter Visit Diagnoses Diagnosis Essential (primary) hypertension Unspecified essential hypertension documented in this encounter Care Teams Insurance Risk Analyst Relationship Specialty Start Date End Date Marcela Sloan PA PCP - General Internal Medicine 04/09/22 documented as of this encounter
--- OUTSIDE RECORDS SUMMARY | 2025-05-14 09:02 | XMS_ITS | Clinical Summary ---
Author Organization [facility] Address [address] [place] [address] Care Team Providers Care Construction Scheduler Name Role Phone Tab Joe MD Primary [...] series) 2023 COVID-19 Vaccine (3 - season) 2025 09/14/2020, 08/19/2020 Influenza Vaccine (#1) 2025 0, 05/04/2019, 05/04/2019, Additional history exists Shingrix-Zoster Vaccine Completed 04/13/2020, 02/11 Hepatitis B Vaccines Aged Out No long er eligible based on patient's age to complete this topic RSV Ped < 20 months Aged Out No longe r eligible based on patient's age to complete this topic Care Teams Construction Scheduler Relationship Specialty Start Date End Date Tab Joe MD PCP - General Internal Medicine 03/24/19
--- OUTSIDE RECORDS SUMMARY | 2025-05-14 09:02 | XMS_ITS | Patient Health Record ---
Author Organization [facility] Address [address] [place] [address] Support Name Relationship Address Phone RINA HEBERT Guarantor Unknown [phone] Reason For Referral No Information Medications Medication SIG (Take, Route, Frequency, Duration) Notes Start Date End Date Status Lipitor 10MG 1 ORAL daily; Duration: -3 [place]-MJ 09/22/2012 Active Immunizations Vaccine Route Administration Date Status Comme nts Influenza, live, intranasal Intramuscular 09/19/2011 Pendi ng Tdap Intramuscular 09/19/2011 Pending Problems Problem Type SNOMED Code ICD Code Onset Dates Problem Status W/U Status Risk Notes Problem Hyperlipidemia (98448643) Other and unspecified hyperlipidemia (272.4) Active confirmed Major Problem Gynecological examination normal (715248939331398) Routine gynecological examination (V72.31) Active confirmed Diag Problem Counseling (450859870) Counseling NOS (V65.40) Active confirmed Diag Plan Of Treatment No Information Insurance Providers Payer Name Payer Address Payer Phone Subscriber Number Group Number Insured Name Patient Relationship to Insured Coverage Start Date Coverage End Date [facility] CLAIMS/A OFFICE OF [facility] [address] [address] [place] [address] [id number] ANUP RINA Self - patient is the insured 2
--- OUTSIDE RECORDS SUMMARY | 2025-05-14 09:02 | XMS_ITS | Encounter Summary ---
Author Organization [facility] Address [address] [place] [address] Care Team Providers Care Senior Center Director Name Role Phone Marcela Sloan Primary Care Provider + Encounter Details Date Type Department Care Team (Late Contact Info) Description 05/31/[address] [facility] - Main Lab [address] [facility] [place] [address] Ze Bryan MD [address] [place] [phone] Chronic obstructive pulmonary disease, unspecified (CMS/HCC [...] PM EST Office Visit Internal Medicine - [place] [address] [place] [address] Marcela Sloan PA [address] [address] documented as of this encounter Procedures Procedure [...] Travel phlebotomy fee (06/01/2024 5:20 AM EST) [facility] TRAVEL PHLEBOTOMY FEE Completed 06/01/2024 11:02 AM EST [facility] Blood Venous blood specimen / Unknown Venipuncture / Unknown 06/01/2024 5:20 AM EST 06/01/2024 10:59 AM EST us Ze Bryan MD LAB BLOOD ORDERABLES Final Resu lt [facility] [address] [place] [address], * (ABNORMAL) Comprehensive metabolic panel (06/01/2024 5:20 AM EST) [facility] Sodium 139 133 - 145 mmol/L LAB CHEMISTRY METHOD 06/01/2024 12:25 PM EST [facility] Potassium 5.4 3.5 - 5.5 mmol/L LAB CHEMISTRY METHOD 06/01/2024 12:25 PM EST [facility] Chloride 107 96 - 110 mmol/L LAB CHEMISTRY METHOD 06/01/2024 12:25 PM [facility] CO2 29 21 - 32 mmol/L LAB CHEMISTRY METHOD 06/01/2024 12:25 PM [facility] Anion Gap 3 3 - 11 LAB CHEMISTRY METHOD 06/01/2024 12:25 PM [facility] Glucose 76 70 - 100 mg/dL LAB CHEMISTRY METHOD 06/01/2024 12:25 PM [facility] BUN 24 5 - 25 mg/dL LAB CHEMISTRY METHOD 06/01/2024 12:25 PM [facility] Creatinine 0.72 0.50 - 1.10 mg/dL LAB CHEMISTRY METHOD 06/01/2024 12:25 PM [facility] eGFR 87 >=60 mL/min/1. 73m2 LAB CHEMISTRY METHOD 06/01/2024 12:25 PM [facility] Comment:Calculation based on the Chronic Kidney Disease Epidemiology Collaboration (CKD-EPI) equation refit without adjustment for race. BUN/Creatinine Ratio 33.3 LAB CHEMISTRY METHOD 06/01/2024 12:25 PM [facility] Calcium 8.6 8.5 - 10.5 mg/dL LAB CHEMISTRY METHOD 06/01/2024 12:25 PM [facility] AST (SGOT) 16 10 - 42 unit/L LAB CHEMISTRY METHOD 06/01/2024 12:25 PM [facility] ALT (SGPT) 8(L) 10 - 60 unit/L LAB CHEMISTRY METHOD 06/01/2024 12:25 PM [facility] Alkaline Phosphatase 65 42 - 121 unit/L LAB CHEMISTRY METHOD 06/01/2024 12:25 PM [facility] Total Protein 5.5(L) 6.0 - 8.0 g/dL LAB CHEMISTRY METHOD 06/01/2024 12:25 PM [facility] Albumin 2.8(L) 3.2 - 5.0 g/dL LAB CHEMISTRY METHOD 06/01/2024 12:25 PM [facility] Total Bilirubin 0.7 0.0 - 1.4 mg/dL LAB CHEMISTRY METHOD 06/01/2024 12:25 PM [facility] Blood Venous blood specimen / Unknown Venipuncture / Unknown 06/01/2024 5:20 AM EST 06/01/2024 10:59 AM EST us Ze Bryan MD LAB BLOOD ORDERABLES Final Resu lt [facility] [address] [place] [address], * (ABNORMAL) Complete blood count (06/01/2024 5:20 AM EST) WBC 8.0 4.8 - 10.8 K/mcL LAB HEMETOLOGY METHOD 06/01/2024 12:08 PM [facility] RBC 3.20(L) 3.80 - 4.80 M/mcL LAB HEMETOLOGY METHOD 06/01/2024 12:08 PM [facility] Hemoglobin 9.4(L) 11.5 - 16.0 g/dL LAB HEMETOLOGY METHOD 06/01/2024 12:08 PM [facility] Hematocrit 31.1(L) 35.0 - 47.0 % LAB HEMETOLOGY METHOD 06/01/2024 12:08 PM [facility] MCV 97.5 79.0 - 98.0 FL LAB HEMETOLOGY METHOD 06/01/2024 12:08 PM [facility] MCH 29.5 27.0 - 32.0 pcg LAB HEMETOLOGY METHOD 06/01/2024 12:08 PM [facility] MCHC 30.2(L) 32.0 - 37.0 g/dL LAB HEMETOLOGY METHOD 06/01/2024 12:08 PM [facility] RDW 13.5 11.0 - 15.0 % LAB HEMETOLOGY METHOD 06/01/2024 12:08 PM EST [facility] Platelets 309 130 - 400 K/mcL LAB HEMETOLOGY METHOD 06/01/2024 12:08 PM EST [facility] MPV 9.4 7.0 - 11.0 FL LAB HEMETOLOGY METHOD 06/01/2024 12:08 PM EST [facility] NRBC 0.0 <1.0 % LAB HEMETOLOGY METHOD 06/01/2024 12:08 PM [facility] NRBC Absolute 0.00 <0.10 K/mcL LAB HEMETOLOGY METHOD 06/01/2024 12:08 PM [facility] Blood Venous blood specimen / Unknown Venipuncture / Unknown 06/01/2024 5:20 AM EST 06/01/2024 10:59 AM EST us Ze Bryan MD LAB BLOOD ORDERABLES Final Resu lt [facility] [address] [place] [address], documented in this encounter Visit Diagnoses Diagnosis Chronic obstructive pulmonary disease, unspecified (CMS/HCC V24, CMS/HCC V28) Hyperlipidemia, unspecified Essential (primary) hypertension Unspecified essential hypertension documented in this encounter Care Teams Senior Center Director Relationship Specialty Start Date End Date Marcela Sloan PA PCP - General Internal Medicine 04/09/22 documented as of this encounter
--- OUTSIDE RECORDS SUMMARY | 2025-05-14 09:02 | XMS_ITS | Encounter Summary ---
Author Organization [facility] Address [address] [place] [address] Care Team Providers Care College Recruiter Name Role Phone Marcela Sloan Primary Care Provider + Reason for Visit * Reason Onset Date Comments Labs Only 05/07/2025 Encounter Details Date Type Department Care Team (Late st Contact Info) Description 05/07/2025 Telephone Internal Medicine - [place] [address] [facility] [address] [place] [address] Marcela Sloan PA [address] [facility] [place] [address] [place] [address] Social History Tobacco Use Types Packs/Day Years [...] on file documented as of this encounter Progress Notes * Stacey Velarde MA - 05/13/2025 11:11 AM EDT Called patient and informed lab orders have been placed. * MATTY Singh - 05/12/2025 6:58 PM EDT Labs ordered to get done fasting prior to visit. Thanks * Ernesto Padilla MA - 05/07/2025 1:41 PM EDT Patient has an AWV on 06/04 requesting labs to be ordered. Pended . * Maye Best - 05/07/2025 12:24 PM EDT Patient has upcoming physical - please have provider place order for labs documented in this encounter Plan of Treatment Upcoming Encounters Date Type Department Care Team (Late st Contact Info) Description 06/04/2025 3:30 PM EST Office Visit Internal Medicine - [place] [address] [place] [address] Marcela Sloan PA [address] [place] [address] [place] [address] Scheduled Orders Name Type Priority Associated Diagnoses Orde r Schedule CBC and differential Lab Routine Hypercholesterolemia 1 Occurrences starting 05/12/2025 until 05/07/2026 Comprehensive metabolic panel Lab Routine Primary hypertension Hypercholesterolemia 1 Occurrences starting 05/12/2025 until 05/07/2026 Lipid panel with reflex to direct LDL Lab Routine Hypercholesterolemia 1 Occurrences starting 05/12/2025 until 05/07/2026 Thyroid stimulating hormone with reflex to free t4 and free t3 Lab Routine Hypercholesterolemia 1 Occurrences starting 05/12/2025 until 05/07/2026 Hemoglobin A1c Lab Routine Prediabetes Hypercholesterolemia 1 Occurrences starting 05/12/2025 until 05/12/2026 Magnesium Lab Routine Primary hypertension Hypercholesterolemia 1 Occurrences starting 05/12/2025 until 05/12/2026 Microalbumin creatinine urine ratio Lab Routine Hypercholesterolemia 1 Occurrences starting 05/12/2025 until 05/12/2026 Thyroid stimulating hormone Lab Routine Hypercholesterolemia 1 Occurrences starting 05/12/2025 until 05/12/2026 documented as of this encounter Visit Diagnoses Diagnosis Primary hypertension- Primary Unspecified essential hypertension Prediabetes Other abnormal glucose Hypercholesterolemia Pure hypercholesterolemia documented in this encounter Care Teams College Recruiter Relationship Specialty Start Date End Date Marcela Sloan PA PCP - General Internal Medicine 04/09/22 documented as of this encounter
--- OUTSIDE RECORDS SUMMARY | 2025-05-14 09:02 | XMS_ITS ---
Author Name [facility] Unknown History of Medication Use Medication Directions Dispensed Refills Start Date End Date [facility] Kenalog 40 mg/mL suspension for injection Take 1 mL by injection route. 09/12/2023 active lidocaine (PF) 100 mg/5 mL (2 %) injection syringe Take 4 mL by injection route. 09/12/2023 active Marcaine (PF) 0.5 % (5 mg/mL) injection solution Take 4 mL by injection route. 09/12/2023 active albuterol sulfate HFA 90 mcg/actuation aerosol inhaler INHALE TWO PUFFS BY MOUTH EVERY 4 TO 6 HOURS NEEDED FOR SHORTNESS OF BREATH OR WHEEZING 09/12/19 24 completed atorvastatin 10 mg tablet TAKE ONE TABLET BY MOUTH EVERY DAY 09/12/19 24 active cephalexin 500 mg capsule TAKE ONE CAPSULE BY MOUTH THREE TIMES A DAY FOR 5 DAYS 09/12/19 24 completed hydrochlorothiazide 25 mg tablet TAKE ONE TABLET BY MOUTH EVERY DAY 09/12/19 24 active losartan 25 mg tablet TAKE ONE TABLET BY MOUTH EVERY DAY 09/12/19 24 active moxifloxacin 0.5 % eye drops PUT 1 DROP IN OPERATIVE EYE THREE TIMES A DAY STARTING ONE DAY PRE-OP - CONTINUE FOR 7 DAYS AFTER SURGERY 09/12/19 24 completed prednisolone acetate 1 % eye drops,suspension INSTILL 1 DROP IN THE LEFT EYE FOUR TIMES A DAY 09/12/19 24 completed prednisone 20 mg tablet TAKE ONE TABLET BY MOUTH TWICE A DAY FOR 5 DAYS 09/12/19 24 completed Prolensa 0.07 % eye drops INSTILL 1 DROP IN THE OPERATIVE EYE ONCE A DAY FOR 21 DAYS. START 1 DAY PRE-OP. 09/12/19 24 completed Marcaine (PF) 0.5 % (5 mg/mL) injection solution active Kenalog 40 mg/mL suspension for injection active lidocaine (PF) 100 mg/5 mL (2 %) injection syringe active fluticasone propionate 50 mcg/actuation nasal spray,suspension PLACE ONE SPRAY INTO EACH NOSTRIL ONCE DAILY active Allergies Allergen Reaction Severity Comment Documented Date Source Statu s IODINATED CONTRAST MEDIA UNKNOWN/PATIENT AND FAMILY UNABLE TO DEFINE 09/22/2018 [facility] active IODINE OTHER (SEE COMMENTS) 08/13/2014 [facility] active Problems Problem Status Onset Date Problem Type Date of Resoluti on Source Low back pain active 2022-12-31 [facility]Act [facility] Lumbar spondylolisthesis active 2022-12-31 ProblemAct [facility] Lumbar spondylosis active 2022-12-31 ProblemAct [facility] 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 active 2023-09-12 ProblemAct [facility] Osteoarthritis of right knee joint active 2023-09-12 ProblemAct [facility] History of operative procedure on lumbar spinal structure active 2022-12-31 ProblemAct [facility] Fall active 2022-12-[address] [facility] [address] Encounters Encounter Type Encounter Reason Primary Diagnosis Location Date Ambulatory Ear Fullness Ear Full[facility] 12/10/2024 Ambulatory [facility] 11/05/2023 Ambulatory [facility] 09/12/2023 Ambulatory [facility] 09/10/2023 Ambulatory [facility] 09/06/2023 Ambulatory [facility] 04/19/2023 Ambulatory [facility] 03/10/2023 Ambulatory [facility] 11/28/2022 Ambulatory [facility] 11/28/2022 Ambulatory [facility] 11/28/2022 Ambulatory [facility] 11/28/2022 Ambulatory [facility] 11/28/2022 Ambulatory [facility] 11/26/2022 Ambulatory [facility] 11[facility]26/2022 Ambulatory [facility] 11/19/2022 Care Team Organization Name Specialty Phone Email Start Date End Da te [facility] 03/17/2025 [facility] 12/10/2024 01/08/2025 [facility] frida bledsoe Primary Care 12/10/2024 [facility] 11/20/2024 [facility] Marcela Sloan Primary Care 01/04/2023 03/16/2024 [facility] JOHN COURTNEY Primary Care 06/05/2022 03/16/20 24
--- OUTSIDE RECORDS SUMMARY | 2025-05-14 09:02 | XMS_ITS | Clinical Summary ---
Author Organization [address] Address [address] [place] [phone] Phone Care Team Providers Care Aircraft Electrical Systems Specialist Name Role Phone Marcela Sloan Primary [...] Encounters Date Type Department Care Team Description 05/07/2025 Telephone Internal Medicine - [place] [address] [facility] [address] [place] [address] Marcela Sloan PA from Last 3 Months Immunizations Immunization Administration Dates Next Due Influenza trivalent, 0.5mL [...] HISTORICAL HAND SURGERY TOTAL KNEE ARTHROPLASTY 05/25/2024 Right Angel Osuna Medical History Medical History Date Comments History [...] 89 09/17/2024 3:34 PM EST Temperature 36.8 C (98.2 F) 09/17/2024 3:34 PM EST Respiratory Rate - - Oxygen Saturation 97% [...] PM EST Office Visit Internal Medicine - [address] [place] [address] Marcela Sloan PA [address] [facility] [address] [place] [address] Health Maintenance Due Date Last Done Comments Hepatitis A Vaccines (1 of 2 - Risk 2-dose series) 1969 Pneumococcal Vaccine: 50+ Years (2 of 2 - PCV20 or PCV21) 11/30/2016 12/01/2015 Falls Risk Assessment 07/05/2022 Hepatitis C Screening 07/05/2022 Medicare Annual Wellness Visit 07/05/2022 Osteoporosis Screening (Bone Density Screening) 07/05/2022 Social Influencers of Health Screening 07/05/2022 Depression Screening 07/29/2024 COVID-19 Vaccine ( season) 2025 05/05/2024, 04/30/2023, 05/27/2022, Additional history exists Influenza Vaccine (#1) 2025 , 04/30/2023, 05/21/2022, Additional history exists Hypertension/CHF/CAD Annual BMP Blood Test 10/06/2025 10/06/2024, 10/05/2024, 06/03/2024, Additional history exists Cholesterol Screening (Lipid Panel) 02/12/2029 02/13/2024, 02/13/2024 DTaP,Tdap,and Td Vaccines (2 - Td or Tdap) 03/13/2034 03/13/2024 Zoster Vaccines Completed 04/13/2020, 02/12/2020 RSV Immunization Adult Patients Completed 04/25/2024 Breast Cancer Screening Discontinued 12/31/2024 HIB Vaccines Aged Out No longer eligi [...] Procedure Name Priority Date/Time Associated Diagnosis Comments EXTERNAL MAMMOGRAM REPORT 12/31/2024 BASIC METABOLIC PANEL Routine 06/03/2024 5:15 AM EST Unilateral primary osteoarthritis, right knee Aftercare following joint replacement surgery LIPID PANEL Routine 02/13/2024 from Last 3 Months or Most Recently Relevant to Health Maintenance Results * External Mammogram Report (12/31/2024) Anatomical Region Laterality Modality Mammography Provider [facility] BI PROCEDURES Final Result * Basic metabolic panel (06/03/2024 5:15 AM EST) Sodium 141 133 - 145 mmol/L LAB CHEMISTRY METHOD 06/03/2024 7:40 AM [facility] Potassium 4.9 3.5 - 5.5 mmol/L LAB CHEMISTRY METHOD 06/03/2024 7:40 AM [facility] Chloride 108 96 - 110 mmol/L LAB CHEMISTRY METHOD 06/03/2024 7:40 AM [facility] CO2 27 21 - 32 mmol/L LAB CHEMISTRY METHOD 06/03/2024 7:40 AM [facility] Anion Gap 6 3 - 11 LAB CHEMISTRY METHOD 06/03/2024 7:40 AM [facility] Glucose 84 70 - 100 mg/dL LAB CHEMISTRY METHOD 06/03/2024 7:40 AM [facility] BUN 21 5 - 25 mg/dL LAB CHEMISTRY METHOD 06/03/2024 7:40 AM [facility] Creatinine 0.75 0.50 - 1.10 mg/dL LAB CHEMISTRY METHOD 06/03/2024 7:40 AM [facility] eGFR 83 >=60 mL/min/1. 73m2 LAB CHEMISTRY METHOD 06/03/2024 7:40 AM EST [facility] Comment:Calculation based on the Chronic Kidney Disease Epidemiology Collaboration (CKD-EPI) equation refit without adjustment for race. BUN/Creatinine Ratio 28.0 LAB CHEMISTRY METHOD 06/03/2024 7:40 AM EST [facility] Calcium 9.0 8.5 - 10.5 mg/dL LAB CHEMISTRY METHOD 06/03/2024 7:40 AM EST [facility] Blood Venous blood specimen / Unknown 06/03/2024 5:15 AM EST 06/03/2024 7:09 AM EST Ze Bryan MD LAB BLOOD ORDERABLES Final Resu lt [facility] [address] [place] [address], * (ABNORMAL) Lipid panel (02/13/2024) LDL/HDL Ratio 3 0 - 4 Triglycerides 52 0 - 150 mg/dL Cholesterol 210(A) 0 - 200 mg/dL HDL 80 >=40 mg/dL LDL Cholesterol 120(A) 0 - 100 mg/dL Blood Venous blood specimen / Unknown Historical Provider LAB BLOOD ORDERABLES Louann l Result from Last 3 Months or Most Recently Relevant to Health Maintenance Insurance MEDICARE Care Teams Aircraft Electrical Systems Specialist Relationship Specialty Start Date End Date Marcela Sloan PA PCP - General Internal Medicine 04/09/22
--- OUTSIDE RECORDS SUMMARY | 2025-05-14 09:03 | XMS_ITS | Clinical Summary ---
Author Organization [facility] Address [address] [place] [id number] Care Team Providers Care Contract Writer Name Role Phone Tab Joe MD PhD Primary Care Provider [phone] Allergies Active Allergy Reactions Criticality Noted Date Comments Iodinated Contrast Media Unknown/Patient and Family Unable to Define Medium 09/22/2018 Iodine Itching,Unknown/Maria Victoria ent and Family Unable to Define,Other (See Comments) Medium 08/13/2014 Medications methylPREDNISolon e (MEDROL DOSEPAK) 4 MG tabletIndications :Acute non-recurrent pansinusitis follow package directions 21 tablet 5 Active Active Problems Problem Noted Date Diagnosed Date Allergic rhinitis 01/31/2023 Arthritis of knee, left 03/24/2019 Calcific tendinitis of left shoulder 09/17/2018 Arthritis of knee, right 06/17/2018 Bursitis of right elbow 06/17/2018 Family History Medical History Relation Name Comments Autoimmune disease Sister Relation Name Status Comments Sister Social History Tobacco Use Types Packs/Day Years Used Date Smoking Tobacco: Never Passive Smoke Exposure: Never Smokeless Tobacco: Never Alcohol Use Standard Drinks/Week Comments Not Currently 0 (1 standard drink = 0.6 oz pur e alcohol) 3 years sober Comments Unknown Sex and Gender Information Value Date Recorded Sex Assigned at Not on file Legal Sex Female 8:37 AM EST Gender Identity Not on file Sexual Orientation Not on file Last Filed Vital Signs Vital Sign Reading Time Taken Comments Blood Pressure - - Pulse - - Temperature - - Respiratory Rate - - Oxygen Saturation - - Inhaled Oxygen Concentration - - Weight 72.6 kg (160 lb) 12/10/2024 2:17 PM EDT Height 160 cm (5' 3 ) 12/10/2024 2:17 PM EDT Body Mass Index 28.34 12/10/2024 2:17 PM EDT Plan of Treatment Health Maintenance Due Date Last Done Comments Advance Care Planning 1950 Hepatitis C Virus Screening 1950 DTaP/Tdap/Td Vaccines (1 - Tdap) 1967 Pneumococcal Vaccines 50+ (1 of 1 - PCV) 1998 Zoster (Shingles) Vaccine (1 of 2) 1998 DXA Bone Density (Females,Ages 65 and older) 2013 RSV Vaccine 50 years and older and Patients (1 - 1-dose 75+ series) 2023 Influenza Vaccine 02/26/2025 05/04/2019, 04/17/2018 COVID-19 Vaccine (3 - 2024-2 6 season) 2025 09/14/2020, 08/19/2020 Hepatitis B Vaccines Aged Out No long er eligible based on patient's age to complete this topic Insurance MEDICARE PART A & B [facility] Care Teams Contract Writer Relationship Specialty Start Date End Date Tab Joe MD PhD NPI: [id number] [place] [id number] PCP - General Internal Medicine 12/10/24
== END 2025-05-14 09:34 | disposition home or self-care (01) ==
LOC: HO.HNS 08:38
PROVIDERS: PCP Physician Assistant; Visit Provider Physician Assistant
DX: M48.062 Spinal stenosis, lumbar region with neurogenic claudication (principal)
CPT/HCPCS: 99213

== ENCOUNTER → 2025-05-14 08:37 | Outpatient (BNVA) | payer MEDICARE, OTHER, SELFPAY | PROVIDERS: PCP Physician Assistant; Visit Provider Physician Assistant | DX: M48.062 Spinal stenosis, lumbar region with neurogenic claudication (principal); Z98.890 Other specified postprocedural states | CPT/HCPCS: 99212 ==

== ENCOUNTER 2025-06-04 07:45 | Outpatient (AMB) | payer MEDICARE, OTHER, SELFPAY ==
--- OUTSIDE RECORDS SUMMARY | 2025-06-04 07:46 | XMS_ITS | Clinical Summary ---
Author Organization LL [address] [facility] Address [address] [place] [address] Phone Care Team Providers Care Instrument Worker Name Role Phone Marcela Sloan Primary Care Provider + Allergies Active Allergy Reactions Criticality Noted Date Comments Iodinated Contrast Media 09/22/2018 Medications loratadine (CLARITIN) 10 mg tabletIndicatio ns:Seasonal allergies Take 1 tablet (10 mg total) by mouth 1 (one) time each day if needed for allergies. 60 each 3 5 Active gabapentin (NEURONTIN) 600 mg tablet Take 1 tablet (600 mg total) by mouth 3 (three) times a day. 5 Active suzetrigine 50 mg tablet Take 50 mg by mouth every 12 (twelve) hours if needed (sciatic pain). First dose take 100mg 60 tablet 5 Active suzetrigine 50 mg tablet Take 50 mg by mouth every 12 (twelve) hours if needed (sciatic pain). First dose take 100mg 12 tablet 5 05/25/20 25 Discontinu ed(Reorder ) Active Problems Problem Noted Date Diagnosed Date Allergic rhinitis 01/31/2023 Prediabetes 12/29/2021 Hypercholesterolemia 04/03/2018 Hypertension 09/27/2016 Vitamin D deficiency 07/04/2016 Hyperplastic colon polyp 05/04/2016 Encounters Date Type Department Care Team Description 05/31/2025 Results Follow-Up Internal Medicine - [place] [address] [facility] [address] [place] [address] Marcela Sloan PA 05/27/2025 1:40 PM EDT Lab Draw Station - [address] [facility] [address] [facility] [address] [place] [phone] Hypercholesterolemia ; Primary hypertension; Prediabetes 05/20/2025 10:45 AM EDT Office Visit Internal Medicine - [place] [address] [facility] [address] [place] [phone] Marcela Sloan PA Primary hypertension (Primary Dx); Left carotid stenosis 05/18/2025 Telephone Internal Medicine - [place] [address] [facility] [address] [place] [phone] Marcela Sloan PA 05/17/2025 [address]phone [facility] [address] [place] [phone] Dhiraj Ferrell MD 05/16/2025 7:56 AM EDT - 05/16/2025 11:27 AM EDT Emergency [facility] [address] [place] [phone] Dhiraj Ferrell MD Fall, initial encounter (Primary Dx); Closed head injury, initial encounter; Sciatica, unspecified laterality; Hyponatremia; Stenosis of left carotid artery Discharge Disposition: Home or Self Care 05/07/2025 Telephone Internal Medicine - [place] [address] [facility] [address] [place] [phone] Marcela Sloan PA from Last 3 Months [...] Sign Reading Time Taken Comments Blood Pressure 163/79 05/20/2025 10:47 AM EDT Pulse 65 05/20/2025 10:46 AM EDT Temperature 36.3 C (97.3 F) 05/20/2025 10:46 AM EDT Respiratory Rate 17 05/16/2025 9:00 AM EDT Oxygen Saturation 96% 05/20/2025 10:46 AM EDT Inhaled Oxygen Concentration - - Weight 74.8 kg (165 lb) 05/20/2025 10:46 AM EDT Height 162.6 cm (5' 4 ) 05/20/2025 10:46 AM EDT Body Mass Index 28.32 05/20/2025 10:46 AM EDT Plan of Treatment Upcoming Encounters Date Type Department Care Team (Late st Contact Info) Description 06/04/2025 3:30 PM EST Office Visit Internal Medicine - [place] [address] [facility] [address] [place] [phone] Marcela Sloan PA [address] [place] [phone] 07/23/2025 9:00 AM EST Consult Vascular Surgery [address] [phone] Manoj Drummond MD [facility] [place] [address] Health Maintenance Due Date Last Done Comments Hepatitis A Vaccines (1 of 2 - Risk 2-dose series) 1969 Pneumococcal Vaccine: 50+ Years (2 of 2 - PCV20 or PCV21) 11/30/2016 12/01/2015 Falls Risk Assessment 07/05/2022 Hepatitis C Screening 07/05/2022 Medicare Annual Wellness Visit 07/05/2022 Osteoporosis Screening (Bone Density Screening) 07/05/2022 Social Influencers of Health Screening 07/05/2022 Depression Screening 07/29/2024 Hypertension/CHF/CAD Annual BMP Blood Test 05/27/2026 05/27/2025, 05/16/2025, 10/06/2024, Additional history exists Cholesterol Screening (Lipid Panel) 05/27/2030 05/27/2025, 02/13/2024, 02/13/2024 DTaP,Tdap,and Td Vaccines (2 - Td or Tdap) 03/13/2034 03/13/2024 Zoster Vaccines Completed 04/13/2020, 02/12/2020 RSV Immunization Adult Patients Completed 04/25/2024 Breast Cancer Screening Discontinued 12/31/2024 COVID-19 Vaccine Completed 04/13/2025, 02/2024, 04/30/2023, Additional history exists Influenza Vaccine Completed 04/13/2025, , 04/30/2023, Additional history exists HIB Vaccines Aged Out No longer eligi [...] Procedure Name Priority Date/Time Associated Diagnosis Comments MICROALBUMIN CREATININE URINE RATIO Routine 05/27/2025 1:39 PM EDT Hypercholesterolem ia CBC WITH AUTO DIFFERENTIAL Routine 05/27/2025 1:36 PM EDT Hypercholesterolem ia MAGNESIUM Routine 05/27/2025 1:36 PM EDT Primary hypertension Hypercholesterolem ia HEMOGLOBIN A1C Routine 05/27/2025 1:36 PM EDT Prediabetes Hypercholesterolem ia THYROID STIMULATING HORMONE WITH REFLEX TO FREE T4 AND FREE T3 Routine 05/27/2025 1:36 PM EDT Hypercholesterolem ia LIPID PANEL WITH REFLEX TO DIRECT LDL Routine 05/27/2025 1:36 PM EDT Hypercholesterolem ia COMPREHENSIVE METABOLIC PANEL Routine 05/27/2025 1:36 PM EDT Primary hypertension Hypercholesterolem ia CBC AND DIFFERENTIAL Routine 05/27/2025 1:36 PM EDT Hypercholesterolem ia ECG ANNOTATED 05/17/2025 ECG 12-LEAD STAT 05/16/2025 8:[address] ANGIO HEAD/NECK STROKE WO AND/OR W CONTRAST STAT 05/16/2025 8:[address] HEAD STROKE WO CONTRAST STAT 05/16/2025 8:36 AM EDT MAGNESIUM STAT Add-on 05/16/2025 8:26 AM EDT CBC WITH AUTO DIFFERENTIAL STAT 05/16/2025 8:26 AM EDT TROPONIN I HIGH SENSITIVITY STAT 05/16/2025 8:26 AM EDT CBC AND DIFFERENTIAL STAT 05/16/2025 8:26 AM EDT COMPREHENSIVE METABOLIC PANEL STAT 05/16/2025 8:26 AM EDT EXTERNAL MAMMOGRAM REPORT 12/31/2024 from Last 3 Months or Most Recently Relevant to Health Maintenance Results * Microalbumin creatinine urine ratio (05/27/2025 1:39 PM EDT) Creatinine, Urine 114.0 mg/dL LAB CHEMISTRY METHOD 05/27/2025 6:50 PM EDT [facility] Microalb, Ur 8.8 0.0 - 29.0 mg/L LAB CHEMISTRY METHOD 05/27/2025 6:50 PM EDT [facility] Microalb/Creat Ratio 8 <30 mg/g creat LAB CHEMISTRY METHOD 05/27/2025 6:50 PM EDT [facility] Urine Urine specimen obtained by clean catch procedure / Unknown Non-blood Collection / Unknown 05/27/2025 1:39 PM EDT 05/27/2025 1:39 PM EDT us Marcela STARR LAB URINE ORDERABLES Fin al Result [facility] [address] [place] [address], [place] [phone] * Thyroid stimulating hormone with reflex to free t4 and free t3 (05/27/2025 1:36 PM EDT) TSH 0.55 0.40 - 4.00 mcIU/mL LAB CHEMISTRY METHOD 05/27/2025 7:00 PM EDT [facility] Blood Venous blood specimen / Unknown Venipuncture / Unknown 05/27/2025 1:36 PM EDT 05/27/2025 1:37 PM EDT us Marcela STARR LAB BLOOD ORDERABLES Fin al Result Performing Organization Address City/[facility]/ZIP Co de Phone Number [facility] [address] [place] [address], [place] [phone] * (ABNORMAL) Lipid panel with reflex to direct LDL (05/27/2025 1:36 PM EDT) Cholesterol 214(H) 0 - 200 mg/dL LAB CHEMISTRY METHOD 05/27/2025 6:32 PM EDT [facility] Triglycerides 50 0 - 150 mg/dL LAB CHEMISTRY METHOD 05/27/2025 6:32 PM EDT [facility] HDL 87 >=40 mg/dL LAB CHEMISTRY METHOD 05/27/2025 6:32 PM EDT [facility] LDL Calculated 117(H) 0 - 100 mg/dL LAB CHEMISTRY METHOD 05/27/2025 6:32 PM EDT [facility] Comment:Estimated LDL Calcul ated using equation: Total cholesterol - HDL cholesterol - (Triglycerides/5) VLDL Cholesterol Alberto 10 mg/dL LAB CHEMISTRY METHOD 05/27/2025 6:32 PM EDT [facility] Non HDL Chol. (LDL+VLDL) 127 <145 mg/dL LAB CHEMISTRY METHOD 05/27/2025 6:32 PM EDT [facility] Chol/HDL Ratio 2.5 0.0 - 4.4 LAB CHEMISTRY METHOD 05/27/2025 6:32 PM T [facility] Blood Venous blood specimen / Unknown Venipuncture / Unknown 05/27/2025 1:36 PM EDT 05/27/2025 1:37 PM EDT Marcela STARR LAB BLOOD ORDERABLES Fin al Result Performing Organization Address City/[facility]/ZIP Co de Phone Number [facility] [address] [place] [address], [place] [phone] * CBC auto differential (05/27/2025 1:36 PM EDT) Only the most recent of2 resultswithin the time period is included. WBC 8.8 4.8 - 10.8 K/mcL LAB HEMETOLOGY METHOD 05/27/2025 6:12 PM EDT [facility] RBC 4.00 3.80 - 4.80 M/mcL LAB HEMETOLOGY METHOD 05/27/2025 6:12 PM EDT [facility] Hemoglobin 12.2 11.5 - 16.0 g/dL LAB HEMETOLOGY METHOD 05/27/2025 6:12 PM EDT [facility] Hematocrit 37.9 35.0 - 47.0 % LAB HEMETOLOGY METHOD 05/27/2025 6:12 PM EDT [facility] MCV 93.8 79.0 - 98.0 FL LAB HEMETOLOGY METHOD 05/27/2025 6:12 PM EDT [facility] MCH 30.2 27.0 - 32.0 pcg LAB HEMETOLOGY METHOD 05/27/2025 6:12 PM EDT [facility] MCHC 32.2 32.0 - 37.0 g/dL LAB HEMETOLOGY [facility]/27[facility]25 [facility] RDW 13.5 11.0 - 15.0 % LAB HEMETOLOGY METHOD 05/27/2025 6:12 PM EDT [facility] Platelets 314 130 - 400 K/mcL LAB HEMETOLOGY METHOD 05/27/2025 6:12 PM EDT [facility] MPV 9.1 7.0 - 11.0 FL LAB HEMETOLOGY METHOD 05/27/2025 6:12 PM EDT [facility] NRBC 0.0 <1.0 % LAB HEMETOLOGY METHOD 05/27/2025 6:12 PM EDT [facility] NRBC Absolute 0.00 <0.10 K/mcL LAB HEMETOLOGY METHOD 05/27/2025 6:12 PM EDT [facility] Neutrophils Relative 64.3 % LAB HEMETOLOGY METHOD 05/27/2025 6:12 PM EDT [facility] Lymphocytes Relative 25.8 % LAB HEMETOLOGY METHOD 05/27/2025 6:12 PM EDT [facility] Monocytes Relative 7.2 % LAB HEMETOLOGY METHOD 05/27/2025 6:12 PM EDT [facility] Eosinophils Relative 1.9 % LAB HEMETOLOGY METHOD 05/27/2025 6:12 PM EDT [facility] Basophils Relative 0.6 % LAB HEMETOLOGY METHOD 05/27/2025 6:12 PM EDT [facility] Immature Granulocytes Relative 0.2 % LAB HEMETOLOGY METHOD 05/27/2025 6:12 PM EDT [facility] Neutrophils Absolute 5.67 1.50 - 7.00 K/mcL LAB HEMETOLOGY METHOD 05/27/2025 6:12 PM EDT [facility] Lymphocytes Absolute 2.27 1.00 - 5.00 K/mcL LAB HEMETOLOGY METHOD 05/27/2025 6:12 PM EDT [facility] Monocytes Absolute 0.63 0.20 - 1.00 K/mcL LAB HEMETOLOGY METHOD 05/27/2025 6:12 PM EDT [facility] Eosinophils Absolute 0.17 0.00 - 0.50 K/mcL LAB HEMETOLOGY METHOD 05/27/2025 6:12 PM EDT [facility] Basophils Absolute 0.05 0.00 - 0.20 K/mcL LAB HEMETOLOGY METHOD 05/27/2025 6:12 PM EDT [facility] Immature Granulocytes Absolute 0.02 0.00 - 0.03 K/mcL LAB HEMETOLOGY METHOD 05/27/2025 6:12 PM EDT [facility] Blood Venous blood specimen / Unknown Venipuncture / Unknown 05/27/2025 1:36 PM EDT 05/27/2025 1:37 PM EDT us Marcela STARR LAB BLOOD ORDERABLES Fin al Result Performing Organization Address [facility]/ZIP Co de Phone Number [facility] [address] [place] [address], [place] [phone] * Magnesium (05/27/2025 1:36 PM EDT) Only the most recent of2 resultswithin the time period is included. Magnesium 2.0 1.9 - 2.6 mg/dL LAB CHEMISTRY METHOD 05/27/2025 6:29 PM EDT [facility] Blood Venous blood specimen / Unknown Venipuncture / Unknown 05/27/2025 1:36 PM EDT 05/27/2025 1:37 PM EDT us Marcela STARR LAB BLOOD ORDERABLES Fin al Result Performing Organization Address [facility] de Phone Number [facility] [address] [place] [address], [place] [phone] * Hemoglobin A1c (05/27/2025 1:36 PM EDT) Hemoglobin A1C 5.7 <6.5 % LAB CHEMISTRY METHOD 05/27/2025 8:14 PM EDT [facility] Mean Bld Glu Estim. 117 mg/dL LAB CHEMISTRY METHOD 05/27/2025 8:14 PM EDT [facility] Blood Venous blood specimen / Unknown Venipuncture / Unknown 05/27/2025 1:36 PM EDT 05/27/2025 1:37 PM EDT us Marceal STARR LAB BLOOD ORDERABLES Fin al Result [facility] [address] [place] [address], * (ABNORMAL) Comprehensive metabolic panel (05/27/2025 1:36 PM EDT) Only the most recent of2 resultswithin the time period is included. Sodium 135 133 - 145 mmol/L LAB CHEMISTRY METHOD 05/27/2025 6:32 PM [facility] Potassium 3.9 3.5 - 5.5 mmol/L LAB CHEMISTRY METHOD 05/27/2025 6:32 PM [facility] Chloride 100 96 - 110 mmol/L LAB CHEMISTRY METHOD 05/27/2025 6:32 PM [facility] CO2 28 21 - 32 mmol/L LAB CHEMISTRY METHOD 05/27[facility]2025 6:[facility] Anion Gap 7 3 - 11 LAB CHEMISTRY METHOD 05/27/2025 6:32 PM [facility] Glucose 92 70 - 100 mg/dL LAB CHEMISTRY METHOD 05/27/2025 6:32 PM [facility] BUN 20 5 - 25 mg/dL LAB CHEMISTRY METHOD 05/27/2025 6:32 PM [facility] Creatinine 1.04 0.50 - 1.10 mg/dL LAB CHEMISTRY METHOD 05/27/2025 6:32 PM [facility] eGFR 56(L) >=60 mL/min/1. 73m2 LAB CHEMISTRY METHOD 05/27/2025 6:32 PM [facility] Comment:Calculation based on the Chronic Kidney Disease Epidemiology Collaboration (CKD-EPI) equation refit without adjustment for race. BUN/Creatinine Ratio 19.2 LAB CHEMISTRY METHOD 05/27/2025 6:32 PM [facility] Calcium 8.5 8.5 - 10.5 mg/dL LAB CHEMISTRY METHOD 05/27/2025 6:32 PM EDT [facility] AST (SGOT) 19 10 - 42 unit/L LAB CHEMISTRY METHOD 05/27/2025 6:32 PM EDT [facility] ALT (SGPT) 25 10 - 60 unit/L LAB CHEMISTRY METHOD 05/27/2025 6:32 PM EDT [facility] Alkaline Phosphatase 71 42 - 121 unit/L LAB CHEMISTRY METHOD 05/27/2025 6:32 PM EDT [facility] Total Protein 6.6 6.0 - 8.0 g/dL LAB CHEMISTRY METHOD 05/27/2025 6:32 PM EDT [facility] Albumin 3.6 3.2 - 5.0 g/dL LAB CHEMISTRY METHOD 05/27/2025 6:32 PM EDT [facility] Total Bilirubin 0.6 0.0 - 1.4 mg/dL LAB CHEMISTRY METHOD 05/27/2025 6:32 PM EDT [facility] Blood Venous blood specimen / Unknown Venipuncture / Unknown 05/27/2025 1:36 PM EDT 05/27/2025 1:37 PM EDT Marcela STARR LAB BLOOD ORDERABLES Fin al Result [facility] [address] [place] [address], * ECG-Annotated (05/17/2025) us Provider Onbase MD ECG ORDERABLES Final Result * 12-Lead ECG (05/16/2025 8:54 AM EDT) Ventricular Rate ECG 74 BPM GEMUSE Atrial Rate 74 BPM GEMUSE P-R Interval 196 ms GEMUSE QRS Duration 82 ms GEMUSE Q-T Interval 406 ms GEMUSE QTc 450 ms GEMUSE P Wave [place] 55 degrees GEMUSE R [place] 27 degrees GEMUSE T [place] 48 degrees GEMUSE ECG Interpretation Normal sinus rhythm Normal ECG When compared with ECG of 23-FEB-2024 20:38, No significant change was found Confirmed by MD Manuel, Xavi ([id number]) on 05/17/2025 11:42:46 AM GEMUSE 05/16/2025 8:54 AM EDT 05/17/2025 11:42 AM EDT us Dhiraj Ferrell MD ECG ORDERABLES Final Resul t GEMUSE * CT Head Stroke wo Contrast (05/16/2025 8:36 AM EDT) Anatomical Region Laterality Modality Head and Neck Computed Tomogra phy 05/16/2025 8:39 AM EDT Impressions 05/16/2025 8:42 AM EDT No acute intracranial findings. Results communicated via the secure text messaging system to DHIRAJ FERRELL . A Critical Document Only message has been documented for the office of DHIRAJ FERRELL in the [employer] system on 05/16/2025 8:41 AM, Message ID [id number]. -------- FINAL REPORT -------- Dictated By: Sammy Moseley Dictated Date: 05/16/2025 08:39 ET Assigned Physician: Sammy Moseley Reviewed and Electronically Signed By: Sammy Moseley Signed Date: 05/16/2025 08:42 ET Workstation ID: [id number] Transcribed By: Self Edit Transcribed Date: 05/16/2025 08:39 ET Narrative 05/16/2025 8:42 AM EDT PROCEDURE: Noncontrast head CT. HISTORY: general weakness. COMPARISON: 08/22/2008. TECHNIQUE: Noncontrast head CT with coronal and sagittal reformats. Dose length product: 809 mGy-cm. FINDINGS: BRAIN: No hemorrhage, edema, mass, or extra-axial fluid collection. No CT evidence of an acute large vessel infarct. Ventricles and sulci are age commensurate. Atherosclerotic calcifications of the V4 segments and carotid siphons. Patchy hypoattenuation in the supratentorial white matter suggesting mild chronic microvascular ischemic disease. ORBITS: Lens implants and calcified senile scleral plaques. SINUSES/MASTOIDS: Mild rightward bowing of the nasal septum. CALVARIUM: Mild hyperostosis frontalis interna. OTHER: The skull base soft tissues are normal. Procedure Note Sammy Moseley MD - 05/16/2025 PROCEDURE: Noncontrast head CT. HISTORY: general weakness. COMPARISON: 08/22/2008. TECHNIQUE: Noncontrast head CT with coronal and sagittal reformats. Dose length product: 809 mGy-cm. FINDINGS: BRAIN: No hemorrhage, edema, mass, or extra-axial fluid collection. No CTevidence of an acute large vessel infarct. Ventricles and sulci are agecommensurate. Atherosclerotic calcifications of the V4 segments andcarotid siphons. Patchy hypoattenuation in the supratentorial whitematter suggesting mild chronic microvascular ischemic disease. ORBITS: Lens implants and calcified senile scleral plaques. SINUSES/MASTOIDS: Mild rightward bowing of the nasal septum. CALVARIUM: Mild hyperostosis frontalis interna. OTHER: The skull base soft tissues are normal. IMPRESSION: No acute intracranial findings. Results communicated via the secure text messaging system to DHIRAJ TRUJILLO . A Critical Document Only message has been documented for the office ofDHIRAJ FERRELL in the [employer] system on05/16/2025 8:41 AM, Message ID [id number]. -------- FINAL REPORT -------- Dictated By: Sammy Moseley Dictated Date: 05/16/2025 08:39 ET Assigned Physician: Sammy Moseley Reviewed and Electronically Signed By: Sammy Moseley Signed Date: 05/16/2025 08:42 ET Workstation ID: [id number] Transcribed By: Self Edit Transcribed Date: 05/16/2025 08:39 ET us Dhiraj Ferrell MD IM CT PROCEDURES Final Res ult * CT Angio Head/Neck Stroke wo and/or w Contrast (05/16/2025 8:36 AM EDT) Anatomical Region Laterality Modality Head and Neck Computed Tomogra phy 05/16/2025 8:48 AM EDT Impressions 05/16/2025 9:02 AM EDT 1. Calcified plaque results in 70-80% stenosis of the proximal left internal carotid artery. 2. No other hemodynamically significant stenosis or occlusion. 3. Minimal nodular protuberance arising from the left carotid terminus which could represent a very small aneurysm. -------- FINAL REPORT -------- Dictated By: Sammy Moseley Dictated Date: 05/16/2025 08:48 ET Assigned Physician: Sammy Moseley Reviewed and Electronically Signed By: Sammy Moseley Signed Date: 05/16/2025 09:02 ET Workstation ID: [id number] Transcribed By: Self Edit Transcribed Date: 05/16/2025 08:48 ET Narrative 05/16/2025 9:02 AM EDT PROCEDURE: CT angiogram of the neck and tribe of [place] and delayed postcontrast CT of the brain. HISTORY: ANEURYSM, HEAD NECK concern for SAH. COMPARISON: Same-day head CT. TECHNIQUE: CT angiogram of the neck and tribe of [place] with multiplanar reformats. Delayed postcontrast images of the brain were also obtained. IV contrast dose: 90 mL [id number]. Dose length product: 2489 mGy-cm. FINDINGS: BRAIN: Delayed postcontrast images demonstrate no loss of albright-white differentiation to suggest an acute infarct. CTA: There are a few scattered atherosclerotic calcifications of the aortic arch. Standard three-vessel arch configuration. Scattered atherosclerotic calcifications in the left subclavian artery. No subclavian stenosis. Calcified plaque at the right carotid bulb without associated stenosis. Tortuous retropharyngeal course of the right internal carotid artery. Calcified plaque at the left carotid bulb results in 70-80% stenosis of the proximal right internal carotid artery. Mildly tortuous retropharyngeal course of the left internal carotid artery. The left vertebral artery is slightly dominant. No vertebral stenosis or occlusion. The basilar artery and signalling and communications engineer are widely patent. Small caliber left larger than right posterior communicating arteries. There is a small posterior communicating artery origin infundibulum on the left. Moderate diffuse calcified plaque in the carotid siphons without an associated stenosis. Diminutive right A1 segment. Widely patent anterior and middle cerebral arteries. One--2 mm anterior protuberance at the left carotid terminus (series 201, image 91) which could represent a very small aneurysm. No findings to suggest a vascular malformation. Patent dural venous sinuses. ORBITS: Lens implants and calcified senile scleral plaques. SINUSES/MASTOIDS: Normal. CALVARIUM: Mild hyperostosis frontalis interna. OTHER: There is a small amount of aspirated debris in the supraglottic larynx. Multinodular thyroid gland which could be better evaluated with ultrasound. There are several mildly prominent though not pathologically enlarged nodes in the upper mediastinum. Multilevel degenerative changes of the spine. Procedure Note Sammy Moseley MD - 05/16/2025 PROCEDURE: CT angiogram of the neck and tribe of [place] and delayedpostcontrast CT of the brain. HISTORY: ANEURYSM, HEAD NECK concern for SAH. COMPARISON: Same-day head CT. TECHNIQUE: CT angiogram of the neck and tribe of [place] with multiplanarreformats. Delayed postcontrast images of the brain were also obtained. IV contrast dose: 90 mL [id number]. Dose length product: 2489 mGy-cm. FINDINGS: BRAIN: Delayed postcontrast images demonstrate no loss of albright- whitedifferentiation to suggest an acute infarct. CTA: There are a few scattered atherosclerotic calcifications of theaortic arch. Standard three-vessel arch configuration. Scattered atherosclerotic calcifications in the left subclavian artery.No subclavian stenosis. Calcified plaque at the right carotid bulb without associated stenosis.Tortuous retropharyngeal course of the right internal carotid artery. Calcified plaque at the left carotid bulb results in 70-80% stenosis ofthe proximal right internal carotid artery. Mildly tortuousretropharyngeal course of the left internal carotid artery. The left vertebral artery is slightly dominant. No vertebral stenosis orocclusion. The basilar artery and signalling and communications engineer are widely patent. Small caliber left larger than right posterior communicating arteries.There is a small posterior communicating artery origin infundibulum on theleft. Moderate diffuse calcified plaque in the carotid siphons without anassociated stenosis. Diminutive right A1 segment. Widely patent anteriorand middle cerebral arteries. One--2 mm anterior protuberance at the left carotid terminus (series 201,image 91) which could represent a very small aneurysm. No findings tosuggest a vascular malformation. Patent dural venous sinuses. ORBITS: Lens implants and calcified senile scleral plaques. SINUSES/MASTOIDS: Normal. CALVARIUM: Mild hyperostosis frontalis interna. OTHER: There is a small amount of aspirated debris in the supraglotticlarynx. Multinodular thyroid gland which could be better evaluated withultrasound. There are several mildly prominent though not pathologicallyenlarged nodes in the upper mediastinum. Multilevel degenerative changesof the spine. IMPRESSION: 1. Calcified plaque results in 70-80% stenosis of the proximal leftinternal carotid artery. 2. No other hemodynamically significant stenosis or occlusion. 3. Minimal nodular protuberance arising from the left carotid terminuswhich could represent a very small aneurysm. -------- FINAL REPORT -------- Dictated By: Sammy Moseley Dictated Date: 05/16/2025 08:48 ET Assigned Physician: Sammy Moseley Reviewed and Electronically Signed By: Sammy Moseley Signed Date: 05/16/2025 09:02 ET Workstation ID: [id number] Transcribed By: Self Edit Transcribed Date: 05/16/2025 08:48 ET us Dhiraj Ferrell MD IMG CT PROCEDURES Final Res ult * Troponin I High Sensitivity (05/16/2025 8:26 AM EDT) Pathologist [facility] High Sensitivity Troponin I 8 <=54 ng/L LAB CHEMISTRY METHOD 05/16/2025 9:37 AM EDT [facility] Blood Venous blood specimen / Unknown Venipuncture / Unknown 05/16/2025 8:26 AM EDT 05/16/2025 8:53 AM EDT Narrative [facility] - 05/16/2025 9:37 AM EDT High levels of biotin in samples may falsely decrease hsTroponin values. Use caution when interpreting hsTroponin results in patients taking biotin who exhibit renal impairment (eGFR <60) or in patients taking more than 20 mg/day of biotin. Dhiraj Ferrell MD LAB BLOOD ORDERABLES Final Result [facility] ([facility] LAB [address] [place] [address], * External Mammogram Report (12/31/2024) Anatomical Region Laterality Modality Mammography Provider [facility] IMG BI PROCEDURES Final Result from Last 3 Months or Most Recently Relevant to Health Maintenance Insurance MEDICARE [facility] Care Teams Instrument Worker Relationship Specialty Start Date End Date Marcela Sloan PA [address] [facility] [address] [place] [address] PCP - General Primary Care 05/20/25
--- OUTSIDE RECORDS SUMMARY | 2025-06-04 07:46 | XMS_ITS | Encounter Summary ---
Author Organization [facility] Address [address] [place] [address] Care Team Providers Care Fitness And Wellness Instructor Name Role Phone Marcela Sloan Primary Care Provider + Encounter Details Date Type Department Care Team (Late st Contact Info) Description 05/30/2024 Lab Requisition [facility] - Main Lab [address] [facility] [place] [address] Ze Bryan MD [address] [place] [address] Chronic obstructive pulmonary disease, unspecified (CMS/HCC [...] PM EST Office Visit Internal Medicine - [place] [address] [facility] [address] [place] [address] Marcela Sloan PA [address] [place] [phone] 07/23/2025 9:00 AM EST Consult Vascular Surgery - [place] [address] [place] [address] Manoj Drummond MD [address] [place] [phone] Scheduled Orders Name Type Priority Associated Diagnoses [...] hypertension documented in this encounter Care Teams Fitness And Wellness Instructor Relationship Specialty Start Date End Date Marcela Sloan PA [address] [place] [address] [address] [place] [address] PCP - General Primary Care 05/20/25 documented as of this encounter
--- OUTSIDE RECORDS SUMMARY | 2025-06-04 07:46 | XMS_ITS | Encounter Summary ---
Author Organization [facility] Address [address] [place] [address] Care Team Providers Care Surgical Services Tech Name Role Phone Marcela Sloan Primary Care Provider + Encounter Details Date Type Department Care Team (Late st Contact Info) Description 06/02/2024 Lab Requisition [facility] - Main Lab [address] [facility] [place] [address] Ze Bryan MD [address] [place] [address] Hyperlipidemia, unspecified; Chronic obstructive pulmonary disease, [...] PM EST Office Visit Internal Medicine - [place] [address] [facility] [address] [place] [address] Marcela Sloan PA [address] [place] [phone] 07/23/2025 9:00 AM EST Consult Vascular Surgery - [place] [address] [place] [address] Manoj Drummond MD [address] [place] [phone] documented as of this encounter Visit Diagnoses Diagnosis Hyperlipidemia, unspecified Chronic obstructive pulmonary disease, unspecified (CMS/HCC V24, CMS/HCC V28) Essential (primary) hypertension Unspecified essential hypertension documented in this encounter Care Teams Surgical Services Tech Relationship Specialty Start Date End Date Marcela Sloan PA [address] [place] [address] [address] [place] [address] PCP - General Primary Care 05/20/25 documented as of this encounter
--- OUTSIDE RECORDS SUMMARY | 2025-06-04 07:46 | XMS_ITS | Patient Health Record ---
Author Organization [facility] Address [address] [facility] [address] [place] [address] Support Name Relationship Address Phone RINA HEBERT Guarantor Unknown [phone] Reason For Referral No Information Medications Medication [...] Status W/U Status Risk Notes Problem Hyperlipidemia (80806089) Other and unspecified hyperlipidemia (272.4) Active confirmed Major Problem Gynecological examination normal (488870969913435) Routine gynecological examination (V72.31) Active confirmed Diag Problem Counseling (729753277) Counseling NOS (V65.40) Active confirmed Diag Plan Of Treatment No Information Insurance Providers Payer Name Payer Address Payer Phone Subscriber Number Group Number Insured Name Patient Relationship to Insured Coverage Start Date Coverage End Date [facility] CLAIMS/A OFFICE OF [facility] CARE [address] [address] [place] [address] [phone] [id number] ANUP RINA Self - patient is the insured 2
--- OUTSIDE RECORDS SUMMARY | 2025-06-04 07:46 | XMS_ITS | Encounter Summary ---
Author Organization [facility] Address [address] [place] [address] Care Team Providers Care Traffic Enumerator Name Role Phone Marcela Sloan Primary Care Provider + Encounter Details Date Type Department Care Team (Late Contact Info) Description 05/31/2025 Results Follow-Up Internal Medicine - [place] [address] [facility] [address] [place] [address] Marcela Sloan PA [address] [place] [address] Social History Tobacco Use Types Packs/Day Years [...] PM EST Office Visit Internal Medicine - [place] [address] [facility] [address] [place] [address] Marcela Sloan PA [address] [place] [phone] 07/23/2025 9:00 AM EST Consult Vascular Surgery - [place] [address] [facility] [address] [place] [phone] Manoj Drummond MD [address] [place] [phone] documented as of this encounter Visit Diagnoses Not on filedocumented in this encounter Care Teams Traffic Enumerator Relationship Specialty Start Date End Date Marcela Sloan PA [address] [address] PCP - General Primary Care 05/20/25 documented as of this encounter
--- OUTSIDE RECORDS SUMMARY | 2025-06-04 07:46 | XMS_ITS | Encounter Summary ---
Author Organization [facility] Address [address] [place] [address] Care Team Providers Care Rubber Printing Machine Operator Name Role Phone Marcela Sloan Primary Care Provider + Encounter Details Date Type Department Care Team (Late st Contact Info) Description 06/03/[address] [facility] - Main Lab [address] [facility] [place] [address] Ze Bryan MD [address] [place] [address] Unilateral primary osteoarthritis, right knee; Aftercare [...] PM EST Office Visit Internal Medicine - [place] [address] [facility] [address] [place] [address] Marcela Sloan PA [address] [place] [phone] 07/23/2025 9:00 AM EST Consult Vascular Surgery - [place] [address] [place] [address] Manoj Drummond MD [address] [place] [phone] documented as of this encounter Procedures Procedure [...] mmol/L LAB CHEMISTRY METHOD 06/03/2024 7:40 AM [facility] Potassium 4.9 3.5 - 5.5 mmol/L LAB CHEMISTRY METHOD 06/03/2024 7:40 AM [facility] Chloride 108 96 - 110 mmol/L LAB CHEMISTRY METHOD 06/03/2024 7:40 AM [facility] CO2 27 21 - 32 mmol/L LAB CHEMISTRY METHOD 06/03/2024 7:40 AM [facility] Anion Gap 6 3 - 11 LAB CHEMISTRY METHOD 06/03/2024 7:40 AM [facility] Glucose 84 70 - 100 mg/dL LAB CHEMISTRY METHOD 06/03/2024 7:40 AM [facility] BUN 21 5 - 25 mg/dL LAB CHEMISTRY METHOD 06/03/2024 7:40 AM [facility] Creatinine 0.75 0.50 - 1.10 mg/dL LAB CHEMISTRY METHOD 06/03/2024 7:40 AM [facility] eGFR 83 >=60 mL/min/1. 73m2 LAB CHEMISTRY METHOD 06/03/2024 7:40 AM [facility] Comment:Calculation based on the Chronic Kidney Disease Epidemiology Collaboration (CKD-EPI) equation refit without adjustment for race. BUN/Creatinine Ratio 28.0 LAB CHEMISTRY METHOD 06/03/2024 7:40 AM [facility] Calcium 9.0 8.5 - 10.5 mg/dL LAB CHEMISTRY METHOD 06/03/2024 7:40 AM [facility] Blood Venous blood specimen / Unknown 06/03/2024 5:15 AM EST 06/03/2024 7:09 AM EST us Ze Bryan MD LAB BLOOD ORDERABLES Final Resu lt [facility] [address] [place] [address], [place] [phone] * (ABNORMAL) Complete blood count (06/03/2024 5:15 AM EST) WBC 8.9 4.8 - 10.8 K/mcL LAB HEMETOLOGY METHOD 06/03/2024 8:13 AM [facility] RBC 2.90(L) 3.80 - 4.80 M/[facility] LAB HEMETOLOGY METHOD 06/03/2024 8:13 AM [facility] Hemoglobin 8.7(L) 11.5 - 16.0 g/dL LAB HEMETOLOGY METHOD 06/03/2024 8:13 AM [facility] Hematocrit 28.4(L) 35.0 - 47.0 % LAB HEMETOLOGY METHOD 06/03/2024 8:13 AM [facility] MCV 97.3 79.0 - 98.0 FL LAB HEMETOLOGY METHOD 06/03/2024 8:13 AM [facility] MCH 29.8 27.0 - 32.0 pcg LAB HEMETOLOGY METHOD 06/03/2024 8:13 AM [facility] MCHC 30.6(L) 32.0 - 37.0 g/dL LAB HEMETOLOGY METHOD 06/03/2024 8:13 AM [facility] RDW 13.6 11.0 - 15.0 % LAB HEMETOLOGY METHOD 06/03/2024 8:13 AM [facility] Platelets 314 130 - 400 K/mcL LAB HEMETOLOGY METHOD 06/03/2024 8:13 AM [facility] MPV 9.4 7.0 - 11.0 FL LAB HEMETOLOGY METHOD 06/03/2024 8:13 AM [facility] NRBC 0.0 <1.0 % LAB HEMETOLOGY METHOD 06/03/2024 8:13 AM [facility] NRBC Absolute 0.00 <0.10 K/mcL LAB HEMETOLOGY METHOD 06/03/2024 8:13 AM [facility] Blood Venous blood specimen / Unknown 06/03/2024 5:15 AM EST 06/03/2024 7:09 AM EST us Ze Bryan MD LAB BLOOD ORDERABLES Final Resu lt [facility] [address] [place] [address], documented in this encounter Visit Diagnoses Diagnosis Unilateral primary osteoarthritis, right knee Aftercare following joint replacement surgery documented in this encounter Care Teams Rubber Printing Machine Operator Relationship Specialty Start Date End Date Marcela Sloan PA [address] [address] PCP - General Primary Care 05/20/25 documented as of this encounter
--- OUTSIDE RECORDS SUMMARY | 2025-06-04 07:46 | XMS_ITS | Data Portability ---
Author Organization [place] [facility] N[facility] Coto AONE [address] Address [address] [place] [address] Care Team Providers Care Yarn Comber Name Role Phone JOHN COURTNEY Primary Care Provider [phone] JOHN COURTNEY Referring Provider Assessment Encounter Date Assessment Date Assessment LastModified by Organization Details LastModified Time 11/28/2022 11/28/2022 72-year-old ric kenyon with osteoarthritis of the right knee [...] Not available 11/28/2022 10:10:36 12/31/2022 12/31/2022 72-year-old femtarik kenyon with a history of 2 lumbar back surgeries at [facility] approximately 6 or 7 years [...] We recommend ice. , She may use ehav-lcx-ljljnhq medications sparingly as needed. She will follow-up in approximately 3 to 4 weeks for repeat evaluation or sooner if needed. [email or web address] Not available 12/31/2022 10:03:10 02/04/2023 02/04/2023 HPI: Jailyn is a 72 year old female who returns for continued management of her lumbar spine. She has a history of bilateral hip replacements and a knee replacement by Dr. Ortiz. She reports a history of 2 prior back surgeries at [facility] that were approximately 6 or [...] had any new injury. She is taking cfdv-gjq-fmqmjfh medications and topical medications with some relief. Plan: 72-year-old female with a history of 2 lumbar back surgeries at [facility] approximately 6 or 7 years [...] interim if she has any worsening symptoms. [email or web address] Not available 02/04/2023 11:22:00 03/11/2023 03/11/2023 HPI: Jailyn is a 72 year old female who returns for continued management of her lumbar spine. She has a history of bilateral hip replacements and a knee replacement by Dr. Ortiz. She reports a history of 2 prior back surgeries at [facility] that were approximately 6 or [...] history of 2 lumbar back surgeries at [facility] approximately 6 or 7 years [...] basis as her severe pain has resolved. [email or web address] Not available 03/11/2023 10:35:25 09/12/2023 09/12/2023 HPI : Patient is here today with complaints of right knee pain. She also has a history of a left total knee replacement with Dr. Ortiz in 2019 she did have a fall and wanted to get the left knee checked out. overall though the right knee is more painful than the left knee.. T he patient is experiencing right knee pain, which [...] persistent local or systemic infection. Physical Exam : Patient is well nourished, well-developed, in no [...] degrees. The knees are stable within those uqkphn-zy-aheqvk. The alignment of the right knee is varus . Muscle strength is normal. Pedal pulses are palpable. Hip examination, including flexion and internal rotation, was negative in that groin pain was not produced. Assessment/Plan : Regarding her left total knee replacement I [...] Knee Pain 2023 024 [email or web address] [facility], [address], [place], [address], 4 11:50:43 XR, knee, 1 or 2 view - Right Knee Pain 2023 024 [email or web address] [facility], [address], [address], [place], [address], 4 11:50:43 XR, knee, weightbeari ng - Bilateral Knee Pain 2023 024 [email or web address] [facility], [address], [address], [place], [address], 4 11:50:43 XR, lumbosacral spine, 2 or 3 view 2022 023 [email or web address] [facility], [address], [address], [place], [address], 3 12:15:27 XR, lumbosacral spine, 2 or 3 view 2022 023 [email or web address] [facility], [address], [address], [place], [address], 3 13:41:28 XR, lumbosacral spine, 2 or 3 view, bending only 2022 023 [email or web address] 21 [facility], [address], [address], [place], [address], 3 13:41:28 Medication Orders Marcaine (PF) 0.5 % (5 mg/mL) injection solution 2023 024 [email or web address] [id number], [address] [place] [address], [address], 4 11:50:43 lidocaine (PF) 100 mg/5 mL (2 %) injection syringe 2023 024 [email or web address] [id number], [address] [place], [address], 4 11:50:43 Kenalog 40 mg/mL suspension for injection 2023 024 [email or web address] [facility], [address] [place], [address], 4 11:50:43 Patient TargetsNo targets recorded. Patient Instructions Encounter Date Encounter Id Patient Instructions Last Modified By Organization Details Last Modified Time 12/31/2022 [id number] AP and lateral radiographs lumbar spine were obtained in the [place] office today. These reveal extensive degenerative changes throughout. Lumbar scoliosis, lateral listhesis of L4 and L5. Minimal anterolisthesis of L4 and L5 and L5 on S1. Extensive lower lumbar facet arthropathy. There may be slight compression of the anterior endplate of L3. Not available 12/31/2022 10:05:03 02/04/2023 [id number] Repeat AP and lateral radiographs lumbar spine were obtained in the office today and compared with her previous radiographs from December 31, 2022. These redemonstrate multilevel degenerative changes with grade 1 anterior listhesis of L5 on S1 greater than L4 and L5, minimal endplate depression of L3 appears stable from previous radiographs. Extensive lower lumbar facet arthrosis. [email or web address] Not available 02/04/2023 11:19:58 09/12/2023 [id number] AP, lateral, Leiva, and patellar view radiographs of the right knee taken today demonstrate right knee degenerative joint disease with joint space narrowing, osteophyte formation, and subchondral sclerosis. There is bpcr-uu-krlu articulation medially. AP, lateral, and patellar radiographs of the left knee taken today demonstrate satisfactory position and alignment of components following left total knee replacement. Not available 09/12/2023 11:50:00 Reason for Referral None Reported. Problems Name Problem SNOMED Code Status Onset Date Resolution Date Notes Provider Name and Address Organization Details Recorded Time Bursitis of right elbow Active 2017 Bursitis of right elbow Not Available [facility] 5 00:30:49 Arthritis of right knee joint 80101560831 61502 Active 2017 Arthritis of knee, right Not Available [facility] 5 00:30:49 Calcific tendiniti s of left shoulder 75599730882 9108 Active 2018 Calcific tendiniti s of left shoulder Not Available [facility] 5 00:30:49 Subacromi al bursitis of right shoulder 03666858374 80861 Active 2018 Subacromi al bursitis of right shoulder joint Not Available [facility] 5 00:30:50 Injury of left knee 73271142928 4106 Active 2018 Left knee injury Not Available [facility] 5 00:30:49 Arthritis of left knee joint 17510160696 42006 Active 2018 Arthritis of knee, left Not Available [facility] 5 00:30:50 Closed fracture of femoral condyle of femur 39076954 Active 2018 Closed subchondr al insuffici ency fracture of condyle of left femur Not Available [facility] 5 00:30:50 Acute meniscal tear, medial 301409120 Active 2018 Complex tear of medial meniscus of left knee as current injury Not Available [facility] 5 00:30:51 Low back pain 342089832 Active [address], [place], [address] , [place] [facility] 3 10:00:46 Fall Active [address], [place], [address] , [place] [facility], [facility] 3 10:00:48 Lumbar spondylol isthesis 00380044526 9102 Active [address], [place], [address] , [place] [facility] 3 10:00:49 Lumbar spondylos is 440267859 Active [address], [place], [address] , [place] [facility] 3 10:00:50 History of operative procedure on lumbar spinal structure 179088358 Active 2022 KEILY PAYTON PA-C [address], [place], [address] , [place] [facility] 3 10:00:51 Osteoarth ritis of right knee joint 91644907327 9100 Active 2023 Anson Zambraon MD [address], [place], [address] , [place] [facility] 4 11:28:40 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 Procedures Surgical History Date Name Laterality Status Provider Name and Address Organization Details Recorded Time 09/12/19 24 MJG Knee Injection w/o US completed Anson Zambrano MD [address], [place], [address], [place] [facility] 09/12/2023 11:28:31 Appendectomy completed Sahil Wiggins [place] [facility] 11/28/2022 09:36:20 Hysterectomy completed Sahil Wiggins [place] [facility] 11/28/2022 09:36:28 implantation of joint prosthesis completed Sahil Wiggins [place] [facility] 11/28/2022 09:36:42 Knee Surgery completed Sahil Wiggins [place] [facility] 11/28/2022 09:36:47 Imaging Results None recorded. Procedure Notes None recorded. Medical Equipment None Reported. Allergies Allergen ID Allergen Name Allergen Category Reaction Reaction Severity Criticality Documentation Date Start Date Code Code System Note Provider Name and Address Organization Details Recorded Time 3422 iodine medicatio n Not available Not available Not available 11/28/2022 5933 RxNorm Sahil Wiggins null, [place] [facility] 3 09:28:38 Medications Name Sig Start Date Stop Date Status Note LastModified by Organization Details LastModified Time celecoxib 200 mg capsule Take 1 capsule (200 mg total) by mouth daily. 11/02 completed Not Available Not Available Not Available ipratropium 0.5 mg-albutero l 3 mg (2.5 mg base)/3 mL nebulizatio n soln 3 mL. active Not Available Not Available Not Available cetirizine 10 mg tablet Take 1 tablet by mouth daily. 2020 active Not Available Not Available Not Avai lable atorvastati n 10 mg tablet daily. active Not Available Not Available Not Available prednisone 20 mg tablet TAKE ONE TABLET BY MOUTH TWICE A DAY FOR 5 DAYS 09/12 completed Not Available Not Available Not Available hydroxyzine HCl 50 mg tablet TAKE ONE TABLET BY MOUTH TWICE A DAY NEEDED FOR ANXIETY 2021 active Not Available Not Available Not Avai lable sulfamethox azole 800 mg-trimetho prim 160 mg tablet Take 1 tablet (160 mg of trimethop rim total) by mouth 2 (two) times a day for 10 days. 04/22 completed Not Available Not Available Not Available aspirin 81 mg tablet,aryan yed release Take one tab twice daily for 4 weeks 04/07 completed Not Available Not Available Not Available tramadol 50 mg tablet Take 1 tab every 8 hours as needed for pain 04/07 completed Not Available Not Available Not Available acetaminoph en 500 mg tablet 2019 active Not Available Not Available Not Avai lable amoxicillin 500 mg tablet Take 4 tabs 1 hour prior to dental appointme nt 2019 active Not Available Not Available Not Avai lable ketorolac 0.5 % eye drops INSTILL ONE DROP IN LEFT EYE TWO TIMES A DAY active Not Available Not Available No t Available Kenalog 40 mg/mL suspension for injection Take 1 mL by injection route. 2023 active Not Available Not Available Not Avai lable oxycodone-a cetaminophe n 5 mg-325 mg tablet Take 1 to 2 tabs every 6 hours as needed for pain 02/03 completed Not Available Not Available Not Available prednisolon e acetate 1 % eye drops,suspe nsion INSTILL ONE DROP INTO LEFT EYE DAILY DIRECTED active Not Available Not Available No t Available benzonatate 100 mg capsule Tessalon Perles 100 mg capsuleTa ke 1 capsule 3 times a day by oral route as needed. active Not Available Not Available No t Available cephalexin 500 mg capsule TAKE ONE CAPSULE BY MOUTH THREE TIMES A DAY FOR 5 DAYS 09/12 completed Not Available Not Available Not Available methylpredn isolone acetate 40 mg/mL suspension for injection 08/29 completed Not Available Not Available Not Available losartan 25 mg tablet Take 25 mg by mouth daily. active Not Available Not Available No t Available gabapentin 300 mg capsule Take 300 mg by mouth 3 (three) times a day. active Not Available Not Available No t Available hydrochloro thiazide 25 mg tablet Take 25 mg by mouth daily. active Not Available Not Available No t Available warfarin 1 mg tablet Take 4 tabs daily or as directed by physician 04/07 completed Not Available Not Available Not Available albuterol sulfate HFA 90 mcg/actuati on aerosol inhaler ProAir HFA 90 mcg/actua tion aerosol inhalerIn stovall 2 puffs every 4 hours by inhalatio n route. active Not Available Not Available No t Available fluticasone propionate 50 mcg/actuati on nasal spray,suspe nsion fluticaso ne propionat e 50 mcg/actua tion nasal spray,danielle pensionUS E ONE TO TWO SPRAYS IN EACH NOSTRIL ONCE DAILY NEEDED active Not Available Not Available No t Available sertraline 50 mg tablet TAKE ONE TABLET BY MOUTH EVERY DAY 2020 active Not Available Not Available Not Avai lable oxycodone 5 mg tablet Take 1-2 tabs every 8 hours as needed for pain 2020 active Not Available Not Available Not Avai lable moxifloxaci n 0.5 % eye drops PUT 1 DROP IN OPERATIVE EYE THREE TIMES A DAY STARTING ONE DAY PRE-OP - CONTINUE FOR 7 DAYS AFTER SURGERY 09/12 completed Not Available Not Available Not Available Marcaine (PF) 0.5 % (5 mg/mL) injection solution Take 4 mL by injection route. 2023 active Not Available Not Available Not Avai lable lidocaine (PF) 10 mg/mL (1 %) injection solution 02/03 completed Not Available Not Available Not Available lidocaine (PF) 100 mg/5 mL (2 %) [...] Updated DateTime 09/12/2023 165.1 cm 28.3 kg/m2 59495.7 g Autumn Saavedra [place] [facility] 09/12/2023 10:44:18 Date Recorded Body height Body mass index (BMI) Body weight Provider Name and Address Organization Details Last Updated DateTime 12/31/2022 165.1 cm 29.1 kg/m2 15410.66 g Sahil Wiggins [place] [facility] 12/31/2022 09:41:00 Date Recorded Body height Provider Name an d Address Organization Details Last Updated DateTime 02/04/2023 165.1 cm Autumn Saavedra [facility] 02/04/2023 10:50:38 Date Recorded Body height Provider Name an d Address Organization Details Last Updated DateTime 03/11/2023 165.1 cm Nancy Delong [facility] 03/11/2023 10:03:40 Date Recorded Body mass index (BMI) Body weight Provider Name and Address Organization Details Last Updated DateTime 03/11/2023 28.3 kg/m2 05184.7 g Jayashree Nunes [place] [facility] 03/11/2023 10:21:19 Social History Question Answer Notes LastModified by Organizat ion Details LastModified Time Tobacco Smoking Status Former Smoker Sahil doshi, [place] [facility] 11/28/2022 09:34:36 When Did You Quit Smoking? 11-15yearssi augusta aggarwal [email or web address] Information not available 11/28/2022 Sex: Unknown Functional Status Question Answer Note LastModified by Organizat ion Details LastModified Time Do you use any illicit or recreational drugs? No [email or web address] Information not available 11/28/2022 Do you or have you ever used any other forms of tobacco or nicotine? No Information not available 11/28/2022 What is your level of alcohol consumption? None [email or web address] Information not available 11/28/2022 Mental Status None recorded. Family History Relationship Description Onset Age of this Age Resolved Age Notes LastModified by Organization Details LastModified Time Father Family history of malignant neoplasm [email or web address] Not available 2022 09:35:44 Mother Family history of malignant neoplasm [email or web address] Not available 2022 09:35:44 Sister Acute stroke [email or web address] Not avail able 11/28/2022 09:36:11 Medical History Condition Response Blood Transfusion Y Arthritis Y Reflux/GERD Y Hypertension Y Gynecological HistoryNo gynecological history recorded. Obstetrics History GPAL:G 0 P 0 0 0 0 Immunizations Vaccine Type Date Status Note Provider Nam e and Address Organization Details Recorded Time COVID-19, mRNA, LNP-S, PF, 30 mcg/0.3 mL dose 08/19/2020 completed Not Available [facility] 5 05:37:16 COVID-19, mRNA, LNP-S, PF, 30 mcg/0.3 mL dose 09/14/2020 completed Not Available [facility] 5 05:37:17 Past Encounters Encounter ID Performer Location Encounter Start Date Encounter Closed Date Diagnosis/Indication Diagnosis SNOMED-CT Code Diagnosis ICD10 Code Diagnosis IMO Codes Diagnosis Note [id number] [place] [address] [facility] [address] [place] [address] 11/28/2022 09:18:49 11/28/2022 10:21:23 Arthritis of knee 032531327 M13.869 [id number] [facility] [address] [facility] [place] [address] 12/31/2022 09:19:02 12/31/2022 09:59:43 Low back pain 313340098 M54.50 Fall W19.XXXA Lumbar spondylolisthesis 7650534457 59482 M43.16 Lumbar spondylosis 43880 0009 M47.896 History of operative procedure on lumbar spinal structure 089544185 Z98.890 [id number] KEILY PAYTON PA-C [facility] [address] [address] 02/04/2023 10:47:41 02/04/2023 11:21:04 Low back pain 974359787 M54.50 Fall W19.XXXA Lumbar spondylolisthesis 7276231820 44511 M43.16 Lumbar spondylosis 21590 0009 M47.896 History of operative procedure on lumbar spinal structure 492381541 Z98.890 [id number] [address] [address] 03/11/2023 09:56:47 03/11/2023 10:32:54 Low back pain 528087431 M54.50 Fall W19.XXXA Lumbar spondylolisthesis 1624548930 84495 M43.16 Lumbar spondylosis 70486 0009 M47.896 History of operative procedure on lumbar spinal structure 214196068 Z98.890 [id number] Anson Zambrano MD [address] [address] 09/12/2023 10:37:32 09/12/2023 11:34:33 Pain of bilateral knee joints 9113509298 88679 M25.561 M25.562 Osteoarthr itis of right knee joint 3813981330 20599 M17.11 Chronic pa in following left total knee arthroplasty 6952179765 1905940 T84.84XA Health Concerns Section Related Observation LastModified by Organization Detai ls LastModified Time None Recorded Concern Status LastModified by Organization Details LastModified Time None Recorded Advance Directives Directive None Recorded Payers Insurance Date Sequence Insurance Name Policy Number Policy Dunn Covered Member ID Dunn Member ID Guarantor Name 11/02/2023 1 MEDICARE B-[place]: NGS Jailyn A Simon [id number] Jailyn Simon 11/06/2023 2 () Jailyn A Simon [id number] Jailyn Montes Notes Date Note Type Note Provider Name and Address Organization Details Recorded Time 11/28/2022 text/html 72-year-old female presents for routine recheck of right knee [...] CHIQUITA UMAÑA PA-C [address], [place], [address], [place] [facility], 11/28/2022 10:11:39 12/31/2022 text/html Jailyn is a 72-year-old female with a history of bilateral hip replacements and a knee replacement by Dr. Ortiz. She reports a history of 2 prior back surgeries at [facility] that were approximately 6 or 7 years ago. She reports these were successful. She has hypertension and reflux. She was at a concert on December 16. She reports that she slipped on a wet marble and landed directly on her lumbosacral spine and right buttock. rn interventional evaluated her and helped her get to [...] today include anti-inflammatories, thermal modalities and rest. [address], [place], [address], [place] [facility] 12/31/2022 10:06:39 02/04/2023 text/html Prior Visit 12/31/22 Jailyn is a 72-year-old female with a history of bilateral hip replacements and a knee replacement by Dr. Ortiz. She reports a history of 2 prior back surgeries at [facility] that were approximately 6 or 7 years ago. She reports these were successful. She has hypertension and reflux. She was at a concert on December 16. She reports that she slipped on a wet marble and landed directly on her lumbosacral spine and right buttock. rn interventional evaluated her and helped her get to [...] history of 2 lumbar back surgeries at [facility] approximately 6 or 7 years [...] We recommend ice. , She may use yicy-adv-nasusak medications sparingly as needed. She will follow-up in approximately 3 to 4 weeks for repeat evaluation or sooner if needed. MATTY TATE-Alison [address], [place], [address], [place] [facility] 02/04/2023 11:22:23 03/11/2023 text/html prior visit 02/04/23 HPI: Jailyn is a 72 year old female who returns for continued management of her lumbar spine. She has a history of bilateral hip replacements and a knee replacement by Dr. Ortiz. She reports a history of 2 prior back surgeries at [facility] that were approximately 6 or [...] had any new injury. She is taking xjyv-ekt-qbwgovi medications and topical medications with some relief. Plan: 72-year-old female with a history of 2 lumbar back surgeries at [facility] approximately 6 or 7 years [...] KEILY PAYTON PA-C [address], [place], [address], [place] [facility] 03/11/2023 10:36:22 OBGyn Episode No OBEpisode recorded.
--- OUTSIDE RECORDS SUMMARY | 2025-06-04 07:46 | XMS_ITS | Data Portability ---
Author Organization [place] - [facility], Allergy Address [address] [address] Care Team Providers Care Hotel Guest Service Agent Name Role Phone ASHLEY KLEIN Primary Care [...] see her back after it is completed [email or web address] Not available 08/04/2024 13:32:40 Plan of Treatment [...] Organization Details Recorded Time Deviated nasal septum 145574444 Active 025 ALEXIS FARNSWORTH MD 100 [facility], [facility], [place], [phone], [facility] - [facility] 5 13:20:02 Allergic rhinitis 89132832 Active 025 ALEXIS FARNSWORTH MD 100 [facility],[address] [address], [place], [phone], [facility] 5 13:20:32 Nasal congestion 68506923 Active 025 ALEXIS FARNSWORTH MD 100 [facility],[address] [address], [place], [phone], [facility] 5 13:27:05 Hearing loss 35822468 Active 025 ALEXIS FARNSWORTH MD [address] [address], [place], [address], [facility] 5 13:27:36 Problem Notes None recorded. Medical Equipment None Reported. Allergies Allergen ID Allergen Name Allergen Category Reaction Reaction Severity Criticality Documentation Date Start Date Code Code System Note Provider Name and Address Organization Details Recorded Time 814530 iodine medicatio n Not available Not available Not available 08/04/2024 5933 RxNorm Jessika doshi [place] - [facility] 5 13:00:29 Medications Name Sig Start [...] Updated DateTime 08/04/2024 162.56 cm 26.6 kg/m2 99639.82 g Jessika Giron [place] - [facility] 08/04/2024 12:59:41 Social History None recorded. [...] ICD10 Code Diagnosis IMO Codes Diagnosis Note [id number] ALEXIS FARNSWORTH MD [facility] [address] [address] 08/04/2024 12:43:58 08/04/2024 13:30:50 Deviated nasal septum 884151246 J34.2 Allergic rhinitis 225583 04 J30.9 Nasal congestion 1927539 0 R09.81 Hearing loss 97664178 H9 1.93 Patient had no interest in having formal audiometri c testing and will continue to work with her hearing instrument dispenser at [facility] for hearing testing and hearing aid norberto cooper Health Concerns Section Related Observation LastModified by Organization Detai ls LastModified Time None Recorded Concern Status LastModified by Organization Details LastModified Time None Recorded Advance Directives Directive None Recorded Payers Insurance Date Sequence Insurance Name Policy Number Policy Dunn Covered Member ID Dunn Member ID Guarantor Name 08/04/2024 2 () Jailyn Montes [id number] Jailyn Montes 08/04/2024 1 MEDICARE [place]: [employer] Jailyn Montes [id number] Jailyn Montes Notes Date Note Type Note Provider Name and Address Organization Details Recorded Time 08/04/2024 text/html 74-year-old female referred by her primary care provider. She [...] in general. Last September she was in [place] and had a severe allergy attack which turned out to be related to exposure to down pillow feathers. She continues to have chronic sensation of nasal congestion. She reports nasally voice which is bothersome for her. She does not have rhinorrhea or significant sneezing.Patient does have hearing loss bilaterally and has hearing aids dispensed through [facility]. She does not desire any further workup with regards to her hearing. ALEXIS FARNSWORTH MD [address] [place] [address], [phone], [facility] - [facility] 08/04/2024 13:35:40 OBGyn Episode No OBEpisode recorded.
--- OUTSIDE RECORDS SUMMARY | 2025-06-04 07:46 | XMS_ITS | Encounter Summary ---
Author Organization [facility] Address [address] [place] [address] Care Team Providers Care Windrower Operator Name Role Phone Marcela Sloan Primary Care Provider + Reason for Visit * Reason Onset Date Comments ORDER REVIEW 05/17/2025 Manager Stylist Encounter Details Date Type Department Care Team (Late st Contact Info) Description 05/17/2025 Telephone [facility] Emergency [address] [place] [phone] Simon Ferrell MD [address] [address] Social History Tobacco Use Types Packs/Day Years [...] as of this encounter Progress Notes * Bettie Johnston - 05/17/2025 8:05 AM EDT We received an order for this patient to have an Extended Holter Monitor. However, that specific order is not a test performed in our office. If you would like a 24 or 48hr Holter Monitor, please place an order using code: [email or web address]. If you would like a Looping or Event Monitor (7, 14 or 30 days) please place an order using code: [email or web address]. Thank you, [facility] Scheduling documented in this encounter Plan of Treatment Upcoming Encounters Date Type Department Care Team (Late st Contact Info) Description 06/04/2025 3:30 PM EST Office Visit Internal Medicine - [place] [address] [place] [address] Marcela Sloan PA [address] [place] [phone] 07/23/2025 9:00 AM EST Consult Vascular Surgery - [place] [address] [place] [phone] Manoj Drummond MD [address] [place] [phone] documented as of this encounter Visit Diagnoses Not on filedocumented in this encounter Care Teams Windrower Operator Relationship Specialty Start Date End Date Marcela Sloan PA 175 [facility] [address] [place] [address] PCP - General Primary Care 05/20/25 documented as of this encounter
--- OUTSIDE RECORDS SUMMARY | 2025-06-04 07:46 | XMS_ITS | Encounter Summary ---
Author Organization [facility] Address [address] [place] [address] Care Team Providers Care Superintendent Mechanical Name Role Phone Marcela Sloan Primary Care Provider + Encounter Details Date Type Department Care Team (Late st Contact Info) Description 05/30/2024 Lab Requisition [facility] - Main Lab 299 [facility] [place] [address] Ze Bryan MD [address] [place] [address] Essential (primary) hypertension Social History Tobacco [...] PM EST Office Visit Internal Medicine - [place] [address] [place] [address] Marcela Sloan PA [address] [place] [phone] 07/23/2025 9:00 AM EST Consult Vascular Surgery - [place] [address] [place] [address] Manoj Drummond MD [address] [place] [phone] documented as of this encounter Visit Diagnoses Diagnosis Essential (primary) hypertension Unspecified essential hypertension documented in this encounter Care Teams Superintendent Mechanical Relationship Specialty Start Date End Date Marcela Sloan PA [address] [address] PCP - General Primary Care 05/20/25 documented as of this encounter
--- OUTSIDE RECORDS SUMMARY | 2025-06-04 07:46 | XMS_ITS | Encounter Summary ---
Author Organization [facility] Address [address] [place] [address] Care Team Providers Care Senior Caregiver Name Role Phone Marcela Sloan Primary Care Provider + Encounter Details Date Type Department Care Team (Late st Contact Info) Description 05/31/2024 Lab Requisition [facility] - Main Lab 299 [facility] [place] [address] Ze Bryan MD [address] [place] [address] Chronic obstructive pulmonary disease, unspecified [...] PM EST Office Visit Internal Medicine - [place] 175 [facility] [address] [place] [address] Marcela Sloan PA [address] [place] [phone] 07/23/2025 9:00 AM EST Consult Vascular Surgery - [place] [address] [place] [address] Manoj Drummond MD [address] [place] [address] documented as of this encounter Procedures Procedure [...] Travel phlebotomy fee (06/01/2024 5:20 AM EST) [facility] TRAVEL PHLEBOTOMY FEE Completed 06/01/2024 11:02 AM EST [facility] Blood Venous blood specimen / Unknown Venipuncture / Unknown 06/01/2024 5:20 AM EST 06/01/2024 10:59 AM EST us Ze Bryan MD LAB BLOOD ORDERABLES Final Resu lt [facility] [address] [place] [address], * (ABNORMAL) Comprehensive metabolic panel (06/01/2024 5:20 AM EST) [facility] Sodium 139 133 - 145 mmol/L LAB CHEMISTRY METHOD 06/01/2024 12:25 PM EST [facility] Potassium 5.4 3.5 - 5.5 mmol/L LAB CHEMISTRY METHOD 06/01/2024 12:25 PM [facility] Chloride 107 96 - 110 mmol/L LAB CHEMISTRY METHOD 06/01/2024 12:25 PM [facility] CO2 29 21 - 32 mmol/L LAB CHEMISTRY METHOD 06/01/2024 12:25 PM [facility] Anion Gap 3 3 - 11 LAB CHEMISTRY METHOD 06/01/2024 12:25 PM [facility] Glucose 76 70 - 100 mg/dL LAB CHEMISTRY METHOD 06/01/2024 12:25 PM [facility] BUN 24 5 - 25 mg/dL LAB CHEMISTRY METHOD 06/01/2024 12:25 PM [facility] Creatinine 0.72 0.50 - 1.10 mg/dL LAB CHEMISTRY METHOD 06/01/2024 12:25 PM [facility] eGFR 87 >=60 mL/min/1. 73m2 LAB CHEMISTRY METHOD 06/01/2024 12:25 PM [facility] Comment:Calculation based on the Chronic Kidney Disease Epidemiology Collaboration (CKD-EPI) equation refit without adjustment for race. BUN/Creatinine Ratio 33.3 LAB CHEMISTRY METHOD 06/01/2024 12:25 PM [facility] Calcium 8.6 8.5 - 10.5 mg/dL LAB CHEMISTRY METHOD 06/01/2024 12:25 PM [facility] AST (SGOT) 16 10 - 42 unit/L LAB CHEMISTRY METHOD 06/01/2024 12:25 PM [facility] ALT (SGPT) 8(L) 10 - 60 unit/L LAB CHEMISTRY METHOD 06/01/2024 12:25 PM [facility] Alkaline Phosphatase 65 42 - 121 unit/L LAB CHEMISTRY METHOD 06/01/2024 12:25 PM [facility] Total Protein 5.5(L) 6.0 - 8.0 g/dL LAB CHEMISTRY METHOD 06/01/2024 12:25 PM [facility] Albumin 2.8(L) 3.2 - 5.0 g/dL LAB CHEMISTRY METHOD 06/01/2024 12:25 PM [facility] Total Bilirubin 0.7 0.0 - 1.4 mg/dL LAB CHEMISTRY METHOD 06/01/2024 12:25 PM [facility] Blood Venous blood specimen / Unknown Venipuncture / Unknown 06/01/2024 5:20 AM EST 06/01/2024 10:59 AM EST us Ze Bryan MD LAB BLOOD ORDERABLES Final Resu lt [facility] [address] [place] [address], [place] [phone] * (ABNORMAL) Complete blood count (06/01/2024 5:20 AM EST) WBC 8.0 4.8 - 10.8 K/mcL LAB HEMETOLOGY METHOD 06/01/2024 12:08 PM [facility] RBC 3.20(L) 3.80 - 4.80 M/mcL LAB HEMETOLOGY METHOD 06/01/2024 12:08 PM [facility] Hemoglobin 9.4(L) 11.5 - 16.0 g/dL LAB HEMETOLOGY METHOD 06/01/2024 12:08 PM [facility] Hematocrit 31.1(L) 35.0 - 47.0 % LAB HEMETOLOGY METHOD 06/01/2024 12:08 PM [facility] MCV 97.5 79.0 - 98.0 FL LAB HEMETOLOGY METHOD 06/01/2024 12:08 PM [facility] MCH 29.5 27.0 - 32.0 pcg LAB HEMETOLOGY METHOD 06/01/2024 12:08 PM [facility] MCHC 30.2(L) 32.0 - 37.0 g/dL LAB HEMETOLOGY METHOD 06/01/2024 12:08 PM [facility] RDW 13.5 11.0 - 15.0 % LAB HEMETOLOGY METHOD 06/01/2024 12:08 PM [facility] Platelets 309 130 - 400 K/mcL LAB HEMETOLOGY METHOD 06/01/2024 12:08 PM [facility] MPV 9.4 7.0 - 11.0 FL LAB HEMETOLOGY METHOD 06/01/2024 12:08 PM [facility] NRBC 0.0 <1.0 % LAB HEMETOLOGY METHOD 06/01/2024 12:08 PM [facility] NRBC Absolute 0.00 <0.10 K/mcL LAB HEMETOLOGY METHOD 06/01/2024 12:08 PM [facility] Blood Venous blood specimen / Unknown Venipuncture / Unknown 06/01/2024 5:20 AM EST 06/01/2024 10:59 AM EST Ze Bryan MD LAB BLOOD ORDERABLES Final Resu lt [facility] [address] [place] [address], documented in this encounter Visit Diagnoses Diagnosis Chronic obstructive pulmonary disease, unspecified (CMS/HCC V24, CMS/HCC V28) Hyperlipidemia, unspecified Essential (primary) hypertension Unspecified essential hypertension documented in this encounter Care Teams Senior Caregiver Relationship Specialty Start Date End Date Marcela Sloan PA [address] [address] PCP - General Primary Care 05/20/25 documented as of this encounter
--- OUTSIDE RECORDS SUMMARY | 2025-06-04 07:46 | XMS_ITS | Clinical Summary ---
Author Organization [facility] Address [address] [place] [address] Care Team Providers Care Bulk Materials Handling Plant Operator Name Role Phone Tab Joe MD PhD Primary Care Provider [phone] Allergies Active Allergy Reactions Criticality Noted Date [...] topic Insurance MEDICARE PART A & B [facility] Care Teams Bulk Materials Handling Plant Operator Relationship Specialty Start Date End Date Tab Joe MD PhD NPI: [id number] [place] [id number] PCP - General Internal Medicine 12/10/24
--- OUTSIDE RECORDS SUMMARY | 2025-06-04 07:46 | XMS_ITS | Clinical Summary ---
Author Organization [facility] Address [address] [place] [address] Care Team Providers Care Furniture Decals Inspector Name Role Phone Tab Joe MD Primary [...] age to complete this topic Care Teams Furniture Decals Inspector Relationship Specialty Start Date End Date Tab Joe MD PCP - General Internal Medicine 03/24/19
--- NOTE | 2025-06-04 07:50 | A.PHYSOV_ITS ---
Vital Signs 06/04/25 07:51 06/04/25 07:53 06/04/25 07:53 06/04/25 07:53 06/04/25 07:54 Height 5 ft 5 in Weight 160 lb BMI 26.6 BP 143/82 H Blood Pressure Location Rt radial Position Sitting Pulse 73 Pulse Source Pulse Oximeter Temp 98 F 98 F 98.0 F Temp Source Skin Intake Visit Reasons: Lumbar ROWENA L5-S1 Intake Note: 74year old female here procedure L5-S1 Epidural Steroid Injection Mineral Mixer Required: No Allergies Iodinated Contrast Media (IV Contrast Dye) Allergy (Intermediate, Verified 06/04/25 07:51) Itching and warm iodine Adverse Reaction (Mild, Verified 06/04/25 07:51) Sneezing Medication List - Last Reconciled 06/04/25 by Basilio Madden DO gabapentin 600 mg PO TID suzetrigine (Journavx) mg PO PFSH Medical History History of cervical dysplasia (~1980) Hx of blood transfusion reaction (~1968) Back pain at L4-L5 level Back pain Seasonal allergies Osteoarthritis History of GI bleed (~1991) Sciatica Surgical History Hx of colonoscopy History of back surgery (~2015) History of hip surgery (~2019) History of hip surgery (~2008) Hx of hysterectomy Hx of appendectomy Hx of left knee surgery (~2019) Social History Household Members: None Caregiver staying overnight: No Housing: House Are you a primary chiropractic care to a significant other at home: No Do you presently have visiting nurse or other home services: No 75 years or older and lives alone: Yes Comment: aware of trip hazard Patient Tobacco Use Status: Former Tobacco user Tobacco use type: Cigarette Second Hand Smoke Exposure: No service: No Current occupational status: retired Current occupation: Right hand dominate Physical Exam Vital Signs: Last Vital Signs Temp 98.0 F 06/04/25 07:53 Pulse 73 06/04/25 07:53 BP 143/82 H 06/04/25 07:54 BMI result Body Mass Index 26.6 Office Procedures Procedure code (CPT) selection complete (Duplicate accidental procedure added) Procedure Details: Preop diagnosis: Lumbar radiculitis Postop diagnosis: The same After informed consent was obtained patient was brought into the procedure room and placed in the prone position on the procedure table. Skin over the lumbar sacral area was prepped and draped in usual sterile manner. L5-S1 interlaminar space was visualized utilizing fluoroscopy. After skin was anesthetized with 1% lidocaine solution, 3.5 in 20 gauge Toughy needle was introduced percutaneously and advanced toward the epidural space at the indicated level. Loss of resistance technique was utilized. Needle placement was verified utilizing 3 cc of Omnipaque contrast solution. Excellent epidural spread was visualized without evidence of vascular uptake. Total volume of 8 cc containing 2 cc of 1% lidocaine, 40 mg of triamcinolone and normal saline solution were injected after negative aspiration for blood and cerebrospinal fluid. Radiation exposure was documented in the chart. Lumbar Interlaminar Epidural 24297- use with FL Gd order: Lumbar Interlaminar Epidural Steroid Injection 73571 Procedure code (CPT) selection complete Office Meds Kenalog 40 mg/mL suspension for injection Performing Provider: Basilio Madden DO Performing Location: [facility] Administered by: Basilio Madden DO on 06/04/25 10:44 Dose Route Admin Location Dispensed Lot Number Expiration Date [facility] Student Accounts Coordinator 40 mg IM 1 mL [id number] [employer]NEAL [employer] CIEN Total Dispensed Waste 1 mL 0 % lidocaine (PF) 10 mg/mL (1 %) injection solution Performing Provider: Basilio Madden DO Performing [facility] Administered by: Basilio Madden DO on 06/04/25 10:44 Dose Route Admin Location Dispensed Lot Number Expiration Date [facility] Student Accounts Coordinator 5 mL epidural 30 mL [id number] EUGIA US L LC Total Dispensed Waste 30 mL 83.33 % Assessment & Plan Assessment & Plan (1) Lumbar radiculitis: Code(s): M54.16 - Radiculopathy, lumbar region Category: Medical Plan: procedure Orders: Orders FL Gd L Spine Interlaminar Inj Today M54.16 - Radiculopathy, lumbar region FL Gd L Spine Interlaminar Inj Today M54.16 - Radiculopathy, lumbar region AMB Lumbar Interlaminar Epidural Steroid Injection Today M54.16 - Radiculopathy, lumbar region Coding Level of Care Code Procedure Only Diagnoses Lumbar radiculitis M54.16 CPT Codes Lumbar Interlaminar Epidural Steroid I - 85287 - Lumbar Interlaminar Epidural: Lumbar Interlaminar Epidural Steroid Injection 97705 ([id number])
[2025-06-04 07:51] VITALS: BMI 26.6
[2025-06-04 07:53] VITALS: PULSE 73; TEMP 36.6; TEMP 36.7
[2025-06-04 07:54] VITALS: BP 143/82
== END 2025-06-04 09:07 | disposition home or self-care (01) ==
PROVIDERS: PCP Physician Assistant; Visit Provider Physical Medicine & Rehabilitation
DX: M54.16 Radiculopathy, lumbar region (principal)
CPT/HCPCS: 62323

== ENCOUNTER 2025-06-04 07:45 | Outpatient (REF) | payer MEDICARE, OTHER, SELFPAY | END 2025-06-04 07:46 | disposition home or self-care (01) | LOC: HO.HPHYSR 07:45 | PROVIDERS: PCP Physician Assistant; Visit Provider Physical Medicine & Rehabilitation | DX: M54.16 Radiculopathy, lumbar region (principal) | CPT/HCPCS: 62323; J2003; J3301 ==

== ENCOUNTER 2025-06-30 08:52 | Outpatient (AMB) | payer MEDICARE, OTHER, SELFPAY ==
[2025-06-30 08:59] VITALS: BMI 26.1
--- NOTE | 2025-06-30 08:59 | A.PHYSOV_ITS ---
Vital Signs 06/30/25 08:59 Height 5 ft 4 in Weight 152 lb BMI 26.1 Intake Visit Reasons: F/U after injection Intake Note: Patient is a 75 year old female here today for follow up on L5-S1 ROWENA on 06/04/25. Anesthesiologist And Critical Care Required: No Allergies Iodinated Contrast Media (IV Contrast Dye) Allergy (Intermediate, Verified 06/30/25 09:00) Itching and warm iodine Adverse Reaction (Mild, Verified 06/30/25 09:00) Sneezing HPI Comments Details: History of Present Illness The patient is a 75 year old individual presenting for management of chronic low back pain. The patient has grade 2 spondylolisthesis at L4-5, which has progressed from a previous grade 1 status. This condition causes significant pain and difficulty walking, particularly in the morning, which improves with specific exercises. Previous treatments, including nerve blocks, have not provided relief. The patient is currently taking gabapentin and tramadol, which helps maintain a comfortable state. The patient is scheduled for a CT scan to help determine surgical candidacy, as the patient also has a history of osteoporosis. Patient will be following up with Dr. Fallon of neurosurgery for further evaluation and treatment. So far she is responding well to gabapentin and tramadol. She has a pain level today of 7/10. Pain Description - Location: Low back, specifically at the L4-L5 level. - Radiation: The pain is associated with sciatica. - Interference with function: The patient reports being unable to walk upon waking in the morning. - Relieving factors: Performing specific leg exercises in bed allows the patient to walk. Results Procedure: Right L5 TFESI 02/01/2025 no relief L5-S1 ROWENA 06/04/2025 no relief - Imaging: An MRI confirms grade 2 spondylolisthesis at L4-5. FOR[facility]LY [facility], [facility] Medical History History of cervical dysplasia (~1980) Hx of blood transfusion reaction (~1968) Back pain at L4-L5 level Back pain Seasonal allergies Osteoarthritis History of GI bleed (~1991) Sciatica Surgical History Hx of colonoscopy History of back surgery (~2015) History of hip surgery (~2019) History of hip surgery (~2009) Hx of hysterectomy Hx of appendectomy Hx of left knee surgery (~2019) Social History Household Members: None Caregiver staying overnight: No Housing: House Are you a primary acute care assistant to a significant other at home: No Do you presently have visiting nurse or other home services: No 75 years or older and lives alone: Yes Comment: aware of trip hazard Patient Tobacco Use Status: Former Tobacco user Tobacco use type: Cigarette Second Hand Smoke Exposure: No service: No Current occupational status: retired Current occupation: Right hand dominate Review of Systems Narrative Review of Systems - Musculoskeletal: Reports chronic low back pain and difficulty walking in the morning. - Neurological: Reports sciatica. Physical Exam Exam Exam: Physical Exam Lumbar Spine: Examination of the lumbar spine, there is no visible swelling or deformity. She is tender to lower lumbar facets. She is otherwise nontender. Full range of motion of the lumbar spine. She does have an increase in pain with facet loading. Special Tests: Lhermittes sign was negative Heel Toe walk is normal Left straight leg raise: Negative Right straight leg raise: Negative Special tests Raciel test is negative Ganslen's test is negative SI Joint compression test negative Minh test negative Piriformis stretch is negative Lower Extremities: Full range of motion bilateral lower extremities. No calf pain or edema. Neuro: Sensation: Intact to lower extremities bilaterally Strength L2 (Psoas): 5/5 on the left and 5/5 on the right. L3 (Quads): 5/5 on the left and 5/5 on the right. L4 (Ant tibialis): 5/5 on the left and 5/5 on the right. L5 (EHL) 5/5 on the left and 5/5 on the right. S1 (Gastroc): 5/5 on the left and 5/5 on the right. DTR L4: (Patellar) Left 2 Right 2 S1: (Achilles) Left 2 Right 2 Babinski Downgoing No pathologic clonus. No involuntary movement. Vital Signs: BMI result Body Mass Index 26.1 Assessment & Plan Assessment & Plan (1) Lumbar stenosis with neurogenic claudication: Code(s): M48.062 - Spinal stenosis, lumbar region with neurogenic claudication Category: Medical (2) Lumbar radiculitis: Code(s): M54.16 - Radiculopathy, lumbar region Category: Medical Plan Pain Management - Analgesia: The patient takes gabapentin and tramadol, which helps maintain a comfortable state. - Activities of Daily Living: Pain significantly impacts mobility, causing an inability to walk in the morning without performing exercises first. - Affect: The patient states a preference for making decisions based on facts rather than emotions. 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 - The patient states they are in a different place now and denies misusing current pain medications. Plan Patient was informed and verbally consented to the use of an ambient scribe for clinic note documentation during this visit. 1. Lumbar Spondylolisthesis The patient presents with grade 2 spondylolisthesis at L4-L5 causing nerve pinching, resulting in pain and sciatica. Conservative treatments, including injections, have failed to provide relief. A surgical consult with Dr. Fallon is recommended for spinal fusion, which is the definitive treatment. The patient has a CT scan scheduled to assess bone quality due to osteoporosis, which will determine surgical candidacy. The patient will follow up with Dr. Fallon' donna macias after the scan. 2. Chronic Pain Management The patient is currently managing pain with gabapentin and tramadol, which provides some comfort. A course of prednisone was offered to manage pain during upcoming travel. Should surgery not be an option, a long-term pain contract for medication management was discussed as a possibility. The primary goal is to proceed with surgical correction to avoid long-term opioid therapy. 3. Osteoporosis The patient has a known history of osteoporosis, which may impact candidacy for spinal fusion surgery. A CT scan is scheduled to further evaluate bone quality. The patient will follow up with the surgical team to discuss the findings and determine if surgery is a viable option. Discussion Notes I reviewed the patient's MRI, explaining the grade 2 spondylolisthesis at L4-5 is causing nerve pinching and subsequent pain. We discussed that since conservative measures like injections have not been effective, the next logical step is a surgical evaluation for a spinal fusion. I affirmed the patient's plan to see surgeon Dr. Fallon, noting he is a very good surgeon who performs minimally invasive procedures. We discussed that the patient's upcoming CT scan will be crucial for assessing bone quality due to osteoporosis to determine if the patient is a candidate for surgery. I advised the patient to continue the current regimen of gabapentin and t ramadol. We discussed that if surgery is not an option, we could establish a pain contract for long-term medication management, but the ideal outcome is surgical correction to avoid lifelong opioid use. I instructed the patient to follow up with Dr. Fallon' office after the CT scan. Patient Instructions - Continue taking gabapentin and tramadol as prescribed by your primary care doctor for your pain. - Please proceed with your scheduled CT scan. - After your CT scan, you should follow up with Dr. Fallon' office. - If you do not hear from them, please call their office to schedule an yaritza ointment to discuss the results and surgical options. - We can provide a prescription for prednisone to help manage your pain during your upcoming travels if needed. - It is recommended to pursue a surgical solution to your back problem if possible, as this is the best way to get you off of long-term pain medication. Coding Level of Care Code Tele Est Pt Level 3 (49397) Diagnoses Lumbar stenosis with neurogenic claudication M48.062 Lumbar radiculitis M54.16
--- OUTSIDE RECORDS SUMMARY | 2025-06-30 09:15 | XMS_ITS | Encounter Summary ---
Author Organization [facility] Address [address] [place] [address] Care Team Providers Care Case Technician Name Role Phone Marcela Sloan Primary Care Provider + Encounter Details Date Type Department Care Team ([facility] Contact Info) Description 05/31/2025 Results Follow-Up Internal Medicine - [facility] [address] [facility] [address] [place] [address] Marcela Sloan PA [address] [place] [address] Social History Tobacco Use Types Packs/Day Years [...] Department Care Team (Late Contact Info) Description 07/23/2025 9:00 AM EST Consult Vascular Surgery - [place] [address] [place] [address] Manoj Drummond MD [address] [place] [address] documented as of this encounter Visit Diagnoses Not on filedocumented in this encounter Care Teams Case Technician Relationship Specialty Start Date End Date Marcela Sloan PA [address] [address] PCP - General Primary Care 05/20/25 documented as of this encounter
--- OUTSIDE RECORDS SUMMARY | 2025-06-30 09:15 | XMS_ITS | Clinical Summary ---
Author Organization [facility] Address [address] [place] [address] Care Team Providers Care Aluminum Pool Installer Name Role Phone Tab Joe MD Primary [...] age to complete this topic Care Teams Aluminum Pool Installer Relationship Specialty Start Date End Date Tab Joe MD PCP - General Internal Medicine 03/24/19
--- OUTSIDE RECORDS SUMMARY | 2025-06-30 09:15 | XMS_ITS | Clinical Summary ---
Author Organization LL [address] [facility] Address [address] [place] [address] Phone Care Team Providers Care Director Technical Name Role Phone Marcela Sloan Primary Care Provider + Allergies Active Allergy Reactions Criticality Noted Date Comments Iodinated Contrast Media 09/22/2018 Medications loratadine (CLARITIN) 10 mg tabletIndicati ons:Seasonal allergies Take 1 tablet (10 mg total) by mouth 1 (one) time each day if needed for allergies. 60 each 3 09/17/19 25 Active gabapentin (NEURONTIN) 600 mg tablet Take 1 tablet (600 mg total) by mouth 3 (three) times a day. 04/21/20 25 Active suzetrigine 50 mg tablet Take 50 mg by mouth every 12 (twelve) hours if needed (sciatic pain). First dose take 100mg 60 tablet 05/25/20 25 Active traMADoL (ULTRAM) 50 mg tabletIndicati ons:Chronic right-sided low back pain with right-sided sciatica Take 1 tablet (50 mg total) by mouth 2 (two) times a day if needed for moderate pain. for pain Max Daily Amount: 100 mg 28 tablet 06/28/20 25 Active traMADoL (ULTRAM) 50 mg tabletIndicati ons:Chronic right-sided low back pain with right-sided sciatica Take 1 tablet (50 mg total) by mouth 2 (two) times a day if needed for severe pain. Max Daily Amount: 100 mg 14 tablet 06/04/20 25 025 Discontinued(Re order) traMADoL (ULTRAM) 50 mg tabletIndicati ons:Chronic right-sided low back pain with right-sided sciatica Take 1 tablet (50 mg total) by mouth 2 (two) times a day if needed for severe pain. Max Daily Amount: 100 mg 28 tablet 06/10/20 25 025 Discontinued Active Problems Problem Noted Date Diagnosed Date Allergic rhinitis 01/31/2023 Prediabetes 12/29/2021 Hypercholesterolemia 04/03/2018 Hypertension 09/27/2016 Assessment & Plan (06/04/2025 4:00 PM EST): Vitamin D deficiency 07/04/2016 Hyperplastic colon polyp 05/04/2016 Encounters Date Type Department Care Team Description 06/04/2025 3:30 PM EST Office Visit Internal Medicine [address] [phone] Marcela Sloan PA Routine general medical examination at a health care facility (Primary Dx); Primary hypertension; Chronic right-sided low back pain with right-sided sciatica 05/31/2025 Results Follow-Up Internal Medicine - [place] [address] [address] Marcela Sloan PA 05/27/2025 1:40 PM EDT Lab Draw Station - [address] [phone] Hypercholesterolemia ; Primary hypertension; Prediabetes 05/20/2025 10:45 AM EDT Office Visit Internal Medicine [address] [phone] Marcela Sloan PA Primary hypertension (Primary Dx); Left carotid stenosis 05/18/2025 Telephone Internal Medicine [address] [phone] Marcela Sloan PA 05/17/2025 Telephone [facility] Emergency [address] [place] [phone] Dhiraj Ferrell MD 05/16/2025 7:56 AM EDT - 05/16/2025 11:27 AM EDT Emergency [facility] Emergency [address] [place] [address] Dhiraj Ferrell MD Fall, initial encounter (Primary Dx); Closed head injury, initial encounter; Sciatica, unspecified laterality; Hyponatremia; Stenosis of left carotid artery Discharge Disposition: Home or Self Care 05/07/2025 Telephone Internal Medicine - [place] [address] [facility] [address] [place] [address] Marcela Sloan PA from Last 3 Months Immunizations Immunization Administration Dates Next Due Influenza trivalent, 0.5mL (Fluad) 65yo and olde r 05/04/2019 Influenza trivalent, with pr eservative (Fluzone; Afluria) 6mo and older 04/17/2018 Marqui SARS-CoV-2 COVID-19, mRNA, LNP-S, preservative free 09/14/2020,08/19/2020 [...] pur e alcohol) sober since 01/05/2022 Comments No Sex and Gender Information Value Date Recorded Sex Assigned at Not on file Legal Sex Female 5:53 PM EST Gender Identity Not on file Sexual Orientation Not on file Obstetrics History Last Filed Vital Signs Vital Sign Reading Time Taken Comments Blood Pressure 150/90 06/04/2025 3:48 PM EST Pulse 85 06/04/2025 3:11 PM EST Temperature 36.6 C (97.8 F) 06/04/2025 3:11 PM EST Respiratory Rate 17 05/16/2025 9:00 AM EDT Oxygen Saturation 98% 06/04/2025 3:11 PM EST Inhaled Oxygen Concentration - - Weight 75.8 kg (167 lb) 06/04/2025 3:11 PM EST Height 165.1 cm (5' 5 ) 06/04/2025 3:11 PM EST Body Mass Index 27.79 06/04/2025 3:11 PM EST Plan of Treatment Upcoming Encounters Date Type Department Care Team (Late st Contact Info) Description 07/23/2025 9:00 AM EST Consult Vascular Surgery - [place] [address] [place] [address] Manoj Drummond MD [address] [place] [phone] Health Maintenance Due Date Last Done Comments Hepatitis A Vaccines (1 of 2 - Risk 2-dose series) 1969 Pneumococcal Vaccine: 50+ Years (2 of 2 - PCV20 or PCV21) 11/30/2016 12/01/2015 Hepatitis C Screening 07/05/2022 Osteoporosis Screening (Bone Density Screening) 07/05/2022 Social Influencers of Health Screening 07/05/2022 COVID-19 Vaccine ( season) 2025 04/13/2025, 05/05/2024, 04/30/2023, Additional history exists Hypertension/CHF/CAD Annual BMP Blood Test 05/27/2026 05/27/2025, 05/16/2025, 10/06/2024, Additional history exists Falls Risk Assessment 06/04/2026 06/04/2025 Medicare Annual Wellness Visit 06/04/2026 06/04/2025 Cholesterol Screening (Lipid Panel) 05/27/2030 05/27/2025, 02/13/2024, 02/13/2024 DTaP,Tdap,and Td Vaccines (2 - Td or Tdap) 03/13/2034 03/13/2024 Zoster Vaccines Completed 04/13/2020, 02/12/2020 RSV Immunization Adult Patients Completed 04/25/2024 Breast Cancer Screening Discontinued 12/31/2024 Influenza Vaccine Completed 04/13/2025, , 04/30/2023, Additional history exists Depression Screening Completed 06/04/2025 HIB Vaccines Aged Out No longer eligi [...] LAB CHEMISTRY METHOD 05/27/2025 6:[address] [facility] Microalb, Ur 8.8 0.0 - 29.0 mg/L LAB CHEMISTRY METHOD 05/27/2025 6:[address] [facility] Microalb/Creat Ratio 8 <30 mg/g creat LAB CHEMISTRY METHOD 05/27/2025 6:[address] [facility] Urine Urine specimen obtained by clean catch procedure / Unknown Non-blood Collection / Unknown 05/27/2025 1:39 PM EDT 05/27/2025 1:39 PM EDT us Marcela STARR LAB URINE ORDERABLES Fin al Result Performing Organization Address [facility]/ZIP Co de Phone Number [facility] [address] [place] [address], [place] [phone] * Thyroid stimulating hormone with reflex to free t4 and free t3 (05/27/2025 1:36 PM EDT) Pathologist [facility] TSH 0.55 0.40 - 4.00 mcIU/mL LAB CHEMISTRY METHOD 05/27/2025 7:[address] [facility] Blood Venous blood specimen / Unknown Venipuncture / Unknown 05/27/2025 1:36 PM EDT 05/27/2025 1:37 PM EDT us Marcela STARR LAB BLOOD ORDERABLES Fin al Result Performing Organization Address [facility] Co de Phone Number [facility] [address] [place] [address], [place] [phone] * (ABNORMAL) Lipid panel with reflex to direct LDL (05/27/2025 1:36 PM EDT) Cholesterol 214(H) 0 - 200 mg/dL LAB CHEMISTRY METHOD 05/27/2025 6:[address] [facility] Triglycerides 50 0 - 150 mg/dL LAB CHEMISTRY METHOD 05/27/2025 6:[address] [facility] HDL 87 >=40 mg/dL LAB CHEMISTRY METHOD 05/27/2025 6:[address] [facility] LDL Calculated 117(H) 0 - 100 mg/dL LAB CHEMISTRY METHOD 05/27/2025 6:[address] [facility] Comment:Estimated LDL Calcul ated using equation: Total cholesterol - HDL cholesterol - (Triglycerides/5) VLDL Cholesterol Alberto 10 mg/dL LAB CHEMISTRY METHOD 05/27/2025 6:[address] [facility] Non HDL Chol. (LDL+VLDL) 127 <145 mg/dL LAB CHEMISTRY METHOD 05/27/2025 6:[address] [facility] Chol/HDL Ratio 2.5 0.0 - 4.4 LAB CHEMISTRY METHOD 05/27/2025 6:[address] [facility] Blood Venous blood specimen / Unknown Venipuncture / Unknown 05/27/2025 1:36 PM EDT 05/27/2025 1:37 PM EDT us Marcela STARR LAB BLOOD ORDERABLES Fin al Result [facility] [address] [place] [address], [place] [phone] * CBC auto differential (05/27/2025 1:36 PM EDT) Only the most recent of2 resultswithin the time period is included. WBC 8.8 4.8 - 10.8 K/mcL LAB HEMETOLOGY METHOD 05/27/2025 6:[address] [facility] RBC 4.00 3.80 - 4.80 M/mcL LAB HEMETOLOGY METHOD 05/27/2025 6:[address] [facility] Hemoglobin 12.2 11.5 - 16.0 g/dL LAB HEMETOLOGY METHOD 05/27/2025 6:[address] [facility] Hematocrit 37.9 35.0 - 47.0 % LAB HEMETOLOGY METHOD 05/27/2025 6:[address] [facility] MCV 93.8 79.0 - 98.0 FL LAB HEMETOLOGY METHOD 05/27/2025 6:[address] [facility] MCH 30.2 27.0 - 32.0 pcg LAB HEMETOLOGY METHOD 05/27/2025 6:[address] [facility] MCHC 32.2 32.0 - 37.0 g/dL LAB HEMETOLOGY METHOD 05/27/2025 6:[address] [facility] RDW 13.5 11.0 - 15.0 % LAB HEMETOLOGY METHOD 05/27/2025 6:[address] [facility] Platelets 314 130 - 400 K/mcL LAB HEMETOLOGY METHOD 05/27/2025 6:[address] [facility] MPV 9.1 7.0 - 11.0 FL LAB HEMETOLOGY METHOD 05/27/2025 6:[address] [facility] NRBC 0.0 <1.0 % LAB HEMETOLOGY METHOD 05/27/2025 6:[address] [facility] NRBC Absolute 0.00 <0.10 K/mcL LAB HEMETOLOGY METHOD 05/27/2025 6:[address] [facility] Neutrophils Relative 64.3 % LAB HEMETOLOGY METHOD 05/27/2025 6:[address] [facility] Lymphocytes Relative 25.8 % LAB HEMETOLOGY METHOD 05/27/2025 6:[address] [facility] Monocytes Relative 7.2 % LAB HEMETOLOGY METHOD 05/27/2025 6:[address] [facility] Eosinophils Relative 1.9 % LAB HEMETOLOGY METHOD 05/27/2025 6:[address] [facility] Basophils Relative 0.6 % LAB HEMETOLOGY METHOD 05/27/2025 6:[address] [facility] Immature Granulocytes Relative 0.2 % LAB HEMETOLOGY METHOD 05/27/2025 6:[address] [facility] Neutrophils Absolute 5.67 1.50 - 7.00 K/mcL LAB HEMETOLOGY METHOD 05/27/2025 6:[address] [facility] Lymphocytes Absolute 2.27 1.00 - 5.00 K/mcL LAB HEMETOLOGY METHOD 05/27/2025 6:[address] [facility] Monocytes Absolute 0.63 0.20 - 1.00 K/mcL LAB HEMETOLOGY METHOD 05/27/2025 6:[address] [facility] Eosinophils Absolute 0.17 0.00 - 0.50 K/[facility] LAB HEMETOLOGY METHOD 05/27/2025 6:[address] [facility] Basophils Absolute 0.05 0.00 - 0.20 K/mcL LAB HEMETOLOGY METHOD 05/27/2025 6:[address] [facility] Immature Granulocytes Absolute 0.02 0.00 - 0.03 K/mcL LAB HEMETOLOGY METHOD 05/27/2025 6:[address] [facility] Blood Venous blood specimen / Unknown Venipuncture / Unknown 05/27/2025 1:36 PM EDT 05/27/2025 1:37 PM EDT Marcela STARR LAB BLOOD ORDERABLES Fin al Result [facility] [address] [place] [address], * Magnesium (05/27/2025 1:36 PM EDT) Only the most recent of2 resultswithin the time period is included. Magnesium 2.0 1.9 - 2.6 mg/dL LAB CHEMISTRY METHOD 05/27/2025 6:[address] [facility] Blood Venous blood specimen / Unknown Venipuncture / Unknown 05/27/2025 1:36 PM EDT 05/27/2025 1:37 PM EDT Marcela STARR LAB BLOOD ORDERABLES Fin al Result Performing Organization Address City/[facility]/ZIP Co de Phone Number [facility] [address] [place] [address], [place] [phone] * Hemoglobin A1c (05/27/2025 1:36 PM EDT) Hemoglobin A1C 5.7 <6.5 % LAB CHEMISTRY METHOD 05/27/2025 8:[address] [facility] Mean Bld Glu Estim. 117 mg/dL LAB CHEMISTRY METHOD 05/27/2025 8:[address] [facility] Blood Venous blood specimen / Unknown Venipuncture / Unknown 05/27/2025 1:36 PM EDT 05/27/2025 1:37 PM EDT Marcela STARR LAB BLOOD ORDERABLES Fin al Result Performing Organization Address [facility]/ZIP Co de Phone Number [facility] [address] [place] [address], [place] [phone] * (ABNORMAL) Comprehensive metabolic panel (05/27/2025 1:36 PM EDT) Only the most recent of2 resultswithin the time period is included. Pathologist [facility] Sodium 135 133 - 145 mmol/L LAB CHEMISTRY METHOD 05/27/2025 6:[address] [facility] Potassium 3.9 3.5 - 5.5 mmol/L LAB CHEMISTRY METHOD 05/27/2025 6:[address] [facility] Chloride 100 96 - 110 mmol/L LAB CHEMISTRY METHOD 05/27/2025 6:[address] [facility] CO2 28 21 - 32 mmol/L LAB CHEMISTRY METHOD 05/27/2025 6:[address] [facility] Anion Gap 7 3 - 11 LAB CHEMISTRY METHOD 05/27/2025 6:32 PM [facility] Glucose 92 70 - 100 mg/dL LAB CHEMISTRY METHOD 05/27/2025 6:32 PM [facility] BUN 20 5 - 25 mg/dL LAB CHEMISTRY METHOD 05/27/2025 6:32 PM [facility] Creatinine 1.04 0.50 - 1.10 mg/dL LAB CHEMISTRY METHOD 05/27/2025 6:32 PM [facility] eGFR 56(L) >=60 mL/min/1. 73m2 LAB CHEMISTRY METHOD 05/27/2025 6:32 PM [facility] Comment:Calculation based on the Chronic Kidney Disease Epidemiology Collaboration (CKD-EPI) equation refit without adjustment for race. BUN/Creatinine Ratio 19.2 LAB CHEMISTRY METHOD 05/27/2025 6:32 PM [facility] Calcium 8.5 8.5 - 10.5 mg/dL LAB CHEMISTRY METHOD 05/27/2025 6:32 PM [facility] AST (SGOT) 19 10 - 42 unit/L LAB CHEMISTRY METHOD 05/27/2025 6:32 PM [facility] ALT (SGPT) 25 10 - 60 unit/L LAB CHEMISTRY METHOD 05/27/2025 6:32 PM [facility] Alkaline Phosphatase 71 42 - 121 unit/L LAB CHEMISTRY METHOD 05/27/2025 6:32 PM [facility] Total Protein 6.6 6.0 - 8.0 g/dL LAB CHEMISTRY METHOD 05/27/2025 6:32 PM [facility] Albumin 3.6 3.2 - 5.0 g/dL LAB CHEMISTRY METHOD 05/27/2025 6:32 PM [facility] Total Bilirubin 0.6 0.0 - 1.4 mg/dL LAB CHEMISTRY METHOD 05/27/2025 6:32 PM [facility] Blood Venous blood specimen / Unknown Venipuncture / Unknown 05/27/2025 1:36 PM EDT 05/27/2025 1:37 PM EDT Marcela STARR LAB BLOOD ORDERABLES Fin al Result Performing Organization Address [facility] Co de Phone Number [facility] [address] [place] [address], * ECG-Annotated (05/17/2025) Provider Onbase ECG ORDERABLES Final Result * 12-Lead ECG (05/16/2025 8:54 AM EDT) Ventricular Rate ECG 74 BPM G[facility] Atrial Rate 74 BPM GEM[facility] P-R Interval 196 ms GEMUSE QRS Duration 82 ms GEMUSE Q-T Interval 406 ms GEMUSE QTc 450 ms GEMUSE P Wave [place] 55 degrees GEMUSE R [place] 27 degrees GEMUSE T [place] 48 degrees GEMUSE ECG Interpretation Normal sinus rhythm Normal ECG When compared with ECG of 23-FEB-2024 20:38, No significant change was found Confirmed by MD Manuel, Hutchinson ([id number]) on 05/17/2025 11:42:46 AM GEMUSE 05/16/2025 8:54 AM EDT 05/17/2025 11:42 AM EDT Dhiraj Ferrell MD ECG ORDERABLES Final Resul t Performing Organization Address City/[facility] Co de Phone Number [facility] * CT Head Stroke wo Contrast (05/16/2025 8:36 AM EDT) Anatomical Region Laterality Modality Head and Neck Computed Tomogra phy 05/16/2025 8:39 AM EDT Impressions 05/16/2025 8:42 AM EDT No acute intracranial findings. Results communicated via the secure text messaging system to DHIRAJ FERRELL . A Critical Document Only message has been documented for the office of DHIRAJ FERRELL in the [employer] system on 05/16/2025 8:41 AM, Message ID [id number]. -------- FINAL REPORT -------- Dictated By: Sammy Moseley Dictated Date: 05/16/2025 08:39 ET Assigned Physician: Sammy Moseley Reviewed and Electronically Signed By: Sammy Moseley Signed Date: 05/16/2025 08:42 ET Workstation ID: [id number] Transcribed By: Self Edit Transcribed Date: 05/16/2025 [...] for the office ofDHIRAJ FERRELL in the [employer] system on05/16/2025 8:41 AM, Message ID [id number]. -------- FINAL REPORT -------- Dictated By: Sammy Moseley Dictated Date: 05/16/2025 08:39 ET Assigned Physician: Sammy Moseley Reviewed and Electronically Signed By: Sammy Moseley Signed Date: 05/16/2025 08:42 ET Workstation ID: [id number] Transcribed By: Self Edit Transcribed Date: 05/16/2025 08:39 ET Dhiraj Ferrell MD IMG CT PROCEDURES Final Res ult * CT [...] Signed Date: 05/16/2025 09:02 ET Workstation ID: [id number] Transcribed By: Self Edit Transcribed Date: 05/16/2025 08:48 ET Narrative 05/16/2025 9:02 AM EDT PROCEDURE: CT angiogram of the neck and bridgeport of [place] and delayed postcontrast CT of the brain. HISTORY: ANEURYSM, HEAD NECK concern for SAH. COMPARISON: Same-day head CT. TECHNIQUE: CT angiogram of the neck and bridge[place] of [place] with multiplanar reformats. Delayed postcontrast [...] stenosis or occlusion. The basilar artery and warehouse insulation worker are widely patent. Small caliber left larger [...] PROCEDURE: CT angiogram of the neck and bridge[place] of [place] and delayedpostcontrast CT of the brain. HISTORY: ANEURYSM, HEAD NECK concern for SAH. COMPARISON: Same-day head CT. TECHNIQUE: CT angiogram of the neck and [place] of [place] with multiplanarreformats. Delayed postcontrast images [...] vertebral stenosis orocclusion. The basilar artery and warehouse insulation worker are widely patent. Small caliber left larger [...] Signed Date: 05/16/2025 09:02 ET Workstation ID: [id number] Transcribed By: Self Edit Transcribed Date: 05/16/2025 08:48 ET Dhiraj Ferrell MD IMG CT PROCEDURES Final Res ult * Troponin I High Sensitivity (05/16/2025 8:26 AM EDT) High Sensitivity Troponin I 8 <=54 ng/L LAB CHEMISTRY METHOD 05/16/2025 9:[address] [facility] Blood Venous blood specimen / Unknown Venipuncture / Unknown 05/16/2025 8:26 AM EDT 05/16/2025 8:[address] [facility] - 05/16/2025 9:37 AM EDT High levels of biotin in samples may falsely decrease hsTroponin values. Use caution when interpreting hsTroponin results in patients taking biotin who exhibit renal impairment (eGFR <60) or in patients taking more than 20 mg/day of biotin. Dhiraj Ferrell MD LAB BLOOD ORDERABLES Final Result [facility] [address] [place] [address], * External Mammogram Report (12/31/2024) Anatomical Region Laterality Modality Mammography Provider [facility] IMG BI PROCEDURES Final Result from Last 3 Months or Most Recently Relevant to Health Maintenance Insurance [facility] Care Teams Director Technical Relationship Specialty Start Date End Date Marcela Sloan PA [address] [address] PCP - General Primary Care 05/20/25
--- OUTSIDE RECORDS SUMMARY | 2025-06-30 09:15 | XMS_ITS | Encounter Summary ---
Author Organization [facility] Address [address] [place] [address] Care Team Providers Care 3Rd Mate Name Role Phone Marcela Sloan Primary Care Provider + Encounter Details Date Type Department Care Team (Late st Contact Info) Description 05/30/2024 Lab Requisition [facility] - Main Lab [address] [facility] [place] [address] Ze Bryan MD [address] [phone] Chronic obstructive pulmonary disease, unspecified (CMS/HCC [...] 9:00 AM EST Consult Vascular Surgery - [place] [address] [place] [address] Manoj Drummond MD [address] [place] [address] Scheduled Orders Name Type Priority Associated Diagnoses [...] hypertension documented in this encounter Care Teams 3Rd Mate Relationship Specialty Start Date End Date Marcela Sloan PA [address] [place] [address] PCP - General Primary Care 05/20/25 documented as of this encounter
--- OUTSIDE RECORDS SUMMARY | 2025-06-30 09:15 | XMS_ITS | Encounter Summary ---
Author Organization [facility] Address [address] [place] [address] Care Team Providers Care Product Support Specialist Name Role Phone Marcela Sloan Primary Care Provider + Encounter Details Date Type Department Care Team (Late st Contact Info) Description 05/30/[address] [facility] - Main Lab [address] [facility] [place] [phone] Ze Bryan MD [address] [place] [phone] Essential (primary) hypertension Social History Tobacco Use [...] 9:00 AM EST Consult Vascular Surgery - [place] [address] [place] [address] Manoj Drummond MD [address] [place] [address] documented as of this encounter Visit Diagnoses Diagnosis Essential (primary) hypertension Unspecified essential hypertension documented in this encounter Care Teams Product Support Specialist Relationship Specialty Start Date End Date Marcela Sloan PA [address] [place] [address] PCP - General Primary Care 05/20/25 documented as of this encounter
--- OUTSIDE RECORDS SUMMARY | 2025-06-30 09:15 | XMS_ITS | Encounter Summary ---
Author Organization [facility] Address [address] [place] [address] Care Team Providers Care Apricot Packer Name Role Phone Marcela Sloan Primary Care Provider + Encounter Details Date Type Department Care Team (Late st Contact Info) Description 06/03/2024 Lab Requisition [facility] - Main Lab 299 [facility] [place] [address] Ze Bryan MD [address] [place] [phone] Unilateral primary osteoarthritis, right knee; Aftercare following [...] 9:00 AM EST Consult Vascular Surgery - [place] [address] [place] [address] Manoj Drummond MD [address] [place] [address] documented as of this encounter [...] mmol/L LAB CHEMISTRY METHOD 06/03/2024 7:40 AM [facility] Potassium 4.9 3.5 - 5.5 mmol/L LAB CHEMISTRY METHOD 06/03/2024 7:40 AM [facility] Chloride 108 96 - 110 mmol/L LAB CHEMISTRY METHOD 06/03/2024 7:40 AM [facility] CO2 27 21 - 32 mmol/L LAB CHEMISTRY METHOD 06/03/2024 7:40 AM [facility] Anion Gap 6 3 - 11 LAB CHEMISTRY METHOD 06/03/2024 7:40 AM [facility] Glucose 84 70 - 100 mg/dL LAB CHEMISTRY METHOD 06/03/2024 7:40 AM [facility] BUN 21 5 - 25 mg/dL LAB CHEMISTRY METHOD 06/03/2024 7:40 AM [facility] Creatinine 0.75 0.50 - 1.10 mg/dL LAB CHEMISTRY METHOD 06/03/2024 7:40 AM [facility] eGFR 83 >=60 mL/min/1. 73m2 LAB CHEMISTRY METHOD 06/03/2024 7:40 AM [facility] Comment:Calculation based on the Chronic Kidney Disease Epidemiology Collaboration (CKD-EPI) equation refit without adjustment for race. BUN/Creatinine Ratio 28.0 LAB CHEMISTRY METHOD 06/03/2024 7:40 AM [facility] Calcium 9.0 8.5 - 10.5 mg/dL LAB CHEMISTRY METHOD 06/03/2024 7:40 AM [facility] Blood Venous blood specimen / Unknown 06/03/2024 5:15 AM EST 06/03/2024 7:09 AM EST us Ze Bryan MD LAB BLOOD ORDERABLES Final Resu lt [facility] [address] [place] [address], [place] [phone] * (ABNORMAL) Complete blood count (06/03/2024 5:15 AM EST) WBC 8.9 4.8 - 10.8 K/mcL LAB HEMETOLOGY METHOD 06/03/2024 8:13 AM [facility] RBC 2.90(L) 3.80 - 4.80 M/mcL LAB HEMETOLOGY METHOD 06/03/2024 8:13 AM [facility] Hemoglobin 8.7(L) 11.5 - 16.0 g/dL LAB HEMETOLOGY METHOD 06/03/2024 8:13 AM [facility] Hematocrit 28.4(L) 35.0 - 47.0 % LAB HEMETOLOGY METHOD 06/03/2024 8:13 AM [facility] MCV 97.3 79.0 - 98.0 FL LAB HEMETOLOGY METHOD 06/03/2024 8:13 AM [facility] MCH 29.8 27.0 - 32.0 pcg LAB HEMETOLOGY METHOD 06/03/2024 8:13 AM [facility] MCHC 30.6(L) 32.0 - 37.0 g/dL LAB HEMETOLOGY METHOD 06/03/2024 8:13 AM [facility] RDW 13.6 11.0 - 15.0 % LAB HEMETOLOGY METHOD 06/03/2024 8:13 AM [facility] Platelets 314 130 - 400 K/mcL LAB HEMETOLOGY METHOD 06/03/2024 8:13 AM EST [facility] MPV 9.4 7.0 - 11.0 FL LAB HEMETOLOGY METHOD 06/03/2024 8:13 AM EST [facility] NRBC 0.0 <1.0 % LAB HEMETOLOGY METHOD 06/03/2024 8:13 AM EST [facility] NRBC Absolute 0.00 <0.10 K/mcL LAB HEMETOLOGY METHOD 06/03/2024 8:13 AM EST [facility] Blood Venous blood specimen / Unknown 06/03/2024 5:15 AM EST 06/03/2024 7:09 AM EST us Ze Bryan MD LAB BLOOD ORDERABLES Final Resu lt [facility] [address] [place] [address], documented in this encounter Visit Diagnoses Diagnosis Unilateral primary osteoarthritis, right knee Aftercare following joint replacement surgery documented in this encounter Care Teams Apricot Packer Relationship Specialty Start Date End Date Marcela Sloan PA [address] [address] PCP - General Primary Care 05/20/25 documented as of this encounter
--- OUTSIDE RECORDS SUMMARY | 2025-06-30 09:15 | XMS_ITS | Encounter Summary ---
Author Organization [facility] Address [address] [place] [address] Care Team Providers Care Electric Needle Specialist Name Role Phone Marcela Sloan Primary Care Provider + Encounter Details Date Type Department Care Team (Late st Contact Info) Description 06/02/2024 Lab Requisition [facility] - Main Lab 299 [facility] [place] [address] Ze Bryan MD [address] [place] [phone] Hyperlipidemia, unspecified; Chronic obstructive pulmonary disease, [...] 9:00 AM EST Consult Vascular Surgery - [place] [address] [place] [address] Manoj Drummond MD [address] [place] [address] documented as of this encounter Visit Diagnoses Diagnosis Hyperlipidemia, unspecified Chronic obstructive pulmonary disease, unspecified (CMS/[facility] V24, CMS/[facility] V28) Essential (primary) hypertension Unspecified essential hypertension documented in this encounter Care Teams Electric Needle Specialist Relationship Specialty Start Date End Date Marcela Sloan PA [address] [place] [address] PCP - General Primary Care 05/20/25 documented as of this encounter
--- OUTSIDE RECORDS SUMMARY | 2025-06-30 09:15 | XMS_ITS | Encounter Summary ---
Author Organization [facility] Address [address] [place] [address] Care Team Providers Care Music Teacher Name Role Phone Marcela Sloan Primary Care Provider + Encounter Details Date Type Department Care Team (Late st Contact Info) Description 05/31/2024 Lab Requisition [facility] - Main Lab 299 [facility] [place] [address] Ze Bryan MD [address] [place] [phone] Chronic obstructive pulmonary disease, unspecified (CMS/HCC [...] 9:00 AM EST Consult Vascular Surgery - [place] [address] [place] [address] Manoj Drummond MD [address] [place] [address] documented as of this encounter [...] Travel phlebotomy fee (06/01/2024 5:20 AM EST) [facility] TRAVEL PHLEBOTOMY FEE Completed 06/01/2024 11:02 AM EST [facility] Blood Venous blood specimen / Unknown Venipuncture / Unknown 06/01/2024 5:20 AM EST 06/01/2024 10:59 AM EST us Ze Bryan MD LAB BLOOD ORDERABLES Final Resu lt [facility] LAB [address] [place] [address], * (ABNORMAL) Comprehensive metabolic panel (06/01/2024 5:20 AM EST) [facility] Sodium 139 133 - 145 mmol/L LAB CHEMISTRY METHOD 06/01/2024 12:25 PM EST [facility] Potassium 5.4 3.5 - 5.5 mmol/L LAB CHEMISTRY METHOD 06/01/2024 12:25 PM EST [facility] Chloride 107 96 - 110 mmol/L LAB CHEMISTRY METHOD 06/01/2024 12:25 PM EST [facility] CO2 29 21 - 32 mmol/L LAB CHEMISTRY METHOD 06/01/2024 12:25 PM [facility] Anion Gap 3 3 - 11 LAB CHEMISTRY METHOD 06/01/2024 12:25 PM [facility] Glucose 76 70 - 100 mg/dL LAB CHEMISTRY METHOD 06/01/2024 12:25 PM [facility] BUN 24 5 - 25 mg/dL LAB CHEMISTRY METHOD 06/01/2024 12:25 PM [facility] Creatinine 0.72 0.50 - 1.10 mg/dL LAB CHEMISTRY METHOD 06/01/2024 12:25 PM [facility] eGFR 87 >=60 mL/min/1. 73m2 LAB CHEMISTRY METHOD 06/01/2024 12:25 PM [facility] Comment:Calculation based on the Chronic Kidney Disease Epidemiology Collaboration (CKD-EPI) equation refit without adjustment for race. BUN/Creatinine Ratio 33.3 LAB CHEMISTRY METHOD 06/01/2024 12:25 PM [facility] Calcium 8.6 8.5 - 10.5 mg/dL LAB CHEMISTRY METHOD 06/01/2024 12:25 PM [facility] AST (SGOT) 16 10 - 42 unit/L LAB CHEMISTRY METHOD 06/01/2024 12:25 PM [facility] ALT (SGPT) 8(L) 10 - 60 unit/L LAB CHEMISTRY METHOD 06/01/2024 12:25 PM [facility] Alkaline Phosphatase 65 42 - 121 unit/L LAB CHEMISTRY METHOD 06/01/2024 12:25 PM [facility] Total Protein 5.5(L) 6.0 - 8.0 g/dL LAB CHEMISTRY METHOD 06/01/2024 12:25 PM [facility] Albumin 2.8(L) 3.2 - 5.0 g/dL LAB CHEMISTRY METHOD 06/01/2024 12:25 PM [facility] Total Bilirubin 0.7 0.0 - 1.4 mg/dL LAB CHEMISTRY METHOD 06/01/2024 12:25 PM [facility] Blood Venous blood specimen / Unknown Venipuncture / Unknown 06/01/2024 5:20 AM EST 06/01/2024 10:59 AM EST us Ze Bryan MD LAB BLOOD ORDERABLES Final Resu lt [facility] [address] [place] [address], * (ABNORMAL) Complete blood count (06/01/2024 5:20 AM EST) WBC 8.0 4.8 - 10.8 K/mcL LAB HEMETOLOGY METHOD 06/01/2024 12:08 PM [facility] RBC 3.20(L) 3.80 - 4.80 M/mcL LAB HEMETOLOGY METHOD 06/01/2024 12:08 PM [facility] Hemoglobin 9.4(L) 11.5 - 16.0 g/dL LAB HEMETOLOGY METHOD 06/01/2024 12:08 PM [facility] Hematocrit 31.1(L) 35.0 - 47.0 % LAB HEMETOLOGY METHOD 06/01/2024 12:08 PM [facility] MCV 97.5 79.0 - 98.0 FL LAB HEMETOLOGY METHOD 06/01/2024 12:08 PM [facility] MCH 29.5 27.0 - 32.0 pcg LAB HEMETOLOGY METHOD 06/01/2024 12:08 PM [facility] MCHC 30.2(L) 32.0 - 37.0 g/dL LAB HEMETOLOGY METHOD 06/01/2024 12:08 PM [facility] RDW 13.5 11.0 - 15.0 % LAB HEMETOLOGY METHOD 06/01/2024 12:08 PM EST [facility] Platelets 309 130 - 400 K/mcL LAB HEMETOLOGY METHOD 06/01/2024 12:08 PM [facility] MPV 9.4 7.0 - 11.0 FL LAB HEMETOLOGY METHOD 06/01/2024 12:08 PM [facility] NRBC 0.0 <1.0 % LAB HEMETOLOGY METHOD 06/01/2024 12:08 PM [facility] NRBC Absolute 0.00 <0.10 K/mcL LAB HEMETOLOGY METHOD 06/01/2024 12:08 PM [facility] Blood Venous blood specimen / Unknown Venipuncture / Unknown 06/01/2024 5:20 AM EST 06/01/2024 10:59 AM EST us Ze Bryan MD LAB BLOOD ORDERABLES Final Resu lt [facility] LAB [address] [place] [address], documented in this encounter Visit Diagnoses Diagnosis Chronic obstructive pulmonary disease, unspecified (CMS/HCC V24, CMS/HCC V28) Hyperlipidemia, unspecified Essential (primary) hypertension Unspecified essential hypertension documented in this encounter Care Teams Music Teacher Relationship Specialty Start Date End Date Marcela Sloan PA [address] [address] PCP - General Primary Care 05/20/25 documented as of this encounter
--- OUTSIDE RECORDS SUMMARY | 2025-06-30 09:16 | XMS_ITS | Clinical Summary ---
Author Organization [facility] Address [address] [place] [address] Care Team Providers Care Emergency Dispatch Operator Name Role Phone Tab Joe MD PhD Primary Care Provider [phone] Allergies Active Allergy Reactions Criticality Noted Date [...] topic Insurance MEDICARE PART A & B [facility] Care Teams Emergency Dispatch Operator Relationship Specialty Start Date End Date Tab Joe MD PhD NPI: [id number] [place] [id number] PCP - General Internal Medicine 12/10/24
== END 2025-06-30 09:28 | disposition home or self-care (01) ==
LOC: HO.HPHYS 08:52
PROVIDERS: PCP Physician Assistant; Visit Provider Physician Assistant
DX: M48.062 Spinal stenosis, lumbar region with neurogenic claudication (principal); M54.16 Radiculopathy, lumbar region
CPT/HCPCS: 99213

== ENCOUNTER → 2025-06-30 08:52 | Outpatient (BNVA) | payer MEDICARE, OTHER, SELFPAY | PROVIDERS: PCP Physician Assistant; Visit Provider Physician Assistant | DX: M48.062 Spinal stenosis, lumbar region with neurogenic claudication (principal); M54.16 Radiculopathy, lumbar region; G89.29 Other chronic pain; Z87.891 Personal history of nicotine dependence | CPT/HCPCS: 99212 ==

== ENCOUNTER 2025-07-09 07:14 | Outpatient (REF) | payer MEDICARE, OTHER, SELFPAY ==
--- NOTE | ~2025-07-09 | CT_ITS ---
CLINICAL HISTORY: M48.062 - Spinal stenosis, lumbar region with neurogenic claudication CT lumbar spine without contrast Comparison: None provided Findings: There is mild scoliosis. No acute fractures or dislocations. There is multiple level degenerative disc and facet change. Visualized abdominal contents unremarkable. IMPRESSION: No acute findings. This document has been electronically signed by: Turner Peguero MD on 07/09/2025 11:51:40
--- OUTSIDE RECORDS SUMMARY | 2025-07-09 07:16 | XMS_ITS | Clinical Summary ---
Author Organization [facility] Prior to 12/26/24 Address [address] [place] [address] Care Team Providers Care Efficiency Manager Name Role Phone Tab Joe MD Primary [...] age to complete this topic Care Teams Efficiency Manager Relationship Specialty Start Date End Date Tab Joe MD PCP - General Internal Medicine 03/24/19
--- OUTSIDE RECORDS SUMMARY | 2025-07-09 07:17 | XMS_ITS | Encounter Summary ---
Author Organization [facility] Address [address] [place] [address] Care Team Providers Care Design Engineer Products Name Role Phone Marcela Sloan Primary Care Provider + Encounter Details Date Type Department Care Team (Late st Contact Info) Description 05/31/2024 Lab Requisition [facility] - Main Lab 299 [facility] [place] [address] Ze Bryan MD [address] [place] [phone] Chronic obstructive pulmonary disease, unspecified (CMS/HCC [...] 9:00 AM EST Consult Vascular Surgery - [place] [address] [place] [address] Manoj Drummond MD [address] [place] [address] documented as of this encounter [...] Travel phlebotomy fee (06/01/2024 5:20 AM EST) [facility] TRAVEL PHLEBOTOMY FEE Completed 06/01/2024 11:02 AM EST [facility] Blood Venous blood specimen / Unknown Venipuncture / Unknown 06/01/2024 5:20 AM EST 06/01/2024 10:59 AM EST us Ze Bryan MD LAB BLOOD ORDERABLES Final Resu lt [facility] [address] [place] [address], * (ABNORMAL) Comprehensive metabolic panel (06/01/2024 5:20 AM EST) [facility] Sodium 139 133 - 145 mmol/L LAB CHEMISTRY METHOD 06/01/2024 12:25 PM EST [facility] Potassium 5.4 3.5 - 5.5 mmol/L LAB CHEMISTRY METHOD 06/01/2024 12:25 PM EST [facility] Chloride 107 96 - 110 mmol/L LAB CHEMISTRY METHOD 06/01/2024 12:25 PM EST [facility] CO2 29 21 - 32 mmol/L LAB CHEMISTRY METHOD 06/01/2024 12:25 PM [facility] Anion Gap 3 3 - 11 LAB CHEMISTRY METHOD 06/01/2024 12:25 PM [facility] Glucose 76 70 - 100 mg/dL LAB CHEMISTRY METHOD 06/01/2024 12:25 PM [facility] BUN 24 5 - 25 mg/dL LAB CHEMISTRY METHOD 06/01/2024 12:25 PM [facility] Creatinine 0.72 0.50 - 1.10 mg/dL LAB CHEMISTRY METHOD 06/01/2024 12:25 PM [facility] eGFR 87 >=60 mL/min/1. 73m2 LAB CHEMISTRY METHOD 06/01/2024 12:25 PM [facility] Comment:Calculation based on the Chronic Kidney Disease Epidemiology Collaboration (CKD-EPI) equation refit without adjustment for race. BUN/Creatinine Ratio 33.3 LAB CHEMISTRY METHOD 06/01/2024 12:25 PM [facility] Calcium 8.6 8.5 - 10.5 mg/dL LAB CHEMISTRY METHOD 06/01/2024 12:25 PM [facility] AST (SGOT) 16 10 - 42 unit/L LAB CHEMISTRY METHOD 06/01/2024 12:25 PM [facility] ALT (SGPT) 8(L) 10 - 60 unit/L LAB CHEMISTRY METHOD 06/01/2024 12:25 PM [facility] Alkaline Phosphatase 65 42 - 121 unit/L LAB CHEMISTRY METHOD 06/01/2024 12:25 PM [facility] Total Protein 5.5(L) 6.0 - 8.0 g/dL LAB CHEMISTRY METHOD 06/01/2024 12:25 PM [facility] Albumin 2.8(L) 3.2 - 5.0 g/dL LAB CHEMISTRY METHOD 06/01/2024 12:25 PM [facility] Total Bilirubin 0.7 0.0 - 1.4 mg/dL LAB CHEMISTRY METHOD 06/01/2024 12:25 PM [facility] Blood Venous blood specimen / Unknown Venipuncture / Unknown 06/01/2024 5:20 AM EST 06/01/2024 10:59 AM EST us Ze Bryan MD LAB BLOOD ORDERABLES Final Resu lt [facility] [address] [place] [address], * (ABNORMAL) Complete blood count (06/01/2024 5:20 AM EST) WBC 8.0 4.8 - 10.8 K/mcL LAB HEMETOLOGY METHOD 06/01/2024 12:08 PM [facility] RBC 3.20(L) 3.80 - 4.80 M/mcL LAB HEMETOLOGY METHOD 06/01/2024 12:08 PM [facility] Hemoglobin 9.4(L) 11.5 - 16.0 g/dL LAB HEMETOLOGY METHOD 06/01/2024 12:08 PM [facility] Hematocrit 31.1(L) 35.0 - 47.0 % LAB HEMETOLOGY METHOD 06/01/2024 12:08 PM [facility] MCV 97.5 79.0 - 98.0 FL LAB HEMETOLOGY METHOD 06/01/2024 12:08 PM [facility] MCH 29.5 27.0 - 32.0 pcg LAB HEMETOLOGY METHOD 06/01/2024 12:08 PM [facility] MCHC 30.2(L) 32.0 - 37.0 g/dL LAB HEMETOLOGY METHOD 06/01/2024 12:08 PM [facility] RDW 13.5 11.0 - 15.0 % LAB HEMETOLOGY METHOD 06/01/2024 12:08 PM EST [facility] Platelets 309 130 - 400 K/mcL LAB HEMETOLOGY METHOD 06/01/2024 12:08 PM [facility] MPV 9.4 7.0 - 11.0 FL LAB HEMETOLOGY METHOD 06/01/2024 12:08 PM [facility] NRBC 0.0 <1.0 % LAB HEMETOLOGY METHOD 06/01/2024 12:08 PM [facility] NRBC Absolute 0.00 <0.10 K/mcL LAB HEMETOLOGY METHOD 06/01/2024 12:08 PM [facility] Blood Venous blood specimen / Unknown Venipuncture / Unknown 06/01/2024 5:20 AM EST 06/01/2024 10:59 AM EST us Ze Bryan MD LAB BLOOD ORDERABLES Final Resu lt [facility] [address] [place] [address], documented in this encounter Visit Diagnoses Diagnosis Chronic obstructive pulmonary disease, unspecified (CMS/HCC V24, CMS/HCC V28) Hyperlipidemia, unspecified Essential (primary) hypertension Unspecified essential hypertension documented in this encounter Care Teams Design Engineer Products Relationship Specialty Start Date End Date Marcela Sloan PA [address] [address] PCP - General Primary Care 05/20/25 documented as of this encounter
--- OUTSIDE RECORDS SUMMARY | 2025-07-09 07:17 | XMS_ITS | Encounter Summary ---
Author Organization [facility] Address [address] [place] [address] Care Team Providers Care Steward Dishwasher Name Role Phone Marcela Sloan Primary Care Provider + Encounter Details Date Type Department Care Team (Late st Contact Info) Description 06/02/2024 Lab Requisition [facility] - Main Lab 299 [facility] [place] [address] Ze Bryan MD [address] [place] [phone] Hyperlipidemia, unspecified; Chronic obstructive pulmonary disease, [...] 9:00 AM EST Consult Vascular Surgery - [place] [address] [place] [address] Manoj Drummond MD [address] [place] [address] documented as of this encounter Visit Diagnoses Diagnosis Hyperlipidemia, unspecified Chronic obstructive pulmonary disease, unspecified (CMS/[facility] V24, CMS/[facility] V28) Essential (primary) hypertension Unspecified essential hypertension documented in this encounter Care Teams Steward Dishwasher Relationship Specialty Start Date End Date Marcela Sloan PA [address] [place] [address] PCP - General Primary Care 05/20/25 documented as of this encounter
--- OUTSIDE RECORDS SUMMARY | 2025-07-09 07:17 | XMS_ITS | Data Portability ---
Author Organization [place] [facility] [place] Address [address] [place] [address] Care Team Providers Care Strategic Account Manager Name Role Phone JOHN COURTNEY Primary Care [...] history of 2 lumbar back surgeries at [facility] approximately 6 or 7 years ago. [...] We recommend ice. , She may use trxs-xrw-trxqftj medications sparingly as needed. She will follow-up in approximately 3 to 4 weeks for repeat evaluation or sooner if needed. [email or web address] Not available 12/31/2022 10:03:10 02/04/2023 02/04/2023 HPI: Jailyn is a 72 year old female who returns for continued management of her lumbar spine. She has a history of bilateral hip replacements and a knee replacement by Dr. Ortiz. She reports a history of 2 prior back surgeries at [facility] that were approximately 6 or 7 [...] had any new injury. She is taking mzbs-gna-cflvkyv medications and topical medications with some relief. Plan: 72-year-old female with a history of 2 lumbar back surgeries at [facility] approximately 6 or 7 years ago. [...] interim if she has any worsening symptoms. Not available 02/04/2023 11:22:00 03/11/2023 03/11/2023 HPI: Jailyn is a 72 year old female who returns for continued management of her lumbar spine. She has a history of bilateral hip replacements and a knee replacement by Dr. Ortiz. She reports a history of 2 prior back surgeries at [facility] that were approximately 6 or 7 [...] history of 2 lumbar back surgeries at [facility] approximately 6 or 7 years ago. [...] basis as her severe pain has resolved. [email or web address] Not available 03/11/2023 10:35:25 09/12/2023 09/12/2023 HPI [...] degrees. The knees are stable within those azcifa-yf-fzuvsc. The alignment of the right knee is [...] Knee Pain 2023 024 [email or web address] [facility], [address], [place], [address], 4 11:50:43 XR, knee, 1 or 2 view - Right Knee Pain 2023 024 [email or web address] [facility], [address], [address], [place], [address], 4 11:50:43 XR, knee, weightbeari ng - Bilateral Knee Pain 2023 024 [email or web address] [facility], [address], [address], [place], [address], 4 11:50:43 XR, lumbosacral spine, 2 or 3 view 2022 023 [email or web address] [facility], [address], [address], [place], [address], 3 12:15:27 XR, lumbosacral spine, 2 or 3 view 2022 023 [email or web address] 21 [facility], [address], [address], [place], [address], 3 13:41:28 XR, lumbosacral spine, 2 or 3 view, bending only 2022 023 [email or web address] 21 [facility], [address], [address], [place], [address], 3 13:41:28 Medication Orders Marcaine (PF) 0.5 % (5 mg/mL) injection solution 2023 024 [email or web address] [facility], [address] [place] [address], [address], 4 11:50:43 lidocaine (PF) 100 mg/5 mL (2 %) injection syringe 2023 024 [email or web address] [facility], [address] [place], [address], 4 11:50:43 Kenalog 40 mg/mL suspension for injection 2023 024 [email or web address] [facility], [address] [place], [address], 4 11:50:43 Patient TargetsNo targets recorded. Patient Instructions Encounter Date Encounter Id Patient Instructions Last Modified By Organization Details Last Modified Time 12/31/2022 [id number] AP and lateral radiographs lumbar spine were obtained in the [place] office today. These reveal extensive degenerative changes throughout. Lumbar scoliosis, lateral listhesis of L4 and L5. Minimal anterolisthesis of L4 and L5 and L5 on S1. Extensive lower lumbar facet arthropathy. There may be slight compression of the anterior endplate of L3. [email or web address] Not available 12/31/2022 10:05:03 02/04/2023 [id number] Repeat AP and lateral radiographs lumbar spine were obtained in the office today and compared with her previous radiographs from December 31, 2022. These redemonstrate multilevel degenerative changes with grade 1 anterior listhesis of L5 on S1 greater than L4 and L5, minimal endplate depression of L3 appears stable from previous radiographs. Extensive lower lumbar facet arthrosis. Not available 02/04/2023 11:19:58 09/12/2023 [id number] AP, lateral, Leiva, and patellar view radiographs of the right knee taken today demonstrate right knee degenerative joint disease with joint space narrowing, osteophyte formation, and subchondral sclerosis. There is pbir-hl-hlmg articulation medially. AP, lateral, and patellar radiographs [...] 2017 Bursitis of right elbow Not Available [facility] 5 00:30:49 Arthritis of right knee joint 35817099084 93507 Active 2017 Arthritis of knee, right Not Available [facility] 5 00:30:49 Calcific tendiniti s of left shoulder 67934755507 9108 Active 2018 Calcific tendiniti s of left shoulder Not Available [facility] 5 00:30:49 Subacromi al bursitis of right shoulder 64870449925 13201 Active 2018 Subacromi al bursitis of right shoulder joint Not Available [facility] 5 00:30:50 Injury of left knee 76636906591 4106 Active 2018 Left knee injury Not Available [facility] 5 00:30:49 Arthritis of left knee joint 87175035593 83023 Active 2018 Arthritis of knee, left Not Available [facility] 5 00:30:50 Closed fracture of femoral condyle of femur 08067170 Active 2018 Closed subchondr al insuffici ency fracture of condyle of left femur Not Available [facility] 5 00:30:50 Acute meniscal tear, medial 413694999 Active 2018 Complex tear of medial meniscus of left knee as current injury Not Available [facility] 5 00:30:51 Low back pain 670244099 Active [address], [place], [address] , [place] [facility] 3 10:00:46 Fall Active [address], [place], [address] , [place] [facility] 3 10:00:48 Lumbar spondylol isthesis 61509479151 9102 Active [address], [place], [address] , [place] [facility] 3 10:00:49 Lumbar spondylos is 246928477 Active [address], [place], [address] , [place] [facility] 3 10:00:50 History of operative procedure on lumbar spinal structure 611269258 Active 2022 KEILY PAYTON PA-C [address], [place], [address] , [place] [facility] 3 10:00:51 Osteoarth ritis of right knee joint 89682706140 9100 Active 2023 Anson Zambrano MD [address], [place], [address] , [place] [facility] 4 11:28:40 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 Procedures Surgical History Date Name Laterality Status Provider Name and Address Organization Details Recorded Time 09/12/19 24 MJG Knee Injection w/o US completed Anson Zambrano MD [address], [place], [address], [place] [facility] 09/12/2023 11:28:31 Appendectomy completed Sahil Wiggins [place] [facility] 11/28/2022 09:36:20 Hysterectomy completed Sahil Wiggins [place] [facility] 11/28/2022 09:36:28 implantation of joint prosthesis completed Sahil Wiggins [place] [facility] 11/28/2022 09:36:42 Knee Surgery completed Sahil Wiggins [place] [facility] 11/28/2022 09:36:47 Imaging Results None recorded. Procedure Notes None recorded. Medical Equipment None Reported. Allergies Allergen ID Allergen Name Allergen Category Reaction Reaction Severity Criticality Documentation Date Start Date Code Code System Note Provider Name and Address Organization Details Recorded Time 3422 iodine medicatio n Not available Not available Not available 11/28/2022 5933 RxNorm Sahil Wiggins null, [place] [facility] 3 09:28:38 Medications Name Sig Start [...] Updated DateTime 09/12/2023 165.1 cm 28.3 kg/m2 50220.7 g Autumn Saavedra [place] [facility] 09/12/2023 10:44:18 Date Recorded Body height Body mass index (BMI) Body weight Provider Name and Address Organization Details Last Updated DateTime 12/31/2022 165.1 cm 29.1 kg/m2 45128.66 g Sahil Wiggins [place] [facility] 12/31/2022 09:41:00 Date Recorded Body height Provider Name an d Address Organization Details Last Updated DateTime 02/04/2023 165.1 cm Autumn Saavedra [facility] 02/04/2023 10:50:38 Date Recorded Body height Provider Name an d Address Organization Details Last Updated DateTime 03/11/2023 165.1 cm Nancy Delong [facility] 03/11/2023 10:03:40 Date Recorded Body mass index (BMI) Body weight Provider Name and Address Organization Details Last Updated DateTime 03/11/2023 28.3 kg/m2 43361.7 g Jayashree Nunes [place] [facility] 03/11/2023 10:21:19 Social History Question Answer Notes LastModified by Organizat ion Details LastModified Time Tobacco Smoking Status Former Smoker Sahil doshi, [place] [facility] 11/28/2022 09:34:36 When Did You Quit Smoking? 11-15yearssi augusta aggarwal [email or web address] Information not available 11/28/2022 Sex: Unknown Functional Status Question Answer Note LastModified by Organizat ion Details LastModified Time Do you use any illicit or recreational drugs? No [email or web address] Information not available 11/28/2022 Do you or have you ever used any other forms of tobacco or nicotine? No [email or web address] Information not available 11/28/2022 What is your level of alcohol consumption? None [email or web address] Information not available 11/28/2022 Mental Status None recorded. Family History Relationship Description Onset Age of this Age Resolved Age Notes LastModified by Organization Details LastModified Time Father Family history of malignant neoplasm Not available 2022 09:35:44 Mother Family history of malignant neoplasm [email or web address] Not available 2022 09:35:44 Sister Acute stroke [email or web address] Not avail able 11/28/2022 09:36:11 Medical History Condition Response Arthritis Y Reflux/GERD Y Hypertension Y Blood Transfusion Y Gynecological HistoryNo gynecological history recorded. Obstetrics History GPAL:G 0 P 0 0 0 0 Immunizations Vaccine Type Date Status Note Provider Nam e and Address Organization Details Recorded Time COVID-19, mRNA, LNP-S, PF, 30 mcg/0.3 mL dose 08/19/2020 completed Not Available [facility] 5 05:37:16 COVID-19, mRNA, LNP-S, PF, 30 mcg/0.3 mL dose 09/14/2020 completed Not Available [facility] 5 05:37:17 Past Encounters Encounter ID Performer Location Encounter Start Date Encounter Closed Date Diagnosis/Indication Diagnosis SNOMED-CT Code Diagnosis ICD10 Code Diagnosis IMO Codes Diagnosis Note [id number] ROMAN العراقي [place] [address] [facility] [address] [place] [address] 11/28/2022 09:18:49 11/28/2022 10:21:23 Arthritis of knee 450103066 M13.869 [id number] [address] [facility] [address] [facility] [place] [address] 12/31/2022 09:19:02 12/31/2022 09:59:43 Low back pain 535209505 M54.50 Fall W19.XXXA Lumbar spondylolisthesis 3430091134 05285 M43.16 Lumbar spondylosis 19422 0009 M47.896 History of operative procedure on lumbar spinal structure 391590879 Z98.890 [id number] KEILY PAYTON PA-C [facility] [address] [address] 02/04/2023 10:47:41 02/04/2023 11:21:04 Low back pain 416361732 M54.50 Fall W19.XXXA Lumbar spondylolisthesis 8722317397 85843 M43.16 Lumbar spondylosis 38582 0009 M47.896 History of operative procedure on lumbar spinal structure 631292935 Z98.890 [id number] [facility] [address] [address] 03/11/2023 09:56:47 03/11/2023 10:32:54 Low back pain 595089270 M54.50 Fall W19.XXXA Lumbar spondylolisthesis 5681475160 34286 M43.16 Lumbar spondylosis 89119 0009 M47.896 History of operative procedure on lumbar spinal structure 482969847 Z98.890 [id number] Asnon Zambrano MD [address] [address] 09/12/2023 10:37:32 09/12/2023 11:34:33 Pain of bilateral knee joints 1209794226 57410 M25.561 M25.562 Osteoarthr itis of right knee joint 3818860541 09985 M17.11 Chronic pa in following left total knee arthroplasty 8196893991 0584062 T84.84XA Health Concerns Section Related Observation LastModified by Organization Detai ls LastModified Time None Recorded Concern Status LastModified by Organization Details LastModified Time None Recorded Advance Directives Directive None Recorded Payers Insurance Date Sequence Insurance Name Policy Number Policy Dunn Covered Member ID Dunn Member ID Guarantor Name 11/02/2023 1 [place]ARE [place]: [place] Jailyn A Simon [id number] Jailyn Simon 11/06/2023 2 () Jailyn A Simon [id number] Jailyn Montes Notes Date Note Type Note [...] CHIQUITA UMAÑA PA-C [address], [place], [address], [place] [facility], 11/28/2022 10:11:39 12/31/2022 text/html Jailyn is a 72-year-old female with a history of bilateral hip replacements and a knee replacement by Dr. Ortiz. She reports a history of 2 prior back surgeries at [facility] that were approximately 6 or 7 years ago. She reports these were successful. She has hypertension and reflux. She was at a concert on December 16. She reports that she slipped on a wet marble and landed directly on her lumbosacral spine and right buttock. implementation services analyst evaluated her and helped her get to [...] modalities and rest. [address], [place], [address], [place] [facility] 12/31/2022 10:06:39 02/04/2023 text/html Prior Visit 12/31/22 Jailyn is a 72-year-old female with a history of bilateral hip replacements and a knee replacement by Dr. Ortiz. She reports a history of 2 prior back surgeries at [facility] that were approximately 6 or 7 years ago. She reports these were successful. She has hypertension and reflux. She was at a concert on December 16. She reports that she slipped on a wet marble and landed directly on her lumbosacral spine and right buttock. implementation services analyst evaluated her and helped her get to [...] history of 2 lumbar back surgeries at [facility] approximately 6 or 7 years ago. [...] We recommend ice. , She may use onsd-hry-hzclxbt medications sparingly as needed. She will follow-up in approximately 3 to 4 weeks for repeat evaluation or sooner if needed. MATTY TATE-Alison [address], [place], [address], [place] [facility] 02/04/2023 11:22:23 03/11/2023 text/html prior visit 02/04/23 HPI: Jailyn is a 72 year old female who returns for continued management of her lumbar spine. She has a history of bilateral hip replacements and a knee replacement by Dr. Ortiz. She reports a history of 2 prior back surgeries at [facility] that were approximately 6 or 7 [...] had any new injury. She is taking bsmq-qem-ctkirca medications and topical medications with some relief. Plan: 72-year-old female with a history of 2 lumbar back surgeries at [facility] approximately 6 or 7 years ago. [...] KEILY PAYTON PA-C [address], [place], [address], [place] [facility] 03/11/2023 10:36:22 OBGyn Episode No OBEpisode recorded.
--- OUTSIDE RECORDS SUMMARY | 2025-07-09 07:17 | XMS_ITS | Data Portability ---
Author Organization [place] [facility] All[facility] Address [address] [address] Care Team Providers Care Fpga Engineer Name Role Phone ASHLEY KLEIN Primary Care [...] see her back after it is completed [email or web address] Not available 08/04/2024 13:32:40 Plan of Treatment [...] Organization Details Recorded Time Deviated nasal septum 530930132 Active 025 ALEXIS FARNSWORTH MD [address] [facility], [address] [facility], [place], [address], [facility] - [facility] 5 13:20:02 Allergic rhinitis 80591595 Active 025 ALEXIS FARNSWORTH MD 100 [facility],[address] [address], [place], [address], [facility] 5 13:20:32 Nasal congestion 11559426 Active 025 ALEXIS FARNSWORTH MD [address] [facility],[address] [address], [place], [address], [facility] 5 13:27:05 Hearing loss 80993237 Active 025 ALEXIS FARNSWORTH MD [address] [address], [place], [address], [facility] 5 13:27:36 Problem Notes None recorded. Medical Equipment None Reported. Allergies Allergen ID Allergen Name Allergen Category Reaction Reaction Severity Criticality Documentation Date Start Date Code Code System Note Provider Name and Address Organization Details Recorded Time 513159 iodine medicatio n Not available Not available Not available 08/04/2024 5933 RxNorm Jessika doshi [place] - [facility] 5 13:00:29 Medications Name Sig Start [...] Updated DateTime 08/04/2024 162.56 cm 26.6 kg/m2 61071.82 g Jessika Giron [place] - [facility] 08/04/2024 12:59:41 Social History None recorded. [...] ICD10 Code Diagnosis IMO Codes Diagnosis Note [id number] ALEXIS FARNSWORTH MD [facility] [address] [address] 08/04/2024 12:43:58 08/04/2024 13:30:50 Deviated nasal septum 943499060 J34.2 Allergic rhinitis 670070 04 J30.9 Nasal congestion 1378664 0 R09.81 Hearing loss 00460195 H9 1.93 Patient had no interest in having formal audiometri c testing and will continue to work with her hearing instrument dispenser at [employer] for hearing testing and hearing aid [email or web address] cooper Health Concerns Section Related Observation LastModified by Organization Detai ls LastModified Time None Recorded Concern Status LastModified by Organization Details LastModified Time None Recorded Advance Directives Directive None Recorded Payers Insurance Date Sequence Insurance Name Policy Number Policy Dunn Covered Member ID Dunn Member ID Guarantor Name 08/04/2024 2 () Jailyn Montes [id number] Jailyn Montes 08/04/2024 1 MEDICARE [place]: [employer] Jailyn Montes [id number] Jailyn Montes Notes Date Note Type Note [...] in general. Last September she was in [place] and had a severe allergy attack which turned out to be related to exposure to down pillow feathers. She continues to have chronic sensation of nasal congestion. She reports nasally voice which is bothersome for her. She does not have rhinorrhea or significant sneezing.Patient does have hearing loss bilaterally and has hearing aids dispensed through [employer]. She does not desire any further workup with regards to her hearing. ALEXIS FARNSWORTH MD [address] [place] [address], [address], [facility] - [facility] 08/04/2024 13:35:40 OBGyn Episode No OBEpisode recorded.
--- OUTSIDE RECORDS SUMMARY | 2025-07-09 07:17 | XMS_ITS | Encounter Summary ---
Author Organization [facility] Address [address] [place] [address] Care Team Providers Care Business Operations Analyst Name Role Phone Marcela Sloan Primary Care Provider + Encounter Details Date Type Department Care Team (Late st Contact Info) Description 05/30/2024 Lab Requisition [facility] - Main Lab [address] [facility] [place] [address] Ze Bryan MD [address] [place] [address] Chronic obstructive pulmonary disease, unspecified (CMS/HCC [...] 9:00 AM EST Consult Vascular Surgery - [place] [address] [place] [address] Manoj Drummond MD [address] [place] [address] Scheduled Orders Name Type Priority [...] hypertension documented in this encounter Care Teams Business Operations Analyst Relationship Specialty Start Date End Date Marcela Sloan PA [address] [place] [address] PCP - General Primary Care 05/20/25 documented as of this encounter
--- OUTSIDE RECORDS SUMMARY | 2025-07-09 07:17 | XMS_ITS | Clinical Summary ---
Author Organization Former[facility] Address [address] [place] [address] Care Team Providers Care Continuous Improvement Lead Name Role Phone Tab Joe MD PhD Primary Care Provider [phone] Allergies Active Allergy Reactions Criticality Noted Date [...] topic Insurance MEDICARE PART A & B [facility] Care Teams Continuous Improvement Lead Relationship Specialty Start Date End Date Tab Joe MD PhD NPI: [id number] [place] [id number] PCP - General Internal Medicine 12/10/24
--- OUTSIDE RECORDS SUMMARY | 2025-07-09 07:17 | XMS_ITS | Encounter Summary ---
Author Organization [facility] Address [address] [place] [address] Care Team Providers Care Watershed Program Manager Name Role Phone Marcela Sloan Primary Care Provider + Encounter Details Date Type Department Care Team ([facility] Contact Info) Description 05/31/2025 Results Follow-Up Internal Medicine - [place] [address] [facility] [address] [place] [address] Marcela Sloan PA [address] [place] [address] Social History Tobacco Use Types Packs/Day Years [...] 9:00 AM EST Consult Vascular Surgery - [place] [address] [place] [address] Manoj Drummond MD [address] [place] [address] documented as of this encounter Visit Diagnoses Not on filedocumented in this encounter Care Teams Watershed Program Manager Relationship Specialty Start Date End Date Marcela Sloan PA [address] [address] PCP - General Primary Care 05/20/25 documented as of this encounter
--- OUTSIDE RECORDS SUMMARY | 2025-07-09 07:17 | XMS_ITS | Clinical Summary ---
Author Organization LL 299 [facility] Address [address] [place] [address] Phone Care Team Providers Care Weigher And Mixer Name Role Phone Marcela Sloan Primary Care [...] 3:30 PM EST Office Visit Internal Medicine [address] [phone] Marcela Sloan PA Routine general medical examination at a health care facility (Primary Dx); Primary hypertension; Chronic right-sided low back pain with right-sided sciatica 05/31/2025 Results Follow-Up Internal Medicine - [place] [address] [phone] Marcela Sloan PA 05/27/2025 1:40 PM EDT Lab Draw Station - [address] [phone] Hypercholesterolemia ; Primary hypertension; Prediabetes 05/20/2025 10:45 AM EDT Office Visit Internal Medicine [address] [phone] Marcela Sloan PA Primary hypertension (Primary Dx); Left carotid stenosis 05/18/2025 Telephone Internal Medicine [address] [phone] Marcela Sloan PA 05/17/2025 Telephone [facility] Emergency [address] [place] [phone] Dhiraj Ferrell MD 05/16/2025 7:56 AM EDT - 05/16/2025 11:27 AM EDT Emergency [facility] Emergency [address] [place] [address] Dhiraj Ferrell MD Fall, initial encounter (Primary Dx); Closed head injury, initial encounter; Sciatica, unspecified laterality; Hyponatremia; Stenosis of left carotid artery Discharge Disposition: Home or Self Care 05/07/2025 Telephone Internal Medicine - [place] [address] [facility] [address] [place] [address] Marcela Sloan PA from Last 3 Months Immunizations Immunization Administration Dates Next Due Influenza trivalent, 0.5mL (Fluad) 65yo and olde r 05/04/2019 Influenza trivalent, with pr eservative (Fluzone; Afluria) 6mo and older 04/17/2018 [place] [place] SARS-CoV-2 COVID-19, mRNA, LNP-S, preservative free 09/14/2020,08/19/2020 [...] 9:00 AM EST Consult Vascular Surgery - [place] [address] [place] [address] Manoj Drummond MD [address] [place] [phone] Health Maintenance Due Date Last Done [...] LAB CHEMISTRY METHOD 05/27/2025 6:50 PM EDT [facility] Microalb, Ur 8.8 0.0 - 29.0 mg/L LAB CHEMISTRY METHOD 05/27/2025 6:50 PM EDT [facility] Microalb/Creat Ratio 8 <30 mg/g creat LAB CHEMISTRY METHOD 05/27/2025 6:50 PM EDT [facility] Urine Urine specimen obtained by clean catch procedure / Unknown Non-blood Collection / Unknown 05/27/2025 1:39 PM EDT 05/27/2025 1:39 PM EDT us Marcela STARR LAB URINE ORDERABLES Fin al Result Performing Organization Address [facility]/ZIP Co de Phone Number [facility] [address] [place] [address], [place] [phone] * Thyroid stimulating hormone with reflex to free t4 and free t3 (05/27/2025 1:36 PM EDT) Pathologist [facility] TSH 0.55 0.40 - 4.00 mcIU/mL LAB CHEMISTRY METHOD 05/27/2025 7:00 PM EDT [facility] Blood Venous blood specimen / Unknown Venipuncture / Unknown 05/27/2025 1:36 PM EDT 05/27/2025 1:37 PM EDT us Marcela STARR LAB BLOOD ORDERABLES Fin al Result Performing Organization Address [facility] de Phone Number [facility] [address] [place] [address], [place] [phone] * (ABNORMAL) Lipid panel with reflex to direct LDL (05/27/2025 1:36 PM EDT) Cholesterol 214(H) 0 - 200 mg/dL LAB CHEMISTRY METHOD 05/27/2025 6:32 PM EDT [facility] Triglycerides 50 0 - 150 mg/dL LAB CHEMISTRY METHOD 05/27/2025 6:32 PM EDT [facility] HDL 87 >=40 mg/dL LAB CHEMISTRY METHOD 05/27/2025 6:32 PM EDT [facility] LDL Calculated 117(H) 0 - 100 mg/dL LAB CHEMISTRY METHOD 05/27/2025 6:32 PM EDT [facility] Comment:Estimated LDL Calcul ated using equation: Total cholesterol - HDL cholesterol - (Triglycerides/5) VLDL Cholesterol Alberto 10 mg/dL LAB CHEMISTRY METHOD 05/27/2025 6:32 PM EDT [facility] Non HDL Chol. (LDL+VLDL) 127 <145 mg/dL LAB CHEMISTRY METHOD 05/27/2025 6:32 PM EDT [facility] Chol/HDL Ratio 2.5 0.0 - 4.4 LAB CHEMISTRY METHOD 05/27/2025 6:32 PM EDT [facility] Blood Venous blood specimen / Unknown Venipuncture / Unknown 05/27/2025 1:36 PM EDT 05/27/2025 1:37 PM EDT Marcela STARR LAB BLOOD ORDERABLES Fin al Result [facility] [address] [place] [address], [place] [phone] * CBC auto differential (05/27/2025 1:36 PM EDT) Only the most recent of2 resultswithin the time period is included. WBC 8.8 4.8 - 10.8 K/mcL LAB HEMETOLOGY METHOD 05/27/2025 6:12 PM EDT [facility] RBC 4.00 3.80 - 4.80 M/mcL LAB HEMETOLOGY METHOD 05/27/2025 6:12 PM EDT [facility] Hemoglobin 12.2 11.5 - 16.0 g/dL LAB HEMETOLOGY METHOD 05/27/2025 6:12 PM EDT [facility] Hematocrit 37.9 35.0 - 47.0 % LAB HEMETOLOGY METHOD 05/27/2025 6:12 PM EDT [facility] MCV 93.8 79.0 - 98.0 FL LAB HEMETOLOGY METHOD 05/27/2025 6:12 PM EDT [facility] MCH 30.2 27.0 - 32.0 pcg LAB HEMETOLOGY METHOD 05/27/2025 6:12 PM EDT [facility] MCHC 32.2 32.0 - 37.0 g/dL LAB HEMETOLOGY METHOD 05/27/2025 6:12 PM EDT [facility] RDW 13.5 11.0 - 15.0 % LAB HEMETOLOGY METHOD 05/27/2025 6:12 PM EDT [facility] Platelets 314 130 - 400 K/mcL LAB HEMETOLOGY METHOD 05/27/2025 6:12 PM EDT [facility] MPV 9.1 7.0 - 11.0 FL LAB HEMETOLOGY METHOD 05/27/2025 6:12 PM EDT [facility] NRBC 0.0 <1.0 % LAB HEMETOLOGY METHOD 05/27/2025 6:12 PM EDT [facility] NRBC Absolute 0.00 <0.10 K/mcL LAB HEMETOLOGY METHOD 05/27/2025 6:12 PM EDT [facility] Neutrophils Relative 64.3 % LAB HEMETOLOGY METHOD 05/27/2025 6:12 PM EDT [facility] Lymphocytes Relative 25.8 % LAB HEMETOLOGY METHOD 05/27[facility]2025 6:[facility] Monocytes Relative 7.2 % LAB HEMETOLOGY METHOD 05/27/2025 6:12 PM EDT [facility] Eosinophils Relative 1.9 % LAB HEMETOLOGY METHOD 05/27/2025 6:12 PM EDT [facility] Basophils Relative 0.6 % LAB HEMETOLOGY METHOD 05/27/2025 6:12 PM EDT [facility] Immature Granulocytes Relative 0.2 % LAB HEMETOLOGY METHOD 05/27/2025 6:12 PM EDT [facility] Neutrophils Absolute 5.67 1.50 - 7.00 K/mcL LAB HEMETOLOGY METHOD 05/27/2025 6:12 PM EDT [facility] Lymphocytes Absolute 2.27 1.00 - 5.00 K/mcL LAB HEMETOLOGY METHOD 05/27/2025 6:12 PM EDT [facility] Monocytes Absolute 0.63 0.20 - 1.00 K/mcL LAB HEMETOLOGY METHOD 05/27/2025 6:12 PM EDT [facility] Eosinophils Absolute 0.17 0.00 - 0.50 K/[facility] LAB HEMETOLOGY METHOD 05/27/2025 6:12 PM EDT [facility] Basophils Absolute 0.05 0.00 - 0.20 K/[facility] LAB HEMETOLOGY METHOD 05/27/2025 6:12 PM EDT [facility] Immature Granulocytes Absolute 0.02 0.00 - 0.03 K/[facility] LAB HEMETOLOGY METHOD 05/27/2025 6:12 PM EDT [facility] Blood Venous blood specimen / Unknown Venipuncture / Unknown 05/27/2025 1:36 PM EDT 05/27/2025 1:37 PM EDT Marcela STARR LAB BLOOD ORDERABLES Fin al Result [facility] [address] [place] [address], * Magnesium (05/27/2025 1:36 PM EDT) Only the most recent of2 resultswithin the time period is included. Magnesium 2.0 1.9 - 2.6 mg/dL LAB CHEMISTRY METHOD 05/27/2025 6:29 PM EDT [facility] Blood Venous blood specimen / Unknown Venipuncture / Unknown 05/27/2025 1:36 PM EDT 05/27/2025 1:37 PM EDT Marcela STARR LAB BLOOD ORDERABLES Fin al Result Performing Organization Address City/[facility]/ZIP Co de Phone Number [facility] [address] [place] [address], [place] [phone] * Hemoglobin A1c (05/27/2025 1:36 PM EDT) Hemoglobin A1C 5.7 <6.5 % LAB CHEMISTRY METHOD 05/27/2025 8:14 PM EDT [facility] Mean Bld Glu Estim. 117 mg/dL LAB CHEMISTRY METHOD 05/27/2025 8:14 PM EDT [facility] Blood Venous blood specimen / Unknown Venipuncture / Unknown 05/27/2025 1:36 PM EDT 05/27/2025 1:37 PM EDT Marcela STARR LAB BLOOD ORDERABLES Fin al Result Performing Organization Address [facility]/ZIP Co de Phone Number [facility] [address] [place] [address], [place] [phone] * (ABNORMAL) Comprehensive metabolic panel (05/27/2025 1:36 PM EDT) Only the most recent of2 resultswithin the time period is included. Pathologist [facility] Sodium 135 133 - 145 mmol/L LAB CHEMISTRY METHOD 05/27/2025 6:32 PM EDT [facility] Potassium 3.9 3.5 - 5.5 mmol/L LAB CHEMISTRY METHOD 05/27/2025 6:32 PM EDT [facility] Chloride 100 96 - 110 mmol/L LAB CHEMISTRY METHOD 05/27/2025 6:32 PM EDT [facility] CO2 28 21 - 32 mmol/L LAB CHEMISTRY METHOD 05/27/2025 6:32 PM EDT [facility] Anion Gap 7 3 - 11 LAB CHEMISTRY METHOD 05/27/2025 6:32 PM [facility] Glucose 92 70 - 100 mg/dL LAB CHEMISTRY METHOD 05/27/2025 6:32 PM [facility] BUN 20 5 - 25 mg/dL LAB CHEMISTRY METHOD 05/27/2025 6:32 PM [facility] Creatinine 1.04 0.50 - 1.10 mg/dL LAB CHEMISTRY METHOD 05/27/2025 6:32 PM [facility] eGFR 56(L) >=60 mL/min/1. 73m2 LAB CHEMISTRY METHOD 05/27/2025 6:32 PM [facility] Comment:Calculation based on the Chronic Kidney Disease Epidemiology Collaboration (CKD-EPI) equation refit without adjustment for race. BUN/Creatinine Ratio 19.2 LAB CHEMISTRY METHOD 05/27/2025 6:32 PM [facility] Calcium 8.5 8.5 - 10.5 mg/dL LAB CHEMISTRY METHOD 05/27/2025 6:32 PM [facility] AST (SGOT) 19 10 - 42 unit/L LAB CHEMISTRY METHOD 05/27/2025 6:32 PM [facility] ALT (SGPT) 25 10 - 60 unit/L LAB CHEMISTRY METHOD 05/27/2025 6:32 PM [facility] Alkaline Phosphatase 71 42 - 121 unit/L LAB CHEMISTRY METHOD 05/27/2025 6:32 PM [facility] Total Protein 6.6 6.0 - 8.0 g/dL LAB CHEMISTRY METHOD 05/27/2025 6:32 PM [facility] Albumin 3.6 3.2 - 5.0 g/dL LAB CHEMISTRY METHOD 05/27/2025 6:32 PM [facility] Total Bilirubin 0.6 0.0 - 1.4 mg/dL LAB CHEMISTRY METHOD 05/27/2025 6:32 PM [facility] Blood Venous blood specimen / Unknown Venipuncture / Unknown 05/27/2025 1:36 PM EDT 05/27/2025 1:37 PM EDT Marcela STARR LAB BLOOD ORDERABLES Fin al Result Performing Organization Address City/[facility]/ZIP Co de Phone Number REKHA [facility] ([facility] [address] [place] [address], * ECG-Annotated (05/17/2025) Provider Onbase MD ECG ORDERABLES Final Result * 12-Lead ECG (05/16/2025 8:54 AM EDT) Ventricular Rate ECG 74 BPM GEMUSE Atrial Rate 74 BPM GEMUSE P-R Interval 196 ms GEMUSE QRS Duration 82 ms GEMUSE Q-T Interval 406 ms GEMUSE QTc 450 ms GEMUSE P Wave [place] 55 degrees GEMUSE R [place] 27 degrees GEMUSE T [place] 48 degrees GEMUSE ECG Interpretation Normal sinus rhythm Normal ECG When compared with ECG of 23-FEB-2024 20:38, No significant change was found Confirmed by MD Manuel, [place] ([id number]) on 05/17/2025 11:42:46 AM GEMUSE 05/16/2025 8:54 [...] the office of DHIRAJ FERRELL in the [employer] system on 05/16/2025 8:41 AM, Message ID [id number]. -------- FINAL REPORT -------- Dictated By: Sammy Moseley Dictated Date: 05/16/2025 08:39 ET Assigned Physician: Sammy Moseley Reviewed and Electronically Signed By: Sammy Moseley Signed Date: 05/16/2025 08:42 ET Workstation ID: [id number] Transcribed By: Self Edit Transcribed Date: 05/16/2025 [...] soft tissues are normal. Procedure Note Sammy Msoeley MD - 05/16/2025 PROCEDURE: Noncontrast head CT. [...] for the office ofDHIRAJ FERRELL in the [employer] system on05/16/2025 8:41 AM, Message ID [id number]. -------- FINAL REPORT -------- Dictated By: Sammy Moseley Dictated Date: 05/16/2025 08:39 ET Assigned Physician: Sammy Moseley Reviewed and Electronically Signed By: Sammy Moseley Signed Date: 05/16/2025 08:42 ET Workstation ID: [id number] Transcribed By: Self Edit Transcribed Date: 05/16/2025 08:39 ET us Dhiraj Ferrell MD IMG CT [...] Signed Date: 05/16/2025 09:02 ET Workstation ID: [id number] Transcribed By: Self Edit Transcribed Date: 05/16/2025 08:48 ET Narrative 05/16/2025 9:02 AM EDT PROCEDURE: CT angiogram of the neck and [place] and delayed postcontrast CT of the brain. HISTORY: ANEURYSM, HEAD NECK concern for SAH. COMPARISON: Same-day head CT. TECHNIQUE: CT angiogram of the neck and [place] with multiplanar reformats. Delayed postcontrast [...] stenosis or occlusion. The basilar artery and satellite dish installer are widely patent. Small caliber left larger [...] PROCEDURE: CT angiogram of the neck and [place] and delayedpostcontrast CT of the brain. HISTORY: ANEURYSM, HEAD NECK concern for SAH. COMPARISON: Same-day head CT. TECHNIQUE: CT angiogram of the neck and [place] with multiplanarreformats. Delayed postcontrast images [...] vertebral stenosis orocclusion. The basilar artery and [place] are widely patent. Small caliber left larger [...] Signed Date: 05/16/2025 09:02 ET Workstation ID: [id number] Transcribed By: Self Edit Transcribed Date: 05/16/2025 08:48 ET Dhiraj Ferrell MD IMG CT PROCEDURES Final Res ult * Troponin I High Sensitivity (05/16/2025 8:26 AM EDT) High Sensitivity Troponin I 8 <=54 ng/L LAB CHEMISTRY METHOD 05/16/2025 9:37 AM EDT [facility] Blood Venous blood specimen / Unknown Venipuncture / Unknown 05/16/2025 8:26 AM EDT 05/16/2025 8:53 AM EDT Narrative [facility] - 05/16/2025 9:37 AM EDT High levels of biotin in samples may falsely decrease hsTroponin values. Use caution when interpreting hsTroponin results in patients taking biotin who exhibit renal impairment (eGFR <60) or in patients taking more than 20 mg/day of biotin. Dhiraj Ferrell MD LAB BLOOD ORDERABLES Final Result [facility] [address] [place] [address], * External Mammogram Report (12/31/2024) Anatomical Region Laterality Modality Mammography Provider [facility] IMG BI PROCEDURES Final Result from Last 3 Months or Most Recently Relevant to Health Maintenance Insurance [facility]ICARE [facility] Care Teams Weigher And Mixer Relationship Specialty Start Date End Date Marcela Sloan PA [address] [address] PCP - General Primary Care 05/20/25
--- OUTSIDE RECORDS SUMMARY | 2025-07-09 07:17 | XMS_ITS | Encounter Summary ---
Author Organization [facility] Address [address] [place] [address] Care Team Providers Care Bank Vault Attendant Name Role Phone Marcela Sloan Primary Care Provider + Encounter Details Date Type Department Care Team (Late st Contact Info) Description 05/30/2024 Lab Requisition [facility] - Main Lab 299 [facility] [place] [phone] Ze Bryan MD [address] [place] [phone] Essential (primary) hypertension Social History Tobacco Use [...] 9:00 AM EST Consult Vascular Surgery - [place] [address] [place] [address] Manoj Drummond MD [address] [place] [address] documented as of this encounter Visit Diagnoses Diagnosis Essential (primary) hypertension Unspecified essential hypertension documented in this encounter Care Teams Bank Vault Attendant Relationship Specialty Start Date End Date Marcela Sloan PA [address] [place] [address] PCP - General Primary Care 05/20/25 documented as of this encounter
--- OUTSIDE RECORDS SUMMARY | 2025-07-09 07:17 | XMS_ITS | Encounter Summary ---
Author Organization [facility] Address [address] [place] [address] Care Team Providers Care Record Pressman Name Role Phone Marcela Sloan Primary Care Provider + Encounter Details Date Type Department Care Team (Late st Contact Info) Description 06/03/2024 Lab Requisition [facility] - Main Lab 299 [facility] [place] [address] Ze Bryan MD [address] [place] [phone] Unilateral primary osteoarthritis, right knee; Aftercare following [...] 9:00 AM EST Consult Vascular Surgery - [place] [address] [place] [address] Manoj Drummond MD [address] [place] [address] documented as of this encounter [...] 73m2 LAB CHEMISTRY METHOD 06/03/2024 7:40 AM [facility] Comment:Calculation based on the Chronic Kidney Disease Epidemiology Collaboration (CKD-EPI) equation refit without adjustment for race. BUN/Creatinine Ratio 28.0 LAB CHEMISTRY METHOD 06/03/2024 7:40 AM [facility] Calcium 9.0 8.5 - 10.5 mg/dL LAB CHEMISTRY METHOD 06/03/2024 7:40 AM [facility] Blood Venous blood specimen / Unknown 06/03/2024 5:15 AM EST 06/03/2024 7:09 AM EST us Ze Bryan MD LAB BLOOD ORDERABLES Final Resu lt [facility] [address] [place] [address], [place] [phone] * (ABNORMAL) Complete blood count (06/03/2024 5:15 AM EST) WBC 8.9 4.8 - 10.8 K/mcL LAB HEMETOLOGY METHOD 06/03/2024 8:13 AM [facility] RBC 2.90(L) 3.80 - 4.80 M/mcL LAB HEMETOLOGY METHOD 06/03/2024 8:13 AM [facility] Hemoglobin 8.7(L) 11.5 - 16.0 g/dL LAB HEMETOLOGY METHOD 06/03/2024 8:13 AM [facility] Hematocrit 28.4(L) 35.0 - 47.0 % LAB HEMETOLOGY METHOD 06/03/2024 8:13 AM [facility] MCV 97.3 79.0 - 98.0 FL LAB HEMETOLOGY METHOD 06/03/2024 8:13 AM [facility] MCH 29.8 27.0 - 32.0 pcg LAB HEMETOLOGY METHOD 06/03/2024 8:13 AM [facility] MCHC 30.6(L) 32.0 - 37.0 g/dL LAB HEMETOLOGY METHOD 06/03/2024 8:13 AM [facility] RDW 13.6 11.0 - 15.0 % LAB HEMETOLOGY METHOD 06/03/2024 8:13 AM [facility] Platelets 314 130 - 400 [...] Resu lt [facility] [address] [place] [address], documented in this encounter Visit Diagnoses Diagnosis Unilateral primary osteoarthritis, right knee Aftercare following joint replacement surgery documented in this encounter Care Teams Record Pressman Relationship Specialty Start Date End Date Marcela Sloan PA [address] [address] PCP - General Primary Care 05/20/25 documented as of this encounter
== END 2025-07-09 07:15 | disposition home or self-care (01) ==
LOC: HO.CT 07:14
PROVIDERS: PCP Physician Assistant; Visit Provider Physician Assistant
DX: M48.062 Spinal stenosis, lumbar region with neurogenic claudication (principal)
CPT/HCPCS: 72131

== ENCOUNTER → 2025-07-09 07:16 | Outpatient (BNV) | payer MEDICARE, OTHER, SELFPAY | PROVIDERS: PCP Physician Assistant; Visit Provider Specialist | DX: M48.062 Spinal stenosis, lumbar region with neurogenic claudication (principal) | CPT/HCPCS: 72131 ==